=== PATIENT | male | born 1945 | race Caucasian/White ===

== ENCOUNTER → 2023-01-17 10:07 | Outpatient (BNVA) | payer MEDICARE, SELFPAY | PROVIDERS: Visit Provider Podiatrist Foot & Ankle Surgery | DX: I73.9 Peripheral vascular disease, unspecified (principal); B35.1 Tinea unguium | CPT/HCPCS: 11720; 99203 ==

== ENCOUNTER → 2023-04-04 09:14 | Outpatient (BNVA) | payer MEDICARE, SELFPAY | PROVIDERS: Visit Provider Podiatrist Foot & Ankle Surgery | DX: I73.9 Peripheral vascular disease, unspecified (principal); B35.1 Tinea unguium | CPT/HCPCS: 11721 ==

== ENCOUNTER 2025-04-03 12:50 | Inpatient (IN) | payer OTHER, MEDICARE, SELFPAY ==
[2025-04-03] VITALS (9 sets, daily range): BP systolic 109–123; BP diastolic 30–88; PULSE 93–111; RESP 14–28; TEMP 36.1–36.5; O2SAT 91–100; BMI 25.1
--- NOTE | 2025-04-03 13:00 | CT_ITS ---
WS: [id number] CT HEAD NONCONTRAST HISTORY: confusion TECHNIQUE: Contiguous axial imaging performed through the brain. Bone and soft tissue windows. Sagittal and coronal reformats reviewed. All CT scans at [facility] use at least one of these dose optimization techniques: automated exposure control; mA and/or kV adjustment per patient size (includes targeted exams where dose is matched to clinical indication); or iterative reconstruction. DLP: 2193.78 mGy.cm COMPARISON: None available. No acute intracranial hemorrhage, midline shift or mass effect. Mild cerebral and cerebellar atrophy and mild small vessel disease. Ventricles: Normal size with no hydrocephalus. No inferior displacement of the cerebellar tonsils. Paranasal sinuses: As visualized are clear. Mastoid air cells: Well pneumatized. Calvarium and scalp: Skull is intact with no soft tissue edema or swelling. CT/CT head wo con* [id number] IMPRESSION: 1. No acute intracranial hemorrhage or edema. 2. Mild cerebral atrophy and cerebellar atrophy and small vessel disease.
--- NOTE | 2025-04-03 13:00 | XR_ITS ---
WS: [id number] Exam: XR chest 1V portable [id number] Date/Time of Exam: 04/03/2025 1:02 PM Reason For Exam: confusion No previous exams. Lungs are fully expanded and clear. Cardiac enlargement. The mediastinum is normal in contour. Bony structures are intact. 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 XR/XR chest 1V portable [id number] IMPRESSION: 1. Mild cardiac enlargement. No acute process noted.
--- OUTSIDE RECORDS SUMMARY | 2025-04-03 13:04 | XMS_ITS | Clinical Summary ---
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 Active carvediloL (COREG) 12.5 mg tablet Take 12.5 mg by mouth 2 times daily. 12/02/2022 Active Farxiga 10 mg Tablet Take 10 mg by mouth daily. 12/06/2022 Active ergocalciferol (VITAMIN D2) 50,000 unit capsule TAKE 1 CAPSULE BY MOUTH 2 TIMES A WEEK 12/03/2022 Active lisinopriL (PRINIVIL) 20 mg tablet Take 20 mg by mouth daily. 12/02/2022 Active tamsulosin (FLOMAX) 0.4 mg capsule Take 0.4 mg by mouth daily. 12/06/2022 Active tadalafil (CIALIS) 10 mg tablet Take 10 mg by mouth. 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 Gender Identity Not on file Sexual Orientation Not on file Last Filed Vital Signs Vital Sign Reading Time Taken Comments Blood Pressure 138/66 12/29/2022 10:40 AM CDT Pulse - - Temperature - - Respiratory Rate - - Oxygen Saturation - - Inhaled Oxygen Concentration - - Weight 93 kg (205 lb) 12/29/2022 10:40 AM CDT Height 172.7 cm (5' 8 ) 12/29/2022 10:40 AM CDT Body Mass Index 31.17 12/29/2022 10:40 AM CDT Plan of Treatment Health Maintenance Due Date Last Done Comments PNEUMOCOCCAL VACCINE 50+ YEARS (1 of 1 - PCV) 03/17/19 97 ZOSTER VACCINE (1 of 2) 1997 DTAP/TDAP/TD VACCINES (1 - Tdap) 10/11/2007 10/10/19 08 RSV VACCINE (60+ or ) (1 - 1-dose 75+ series) 2022 INFLUENZA VACCINE (#1) [address] [place] [id number]
--- NOTE | 2025-04-03 13:09 | W.ED.GENADLT ---
HPI - General Adult General: Chief complaint: General Medical Stated complaint: confusion Time Seen by Provider: 04/03/25 12:52 Source: patient Mode of arrival: ambulatory Limitations: no limitations History of Present Illness: 80-year-old male is here from retirement they state that he does have a history of Amelia seems to be more altered at night than typical. Patient here is answering my questions appropriately he knows where he lives he knows the year and his name he has no complaints at this time. No recent illness Associated symptoms: Deny chest pain, dyspnea, headache(s), nausea, rash or vomiting Related Data Home Medications ?Medication ?Instructions ?Recorded ?Confirmed acetaminophen 325 mg tablet 650 mg PO Q6H PRN pain/temp 04/03/25 04/03/25 (Tylenol) aspirin 81 mg chewable tablet 81 mg PO QAM 04/03/25 04/03/25 bisacodyl 10 mg rectal suppository 10 mg DE DAILY PRN Constipation 04/03/25 04/03/25 (Dulcolax (bisacodyl)) bumetanide 1 mg tablet 1 mg PO DAILY 04/03/25 04/03/25 carvedilol 3.125 mg tablet 3.125 mg PO BID 04/03/25 04/03/25 cyclobenzaprine 5 mg tablet 5 mg PO TID PRN Spasms 04/03/25 04/03/25 melatonin 3 mg tablet 3 mg PO BEDTIME PRN Insomnia 04/03/25 04/03/25 polyethylene glycol 3350 17 17 g PO DAILY 04/03/25 04/03/25 gram/dose oral powder (Miralax) potassium chloride 20 mEq 20 meq PO DAILY 04/03/25 04/03/25 tablet,extended release(part/cryst) sennosides 8.6 mg tablet (senna) 17.2 mg PO BID 04/03/25 04/03/25 tamsulosin 0.4 mg capsule 0.4 mg PO DAILY 04/03/25 04/03/25 Allergies Allergy/AdvReac Type Severity Reaction Status Date / Time codeine Allergy rash Verified 04/04/23 09:24 Penicillins Allergy rash Verified 04/04/23 09:24 Review of Systems Const: Denies: fever(s), chills, body aches or change in appetite Eyes: Denies: blurry vision or eye discomfort ENMT: Denies: throat pain or dental pain Card: Denies: chest pain Resp: Denies: dyspnea GI: Denies: abdominal pain, nausea, vomiting or diarrhea : Denies: dysuria Musc: Denies: neck pain or back pain Skin/Breast: Denies: rash Neuro: Denies: headache(s) Physical Exam Const: COMMON NORMALS: no acute distress, patient oriented x3 and healthy appearing HENMT: COMMON NORMALS: normocephalic and atraumatic HEAD & SCALP: normocephalic and atraumatic Eye: COMMON NORMALS: conjunctivae normal CONJUNCTIVA: Yes conjunctivae normal Neck/C-Spine: COMMON NORMALS: full ROM and supple Chest: COMMONS NORMALS: normal inspection of the chest Resp: COMMON NORMALS: normal respiratory effort, No retractions, No use of accessory muscles and clear to auscultation bilaterally AUSCULTATION: clear to auscultation bilaterally Cardio: COMMON NORMALS: regular rate, regular rhythm and No murmurs present (Cardio) RATE: regular rate RHYTHM: regular rhythm GI: COMMON NORMALS: Normal to inspection, nondistended, normoactive bowel sounds present, Soft to palpation, non-tender and no masses PALPATION: Yes Soft to palpation Extremity: COMMON NORMALS: normal to inspection and full ROM Neuro: COMMON NORMALS: patient oriented x3, moves all extremities and no focal motor deficits MOTOR EXAM: 5/5 motor strength present throughout Psych: COMMON NORMALS: mental status grossly normal, Normal thought process present and cooperative THOUGHT PROCESS: Normal thought process present Skin: COMMON NORMALS: no rashes or lesions noted and no wounds GENERAL SKIN EXAM: no rashes or lesions noted Course Vital Signs: Vital signs: Vital Signs Temperature 97.0 F L 04/03/25 12:52 Pulse Rate 102 H 04/03/25 16:05 Respiratory Rate 28 H 04/03/25 16:05 Blood Pressure 122/79 04/03/25 16:05 Pulse Oximetry 91 04/03/25 16:05 Oxygen Delivery Me thod Room Air 04/03/25 16:05 MDM - General Adult Medical Decision Making Patient presents here with confusion he has been answering most my questions here appropriately he does have acute kidney injury elevated BUN likely from dehydration. Spoke to hospitalist will admit at this time. Medical Records I reviewed the patient's medical records. Lab Data I reviewed the patient's lab results. 04/03/25 14:04 04/03/25 14:04 Radiology Impressions Chest X-Ray 04/03/25 13:00 IMPRESSION: 1. Mild cardiac enlargement. No acute process noted. Head CT 04/03/25 13:00 IMPRESSION: 1. No acute intracranial hemorrhage or edema. 2. Mild cerebral atrophy and cerebellar atrophy and small vessel disease. Laboratory Results WBC 8.27 10^3/uL (3.29-11.43) 04/03/25 14:04 RBC 3.91 10^6/uL (3.85-5.65) 04/03/25 14:04 Hgb 12.10 g/dL (11.27-16.99) 04/03/25 14:04 Hct 37.5 % (37-53) 04/03/25 14:04 MCV 95.9 fl (82-101) 04/03/25 14:04 MCH 30.9 pg (27-33) 04/03/25 14:04 MCHC 32.3 g/dL (30-55) 04/03/25 14:04 RDW 12.9 % (12.1-15.1) 04/03/25 14:04 Plt Count 303 10^3/cmm (157-399) 04/03/25 14:04 MPV 10.4 fL (7.4-10.4) 04/03/25 14:04 Neut % (Auto) 75.2 % 04/03/25 14:04 Lymph % (Auto) 17.3 % 04/03/25 14:04 [place] % (Auto) 5.8 % 04/03/25 14:04 Eos % (Auto) 1.1 % 04/03/25 14:04 Baso % (Auto) 0.5 % 04/03/25 14:04 Neut # (Auto) 6.22 10^3/uL (1.8-7.7) 04/03/25 14:04 Lymph # (Auto) 1.4 10^3/uL (0.8-4.8) 04/03/25 14:04 [place] # (Auto) 0.5 10^3/uL (0.2-0.9) 04/03/25 14:04 Eos # (Auto) 0.1 10^3/uL (0.0-0.8) 04/03/25 14:04 Baso # (Auto) 0.0 10^3/uL (0.0-0.1) 04/03/25 14:04 Nucleated RBC % (auto) 0.2 % 04/03/25 14:04 Nucleated RBCs # 0.0 /100WBC 04/03/25 14:04 Specimen Type Arterial 04/03/25 15:58 Sample Site Brachial, left 04/03/25 15:58 ABG pH 7.46 (7.35-7.45) H 04/03/25 15:58 ABG pCO2 19.8 mmHg (35-45) L* 04/03/25 15:58 ABG pO2 103.0 mmHg (80.0-100.0) H 04/03/25 15:58 ABG PO2/FiO2 Ratio 490 04/03/25 15:58 ABG HCO3 14.0 mmol/L (22-26) L 04/03/25 15:58 ABG Base Excess -7.8 mmol/L (-2.0-2.0) L 04/03/25 15:58 Bi Test Pos 04/03/25 15:58 Hematocrit 36.2 % (42-52) L 04/03/25 15:58 O2 Delivery Device Room air 04/03/25 15:58 FiO2 21.0 % 04/03/25 15:58 Printer Repair Technician ID [place] 04/03/25 15:58 Sodium 140 mmol/L (136-145) 04/03/25 14:04 Potassium 5.5 mmol/L (3.5-5.1) H 04/03/25 14:04 Chloride 107 mmol/L (98-107) 04/03/25 14:04 Carbon Dioxide 14 mmol/L (22-29) L 04/03/25 14:04 Anion Gap 24.5 (5-19) H 04/03/25 14:04 BUN 89 mg/dL (8-23) H* 04/03/25 14:04 Creatinine 2.5 mg/dL (0.7-1.2) H 04/03/25 14:04 GFR Calculation Not Reportable 04/03/25 14:04 Glucose 136 mg/dL (65-115) H 04/03/25 14:04 POC Glucose 136 mg/dL (70-110) H 04/03/25 15:46 Calculated Osmolality 319 mOsm/kg (285-295) H 04/03/25 14:04 Lactic Acid 2.1 mmol/L (0.5-2.2) 04/03/25 14:04 Calcium 8.9 mg/dL (8.5-10.5) 04/03/25 14:04 Total Bilirubin 0.6 mg/dL (0.15-1.2) 04/03/25 14:04 AST 126 U/L (0-40) H 04/03/25 14:04 ALT 175 U/L (0-41) H 04/03/25 14:04 Alkaline Phosphatase 199 U/L (40-130) H 04/03/25 14:04 Troponin T Baseline 140 ng/L (0-15) H* 04/03/25 14:04 Total Protein 6.5 g/dL (6.6-8.7) L 04/03/25 14:04 Albumin 3.3 g/dL (3.5-5.2) L 04/03/25 14:04 Globulin 3.2 g/dL (1.3-4.6) 04/03/25 14:04 Procalcitonin 0.17 ng/mL (0-0.5) 04/03/25 14:04 Urine Color Yellow (Yellow) 04/03/25 13:30 Urine Appearance Clear (CLEAR) 04/03/25 13:30 Urine pH 5.0 (5-7) 04/03/25 13:30 Ur Specific [place] 1.018 (1.005-1.030) 04/03/25 13:30 Urine Protein 2+ (Negative) A 04/03/25 13:30 Urine Glucose (UA) Trace (Normal) H 04/03/25 13:30 Urine Ketones Negative (Negative) 04/03/25 13:30 Urine Blood Negative (Negative) 04/03/25 13:30 Urine Nitrate Negative (Negative) 04/03/25 13:30 Urine Bilirubin Negative (Negative) 04/03/25 13:30 Urine Urobilinogen 1.0 mg/dL (Negative) 04/03/25 13:30 Ur Leukocyte Esterase Negative (Negative) 04/03/25 13:30 Urine RBC 0-2 /hpf (0-2) 04/03/25 13:30 Urine WBC 0-5 /hpf (0-5) 04/03/25 13:30 Ur Squamous Epith Cells 0-5 /hpf (0-5) 04/03/25 13:30 Amorphous Sediment Not Reportable 04/03/25 13:30 Urine Bacteria None seen /hpf (NONE) 04/03/25 13:30 Hyaline Casts 10.73 /lpf 04/03/25 13:30 All radiology interpretation(s) finalized by discharge EKG Data EKG 1: I personally reviewed and interpreted this EKG as follows: EKG interpretation date: 04/03/25 EKG interpretation time: 13:58 Computer generated interpretation: Chest X-Ray 04/03/25 13:00 IMPRESSION: 1. Mild cardiac enlargement. No acute process noted. Head CT 04/03/25 13:00 IMPRESSION: 1. No acute intracranial hemorrhage or edema. 2. Mild cerebral atrophy and cerebellar atrophy and small vessel disease. 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
--- NOTE | 2025-04-03 13:58 | ECG_ITS ---
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 Measurements Intervals [place] Rate: 100 P: 0 [place]: 0 QRS: -76 QRSD: 134 T: 83 QT: 373 QTc: 483 Interpretive Statements ATRIAL FIBRILLATION WITH RAPID VENTRICULAR RESPONSE WITH ABERRANT CONDUCTION OR VENTRICULAR PREMATURE COMPLEXES LEFT AXIS DEVIATION [QRS AXIS < -30] INTRAVENTRICULAR CONDUCTION DELAY [130+ ms QRS DURATION] No previous ECG available for comparison Electronically Signed On 04-11-2025 09:27:58 CDT by Tigre Peña M.D. [id number]
[2025-04-03 13:59] LABS: Glucose Urine UA Trace (Normal); Nitrate Urine Negative (Negative); Specific Gravity, Urine 1.018 (1.005-1.030)
[2025-04-03 14:01] LABS: Add Urine Microscopic? YES
[2025-04-03 14:02] LABS: UA Slide Review UA Slide Review Perf
[2025-04-03 14:09] LABS: Hematocrit 37.5 % (37-53); Hemoglobin 12.10 g/dL (11.27-16.99); Mean Corpuscular HGB Conc 32.3 g/dL (30-55); Mean Corpuscular Hemoglobin 30.9 pg (27-33); Mean Corpuscular Volume 95.9 fl (82-101); Nucleated Red Blood Cells % 0.2 %; Platelet Count 303 10^3/cmm (157-399); Red Blood Count 3.91 10^6/uL (3.85-5.65); White Blood Count 8.27 10^3/uL (3.29-11.43)
[2025-04-03 14:34] LABS: Alanine Aminotransferase 175 U/L (0-41); Albumin Level 3.3 g/dL (3.5-5.2); Alkaline Phosphatase 199 U/L (40-130); Anion Gap 24.5 (5-19); Aspartate Amino Transferase 126 U/L (0-40); Calcium 8.9 mg/dL (8.5-10.5); Carbon Dioxide 14 mmol/L (22-29); Chloride 107 mmol/L (98-107); Creatinine Clr Calc Pharmacy 24.6976; Globulin 3.2 g/dL (1.3-4.6); Glucose 136 mg/dL (65-115); Osmolality Calculated 319 mOsm/kg (285-295); Potassium 5.5 mmol/L (3.5-5.1); Sodium 140 mmol/L (136-145); Total Protein 6.5 g/dL (6.6-8.7)
[2025-04-03 14:37] LABS: Blood Urea Nitrogen 89 mg/dL (8-23)
--- NOTE | 2025-04-03 15:24 | CTR_ITS ---
PROCEDURE INFORMATION: Exam: CT Chest Without Contrast; Diagnostic Exam date and time: 04/03/2025 4:24 PM Age: 80 years old Clinical indication: Abdominal pain; Generalized; On breathing; Additional info: Uremia, encephalopathy, TECHNIQUE: Imaging protocol: Diagnostic computed tomography of the chest without contrast. Radiation optimization: All CT scans at this facility use at least one of these dose optimization techniques: automated exposure control; mA and/or kV adjustment per patient size (includes targeted exams where dose is matched to clinical indication); or iterative reconstruction. COMPARISON: CR XR chest 1V portable [id number] 04/03/2025 1:01 PM RADIATION DOSE METRICS: Total DLP (mGy-cm): 754.08 FINDINGS: Lungs: Mild bilateral lower lobe atelectasis particularly along the pleural effusions. Mild interlobular septal thickening seen at the lung apices. Pleural spaces: Moderate bilateral pleural effusions layer posteriorly. Heart: Moderate cardiomegaly. Lymph nodes: Unremarkable. No enlarged lymph nodes. Vasculature: Main pulmonary artery is enlarged measuring 3.5 cm in caliber consistent with pulmonary hypertension. Bones/joints: Unremarkable. No acute fracture. Soft tissues: Unremarkable. PROCEDURE INFORMATION: Exam: CT Abdomen And Pelvis Without Contrast Exam date and time: 04/03/2025 4:24 PM Age: 80 years old Clinical indication: Abdominal pain; Generalized; On breathing; Additional info: Uremia, encephalopathy, TECHNIQUE: Imaging protocol: Computed tomography of the abdomen and pelvis without contrast. Radiation optimization: All CT scans at this facility use at least one of these dose optimization techniques: automated exposure control; mA and/or kV adjustment per patient size (includes targeted exams where dose is matched to clinical indication); or iterative reconstruction. COMPARISON: CR XR chest 1V portable [id number] 04/03/2025 1:01 PM RADIATION DOSE METRICS: Total DLP (mGy-cm): 754.08 FINDINGS: Liver: Normal. No mass. Gallbladder and biliary ducts: There is layering gallstones or gallbladder sludge. The gallbladder is not enlarged. Pancreas: Fat stranding is seen in the right upper quadrant adjacent to the main portal vein, gallbladder, and pancreatic head and also in the left mesentery. Spleen: Normal. No splenomegaly. Adrenal glands: Normal. No mass. Kidneys and ureters: Multiple cysts are seen in the right kidney, measuring up to 7.5 cm in greatest dimension. No hydronephrosis. What appear to be vascular calcifications are seen in the right renal sinus. Small left renal cyst. Stomach and bowel: Unremarkable. No obstruction. No mucosal thickening. Appendix: No evidence of appendicitis. Intraperitoneal space: Unremarkable. No free air. No significant fluid collection. Vasculature: See Pancreas finding. Lymph nodes: Unremarkable. No enlarged lymph nodes. Urinary bladder: Unremarkable as visualized. Reproductive: Unremarkable as visualized. Bones/joints: Unremarkable. No acute fracture. Soft tissues: Unremarkable. CT/[place] [id number] IMPRESSION: 1. Moderate layering pleural effusions bilaterally. Mild lower lobe atelectasis. 2. Moderate cardiomegaly with pulmonary hypertension. IMPRESSION: 1. Layering gallstones or gallbladder sludge. 2. Nonspecific fat stranding in the upper abdomen as described. Consider correlation with amylase and lipase given possibility of pancreatitis. 3. Multiple renal cysts particularly in the right kidney. COMMENTS: Consistent with the [employer]'s Incidental Findings Committee white paper (J Am Clarence Radiol 2018): Any incidental renal lesion less than 1 cm or classified as too small to characterize, or any incidental cystic renal lesion characterized as simple-appearing, is likely benign. No follow-up imaging is recommended for these lesions per consensus recommendations based on imaging criteria.
--- NOTE | 2025-04-03 15:47 | PM.HP ---
Providers/Chief Complaint Chief Complaint: confusion History of Present Illness Edward Ross is a 80 year old male with a past medical history peripheral arterial disease, bph who presents [facility] for altered mental status. Currently patient is alert to person, not to place, not to time he can answer basic yes or no questions, but is globally encephalopathic, knows his name, but does not know his birthdate, does not know where he is, I spoke to [facility] assisted and is he tells me that Edward is fairly cognitively intact, he is alert oriented x 3, he is very sharp and they tell me, he can carry conversations, he does have chronic back pain, he is a 1 person assist, he can feed himself, for the last 2 days, he has had increased episodes of confusion, especially during the night, he has had episodes of confusion, they were worried potentially could be PTSD, he has had no specific complaints except his chronic back pain for which she does not use any pain medications, no recent medication changes, no known falls, he has been eating appropriately, I was unable to get much history from Edward he denies any chest pain, no abdominal pain, no shortness of breath, GCS score is 10-12 Review of Systems General: Reports: ROS unobtainable due to mental status Const: Reports: chills; Denies: fever(s) Card: Denies: chest pain Medications/Allergies Home Medications ?Medication ?Instructions ?Recorded ?Confirmed ?Last Taken ?Type acetaminophen 325 mg tablet 650 mg PO Q6H PRN pain/temp 04/03/25 04/03/25 04/03/25 History (Tylenol) aspirin 81 mg chewable tablet 81 mg PO QAM 04/03/25 04/03/25 04/03/25 History bisacodyl 10 mg rectal suppository 10 mg RI DAILY PRN Constipation 04/03/25 04/03/25 Unknown History (Dulcolax (bisacodyl)) bumetanide 1 mg tablet 1 mg PO DAILY 04/03/25 04/03/25 04/03/25 History carvedilol 3.125 mg tablet 3.125 mg PO BID 04/03/25 04/03/25 04/03/25 History cyclobenzaprine 5 mg tablet 5 mg PO TID PRN Spasms 04/03/25 04/03/25 04/03/25 History melatonin 3 mg tablet 3 mg PO BEDTIME PRN Insomnia 04/03/25 04/03/25 04/02/25 History polyethylene glycol 3350 17 17 g PO DAILY 04/03/25 04/03/25 04/03/25 History gram/dose oral powder (Miralax) potassium chloride 20 mEq 20 meq PO DAILY 04/03/25 04/03/25 04/03/25 History tablet,extended release(part/cryst) sennosides 8.6 mg tablet (senna) 17.2 mg PO BID 04/03/25 04/03/25 04/03/25 History tamsulosin 0.4 mg capsule 0.4 mg PO DAILY 04/03/25 04/03/25 04/03/25 History Allergies Allergy/AdvReac Type Severity Reaction Status Date / Time codeine Allergy rash Verified 04/04/23 09:24 Penicillins Allergy rash Verified 04/04/23 09:24 Vitals/I&O/Wt Last Vital Signs Temp 97.0 F L 04/03/25 12:52 Pulse 108 H 04/03/25 14:25 Resp 20 H 04/03/25 14:25 BP 119/80 04/03/25 14:25 Pulse Ox 95 04/03/25 14:25 Weight last 48 hrs Weight 76.657 kg Physical Exam Const: COMMON NORMALS: no acute distress EXAM LIMITATIONS: altered mental status GENERAL APPEARANCE: ill appearing and frail appearing ORIENTATION/CONSCIOUSNESS: Yes awake, Yes oriented to person and Yes confused; not oriented to place and not oriented to time HENMT: COMMON NORMALS: normocephalic HEAD & SCALP: normocephalic Eye: COMMON NORMALS: Equal, round and reactive pupils present Neck/C-Spine: COMMON NORMALS: no JVD Resp: COMMON NORMALS: normal respiratory effort, No retractions, No use of accessory muscles and clear to auscultation bilaterally AUSCULTATION: clear to auscultation bilaterally Cardio: COMMON NORMALS: no JVD, regular rate, regular rhythm, S1 normal heart sound present and S2 normal heart sound present RATE: regular rate RHYTHM: regular rhythm HEART SOUNDS: S1 normal heart sound present and S2 normal heart sound present GI: COMMON NORMALS: Normal to inspection, nondistended, normoactive bowel sounds present, Soft to palpation and non-tender Extremity: COMMON NORMALS: no calf tenderness Neuro: OTHER: Moves bilateral upper and lower extremities, withdraws from pain, does not follow commands, diffusely encephalopathic GCS score 12 Data 04/03/25 14:04 04/03/25 14:04 A&P Assessment and plan (1) Acute encephalopathy: (2) Hyperkalemia: (3) Increased anion gap metabolic acidosis: (4) Transaminitis: (5) Uremia: (6) Acute kidney injury: Plan Acute encephalopathy -Etiology unclear - Component of uremia - Head CT no acute findings - No focal neurologic deficits, is globally encephalopathic - Ammonia levels - UA within normal limits - Chest x-ray no focal pneumonia, will order CT chest - Order inflammatory markers - Neurochecks - NIH stroke scale - Monitor mentation Increased anion gap metabolic acidosis - Check ketones - Check A1c - Lactic acid - Perhaps secondary to dehydration, acute kidney injury, IV fluids bicarb drip NSTEMI - Serial EKGs, serial troponins, telemetry monitoring - Heparin drip - Cardiac echo Acute kidney injury - Creatinine 2.5 - CT abdomen - Start bicarb drip - CPK Hyperkalemia - Calcium gluconate - Insulin, D10 - Repeat BMP this evening Uremia - Secondary to JOAO - Hemoglobin within normal limits - Monitor closely Transaminitis - Will order lipase, GGT, CT abdomen - Acute hep panel, HIV, ferritin Full code Lovenox for DVT prophylaxis PDMP PDMP Reviewed: Not Reviewed Attestations Medical Necessity Statement*: Patient requires hospitalization, inpatient, greater than 2 midnights for acute encephalopathy, increased anion gap and metabolic acidosis, JOAO, hyperkalemia, transaminitis, uremia, NSTEMI Diagnoses Acute encephalopathy G93.40 Hyperkalemia E87.5 Increased anion gap metabolic acidosis E87.29 Transaminitis R74.01 Uremia N19 Acute kidney injury N17.9
[2025-04-03] MEDS: calcium gluconate 0.1 gm/mL 10% SDV 10mL 1 GM IVP (15:58)
[2025-04-03 16:01] LABS: Lactic Sepsis W/Reflex 2.1 mmol/L (0.5-2.2)
--- NOTE | 2025-04-03 16:02 | ECG_ITS ---
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 Measurements Intervals [place] Rate: 99 P: 0 [place]: 0 QRS: 267 QRSD: 132 T: 93 QT: 396 QTc: 508 Interpretive Statements ATRIAL FIBRILLATION WITH ABERRANT CONDUCTION OR VENTRICULAR PREMATURE COMPLEXES RIGHT AXIS DEVIATION [QRS AXIS > 100] INTRAVENTRICULAR CONDUCTION DELAY [130+ ms QRS DURATION] Compared to ECG 04/03/2025 13:58:01 Right-axis deviation now present Left-axis deviation no longer present Electronically Signed On 04-11-2025 09:27:39 CDT by Tigre Peña M.D. [email or web address]
[2025-04-03 16:03] LABS: Troponin(5th) Baseline 140 ng/L (0-15)
[2025-04-03] MEDS: pantoprazole 40 mg SDV IVP (16:04)
--- NOTE | 2025-04-03 16:07 | USCV_ITS ---
Edward Ross Age: 80 Gender: M : 1945 Exam Date: 04/03/2025 18:49 Ordering Phys: Kenny Sin MD Technologist: Efraín Cerna [place] [facility] [place]: Altered mental status, nstemit, history PAD BP: 123 / 78 HR: 85 Rhythm: Atrial fibrillation Technical Quality: Adequate MEASUREMENTS (Male / Female) Normal Values 2D ECHO LV Diastolic Diameter PLAX 5.5 cm 4.2 - 5.9 / 3.9 - 5.3 cm IVS Diastolic Thickness 1.7 cm 0.6 - 1.0 / 0.6 - 0.9 cm IVS Systolic Thickness 1.8 cm LVPW Diastolic Thickness 1.2 cm 0.6 - 1.0 / 0.6 - 0.9 cm LVPW Systolic Thickness 1.5 cm LVOT Diameter 2.4 cm LV Ejection Fraction 2D Teich 10.8 % LV Ejection Fraction MOD 4C 28.0 % LV Ejection Fraction MOD 2C 25.1 % LV Ejection Fraction 2C AL 24.7 % LA Diameter 6.2 cm LA Sys Volume AL 132.3 cm cubed LA Sys Volume Index AL 68.6 cm cubed/m squared Aorta at Sinotubular Diameter 3.0 cm IVC Diameter 2.8 cm M-MODE LA Ao Ratio MM 2.2 AV Cusp Separation MM 2.3 cm DOPPLER AV Peak Velocity 64.0 cm/s LVOT Peak Velocity 31.0 cm/s AV Area Cont Eq vti 2.2 cm squared AV Area Cont Eq pk 2.2 cm squared MV Peak Velocity 108.0 cm/s MV Area PHT 2.6 cm squared Mitral E to A Ratio 0.0 TV Peak Velocity 267.0 cm/s TR Peak Velocity 312.0 cm/s TR Peak Gradient 38.9 mmHg TV Peak E Velocity 61.0 cm/s PV Peak Velocity 64.0 cm/s FINDINGS Left Ventricle Left ventricle is dilated. LV systolic function is severely reduced with EF of 20-25%. Severe global hypokinesis. Moderate left ventricular hypertrophy. Right Ventricle Moderate to severe hypokinesis Right Atrium Dilated Left Atrium Dilated Mitral Valve Structurally normal mitral valve. Mild mitral regurgitation Aortic Valve Aortic valve is thickened. Mild to moderate aortic regurgitation. No significant stenosis Tricuspid Valve Mild tricuspid regurgitation. RVSP is 35-40 mmHg. This is consistent with moderate pulmonary hypertension Pulmonic Valve Moderate pulmonic regurgitation. Pericardium Pleural effusion seen Aorta Normal in size IVC Appears to be dilated CONCLUSIONS Left ventricle is dilated. LV systolic function is severely reduced with EF of 20-25%. Moderate left ventricular hypertrophy. Biatrial enlargement. Mild mitral regurgitation. Mild to moderate aortic regurgitation Mild tricuspid regurgitation Moderate pulmonary hypertension Moderate pulmonic regurgitation Pleural effusion seen IVC is dilated No comparison studies are seen. Tigre Peña MD (Electronically Signed) Final Date: 04 April 2025 12:31 S
[2025-04-03 16:11] LABS: Procalcitonin 0.17 ng/mL (0-0.5)
[2025-04-03 16:11] LABS: ABG PCO2 19.8 mmHg (35-45); ABG PH Result 7.46 (7.35-7.45); Arterial Blood Gas Hematocrit 36.2 % (42-52); Blood Gas Allen Test Pos; Blood Gas Operator Identificat MONRO; Blood Gas Sample Site Brachial, left; Blood Gas Sample Type Arterial; HCO3 ABG 14.0 mmol/L (22-26); PO2 ABG 103.0 mmHg (80.0-100.0); PO2 FiO2 Ratio Arterial Blood 490
[2025-04-03 16:24] LABS: Lipase 27 U/L (13-60)
[2025-04-03 16:34] LABS: Ketone (Acetest) Serum Negative (Negative)
[2025-04-03 16:36] LABS: Troponin 5 2HR Delta -12.6 ABS# (0-10)
[2025-04-03 16:37] LABS: Troponin 5 2HR 127.4 ng/L (0-15)
[2025-04-03] MEDS: insulin regular-human 100 units/1 mL 10 UNIT IVP (16:38)
[2025-04-03 16:45] LABS: NT Pro B Type Natriuretic Pept > 70000 pg/mL (0-450)
[2025-04-03 16:45] LABS: Ammonia 46 umol/L (16-60)
[2025-04-03 16:56] LABS: Thyroid Stimulating Hormone 1.38 uIU/mL (0.27-4.20)
[2025-04-03 17:09] LABS: Estmated Average Glucose 134; Hemoglobin A1C 6.3 % (4.0-6.0)
[2025-04-03 17:17] LABS: Reflex Lactate Order REFLEX LACTIC ORDERD
--- NOTE | 2025-04-03 17:20 | ECG_ITS ---
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 Measurements Intervals [place] Rate: 100 P: 0 NC: 0 QRS: -76 QRSD: 130 T: 111 QT: 374 QTc: 483 Interpretive Statements ATRIAL FIBRILLATION WITH RAPID VENTRICULAR RESPONSE WITH ABERRANT CONDUCTION OR VENTRICULAR PREMATURE COMPLEXES LEFT AXIS DEVIATION [QRS AXIS < -30] MODERATE INTRAVENTRICULAR CONDUCTION DELAY [110+ ms QRS DURATION] MINIMAL ST DEPRESSION [0.025+ mV ST DEPRESSION] ABNORMAL QRS-T ANGLE [QRS-T AXIS DIFFERENCE > 60] Compared to ECG 04/03/2025 16:02:20 Left-axis deviation now present ST (T wave) deviation now present Right-axis deviation no longer present Electronically Signed On 04-11-2025 09:44:55 CDT by Tigre Peña M.D. [email or web address] [id number]
[2025-04-03] MEDS: heparin drip 25,000 UNIT/500 ML PREMIX 32.2 UNIT IV (17:37)
[2025-04-03] MEDS: heparin 5,000 unit/mL INJ 1 mL IVP (17:37)
[2025-04-03 17:50] LABS: Lactic Acid level (Lactate) 2.5 mmol/L (0.5-2.2)
[2025-04-03 20:30] LABS: Troponin 5 6HR Delta -11.9 ng/L (0-12)
[2025-04-03 20:32] LABS: Troponin 5 6HR 128.1 ng/L (0-15)
--- NOTE | 2025-04-03 21:31 | ECG_ITS ---
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 Measurements Intervals [place] Rate: 102 P: 0 DC: 0 QRS: 265 QRSD: 130 T: 91 QT: 396 QTc: 518 Interpretive Statements ATRIAL FIBRILLATION WITH RAPID VENTRICULAR RESPONSE RIGHT AXIS DEVIATION [QRS AXIS > 100] MODERATE INTRAVENTRICULAR CONDUCTION DELAY [110+ ms QRS DURATION] Compared to ECG 04/03/2025 17:32:02 Right-axis deviation now present Ventricular premature complex(es) no longer present Aberrant conduction of supraventricular beat(s) no longer present Left-axis deviation no longer present ST (T wave) deviation no longer present Electronically Signed On 04-11-2025 09:44:49 CDT by Tigre Peña M.D. [id number] [id number]
[2025-04-03 22:09] LABS: Anion Gap 22.8 (5-19); Calcium 8.6 mg/dL (8.5-10.5); Carbon Dioxide 15 mmol/L (22-29); Chloride 106 mmol/L (98-107); Creatinine Clr Calc Pharmacy 24.6976; Glucose 90 mg/dL (65-115); Osmolality Calculated 313 mOsm/kg (285-295); Potassium 4.8 mmol/L (3.5-5.1); Sodium 139 mmol/L (136-145)
[2025-04-03 22:11] LABS: Blood Urea Nitrogen 85 mg/dL (8-23)
[2025-04-04] VITALS (47 sets, daily range): BP systolic 84–138; BP diastolic 66–83; PULSE 67–127; RESP 3–41; TEMP 36.3–36.5; O2SAT 88–100
[2025-04-04 00:01] LABS: Partial Thromboplastin Time 125.9 SECONDS (23.9-36.7)
--- NOTE | 2025-04-04 00:07 | PC.NURSE ---
Notified Dr. Tapia that patient has been having hallucinations and that mentation has been waxing and weaning. Received orders to start zyprexa 2.5 mg PO at bedtime.
[2025-04-04] MEDS: pantoprazole 40 mg SDV IVP ×2 (05:22→16:57)
[2025-04-04 06:46] LABS: Hematocrit 35.8 % (37-53); Hemoglobin 11.40 g/dL (11.27-16.99); Mean Corpuscular HGB Conc 31.8 g/dL (30-55); Mean Corpuscular Hemoglobin 30.9 pg (27-33); Mean Corpuscular Volume 97.0 fl (82-101); Nucleated Red Blood Cells % 0.3 %; Platelet Count 274 10^3/cmm (157-399); Red Blood Count 3.69 10^6/uL (3.85-5.65); White Blood Count 5.81 10^3/uL (3.29-11.43)
[2025-04-04 07:04] LABS: Alanine Aminotransferase 166 U/L (0-41); Albumin Level 2.8 g/dL (3.5-5.2); Alkaline Phosphatase 201 U/L (40-130); Anion Gap 23.4 (5-19); Aspartate Amino Transferase 84 U/L (0-40); Calcium 8.4 mg/dL (8.5-10.5); Carbon Dioxide 14 mmol/L (22-29); Chloride 105 mmol/L (98-107); Creatinine Clr Calc Pharmacy 27.4299; Globulin 2.9 g/dL (1.3-4.6); Glucose 81 mg/dL (65-115); Magnesium 1.9 mg/dL (1.7-2.3); Osmolality Calculated 309 mOsm/kg (285-295); Potassium 4.4 mmol/L (3.5-5.1); Sodium 138 mmol/L (136-145); Total Protein 5.7 g/dL (6.6-8.7)
[2025-04-04 07:38] LABS: Blood Urea Nitrogen 81 mg/dL (8-23); Partial Thromboplastin Time > 250.0 SECONDS (23.9-36.7)
[2025-04-04] MEDS: cefTRIAXone 1,000 mg SDV 1000 MG IVP (08:33)
[2025-04-04] MEDS: AZITHROMYCIN ADD-Vantage 500 MG in 0.9% NaCl ADD-Vantage 250 ML 250 MG IV (08:34)
[2025-04-04 09:44] LABS: ABG PH Result 7.44 (7.35-7.45); Alveolar-Arterial Oxygen Gradi 6.3 mmHg (5-10); Arterial Blood Gas Hematocrit 37.9 % (42-52); Blood Gas Allen Test Pos; Blood Gas LPM 2.0 %; Blood Gas Operator Identificat GD; Blood Gas Sample Site Radial, right; Blood Gas Sample Type Arterial; Carboxyhemoglobin 1.7 %THgb (0.4-20.1); Glucose Level-ABG 161.0 mg/dL (70-115); HCO3 ABG 11.7 mmol/L (22-26); Ionized Calcium Level - ABG 1.1 mmol/L (1.1-1.4); Methemoglobin 1.5 % (0.4-1.5); Oxygen Saturation ABG 99.0; PO2 ABG 127.0 mmHg (80.0-100.0); PO2 FiO2 Ratio Arterial Blood 453; Potassium Level - ABG 5.0 mmol/L (3.5-5.0); Sodium Level - ABG 135.0 mmol/L (131-143)
[2025-04-04] MEDS: FUROsemide 10 mg/mL SDV 4mL 40 MG IVP (09:49)
--- NOTE | 2025-04-04 10:01 | US_ITS ---
WS: [id number] RENAL ULTRASOUND HISTORY: jackie COMPARISON: CT 04/03/2025 TECHNIQUE: 2-D and color Doppler imaging of the kidney submitted. Right kidney: 10.3 cm x 4.9 cm x 4.9 cm. Cortex: 1.1 cm Normal sized kidneys with numerous cysts. Largest cyst from the lower pole measures 6.3 x 5.4 x 7.0 cm. No obstruction. Mild cortical thinning and increased echogenicity. Left kidney: 9.0 cm x 5.2 cm x 4.9 cm. Cortex: 1.0 cm Low normal size kidney. Mild diffuse cortical thinning. No obstruction. Aorta: Not visualized. Urinary Bladder: Sullivan catheter present. US/US renal BI* [id number] IMPRESSION: 1. No renal obstruction. 2. Numerous RIGHT renal cysts. The largest measures 6.3 x 5.4 x 7.0 cm. 3. Mild bilateral diffuse cortical thinning. 4. Mild chronic medical renal disease.
--- NOTE | 2025-04-04 10:19 | XR_ITS ---
WS: [id number] Exam: XR chest 1V portable [id number] Date/Time of Exam: 04/04/2025 11:05 AM Reason For Exam: Post PICC insertion Comparison 04/03/2025. A right-sided PICC line has been placed and ends in the lower one third of the SVC in good position. The lungs are fully expanded and clear. Cardiac enlargement unchanged. No pleural effusions. Unremarkable bony structures. XR/XR chest 1V portable [id number] IMPRESSION: 1. Right-sided PICC line ending in the lower one third of the SVC. 2. Cardiac enlargement unchanged.
[2025-04-04 10:25] LABS: ABG PCO2 17.1 mmHg (35-45)
--- NOTE | 2025-04-04 10:31 | PM.CONSULT ---
Providers/Reason For Consult Consulting Physician/Specialty*: minerva fontenot md/ telenephrology Reason for Consult*: JOAO Requesting Physician: Kenny Sin MD Attending Physician: Kenny Sin MD History of Present Illness History of Present Illness Edward Ross is a 80 year old male admitted yesterday with altered mental status. The patient was also found to have acute kidney injury. The patient was given fluids. This morning the patient developed hypoxemia requires BiPAP and renal was called to see the patient. The patient was started on ceftriaxone and azithromycin. Per chart the [facility] is a [facility] has peripheral arterial disease and BPH. The patient also has known foot issues for which she saw a dip unit operator 3 years ago. Review of Systems Narrative: Unable to ascertain due to poor mental status. Medications/Allergies Home Medications ?Medication ?Instructions ?Recorded ?Confirmed ?Last Taken ?Type acetaminophen 325 mg tablet 650 mg PO Q6H PRN pain/temp 04/03/25 04/03/25 04/03/25 History (Tylenol) aspirin 81 mg chewable tablet 81 mg PO QAM 04/03/25 04/03/25 04/03/25 History bisacodyl 10 mg rectal suppository 10 mg RI DAILY PRN Constipation 04/03/25 04/03/25 Unknown History (Dulcolax (bisacodyl)) bumetanide 1 mg tablet 1 mg PO DAILY 04/03/25 04/03/25 04/03/25 History carvedilol 3.125 mg tablet 3.125 mg PO BID 04/03/25 04/03/25 04/03/25 History cyclobenzaprine 5 mg tablet 5 mg PO TID PRN Spasms 04/03/25 04/03/25 04/03/25 History melatonin 3 mg tablet 3 mg PO BEDTIME PRN Insomnia 04/03/25 04/03/25 04/02/25 History polyethylene glycol 3350 17 17 g PO DAILY 04/03/25 04/03/25 04/03/25 History gram/dose oral powder (Miralax) potassium chloride 20 mEq 20 meq PO DAILY 04/03/25 04/03/25 04/03/25 History tablet,extended release(part/cryst) sennosides 8.6 mg tablet (senna) 17.2 mg PO BID 04/03/25 04/03/25 04/03/25 History tamsulosin 0.4 mg capsule 0.4 mg PO DAILY 04/03/25 04/03/25 04/03/25 History Allergies Allergy/AdvReac Type Severity Reaction Status Date / Time codeine Allergy rash Verified 04/04/23 09:24 Penicillins Allergy rash Verified 04/04/23 09:24 Current Medications Generic Name Dose Route Start Last Admin Trade Name Frelolis PRN Reason Stop Dose Admin Acetaminophen 650 mg 04/03/25 15:35 04/04/25 08:33 Acetaminophen 325 Mg Tablet PO 650 mg Q6H PRN Administration Mild/Mod Pain Or Temp >/= 101 Aspirin 81 mg 04/03/25 16:10 04/04/25 08:33 Aspirin 81 Mg Ec Tablet PO 81 mg DAILY GISELA Administration Ceftriaxone Sodium 1,000 mg 04/04/25 08:15 04/04/25 08:33 Ceftriaxone 1,000 Mg Sdv IVP 1,000 mg Q24H GISELA Administration Protocol Heparin Sodium/Sodium Chloride 25,000 unit in 500 mls @ 0 mls/hr 04/03/25 16:15 04/04/25 00:27 Heparin Drip IV 10.44 unit/kg/hr CONT GISELA 16 mls/hr Protocol Titration Per Protocol Amiodarone HCl/Dextrose 360 mg in 200 mls @ 0 mls/hr 04/04/25 08:10 04/04/25 09:50 Nexterone IV 1 mg/min .Q0M GISELA 33.33 mls/hr Protocol Administration Per Protocol Azithromycin 500 mg/ Sodium 250 mls @ 250 mls/hr 04/04/25 08:15 04/04/25 08:34 Chloride IV 250 mls/hr Q24H GISELA Administration Protocol Olanzapine 2.5 mg 04/04/25 00:31 04/04/25 01:34 Olanzapine 5 Mg Tablet PO 2.5 mg BEDTIME GISELA Administration Pantoprazole Sodium 40 mg 04/03/25 15:45 04/04/25 05:22 Pantoprazole 40 Mg Sdv IVP 40 mg Q12H GISELA Administration Vitals/I&O/Wt Last Vital Signs Temp 97.7 F 04/04/25 02:28 Pulse 115 H 04/04/25 09:41 Resp 18 04/04/25 06:00 BP 138/80 04/04/25 06:00 Pulse Ox 99 04/04/25 09:41 O2 Del Method Room Air 04/04/25 05:27 FiO2 30 04/04/25 09:41 04/03/25 04/04/25 04/04/25 22:59 06:59 14:59 Intake Total 250 / 250 2270.033 / 2520.033 Output Total 100 / 100 150 / 250 Balance 150 / 150 2120.033 / 2270.033 Weight last 48 hrs Weight 77.111 kg Weight 76.657 kg Physical Exam Narrative: The patient is lying in bed on BiPAP. The patient is in atrial fibrillation with heart rate well-controlled. Blood pressure is on the low side. HEENT normocephalic atraumatic. Neck is supple Lungs have dull bases and crackles. Heart irregular with systolic murmur positive S1-S2 Abdomen is soft positive bowel sounds. Extremities have 1+ edema. Neuro minimally responsive Data 04/04/25 06:36 04/04/25 06:36 Micro: Microbiology 04/03/25 15:55 Blood Culture - Preliminary Blood SPECIMEN COLLECTED 04/03/25 15:50 Blood Culture - Preliminary Blood SPECIMEN COLLECTED A&P Assessment and plan (1) Acute kidney injury: 80-year-old gentleman that [facility] has [facility] of peripheral arterial disease, BPH, A-fib. And fci the patient is on Coreg Bumex and potassium. I wonder if the patient has heart failure. The patient was admitted just with altered mental status and acute kidney injury. The patient CT scan on April 03, 2025 that revealed moderate bilateral pleural effusions layering posteriorly moderate cardiomegaly. And his kidneys showed multiple cysts in the right kidney measuring up to 7.5 cm in greatest dimension, per reading no hydronephrosis vascular calcifications. Patient renal ultrasound just done awaiting results. 1. Acute kidney injury please get old labs to know if this is acute or chronic. Urinalysis reviewed patient has a specific gravity of 1018 with 2+ protein trace glucose 0-2 RBCs negative blood. Will check a urine albumin creatinine ratio and a urine protein creatinine ratio. Salicylates and complement levels are pending. Place Sullivan. Monitor urine output. As patient is short of breath 1 can give furosemide however would ensure that there is no tamponade on echo. I did not see significant pericardial effusion on CT scan. Will may consider tapping pleural effusions. Evaluate for sepsis. 2. Acid-base abnormality: The patient is alkalemia. His pH yesterday was 7.46 this morning 7.44 patient has a significant respiratory alkalosis with a PCO2 down to 17. The patient also has a metabolic acidosis as his bicarbonate is 14, and he has an anion gap of 19. Will 1 cc an increased anion gap metabolic acidosis with a respiratory alkalosis and acute kidney injury and concern for salicylate toxicity. I will send a salicylate level. Salicylate toxicity can present with tinnitus vertigo nausea vomiting tachypnea respiratory alkalosis metabolic acidosis fevers diaphoresis confusion can be seen in noncardiogenic pulm edema with cerebral edema increasing. CT scan did not reveal cerebral edema that I can tell. However I think it would be prudent to check a level. 3. Increased ALT and alk phos. Can check an alcohol level. Can also check ethylene glycol level. proBNP greater than 70,000 agree with stopping fluids giving diuretics and consider thoracentesis. Normal TSH The patient was seen and examined using audiovisual equipment with the aid of a nurse. The patient is minimally responsive and is not able to give consent at this time. Plan Evaluation of acute kidney injury. Diurese patient evaluation for sepsis. Evaluate altered mental status PDMP PDMP Reviewed: Not Reviewed Consult Attestations Medical Necessity Statement: JOAO altered mental status severe respiratory distress Time Spent in Patient Care: Greater than 35 minutes (>than 50% of time spent in counselling and/or direct pt care on unit). Coding Level of Care Code Acute Code for [facility] Fwd Diagnoses Acute kidney injury N17.9
[2025-04-04 11:01] LABS: Uric Acid 11.0 mg/dL (3.4-7.0)
[2025-04-04 11:03] LABS: Salicylate < 0.3 mg/dL (3-10)
--- NOTE | 2025-04-04 11:08 | P.CONIM_ITS ---
<Statement entered by Tigre Peña M.D - 04/08/25 14:25> Patient was evaluated and cared for in conjunction with an advanced practice practitioner.? I personally examined the patient and reviewed the chart and all pertinent data including imaging, telemetry, and laboratory results.? I discussed the patient in detail with the advanced practice practitioner.? Please see? their note for complete H&P, testing results and agreed upon plan of care for the patient. Patient says now feeling better. GENERAL: Patient is alert HEART: Regular S1 and S2 LUNGS: Diminished air entry bilaterally CENTRAL NERVOUS SYSTEM: Grossly nonfocal EXTREMITIES: Lower extremities without edema bilaterally. Providers/Reason For Consult 2 Consulting Physician/Specialty*: Dr. Peña Reason for Consult*: CHF, NSTEMI Requesting Physician: Dr. Sin Attending Physician: Kenny Sin MD History of Present Illness History of Present Illness Edward Ross is a 80 year old male with pmh of pad, hypertension, diabetes, presented to [facility] from long term due to altered mental status and JOAO. He developed respiratory distress and was placed in the ICU on bipap. He is resting comfortably at this time. He is a poor historian. He gets confused at times. He denies any chest pain, and at this time reports improvements of his shortness of breath since being placed on bipap. Chest abdomen and pelvis CT was done that showed moderate pleural effusions bilaterally with moderate cardiomegaly with pulmonary hypertension. Probnp was greater than 70,000, troponins were elevated at 140-127.4-128.1. Patient denies any chest pain. EKG showed afib RVR. Patient was placed on amio drip. Rates are now controlled in the 80s. Currently he is on a heparin drip. He has recieved 40 of lasix IV along with 5 mg of metolazone once. Creatinine currently 2.3. Review of Systems 2 Narrative: Denies chest pain Reports shortness of breath on exertion relieved with rest Denies nausea or vomiting Denies pain No acute complaints at this time Medications/Allergies Home Medications ?Medication ?Instructions ?Recorded ?Confirmed ?Last Taken ?Type acetaminophen 325 mg tablet 650 mg PO Q6H PRN pain/tem p 04/03/25 04/03/25 04/03/25 History (Tylenol) aspirin 81 mg chewable tablet 81 mg PO QAM 04/03/2504/03/25 History bisacodyl 10 mg rectal suppository 10 mg OH DAILY PRN Constipation 04/03/25 04/03/25 Unknown History (Dulcolax (bisacodyl)) bumetanide 1 mg tablet 1 mg PO DAILY 04/03/2504/0304/03/25 History carvedilol 3.125 mg tablet 3.125 mg PO BID 04/03/2504/03/25 History cyclobenzaprine 5 mg tablet 5 mg PO TID PRN Spasms 04/03/25 04/03/25 History melatonin 3 mg tablet 3 mg PO BEDTIME PRN Insomnia 04/03/25 04/03/25 04/02/25 History polyethylene glycol 3350 17 17 g PO DAILY 04/03/2504/03/25 History gram/dose oral powder (Miralax) potassium chloride 20 mEq 20 meq PO DAILY 04/03/2504/03/25 History tablet,extended release(part/cryst) sennosides 8.6 mg tablet (senna) 17.2 mg PO BID 04/03/25 04/03/25 History tamsulosin 0.4 mg capsule 0.4 mg PO DAILY 04/03/2504/03/25 History Allergies Allergy/AdvReac Type Severity Reaction Status Date / Time codeine Allergy rash Verified 04/04/23 09:24 Penicillins Allergy rash Verified 04/04/23 09:24 Current Medications Generic Name Dose Route Start Last Admin Trade Name Smithq PRN Reason Stop Dose Admin Acetaminophen 650 mg 04/03/25 15:35 04/04/25 08:33 Acetaminophen 325 Mg Tablet PO 650 mg Q6H PRN Administration Mild/Mod Pain Or Temp >/= 101 Aspirin 81 mg 04/03/25 16:10 04/04/25 08:33 Aspirin 81 Mg Ec Tablet PO 81 mg DAILY GISELA Administration Ceftriaxone Sodium 1,000 mg 04/04/25 08:15 04/04/25 08:33 Ceftriaxone 1,000 Mg Sdv IVP 1,000 mg Q24H GISELA Administration Protocol Heparin Sodium/Sodium Chloride 25,000 unit in 500 mls @ 0 mls/hr 04/03/25 16:15 04/04/25 00:27 Heparin Drip IV 10.44 unit/kg/hr CONT GISELA 16 mls/hr Protocol Titration Per Protocol Amiodarone HCl/Dextrose 360 mg in 200 mls @ 0 mls/hr 04/04/25 08:10 04/04/25 09:50 Nexterone IV 1 mg/min .Q0M GISELA 33.33 mls/hr Protocol Administration Per Protocol Azithromycin 500 mg/ Sodium 250 mls @ 250 mls/hr 04/04/25 08:15 04/04/25 10:39 Chloride IV Infused Q24H GISELA Infusion Protocol Olanzapine 2.5 mg 04/04/25 00:31 04/04/25 01:34 Olanzapine 5 Mg Tablet PO 2.5 mg BEDTIME GISELA Administration Pantoprazole Sodium 40 mg 04/03/25 15:45 04/04/25 05:22 Pantoprazole 40 Mg Sdv IVP 40 mg Q12H GISELA Administration Vitals/I&O/Wt Last Vital Signs Temp 97.7 F 04/04/25 02:28 Pulse 82 04/04/25 10:33 Resp 18 04/04/25 06:00 BP 138/80 04/04/25 06:00 Pulse Ox 100 04/04/25 10:33 O2 Del Method Room Air 04/04/25 05:27 FiO2 28 04/04/25 10:33 04/03/25 04/04/25 04/04/25 22:59 06:59 14:59 Intake Total 250 / 250 2270.033 / 2520.033 1300 / 1300 Output Total 100 / 100 150 / 250 Balance 150 / 150 2120.033 / 2270.033 1300 / 1300 Weight last 48 hrs Weight 170 lb Weight 169 lb Physical Exam 2 Narrative: General: currently resting on bipap HENMT: normoceophalic Muskuloskeletal: Full ROM Respiratory: Normal respiratory effort, clear to auscultation bilaterally throughout all lung [place], no use of accessory muscles Cardio: No JVD, irregularly irregular rate and rhythm, S1 S2 normal, no murmurs, peripheral pulses 2+ radial palpated on the left GI: Normal to inspection, nondistended Extremities: Full ROM, normal, normal capillary refill, no cyanosis or edema Neuro: Alert to person and situation Psych: Affect normal Skin: No rashes or lesions noted, no wounds Data 04/04/25 06:36 04/04/25 06:36 Micro: Microbiology 04/03/25 15:55 Blood Culture - Preliminary Blood SPECIMEN COLLECTED 04/03/25 15:50 Blood Culture - Preliminary Blood SPECIMEN COLLECTED A&P Assessment and plan (1) Acute kidney injury: (2) NSTEMI (non-ST elevated myocardial infarction): (3) Acute encephalopathy: (4) Atrial fibrillation: (5) Heart failure: Plan At this time, patient has elevated troponin levels possibly due to demand ischemia from metabolic issues as well as afib but underlying coronary artery disease is on the differential as well. At this time he denies any chest pain. Agree with heparin drip. Agree with amio drip for rate control in afib. Continue heparin drip as well. Elevated probnp. Patient has had echo but has not been read yet. Further recommendations after that. Agree with diuresis and monitoring I&O as well as renal function carefully. Nephrology is on board as well. Thank you, Dr. Sin, for allowing us to care for this very pleasant 80 year old gentleman. PDMP PDMP Reviewed: Not Reviewed Consult Attestations 2 Medical Necessity Statement: Deferred to primary Coding Level of Care Code Acute Code for [facility] Diagnoses Acute kidney injury N17.9 NSTEMI (non-ST elevated myocardial infarction) I21.4 Acute encephalopathy G93.40 Atrial fibrillation, unspecified type I48.91 Atrial fibrillation type: unspecified Other heart failure I50.89 Heart failure type: other
[2025-04-04] MEDS: FUROsemide 10 mg/mL SDV 10mL 80 MG IVP (11:40)
--- NOTE | 2025-04-04 11:44 | PICC.NOTE ---
Triple lumen PICC placed to right basilic vein. Referred to vascular access nurse for PICC placement due to need for vasopressors. Pt lethargic at this time. Unable to reach family by phone. Urgent consent given per Dr. Sin. Right arm assessed with right basilic vein measuring 3.8 mm, straight, and apparent best choice for placement. Using sterile technique and MST, right basilic vein accessed x 1 stick. Mid-arm circumference measured 10 cm from right AC 29 cm. Trimmed cath 45 cm with 0 cm external length noted. CXR shows tip in distal third of SVC, in good position for use per radiologist. Line secured with stat-lock. Insertion site covered with Biopatch and TSM. Report given to bedside nurse, VALENTÍN, RN. Following procedure, pt more awake and alert. This nurse able to discuss risks and benefits of PICC with pt verbalizing understanding.
[2025-04-04 11:49] LABS: Ammonia 36 umol/L (16-60); Lactate (Lactic Acid level) 1.7 mmol/L (0.5-2.2)
[2025-04-04 12:23] LABS: Hepatitis B Surface Antigen Non-Reactive (Nonreactive)
[2025-04-04 12:55] LABS: Partial Thromboplastin Time 33.0 SECONDS (23.9-36.7)
[2025-04-04 13:46] LABS: Glucose Urine UA Negative (Normal); Nitrate Urine Negative (Negative); Specific Gravity, Urine 1.012 (1.005-1.030)
[2025-04-04 13:53] LABS: PCP Screen Urine Negative (Negative)
[2025-04-04 14:01] LABS: Potassium, Radom Urine 47 mmol/L; Urine Random Chloride 73 mmol/L; Urine Random Sodium 61 mmol/L
[2025-04-04 14:02] LABS: Creatinine Urine, Random 46 mg/dL (39-259); Microalbum Creatinine Ratio Ur 370 mg/dL (0-20)
[2025-04-04 14:14] LABS: UA Slide Review UA Slide Review Perf
[2025-04-04 16:09] LABS: ABG PCO2 28.3 mmHg (35-45); ABG PH Result 7.37 (7.35-7.45); Alveolar-Arterial Oxygen Gradi 9.6 mmHg (5-10); Arterial Blood Gas Hematocrit 38.4 % (42-52); Blood Gas Allen Test Pos; Blood Gas Operator Identificat GD; Blood Gas Sample Site Radial, left; Blood Gas Sample Type Arterial; Carboxyhemoglobin 1.0 %THgb (0.4-20.1); Glucose Level-ABG 127.0 mg/dL (70-115); HCO3 ABG 16.5 mmol/L (22-26); Ionized Calcium Level - ABG 1.2 mmol/L (1.1-1.4); Methemoglobin 0.8 % (0.4-1.5); Oxygen Saturation ABG 97.2; PO2 ABG 88.9 mmHg (80.0-100.0); PO2 FiO2 Ratio Arterial Blood 317; Potassium Level - ABG 4.5 mmol/L (3.5-5.0); Sodium Level - ABG 139.0 mmol/L (131-143)
--- NOTE | 2025-04-04 16:49 | PM.PN ---
Subjective Subjective: Patient was seen this morning, currently on room air, complaining of severe shortness of breath, nasal flaring, intercostal retractions, suprasternal retractions, tachypnea, tachycardia - Patient appears to be moderate respiratory failure, likely acute flash pulm edema, appears fluid overloaded, crackles in all lung [place], 1+ pitting edema, CT of the chest showing bilateral pleural effusions - Patient placed on 2 L initially, orders placed to place patient on BiPAP - Discussed with patient his respiratory failure, plans to move to ICU for acute hypoxic respiratory failure secondary to flash pulmonary edema, systolic CHF, he denies any chest pain - Patient was then emergently placed on BiPAP, seen by me he is resting more comfortably on BiPAP given 40 mg IV push Lasix -Given patient's bilateral pleural effusions, bilateral bases cannot be seen, concerns for possible pneumonia, started on Rocephin, Zithromycin -Concern for acute flash pulmonary edema, with concerns for cardiogenic shock plan to move to ICU urgently -As risk concern for cardiogenic shock, need for possibly pressors, orders placed for urgent PICC line placement, given the emergency of the situation -Patient's telemetry monitoring shows A-fib with RVR heart rates as high as the 120s, likely associate with respiratory failure placed on amiodarone drip -moved to ICU - Patient was seen in the ICU currently on BiPAP, resting more comfortably, he has received Lasix therapy, urine output has been lackluster, - Nephrology consulted due to patient's respiratory alkalosis with metabolic acidosis, JOAO, etiology could be acute flash pulm edema, cardiogenic shock, cardiorenal syndrome, discussed possible need for dialysis based on clinical progress - Patient was reexamined, urine output remains lackluster he is also received 80 mg IV Lasix with metolazone - Continues to have evidence of fluid overload, acute hypoxic respiratory failure, acute flash pulm edema placed on Lasix drip at 10 units an hour - Cardiology consulted, EF 20% - Patient reexamined, currently he is on 2 L, taken off BiPAP temporarily, has nasal flaring, suprasternal intercostal retractions, tachypnea, tachycardia, is short of breath with a few words, does desat into the low 90s - Patient tells me that he is originally from [facility] - He is moved to [facility] for the last 5 years - He has not seen a primary care or assistant to the ceo in this area for the last 5 years - He used to see a assistant to the ceo in [facility], he was told he had heart failure but he is not exactly sure how severe his heart failure was, he denies any artificial valves, denies any history of cardiac stenting - He does tell me for the last few days he has been short of breath at the assisted, short of breath with exertion - He also tells me he has a history of CKD and he used to see a scrap baler at [place], Dr. Machado he was told that there was a possibility of dialysis but it never came to fruition - He denies a history of strokes, no history of diabetes - He is not sure if he has a history of atrial fibrillation or not - Discussed that as he is still in mild to moderate respiratory distress, discussed with him to put him back on BiPAP to help with his CHF, I have increased his Lasix drip to 20 units an hour, monitor BMP every 4 hours - Discussed possibility of thoracentesis tomorrow based on clinical progress - Discussed with him his EF down to 20%, he is shocked by the number, but he is not exactly sure how his heart failure was when he was back in [place], - Discussed placing him back on BiPAP in bed, he is in agreement - We discussed his overall goals of care, - He wants to be a full code, agreeable to elective intubation if required - He is agreeable to dialysis if required Vitals/I&O/Wt Last Vital Signs Temp 97.3 F L 04/04/25 12:30 Pulse 84 04/04/25 15:33 Resp 21 H 04/04/25 14:00 BP 106/74 04/04/25 14:00 Pulse Ox 93 04/04/25 15:33 O2 Del Method Room Air 04/04/25 05:27 FiO2 28 04/04/25 15:33 04/04/25 04/04/25 04/04/25 06:59 14:59 22:59 Intake Total 2270.033 / 2520.033 1400 / 1400 200 / 1600 Output Total 150 / 250 150 / 150 Balance 2120.033 / 2270.033 1250 / 1250 200 / 1450 Weight last 48 hrs Weight 77.111 kg Weight 76.657 kg Physical Exam Const: GENERAL APPEARANCE: frail appearing ORIENTATION/CONSCIOUSNESS: Yes awake, Yes oriented to person, Yes oriented to place and Yes oriented to time Eye: COMMON NORMALS: Equal, round and reactive pupils present and EOMs intact bilaterally PUPIL: Yes Equal, round and reactive pupils present Lymph: LYMPHATIC: no lymphadenopathy noted Resp: OTHER: Tachypnea, tachycardia nasal flaring, intercostal retractions, suprasternal retractions, diffuse wheezing and crackles in all lung [place] Cardio: COMMON NORMALS: S1 normal heart sound present and S2 normal heart sound present RATE: tachycardic RHYTHM: abnormal rhythm irregularly irregular HEART SOUNDS: S1 normal heart sound present and S2 normal heart sound present GI: COMMON NORMALS: Normal to inspection, nondistended, normoactive bowel sounds present and non-tender Back/Pelvis: OTHER: 1+ edema Neuro: SENSORIUM/ORIENTATION: Yes oriented to person, Yes oriented to place and Yes oriented to time Data 04/04/25 06:36 04/04/25 06:36 Micro: Microbiology 04/03/25 15:55 Blood Culture - Preliminary Blood NEGATIVE TO DATE 04/03/25 15:50 Blood Culture - Preliminary Blood NEGATIVE TO DATE A&P Assessment and plan (1) Acute kidney injury: (2) NSTEMI (non-ST elevated myocardial infarction): (3) Acute encephalopathy: (4) Atrial fibrillation: (5) Heart failure: (6) Pulmonary edema: (7) Acute hypoxic respiratory failure: (8) Metabolic acidosis with respiratory alkalosis: (9) Cardiogenic shock: (10) Sepsis: (11) Pneumonia: (12) Shock: (13) Cardiorenal disease: (14) Systolic CHF: (15) Acute respiratory distress: (16) Bilateral pleural effusion: Plan Acute hypoxic respiratory failure - With acute respiratory distress - Systolic CHF exacerbation -Bilateral pleural effusions - Acute flash pulmonary edema - With concerns for possible pneumonia -Atrial fibrillation with rapid ventricular response Plan - Monitor in ICU closely - BiPAP as needed during the day, scheduled during the night - Low threshold for intubation - Monitor respiratory status closely - DuoNeb - Budesonide - Blood cultures - Sputum cultures - Continue Lasix drip at 20 units/hr - Monitor BMP every 4 hours -Maintain potassium greater than 4 -Potassium 20 meq p.o. every 8 hours -IV doses based on clinical progress - Monitor creatinine - Monitor urine output - Rocephin - Azithromycin Bilateral pleural effusions ct chest CT/[place] [id number] IMPRESSION: 1. Moderate layering pleural effusions bilaterally. Mild lower lobe atelectasis. 2. Moderate cardiomegaly with pulmonary hypertension. - Will consider thoracentesis based on clinical progress Systolic CHF exacerbation -Used to follow with a assistant to the ceo in [facility] CONCLUSIONS Left ventricle is dilated. LV systolic function is severely reduced with EF of 20-25%. Moderate left ventricular hypertrophy. Biatrial enlargement. Mild mitral regurgitation. Mild to moderate aortic regurgitation Mild tricuspid regurgitation Moderate pulmonary hypertension Moderate pulmonic regurgitation Pleural effusion seen IVC is dilated No comparison studies are seen. Concern for possible pneumonia, CT chest showing mild lower lobe atelectasis - IV antibiotics as above Acute kidney injury on CKD - Baseline kidney function unknown - Used to follow-up with a scrap baler in [facility], had reported CKD, with discussions of dialysis at some point - Possibly component of cardiorenal syndrome - Monitor BMP every 4 hours - Monitor creatinine, monitor electrolytes - Patient is agreeable to dialysis if required NSTEMI - No chest pain complaints - Does have shortness of breath -EF 20 to 25% Plan - Telemetry monitoring - EKGs, serial troponins, telemetry monitoring - Aspirin, statin - Heparin drip - Cardiology consulted A-fib with RVR - Amiodarone drip Transaminitis, monitor Respiratory alkalosis with increased anion gap metabolic acidosis - Could be from cardiogenic shock, cardiorenal syndrome, JOAO, respiratory failure - Will monitor Acute encephalopathy -Etiology unclear, sresolved - Component of uremia - Head CT no acute findings - No focal neurologic deficits, is globally encephalopathic - Ammonia levels WNL - UA within normal limits - CT chest possible pneumonia: Antibiotics - Order inflammatory markers - Neurochecks - NIH stroke scale - Monitor mentation Increased anion gap metabolic acidosis - Check ketones within normal limits - Check A1c 6.2 - Lactic acid within normal limits Hyperkalemia, resolved - Calcium gluconate - Insulin, D10 - Repeat BMP this evening Uremia - Secondary to JOAO - Hemoglobin within normal limits - Monitor closely Full code Heparin drip for DVT prophylaxis PDMP PDMP Reviewed: Not Reviewed Attestations Medical Necessity Statement*: Patient requires hospitalization, inpatient, greater than 2 midnights for acute hypoxic respiratory failure, acute respiratory distress, acute flash pulmonary edema, acute systolic CHF, NSTEMI, acute kidney injury, acute encephalopathy, increased anion gap metabolic acidosis with respiratory alkalosis, systolic CHF, pulm edema, bilateral pleural effusions Coding Level of Care Code Critical Care >/= 30 minutes Critical care time (in minutes): 60 The high probability of a clinically significant, sudden or life threatening deterioration, as referenced in this documentation, required my full and direct attention, intervention and personal management. The critical care time shown is in addition to time spent performing any reported separately billable procedures and includes the following: [x] Data and vital sign review and interpretation [x] Patient assessment, examination and intervention [x] Medication orders and management [x] Patient/Family updates as able [x] Care Coordination and Documentation. Diagnoses Acute kidney injury N17.9 NSTEMI (non-ST elevated myocardial infarction) I21.4 Acute encephalopathy G93.40 Atrial fibrillation, unspecified type I48.91 Atrial fibrillation type: unspecified Other heart failure I50.89 Heart failure type: other Pulmonary edema J81.1 Acute hypoxic respiratory failure J96.01 Metabolic acidosis with respiratory alkalosis E87.20; E87.3 Cardiogenic shock R57.0 Sepsis A41.9 Pneumonia J18.9 Shock R57.9 Cardiorenal disease I13.10 Systolic CHF I50.20 Acute respiratory distress R06.03 Bilateral pleural effusion J90 Sepsis Event Note Evaluation Current stage of sepsis: sepsis Reason for ruling out sepsis: Possibly sepsis but could be CHF Possible source: pulmonary Focused Exam Vital Signs Temp Pulse Resp BP Pulse Ox O2 Del Method FiO2 04/04/25 15:33 84 93 28 04/04/25 15:10 82 04/04/25 14:00 85 21 H 106/74 04/04/25 13:00 85 21 H 106/74 04/04/25 12:30 97.3 F L 78 29 H 110/68 89 L 04/04/25 12:00 85 21 H 106/74 04/04/25 12:00 86 31 H 127/83 96 04/04/25 11:40 91 97 28 04/04/25 11:30 81 26 H 116/68 97 04/04/25 11:00 78 16 97/78 100 04/04/25 10:33 82 100 28 04/04/25 10:30 100/73 94 04/04/25 10:00 98 30 H 84/66 100 04/04/25 10:00 81 26 H 116/68 04/04/25 09:41 115 H 99 30 04/04/25 09:30 127 H 41 H 109/80 99 04/04/25 09:00 112 H 27 H 109/80 99 04/04/25 08:30 118 H 20 H 109/80 99 04/04/25 08:00 108 H 24 H 109/80 98 04/04/25 08:00 81 26 H 116/68 04/04/25 07:30 96 18 109/80 98 04/04/25 07:00 91 18 138/80 99 04/04/25 06:30 89 21 H 138/80 98 04/04/25 06:00 86 10 L 138/80 97 04/04/25 06:00 105 H 18 138/80 04/04/25 05:30 115 H 21 H 138/80 98 04/04/25 05:27 105 H 18 138/80 98 Room Air Respiratory exam: Present accessory muscle use and respiratory distress Cardiovascular exam: Present tachycardia and irregularly irregular Peripheral pulse strength: 2+ Slightly Diminished Peripheral pulse location: Radial Skin exam: normal turgor Date exam was performed: 04/04/25 Time exam was performed: 17:13 Problem List (1) Acute kidney injury: Status: Acute (2) NSTEMI (non-ST elevated myocardial infarction): Status: Acute (3) Acute encephalopathy: Status: Acute (4) Atrial fibrillation: Status: Acute (5) Heart failure: Status: Acute (6) Pulmonary edema: Status: Acute (7) Acute hypoxic respiratory failure: Status: Acute (8) Metabolic acidosis with respiratory alkalosis: Status: Acute (9) Cardiogenic shock: Status: Acute (10) Sepsis: Status: Acute (11) Pneumonia: Status: Acute (12) Shock: Status: Acute (13) Cardiorenal disease: Status: Acute (14) Systolic CHF: Status: Acute (15) Acute respiratory distress: Status: Acute (16) Bilateral pleural effusion: Status: Acute
[2025-04-04 16:52] LABS: Respiratory Syncytial Virus Ce NEGATIVE (Negative); SARS-CoV-2 PCR NEGATIVE (Negative)
[2025-04-04] MEDS: morphine 4 mg/mL SDV 1 mL 1 MG IVP ×2 (17:55→22:16)
[2025-04-04] MEDS: heparin drip 25,000 UNIT/500 ML PREMIX 16 UNIT IV (17:55)
[2025-04-04 18:07] LABS: Calcium 8.5 mg/dL (8.5-10.5); Carbon Dioxide 12 mmol/L (22-29); Chloride 104 mmol/L (98-107); Creatinine Clr Calc Pharmacy 27.4299; Glucose 124 mg/dL (65-115); Osmolality Calculated 309 mOsm/kg (285-295); Sodium 135 mmol/L (136-145)
[2025-04-04 18:12] LABS: Anion Gap 23.9 (5-19); Potassium 4.9 mmol/L (3.5-5.1)
[2025-04-04 18:13] LABS: Blood Urea Nitrogen 90 mg/dL (8-23)
[2025-04-04] MEDS: FUROsemide 200 MG in sodium chloride 0.9% (100 ml) 80 ML 10 MG IV (19:36)
[2025-04-04 19:50] LABS: Calcium 8.3 mg/dL (8.5-10.5); Carbon Dioxide 10 mmol/L (22-29); Chloride 104 mmol/L (98-107); Creatinine Clr Calc Pharmacy 27.4299; Glucose 116 mg/dL (65-115); Osmolality Calculated 308 mOsm/kg (285-295); Sodium 135 mmol/L (136-145)
[2025-04-04 19:57] LABS: Anion Gap 25.9 (5-19); Potassium 4.9 mmol/L (3.5-5.1)
[2025-04-04 19:59] LABS: Blood Urea Nitrogen 89 mg/dL (8-23)
[2025-04-04 20:38] LABS: Partial Thromboplastin Time 40.6 SECONDS (23.9-36.7)
[2025-04-04] MEDS: heparin 5,000 unit/mL INJ 1 mL IVP (21:05)
[2025-04-05] VITALS (85 sets, daily range): BP systolic 89–143; BP diastolic 60–105; PULSE 58–120; RESP 0–35; TEMP 35.8–36.5; O2SAT 90–100
[2025-04-05 01:21] LABS: Anion Gap 20.9 (5-19); Calcium 8.8 mg/dL (8.5-10.5); Carbon Dioxide 18 mmol/L (22-29); Chloride 105 mmol/L (98-107); Creatinine Clr Calc Pharmacy 23.3662; Glucose 120 mg/dL (65-115); Osmolality Calculated 316 mOsm/kg (285-295); Potassium 4.9 mmol/L (3.5-5.1); Sodium 139 mmol/L (136-145)
[2025-04-05 01:26] LABS: Blood Urea Nitrogen 87 mg/dL (8-23)
[2025-04-05 03:56] LABS: Hematocrit 36.8 % (37-53); Hemoglobin 12.00 g/dL (11.27-16.99); Mean Corpuscular HGB Conc 32.6 g/dL (30-55); Mean Corpuscular Hemoglobin 31.5 pg (27-33); Mean Corpuscular Volume 96.6 fl (82-101); Nucleated Red Blood Cells % 0.4 %; Platelet Count 296 10^3/cmm (157-399); Red Blood Count 3.81 10^6/uL (3.85-5.65); White Blood Count 7.87 10^3/uL (3.29-11.43)
[2025-04-05 04:12] LABS: Partial Thromboplastin Time 97.6 SECONDS (23.9-36.7)
[2025-04-05] MEDS: FUROsemide 200 MG in sodium chloride 0.9% (100 ml) 80 ML 10 MG IV (04:17)
[2025-04-05] MEDS: pantoprazole 40 mg SDV IVP ×2 (04:19→15:45)
[2025-04-05 04:26] LABS: Procalcitonin 0.17 ng/mL (0-0.5)
[2025-04-05 05:17] LABS: Ammonia 48 umol/L (16-60)
[2025-04-05 05:28] LABS: Alanine Aminotransferase 345 U/L (0-41); Albumin Level 2.8 g/dL (3.5-5.2); Alkaline Phosphatase 242 U/L (40-130); Calcium 8.6 mg/dL (8.5-10.5); Carbon Dioxide 17 mmol/L (22-29); Chloride 105 mmol/L (98-107); Creatinine Clr Calc Pharmacy 24.2649; Ferritin 296 ng/mL (30-400); Globulin 3.0 g/dL (1.3-4.6); Glucose 113 mg/dL (65-115); Iron 35 ug/dL (59-158); Magnesium 2.0 mg/dL (1.7-2.3); Osmolality Calculated 317 mOsm/kg (285-295); Sodium 139 mmol/L (136-145); Total Protein 5.8 g/dL (6.6-8.7)
[2025-04-05 05:29] LABS: Anion Gap 22.3 (5-19); Potassium 5.3 mmol/L (3.5-5.1)
[2025-04-05 05:30] LABS: Aspartate Amino Transferase 263 U/L (0-40); Total Iron Binding Capacity 237 mcg/dl; Unsaturated Iron Binding 202 ug/dL (112-347)
[2025-04-05 05:31] LABS: Blood Urea Nitrogen 92 mg/dL (8-23)
[2025-04-05 06:34] LABS: PROTEIN, TOTAL 5.2 g/dL (6.1-8.1)
--- NOTE | 2025-04-05 07:00 | XRR_ITS ---
PROCEDURE INFORMATION: Exam: XR Chest Exam date and time: 04/05/2025 5:18 AM Age: 80 years old Clinical indication: Shortness of breath; Additional info: SOB TECHNIQUE: Imaging protocol: Radiologic exam of the chest. Views: 1 view. COMPARISON: CR XR chest 1V portable [id number] 04/04/2025 10:57 AM FINDINGS: Tubes, catheters and devices: Right PICC line terminates in SVC. Lungs: Bibasilar pulmonary infiltrates. Pleural spaces: Unremarkable. No pleural effusion. No pneumothorax. Heart/Mediastinum: See Vasculature finding. Vasculature: Borderline cardiomegaly and uncoiling the thoracic aorta accentuated by the AP positioning. Bones/joints: Unremarkable. XR/XR chest 1V portable [id number] IMPRESSION: No significant change.
--- NOTE | 2025-04-05 07:05 | P.PN_ITS ---
Subjective 2 Subjective: The patient seen and examined. The patient is awake alert he tells me that he has known heart failure and kidney disease. He gets chronic shortness of breath dyspnea exertion has leg edema. Medications: Reviewed: Yes Medication Review Details: Current Medications Acetaminophen (Acetaminophen 325 Mg Tablet) 650 mg PO Q6H PRN PRN Reason: Mild/Mod Pain Or Temp >/= 101 Last Admin: 04/04/25 16:57 Dose: 650 mg Albuterol/Ipratropium (Ipratropium-Albuterol 3 Ml Neb) 3 ml INHALATION Q4H PRN PRN Reason: SHORTNESS OF BREATH Aspirin (Aspirin 81 Mg Ec Tablet) 81 mg PO DAILY GISELA Last Admin: 04/04/25 08:33 Dose: 81 mg Ceftriaxone Sodium (Ceftriaxone 1,000 Mg Sdv) 1,000 mg IVP Q24H GISELA; Protocol Last Admin: 04/04/25 08:33 Dose: 1,000 mg Heparin Sodium (Porcine) (Heparin 5,000 Unit/Ml Inj 1 Ml) 0 unit IVP PRN PRN; Protocol PRN Reason: Heparin Weight Based Protocol -Subsequent Bolus Last Admin: 04/04/25 21:05 Dose: 3,000 unit Heparin Sodium/Sodium Chloride (Heparin Drip) 25,000 unit in 500 mls @ 0 mls/hr IV CONT GISELA; Protocol Last Titration: 04/05/25 04:29 Dose: 9.13 unit/kg/hr, 14 mls/hr Amiodarone HCl/Dextrose (Nexterone) 360 mg in 200 mls @ 0 mls/hr IV .Q0M GISELA; Protocol Last Admin: 04/05/25 04:35 Dose: 0.5 mg/min, 16.67 mls/hr Azithromycin 500 mg/ Sodium (Chloride) 250 mls @ 250 mls/hr IV Q24H GISELA; Protocol Last Infusion: 04/04/25 10:39 Dose: Infused Norepinephrine Bitartrate (Levophed) 4 mg in 250 mls @ 0 mls/hr IV .Q0M GISELA; Protocol Furosemide 200 mg/ Sodium (Chloride) 100 mls @ 5 mls/hr IV .Q20H GISELA Last Infusion: 04/05/25 07:05 Dose: 10 mg/hr, 5 mls/hr Morphine Sulfate (Morphine 4 Mg/Ml Sdv 1 Ml) 1 mg IVP Q4H PRN PRN Reason: SEVERE PAIN Last Admin: 04/04/25 22:16 Dose: 1 mg Naloxone HCl (Naloxone 0.4 Mg/Ml Sdv) 0.1 mg IVP Q2M PRN PRN Reason: OPIATERV Olanzapine (Olanzapine 5 Mg Tablet) 2.5 mg PO BEDTIME [facility] Last Admin: 04/04/25 21:05 Dose: 2.5 mg Ondansetron HCl (Ondansetron 2 Mg/Ml Sdv 2 Ml) 4 mg IVP Q8H PRN PRN Reason: vomiting, or N/V if npo Pantoprazole Sodium (Pantoprazole 40 Mg Sdv) 40 mg IVP Q12H [facility] Last Admin: 04/05/25 04:19 Dose: 40 mg Potassium Chloride (Potassium Chloride Er 20 Meq Tablet) 20 meq PO Q8H GISELA Last Admin: 04/05/25 01:16 Dose: 20 meq Vitals/I&O/Wt Last Vital Signs Temp 97.3 F L 04/05/25 05:00 Pulse 83 04/05/25 05:00 Resp 23 H 04/05/25 05:00 BP 117/67 04/05/25 05:00 Pulse Ox 90 04/05/25 05:00 O2 Del Method Nasal Cannula 04/05/25 05:00 O2 Flow Rate 2 04/05/25 05:00 FiO2 28 04/04/25 21:18 04/04/25 04/05/25 04/05/25 22:59 06:59 14:59 Intake Total 680.134 / 2080.134 440.6 / 2520.734 Output Total 600 / 750 1125 / 1875 Balance 80.134 / 1330.134 -684.4 / 645.734 Weight last 48 hrs Weight 78.154 kg Weight 77.111 kg Weight 76.657 kg Physical Exam 2 Narrative: The patient is lying in bed, comfortable using nasal cannula oxygen. Vital signs noted. The patient is in atrial fibrillation with heart rate well- controlled. Blood pressure is on the low side. HEENT normocephalic atraumatic. Neck is supple Lungs have dull bases and crackles. Heart irregular with systolic murmur positive S1-S2 Abdomen is soft positive bowel sounds. Extremities have 1+ edema. Neuro the patient is awake and alert oriented x 2+ moves extremities. Urinary Catheter Management: Sullivan: Cath Placed During This Visit: no Reason for Continuing Indwelling Catheter: Accurate Measurement of Urinary Output in Critically Ill Patients Data 04/05/25 03:06 04/05/25 04:27 Micro: Microbiology 04/03/25 15:55 Blood Culture - Preliminary Blood NEGATIVE TO DATE 04/03/25 15:50 Blood Culture - Preliminary Blood NEGATIVE TO DATE A&P Assessment and plan (1) Acute kidney injury: 80-year-old gentleman that per chart from her snf has history of peripheral arterial disease, BPH, A-fib. And snf the patient is on Coreg Bumex and potassium. I wonder if the patient has heart failure. The patient was admitted just with altered mental status and acute kidney injury. The patient CT scan on April 03, 2025 that revealed moderate bilateral pleural effusions layering posteriorly moderate cardiomegaly. And his kidneys showed multiple cysts in the right kidney measuring up to 7.5 cm in greatest dimension, per reading no hydronephrosis vascular calcifications. Patient renal ultrasound just done awaiting results. 1. Acute kidney injury please get old labs. The patient states that he has chronic kidney disease. Renal ultrasound shows right kidney 10.3 cm with numerous cysts. The largest cyst is 6.3 x 5.4 x 7 cm with mild cortical thinning and increased echogenicity. Left kidney 9 cm is mild diffuse cortical thinning no obstruction. Renal ultrasound is consistent with CKD. Urinalysis reviewed Urinalysis 1+ protein, urine protein creatinine ratio of 2 8/46. Urine microalbumin creatinine ratio 370. UPEP is pending The patient responded to furosemide 20. Will decrease to 10. Patient's potassium is 5.3 with slight hemolysis. Will monitor Normal complements. I am concerned for cardiorenal syndrome. Continue diuresis and monitor. 2. Acid-base abnormality: Latest ABG from yesterday had a pH of 7.37 with a PCO2 of 28 the patient has a metabolic acidosis with an anion gap of 17. Likely from renal failure. I am awaiting salicylate level. 3. Echocardiogram reveals severely reduced EF of 20 to 25% with global hypokinesis moderate LV hypertrophy. 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 Patient has elevated RVSP of 35-40. Patient has moderate pulmonary hypertension. Patient has moderate pulmonic regurgitation. Increased ALT and alk phos. the patient denies alcohol use. proBNP greater than 70,000 agree with stopping fluids giving diuretics and consider thoracentesis. Normal TSH Pneumonia treated with antibiotics. The patient was seen and examined using audiovisual equipment with the aid of a nurse. The patient consented to telehealth. Plan Evaluation of acute kidney injury. Diurese patient . Evaluate altered mental status PDMP PDMP Reviewed: Not Reviewed Attestations 2 Medical Necessity Statement*: Acute kidney injury on chronic kidney disease heart failure reduced EF and diastolic dysfunction. Shortness of breath, pneumonia Time Spent in Patient Care: Greater than 35 minutes (>than 50% of time spent in counselling and/or direct pt care on unit) . Coding Level of Care Code Acute Code for [facility] Fwd Diagnoses Acute kidney injury N17.9
[2025-04-05 07:09] LABS: Anti-Double Strand DNA AB <1 IU/mL
--- NOTE | 2025-04-05 07:44 | US_ITS ---
WS: [id number] INDICATION: Pleural effusion TECHNIQUE: Ultrasound chest FINDINGS: Ultrasound chest. Only very small pleural effusions visualized. Insufficient fluid for safe thoracentesis. US/US chest [id number] IMPRESSION: See above
--- NOTE | 2025-04-05 07:50 | PC.NURSE ---
BUN Patient's BUN critical at 92. Dr. Tapia notified; urine output, lasix drip, ordering provider and BUN/Driving [employer] In[employer] trends discussed. Order received to discuss results with child and family services specialist. Nephrology service contacted with no success; message left with service. Dr. Cornejo contacted unit at around 0715 and same details discussed. Order received to decrease lasix drip to 10 mg/hr.
[2025-04-05] MEDS: AZITHROMYCIN ADD-Vantage 500 MG in 0.9% NaCl ADD-Vantage 250 ML 250 MG IV (09:16)
[2025-04-05] MEDS: cefTRIAXone 1,000 mg SDV 1000 MG IVP (09:17)
--- NOTE | 2025-04-05 10:01 | PC.SOCIAL ---
IMM Updated Provided pt a copy. Initialed, dated, & timed a copy & placed in chart.
[2025-04-05 10:03] LABS: Calcium 8.7 mg/dL (8.5-10.5)
--- NOTE | 2025-04-05 10:15 | PC.NURSE ---
Pt calling out 'help me'. Upon entering room pt states he cannot breath. O2 sats 100% on 2lpm/NC. Resp. rate elevated at 39. BP WNL. Lungs clear with bases diminished. Encouraged pt to use pursed lip breathing ( breath in through your nose and blow out of your mouth) He stated he was and told this nurse to be quiet. Requested the HOB to be lowered, this nurse stated that would not help his breathing, repeated use purse lip breathing. Notified Dr Sin of pt's tachypnea and anxiety level, VS and lung sounds. Noew order for Xanax given and entered by physician
--- NOTE | 2025-04-05 10:27 | P.PN_ITS ---
<Statement entered by Tigre Peña M.D - 04/15/25 09:50> Patient was cared for in conjunction with an advanced practice practitioner.? I reviewed the chart and all pertinent data including imaging, telemetry, and laboratory results.? I discussed the patient in detail with the advanced practice practitioner.? Please see?their note for progress note, testing results and agreed upon plan of care for the patient. Subjective 2 Subjective: Patient is doing ok today. Denies chest pain or shortness of breath. Currently on O2 2L nasal cannula with O2 sat of 100%. No acute distress. Appears well compensated. Creatinine 2.6, which is close to baseline. EF is 20-25% seen on echo. BP stable. HR is controlled. Currently on lasix drip and amiodarone drip. Vitals/I&O/Wt Last Vital Signs Temp 97.3 F L 04/05/25 05:00 Pulse 81 04/05/25 08:53 Resp 17 04/05/25 08:53 BP 118/89 04/05/25 07:00 Pulse Ox 100 04/05/25 08:53 O2 Del Method Nasal Cannula 04/05/25 08:53 O2 Flow Rate 2 04/05/25 08:53 FiO2 28 04/04/25 21:18 04/04/25 04/05/25 04/05/25 22:59 06:59 14:59 Intake Total 680.134 / 2080.134 440.6 / 2520.734 498 / 498 Output Total 600 / 750 1125 / 1875 255 / 255 Balance 80.134 / 1330.134 -684.4 / 645.734 243 / 243 Weight last 48 hrs Weight 172 lb 4.8 oz Weight 170 lb Weight 169 lb Physical Exam 2 Narrative: General: currently resting on bipap HENMT: normoceophalic Muskuloskeletal: Full ROM Respiratory: Normal respiratory effort, clear to auscultation bilaterally throughout all lung [place], no use of accessory muscles Cardio: No JVD, irregularly irregular rate and rhythm, S1 S2 normal, no murmurs, peripheral pulses 2+ radial palpated on the left GI: Normal to inspection, nondistended Extremities: Full ROM, normal, normal capillary refill, no cyanosis or edema Neuro: Alert to person and situation Psych: Affect normal Skin: No rashes or lesions noted, no wounds Urinary Catheter Management: Sullivan: Cath Placed During This Visit: no Reason for Continuing Indwelling Catheter: Accurate Measurement of Urinary Output in Critically Ill Patients Data 04/05/25 03:06 04/05/25 04:27 Micro: Microbiology 04/03/25 15:55 Blood Culture - Preliminary Blood NEGATIVE TO DATE 04/03/25 15:50 Blood Culture - Preliminary Blood NEGATIVE TO DATE A&P Assessment and plan (1) Acute kidney injury: (2) NSTEMI (non-ST elevated myocardial infarction): (3) Acute encephalopathy: (4) Atrial fibrillation: (5) Heart failure: Plan Echo showed EF low at 20-25%. Currently [place] [id number] over 24 hours. Has been on amio drip for 24 hours. Rates are well controlled. Will transition to oral amio 200 BID and closely watch lfts. Continue heparin drip x48 hours. Once patient is euvolemic, will recommend proceeding with angiogram and possible PCI. PDMP PDMP Reviewed: Not Reviewed Attestations 2 Medical Necessity Statement*: Deferred to primary. Coding Level of Care Code Acute Code for [facility] Diagnoses Acute kidney injury N17.9 NSTEMI (non-ST elevated myocardial infarction) I21.4 Acute encephalopathy G93.40 Atrial fibrillation, unspecified type I48.91 Atrial fibrillation type: unspecified Other heart failure I50.89 Heart failure type: other
[2025-04-05] MEDS: etomidate 20 ML 10 MG (10:45)
[2025-04-05] MEDS: succinylcholine 20 mg/mL SDV 10mL 200 MG (10:45)
--- NOTE | 2025-04-05 10:50 | PC.NURSE ---
Addendum entered by Nora Berger RN 04/05/25 20:21: Lasix and Amiodarone gtts stopped. Levophed and Dobutamine gtts started. Heparin paused during code. Fentanyl and Versed gtts started for sedation. Original Note: CDE BLUE: Pt went unresponsive and PEA noted. ACLS protocol started. Pt intubated. ROSC achieved after 7 min. See Cardiopulmonary arrest flow sheet. ( 2 EPI and 2 Bicarb admin during code)
[2025-04-05 10:57] LABS: ABG PCO2 32.5 mmHg (35-45); ABG PH Result 7.26 (7.35-7.45); Arterial Blood Gas Hematocrit 38.2 % (42-52); Blood Gas Allen Test Pos; Blood Gas LPM 15.0 %; Blood Gas Operator Identificat WALCI; Blood Gas Sample Site Radial, left; Blood Gas Sample Type Arterial; Carboxyhemoglobin 0.8 %THgb (0.4-20.1); Glucose Level-ABG 227.0 mg/dL (70-115); HCO3 ABG 14.4 mmol/L (22-26); Ionized Calcium Level - ABG 1.4 mmol/L (1.1-1.4); Methemoglobin 0.9 % (0.4-1.5); Oxygen Saturation ABG 98.3; PO2 ABG 124.0 mmHg (80.0-100.0); Potassium Level - ABG 5.2 mmol/L (3.5-5.0); Sodium Level - ABG 143.0 mmol/L (131-143)
--- NOTE | 2025-04-05 10:59 | XR_ITS ---
WS: [id number] Exam: XR chest 1V portable [id number] Date/Time of Exam: 04/05/2025 11:00 AM Reason For Exam: ET tube placement Comparison 04/05/2025. At 5:20 a.m. ET tube is in place in satisfactory position ending about 6 cm above the jefferson. Right-sided PICC line ends in the lower one third of the SVC. There is new relatively extensive RIGHT perihilar infiltrate. LEFT lung remains clear. Heart size is stable. An enteric tube extends below the diaphragm but the tip is not visible. No pneumothorax. Bony structures are intact. IMPRESSION1. ET tube and right-sided PICC line both in satisfactory position. An enteric tube extends below the diaphragm but the tip is not visible. 2. New relatively extensive RIGHT perihilar infiltrate since the last exam at 5:20 a.m. on the same day.
--- NOTE | 2025-04-05 11:00 | W.ED.GENADLT ---
HPI - General Adult General: Chief complaint: General Medical Stated complaint: confusion Time Seen by Provider: 04/03/25 12:52 Source: patient Mode of arrival: ambulatory Limitations: no limitations History of Present Illness: I was called to code. Patient required intubation. Dr. Sin ran the code. Related Data Home Medications ?Medication ?Instructions ?Recorded ?Confirmed acetaminophen 325 mg tablet 650 mg PO Q6H PRN pain/temp 04/03/25 04/03/25 (Tylenol) aspirin 81 mg chewable tablet 81 mg PO QAM 04/03/25 04/03/25 bisacodyl 10 mg rectal suppository 10 mg NJ DAILY PRN Constipation 04/03/25 04/03/25 (Dulcolax (bisacodyl)) bumetanide 1 mg tablet 1 mg PO DAILY 04/03/25 04/03/25 carvedilol 3.125 mg tablet 3.125 mg PO BID 04/03/25 04/03/25 cyclobenzaprine 5 mg tablet 5 mg PO TID PRN Spasms 04/03/25 04/03/25 melatonin 3 mg tablet 3 mg PO BEDTIME PRN Insomnia 04/03/25 04/03/25 polyethylene glycol 3350 17 17 g PO DAILY 04/03/25 04/03/25 gram/dose oral powder (Miralax) potassium chloride 20 mEq 20 meq PO DAILY 04/03/25 04/03/25 tablet,extended release(part/cryst) sennosides 8.6 mg tablet (senna) 17.2 mg PO BID 04/03/25 04/03/25 tamsulosin 0.4 mg capsule 0.4 mg PO DAILY 04/03/25 04/03/25 Allergies Allergy/AdvReac Type Severity Reaction Status Date / Time codeine Allergy rash Verified 04/04/23 09:24 Penicillins Allergy rash Verified 04/04/23 09:24 Review of Systems General: Reports: ROS unobtainable due to medical condition [facility] ED PFSH: Medical History (Updated 04/04/25 @ 17:04 by Kenny Sin MD) History of chronic kidney disease Physical Exam Narrative: EXAM NARRATIVE: General: ill appearing, Skin: pale Head: Normocephalic, atraumatic. Neck: trachea midline. Eye: pupils fixed and dilated Ears, nose, mouth and throat: Copious secretions Cardiovascular: No palpable pulse. Respiratory: Occasional agonal breaths Gastrointestinal: Non distended Musculoskeletal: no deformity. Neurological: non responsive. Psychiatric: unable to evaluate. Course Vital Signs: Vital signs: Vital Signs Temperature 97.3 F L 04/05/25 05:00 Pulse Rate 81 04/05/25 08:53 Respiratory Rate 17 04/05/25 08:53 Blood Pressure 118/89 04/05/25 07:00 Pulse Oximetry 100 04/05/25 08:53 Oxygen Delivery Me thod Nasal Cannula 04/05/25 08:53 Oxygen Flow Rate 2 04/05/25 08:53 Fraction of Inspir ed Oxygen 28 04/04/25 21:18 MDM - General Adult Medical Decision Making Endotracheal intubation Time: 10:45 AM Confirmed: Patient, procedure, and site correct. Consent: , Emergent. Indication: Respiratory failure. Procedural sedation: Succinylcholine and etomidate . Monitoring: Cardiac, blood pressure, continuous pulse oximetry. Preparation: Pre oxygenated, Inline stabilization of cervical spine maintained, Ensured proper cuff inflation. Technique: Oral intubation: A 8 ET tube was inserted, glydescope, visualized cords and ett passing through cords. At 23 cm at the teeth. Confirmation of tube placement: Bilateral chest rise, Positive color change indicated on end title CO2. Post procedure exam: Equal breath sounds. Complications: None. Performed by: Self. Total time: 10 minutes. Lab Data 04/05/25 03:06 04/05/25 04:[address] 04/03/25 13:00 IMPRESSION: 1. No acute intracranial hemorrhage or edema. 2. Mild cerebral atrophy and cerebellar atrophy and small vessel disease. Chest/Abdomen/Pelvis CT 04/03/25 15:24 IMPRESSION: 1. Moderate layering pleural effusions bilaterally. Mild lower lobe atelectasis. 2. Moderate cardiomegaly with pulmonary hypertension. IMPRESSION: 1. Layering gallstones or gallbladder sludge. 2. Nonspecific fat stranding in the upper abdomen as described. Consider correlation with amylase and lipase given possibility of pancreatitis. 3. Multiple renal cysts particularly in the right kidney. COMMENTS: Consistent with the [employer] [employer]'s Incidental Findings Committee white paper (J Am Clarence Radiol 2018): Any incidental renal lesion less than 1 cm or classified as too small to characterize, or any incidental cystic renal lesion characterized as simple-appearing, is likely benign. No follow-up imaging is recommended for these lesions per consensus recommendations based on imaging criteria. Renal Ultrasound 04/04/25 10:01 IMPRESSION: 1. No renal obstruction. 2. Numerous RIGHT renal cysts. The largest measures 6.3 x 5.4 x 7.0 cm. 3. Mild bilateral diffuse cortical thinning. 4. Mild chronic medical renal disease. Chest X-Ray 04/05/25 07:00 IMPRESSION: No significant change. Chest Ultrasound 04/05/25 07:44 IMPRESSION: See above Laboratory Results WBC 8.27 10^3/uL (3.29-11.43) 04/03/25 14:04 RBC 3.91 10^6/uL (3.85-5.65) 04/03/25 14:04 Hgb 12.10 g/dL (11.27-16.99) 04/03/25 14:04 Hct 37.5 % (37-53) 04/03/25 14:04 MCV 95.9 fl (82-101) 04/03/25 14:04 MCH 30.9 pg (27-33) 04/03/25 14:04 MCHC 32.3 g/dL (30-55) 04/03/25 14:04 RDW 12.9 % (12.1-15.1) 04/03/25 14:04 Plt Count 303 10^3/cmm (157-399) 04/03/25 14:04 MPV 10.4 fL (7.4-10.4) 04/03/25 14:04 Neut % (Auto) 75.2 % 04/03/25 14:04 Lymph % (Auto) 17.3 % 04/03/25 14:04 [place] % (Auto) 5.8 % 04/03/25 14:04 Eos % (Auto) 1.1 % 04/03/25 14:04 Baso % (Auto) 0.5 % 04/03/25 14:04 Neut # (Auto) 6.22 10^3/uL (1.8-7.7) 04/03/25 14:04 Lymph # (Auto) 1.4 10^3/uL (0.8-4.8) 04/03/25 14:04 [place] # (Auto) 0.5 10^3/uL (0.2-0.9) 04/03/25 14:04 Eos # (Auto) 0.1 10^3/uL (0.0-0.8) 04/03/25 14:04 Baso # (Auto) 0.0 10^3/uL (0.0-0.1) 04/03/25 14:04 Nucleated RBC % (auto) 0.2 % 04/03/25 14:04 Nucleated RBCs # 0.0 /100WBC 04/03/25 14:04 Specimen Type Arterial 04/03/25 15:58 Sample Site Brachial, left 04/03/25 15:58 ABG pH 7.46 (7.35-7.45) H 04/03/25 15:58 ABG pCO2 19.8 mmHg (35-45) L* 04/03/25 15:58 ABG pO2 103.0 mmHg (80.0-100.0) H 04/03/25 15:58 ABG PO2/FiO2 Ratio 490 04/03/25 15:58 ABG HCO3 14.0 mmol/L (22-26) L 04/03/25 15:58 ABG Base Excess -7.8 mmol/L (-2.0-2.0) L 04/03/25 15:58 Bi Test Pos 04/03/25 15:58 Hematocrit 36.2 % (42-52) L 04/03/25 15:58 O2 Delivery Device Room air 04/03/25 15:58 FiO2 21.0 % 04/03/25 15:58 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 [place] 04/03/25 15:58 Sodium 140 mmol/L (136-145) 04/03/25 14:04 Potassium 5.5 mmol/L (3.5-5.1) H 04/03/25 14:04 Chloride 107 mmol/L (98-107) 04/03/25 14:04 Carbon Dioxide 14 mmol/L (22-29) L 04/03/25 14:04 Anion Gap 24.5 (5-19) H 04/03/25 14:04 BUN 89 mg/dL (8-23) H* 04/03/25 14:04 Creatinine 2.5 mg/dL (0.7-1.2) H 04/03/25 14:04 GFR Calculation Not Reportable 04/03/25 14:04 Glucose 136 mg/dL (65-115) H 04/03/25 14:04 POC Glucose 204 mg/dL (70-110) H 04/03/25 16:33 Estimat Average Glucose 134 04/03/25 14:04 Hemoglobin A1c 6.3 % (4.0-6.0) H 04/03/25 14:04 Calculated Osmolality 319 mOsm/kg (285-295) H 04/03/25 14:04 Lactic Acid 2.1 mmol/L (0.5-2.2) 04/03/25 14:04 Calcium 8.9 mg/dL (8.5-10.5) 04/03/25 14:04 Total Bilirubin 0.6 mg/dL (0.15-1.2) 04/03/25 14:04 GGT 96 U/L (8-61) H 04/03/25 14:04 AST 126 U/L (0-40) H 04/03/25 14:04 ALT 175 U/L (0-41) H 04/03/25 14:04 Alkaline Phosphatase 199 U/L (40-130) H 04/03/25 14:04 Ammonia 46 umol/L (16-60) 04/03/25 15:55 Creatine Kinase 44 U/L (39-308) 04/03/25 15:50 Troponin T Baseline 140 ng/L (0-15) H* 04/03/25 14:04 Troponin T 120 Minute 127.4 ng/L (0-15) H 04/03/25 15:50 Delta Troponin T -12.6 ABS# (0-10) L 04/03/25 15:50 C-Reactive Protein 23.8 mg/L (0.0-4.9) H 04/03/25 14:04 NT-Pro-B Natriuret Pep > 22141 pg/mL (0-450) H 04/03/25 14:04 Total Protein 6.5 g/dL (6.6-8.7) L 04/03/25 14:04 Albumin 3.3 g/dL (3.5-5.2) L 04/03/25 14:04 Globulin 3.2 g/dL (1.3-4.6) 04/03/25 14:04 Lipase 27 U/L (13-60) 04/03/25 14:04 Procalcitonin 0.17 ng/mL (0-0.5) 04/03/25 14:04 TSH 1.38 uIU/mL (0.27-4.20) 04/03/25 15:50 Urine Color Yellow (Yellow) 04/03/25 13:30 Urine Appearance Clear (CLEAR) 04/03/25 13:30 Urine pH 5.0 (5-7) 04/03/25 13:30 Ur Specific [place] 1.018 (1.005-1.030) 04/03/25 13:30 Urine Protein 2+ (Negative) A 04/03/25 13:30 Urine Glucose (UA) Trace (Normal) H 04/03/25 13:30 Urine Ketones Negative (Negative) 04/03/25 13:30 Urine Blood Negative (Negative) 04/03/25 13:30 Urine Nitrate Negative (Negative) 04/03/25 13:30 Urine Bilirubin Negative (Negative) 04/03/25 13:30 Urine Urobilinogen 1.0 mg/dL (Negative) 04/03/25 13:30 Ur Leukocyte Esterase Negative (Negative) 04/03/25 13:30 Urine RBC 0-2 /hpf (0-2) 04/03/25 13:30 Urine WBC 0-5 /hpf (0-5) 04/03/25 13:30 Ur Squamous Epith Cells 0-5 /hpf (0-5) 04/03/25 13:30 Amorphous Sediment Not Reportable 04/03/25 13:30 Urine Bacteria None seen /hpf (NONE) 04/03/25 13:30 Hyaline Casts 10.73 /lpf 04/03/25 13:30 Serum Ketones Negative (Negative) 04/03/25 15:50 No radiology studies performed this visit Discharge Plan Discharge Patient Disposition: Admitted As Inpatient Admit Provider: Kenny Sin Clinical Impression: Acute kidney injury, Altered mental status Condition: Stable 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
--- NOTE | 2025-04-05 11:03 | USCV_ITS ---
Edward Ross Age: 80 Gender: M : 1945 Exam Date: 04/05/2025 11:39 Ordering Phys: Zena Henry NP Technologist: [place] [facility] [place] BP: 104 / 80 HR: Rhythm: Sinus Technical Quality: Adequate MEASUREMENTS (Male / Female) Normal Values 2D ECHO LV Diastolic Diameter PLAX 4.6 cm 4.2 - 5.9 / 3.9 - 5.3 cm IVS Diastolic Thickness 1.8 cm 0.6 - 1.0 / 0.6 - 0.9 cm IVS Systolic Thickness 2.1 cm LVPW Diastolic Thickness 1.6 cm 0.6 - 1.0 / 0.6 - 0.9 cm LVPW Systolic Thickness 1.8 cm LVOT Diameter 2.4 cm LV Ejection Fraction 2D Teich 7.5 % LV Ejection Fraction MOD 4C 16.2 % LV Ejection Fraction MOD 2C 17.7 % LV Ejection Fraction 2C AL 17.2 % LA Diameter 4.7 cm M-MODE LA Ao Ratio MM 1.4 AV Cusp Separation MM 2.3 cm FINDINGS Left Ventricle Right Ventricle Right Atrium Left Atrium Mitral Valve Aortic Valve Tricuspid Valve Pulmonic Valve Pericardium Aorta IVC CONCLUSIONS LV systolic function is severely reduced with EF of 10 to 15%. Severe global hypokinesis. Pleural effusion seen Tigre Peña MD (Electronically Signed) Final Date: 05 April 2025 16:13 S
[2025-04-05] MEDS: DOBUTamine drip 500 MG/250 ML PREMIX (11:05)
[2025-04-05 11:11] LABS: Anion Gap 26.4 (5-19); Calcium 8.8 mg/dL (8.5-10.5); Carbon Dioxide 14 mmol/L (22-29); Chloride 103 mmol/L (98-107); Creatinine Clr Calc Pharmacy 23.4993; Glucose 141 mg/dL (65-115); Osmolality Calculated 315 mOsm/kg (285-295); Potassium 5.4 mmol/L (3.5-5.1); Sodium 138 mmol/L (136-145)
[2025-04-05] MEDS: fentaNYL 1,000 MCG/100 ML BAG 2.5 MCG IV (11:11)
[2025-04-05] MEDS: midazolam hcl 100 MG/100 ML BAG IV (11:11)
[2025-04-05] MEDS: dexmedeTOMIDine 0.9 % NaCL 400 MCG/100 ML PREMIX IV (11:12)
--- NOTE | 2025-04-05 11:13 | ECG_ITS ---
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 Measurements Intervals [place] Rate: 96 P: 0 OR: 0 QRS: 265 QRSD: 150 T: 89 QT: 415 QTc: 527 Interpretive Statements ATRIAL FIBRILLATION WITH ABERRANT CONDUCTION OR VENTRICULAR PREMATURE COMPLEXES RIGHT AXIS DEVIATION [QRS AXIS > 100] INTRAVENTRICULAR CONDUCTION DELAY [130+ ms QRS DURATION] Compared to ECG 04/03/2025 21:31:15 Ventricular premature complex(es) now present Aberrant conduction of supraventricular beat(s) now present Electronically Signed On 04-11-2025 09:22:41 CDT by iTgre Peña M.D. [email or web address]
[2025-04-05 11:19] LABS: KAPPA LIGHT CHAIN, FREE, SERUM 57.0 mg/L (3.3-19.4); KAPPA/LAMBDA LIGHT CHAINS FREE 1.24 (0.26-1.65); LAMBDA LIGHT CHAIN, FREE, SERU 45.8 mg/L (5.7-26.3)
[2025-04-05 11:20] LABS: Blood Urea Nitrogen 86 mg/dL (8-23)
[2025-04-05 11:22] LABS: Hematocrit 38.0 % (37-53); Hemoglobin 11.70 g/dL (11.27-16.99); Mean Corpuscular HGB Conc 30.8 g/dL (30-55); Mean Corpuscular Hemoglobin 31.0 pg (27-33); Mean Corpuscular Volume 100.5 fl (82-101); Nucleated Red Blood Cells % 0.6 %; Platelet Count 273 10^3/cmm (157-399); Red Blood Count 3.78 10^6/uL (3.85-5.65); White Blood Count 10.63 10^3/uL (3.29-11.43)
--- NOTE | 2025-04-05 11:27 | USCV_ITS ---
Edward Ross Age: 80 Gender: M : 1945 Exam Date: 04/05/2025 16:11 Ordering Phys: Kenny Sin MD Technologist: Exam Location: [facility] [place] Indication: ? pe PROCEDURES: The venous duplex Doppler examination of both lower extremities was performed in the standard fashion. The following venous structures were evaluated: common femoral vein, profunda vein, proximal portion of the greater saphenous vein, superficial femoral vein, and the popliteal vein. In addition, the posterior tibial and peroneal trunk were evaluated. FINDINGS: Normal 2-D Doppler and augmentation and compressibility throughout the lower extremity venous structures. Additional imaging through the proximal calf veins also reveals no thrombus. Limited evaluation of the greater saphenous vein is patent with no thrombus. CONCLUSIONS No evidence of right lower extremity DVT. No evidence of left lower extremity DVT. Dav Salazar MD (Electronically Signed) Final Date: 08 April 2025 10:16 S
--- NOTE | 2025-04-05 11:29 | ANES.PROC ---
Anesthesia Procedures Procedure/Date: 04/05/25 Arterial Line: Time Out Performed: Yes Consent: requested by attending/covering physician Size (Gauge): 20 Technique Used: guide wire technique Post-Procedure: dry sterile dressing placed Patient Tolerated Procedure: no complications Complications: none Site: left and radial
--- NOTE | 2025-04-05 11:30 | PC.NURSE ---
Verbal orders to continue Lasix gtt at previous rate of 10mg/hr received and started.
[2025-04-05] MEDS: norepinephrine 4 MG/250 ML BAG 75 MG IV ×3 (11:31→17:02)
[2025-04-05 11:33] LABS: Partial Thromboplastin Time 49.2 SECONDS (23.9-36.7)
[2025-04-05 11:43] LABS: Alanine Aminotransferase 343 U/L (0-41); Albumin Level 2.6 g/dL (3.5-5.2); Alkaline Phosphatase 217 U/L (40-130); Aspartate Amino Transferase 240 U/L (0-40); Calcium 9.9 mg/dL (8.5-10.5); Carbon Dioxide 12 mmol/L (22-29); Chloride 103 mmol/L (98-107); Creatinine Clr Calc Pharmacy 22.6600; Globulin 2.3 g/dL (1.3-4.6); Glucose 209 mg/dL (65-115); Osmolality Calculated 324 mOsm/kg (285-295); Sodium 141 mmol/L (136-145); Total Protein 4.9 g/dL (6.6-8.7)
[2025-04-05 11:46] LABS: NT Pro B Type Natriuretic Pept 57831 pg/mL (0-450)
[2025-04-05 11:50] LABS: Anion Gap 31.4 (5-19); Potassium 5.4 mmol/L (3.5-5.1)
[2025-04-05 11:51] LABS: ABG PCO2 30.6 mmHg (35-45); ABG PH Result 7.19 (7.35-7.45); Alveolar-Arterial Oxygen Gradi 64.6 mmHg (5-10); Arterial Blood Gas Hematocrit 35.6 % (42-52); Blood Gas Operator Identificat GD; Blood Gas Sample Site Not specified; Blood Gas Sample Type Arterial; Blood Gas Tidal Volume 0.45; Carboxyhemoglobin 0.7 %THgb (0.4-20.1); Glucose Level-ABG 170.0 mg/dL (70-115); HCO3 ABG 11.8 mmol/L (22-26); Ionized Calcium Level - ABG 1.2 mmol/L (1.1-1.4); Methemoglobin 1.0 % (0.4-1.5); Oxygen Saturation ABG 99.1; PEEP 8.0 cmH20; PO2 ABG 173.0 mmHg (80.0-100.0); PO2 FiO2 Ratio Arterial Blood 173; Potassium Level - ABG 4.7 mmol/L (3.5-5.0); Sodium Level - ABG 141.0 mmol/L (131-143)
[2025-04-05 11:52] LABS: Lactic Sepsis W/Reflex 10.1 mmol/L (0.5-2.2)
[2025-04-05 11:53] LABS: Blood Urea Nitrogen 85 mg/dL (8-23); Troponin(5th) Baseline 143 ng/L (0-15)
--- NOTE | 2025-04-05 11:55 | PC.NURSE ---
Clarifiied AMiodrone PO meidcation order. Per Dr Sin hold.
[2025-04-05] MEDS: heparin 5,000 unit/mL INJ 1 mL IVP (12:03)
--- NOTE | 2025-04-05 12:15 | PC.NURSE ---
Verbal order received from Dr Sin to start decreasing the Dobutamine to 2.5 and restart Amiodarone gtt at 0.5 mg/min. To start titrating Levophed down after Dobutamine off.
[2025-04-05 13:04] LABS: Reflex Lactate Order REFLEX LACTIC ORDERD
--- NOTE | 2025-04-05 13:13 | ECG_ITS ---
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 Measurements Intervals [place] Rate: 88 P: 0 DE: 0 QRS: -89 QRSD: 148 T: 80 QT: 421 QTc: 512 Interpretive Statements ATRIAL FIBRILLATION INTRAVENTRICULAR CONDUCTION DELAY [130+ ms QRS DURATION] POSSIBLE ANTERIOR MYOCARDIAL INFARCTION , OF INDETERMINATE AGE [30 ms Q WAVE IN V3/V4, OR R < 0.2 mV IN V4] INFERIOR MYOCARDIAL INFARCTION , PROBABLY OLD [40+ ms Q WAVE AND/OR ST/T ABNORMALITY IN II/aVF] Compared to ECG 04/05/2025 10:50:41 Myocardial infarct finding now present Ventricular premature complex(es) no longer present Aberrant conduction of supraventricular beat(s) no longer present Right-axis deviation no longer present Electronically Signed On 04-11-2025 09:40:53 CDT by Tigre Peña M.D. [email or web address]
[2025-04-05 13:47] LABS: Troponin 5 2HR 133.0 ng/L (0-15); Troponin 5 2HR Delta -10.0 ABS# (0-10)
[2025-04-05 14:10] LABS: ABG PCO2 31.6 mmHg (35-45); ABG PH Result 7.29 (7.35-7.45); Alveolar-Arterial Oxygen Gradi 32.8 mmHg (5-10); Arterial Blood Gas Hematocrit 38.0 % (42-52); Blood Gas Operator Identificat GD; Blood Gas Sample Site Not specified; Blood Gas Sample Type Arterial; Blood Gas Tidal Volume 0.45; Carboxyhemoglobin 0.7 %THgb (0.4-20.1); Glucose Level-ABG 153.0 mg/dL (70-115); HCO3 ABG 15.3 mmol/L (22-26); Ionized Calcium Level - ABG 1.2 mmol/L (1.1-1.4); Methemoglobin 0.3 % (0.4-1.5); Oxygen Saturation ABG 98.8; PEEP 8.0 cmH20; PO2 ABG 133.0 mmHg (80.0-100.0); PO2 FiO2 Ratio Arterial Blood 221; Potassium Level - ABG 4.5 mmol/L (3.5-5.0); Sodium Level - ABG 142.0 mmol/L (131-143)
--- NOTE | 2025-04-05 14:15 | PC.NURSE ---
ABGs with Lactic reported to Dr Mata. NO changes in gtts. We will wait until pt more stable to consider dialysis.
[2025-04-05 14:58] LABS: Lactic Acid level (Lactate) 3.2 mmol/L (0.5-2.2)
--- NOTE | 2025-04-05 15:46 | PC.NURSE ---
Verbal orde recieved from Dr Peña to stop the Dobutamine. Dobutamine stopped.
--- NOTE | 2025-04-05 15:59 | P.PN_ITS ---
Subjective 2 Subjective: - Patient was seen this morning - This morning he was alert oriented x 3 , following all commands - He was laying back in bed, currently o n 2 L, he reports shortness of breath about sitting up, but he felt better compared to yesterday normotensive, atrial fibrillation on amiodarone drip did not require pressors during the night - He was on Lasix drip at 20 to an hour decreased to 10 units an hour, potassium 5.4, urine output 1979 - I had a detailed discussion with Sincere vela about his goals of care - Edward tells me that he has been hospi talized for heart failure in the past but he is not sure what his heart failure numbers was - Discussed with him that his EF is down to 20 to 25%, he denies any chest pain denies any cardiovascular interventions, he does not remember ever having a coronary angiogram - We in addition discussed his creatinin e up to 2.6, with CKD, he does tell me that there has been discussions about dialysis but they have never come to fruition and he is never needed them but his urine output has been decreasing recently - Discussed his flash pulm edema, he is fluid overload, Lasix drip - Discussed with him his atrial fibrilla tion on amiodarone drip denies a history of atrial fibrillation - He is on a heparin drip for his NSTEMI , his elevated troponins were discussed, - Discussed with Edward his overall goal s of care with his EF down to 20 to 25% concern would be for ischemic cardiomyopathy however given his elevated creatinine, currently the plan is to optimize his respiratory status, monitor his kidney function and possibly plan on coronary angiography in the near future based on his clinical progress - I had a detailed discussion with him a bout the risk and benefits of coronary angiography, given his underlying CKD the high risk of dialysis, he voiced understanding, all questions answered, he is agreed to proceed if required but is worried about ending up on dialysis - I had a real and detailed discussion lilian Leon about his CKD and now his JOAO, I do not know his baseline level of kidney function and waiting on the records from [facility], however there is a high likelihood he will require dialysis, discussed dialysis in detail with Edward, he is agreeable to proceed if required - Discussed morbidity mortality with his underlying cardiac condition, his fluid overload, remains a full code, agreeable to dialysis, he does tell me that if the likelihood of meaningful recovery is unlikely he does not want to have aggressive interventions to be continued or to be kept on life support indefinitely - He is waiting for his son to come, dis cussed that I have tried to reach out to his son a couple of times, but he has not picked up the phone as of yet, he tells me that his son is coming from [facility] - At about 10:39 AM patient reported to the nursing staff that he was short of breath, suddenly became unresponsive - Nursing staff could not get a pulse, R ashu was not breathing, [facility] was called - I immediately arrived on [facility] at about 10:40 AM - CPR had been initiated, first rhythm c heck PEA - Second rhythm check showed V-fib for w frandy he received defibrillation, CPR was resumed, rhythms showed PEA, at fourth pulse check he had a pulse, initially showed junctional rhythm then A-fib, heart rates in the 90s - After about 7 minutes of CPR, 3 doses of epinephrine, 1 dose of bicarb, received 1 dose of calcium chloride due to concerns for hyperkalemia, although potassium was 5.4 - ER provider intubated Edward, using et omidate/succinylcholine - After 7 minutes of CPR, successful ROS C, he was placed on 100% FiO2, - Sedated with fentanyl, Versed, Precede x - EKG did not show any acute ST-T wave c hanges -Etiology highly suspicious for acute fl grisel pulmonary edema -Likelihood of PE is very unlikely as murphy perla was on anticoagulant therapy since his hospital admission -Troponin series ordered, EKG series ord ered -Chest x-ray did showed new right lower lobe infiltrate possible right lower lobe pneumonia has been on antibiotics since yesterday, possible aspiration event? Nonetheless continue IV antibiotics - Spoke to cardiology, about cardiac arr est episode, no current interventions at this time, recommended continued medical management, discussed intra-aortic balloon pump or LVAD, discussed V-fib event, discussed cardiac catheterization, recommended continued medical management, further diuresis, medical stabilization, as patient's condition is unstable and critical - Recommended continue medical managemen t, further diuresis, medical stabilization - He was placed on Levophed titrated up to 20, dopamine at 5, bolus normal saline - Blood pressures initially soft, improv ed to 140s over 100s, rhythm remains atrial fibrillation, 100% ventilator, chest x-ray confirms position of endotracheal tube for about 5 cm above jefferson, - Discussed case with nephrology, ashley sed possibility of dialysis catheter placement and dialysis recommended continue medical management, continue IV diuresis monitor urine output - Repeat ABGs obtained, pH improving to 7.29, PCO2 31.6, PO2 133, - Lactic acid initially 10.1, now down t o 3.2, continue Rocephin, Zithromycin - Has evidence of transaminitis, shock l iver continue to monitor - Base troponin 143, 120-minute 133 caden ins on heparin drip - Given V-fib arrest concerns, atrial fi brillation continue amiodarone drip - Continue Lasix drip monitor urine outp ut, monitor creatinine - Repeat cardiac echocardiogram ordered - I was able to speak to patient's son a t bedside - Discussed Petros critical status, pro gnosis guarded with his cardiac arrest episode, with systolic CHF concerns for ischemic cardiomyopathy, underlying acute renal failure, discussed his shock, now with multiorgan failure, acute respiratory failure, discussed morbidity and mortality of his current condition, - Currently he is intubated, sedated, he is down to 60% FiO2 so showed some progress, continues to be on Lasix drip, urine output is slightly improving with Lasix, is on amiodarone drip, he is sedated with fentanyl, Versed, the dobutamine has been weaned down to 2.5 plan to wean off completely and potentially wean down Levophed - Discussed with son my discussions with Edward, discussed overall goals of care, consultations with cardiology, consultations with nephrology - Patient's son tells me that Edward has a history of CHF, CKD there has been discussions about dialysis he is not exactly sure how severe his heart failure has been, but he was recently hospitalized at [facility] for his heart failure, he was also hospitalized at [facility] in [facility], his physicians are primarily at [facility] -Reexamined in the afternoon he is down to 40% FiO2, off dobutamine, urine output 500 cc, Levophed at 20 MAP is greater than 65 plans on weaning down Levophed, spoke to nephrology no plans on dialysis for now will continue Lasix drip, spoke to cardiology, plan on continue medical management further stabilization, according to nursing staff he was able to shake his head, he was moving his right arm, pupils are both equal round reactive to light, he does withdraw from pain, has a cough and gag reflex, Vitals/I&O/Wt Last Vital Signs Temp 97.3 F L 04/05/25 05:00 Pulse 81 04/05/25 08:53 Resp 15 04/05/25 15:12 BP 118/89 04/05/25 07:00 Pulse Ox 96 04/05/25 15:12 O2 Del Method Nasal Cannula 04/05/25 08:53 O2 Flow Rate 2 04/05/25 08:53 FiO2 40 04/05/25 15:12 04/05/25 04/05/25 04/05/25 06:59 14:59 22:59 Intake Total 440.6 / 2520.734 1130.851 / 1130.851 Output Total 1125 / 1875 255 / 255 Balance -684.4 / 645.734 875.851 / 875.851 Weight last 48 hrs Weight 78.154 kg Weight 77.111 kg Physical Exam 2 Narrative: Intubated, sedated, mechanical ventilation, endotracheal tube in place, right PICC line in place, arterial line in place, orogastric tube in place, Eye: OTHER: Pupils are equal round reactive to light Neck/C-Spine: COMMON NORMALS: no lymphadenopathy OTHER: Does have bilateral JVD Resp: EFFORT & INSPECTION: Yes symmetric chest movement and Yes tachypneic OTHER: Diffuse crackles in all lung [place], Cardio: COMMON NORMALS: S1 normal heart sound present and S2 normal heart sound present RATE: tachycardic RHYTHM: abnormal rhythm irregularly irregular HEART SOUNDS: S1 normal heart sound present and S2 normal heart sound present GI: COMMON NORMALS: Normal to inspection, nondistended, normoactive bowel sounds present and non-tender OTHER: Anasarca Extremity: NARRATIVE EXTREMITY EXAM: 1+ edema Urinary Catheter Management: Sullivan: Cath Placed During This Visit: no Reason for Continuing Indwelling Catheter: Accurate Measurement of Urinary Output in Critically Ill Patients Data 04/05/25 11:08 04/05/25 11:08 Micro: Microbiology 04/03/25 15:55 Blood Culture - Preliminary Blood NEGATIVE TO DATE 04/03/25 15:50 Blood Culture - Preliminary Blood NEGATIVE TO DATE A&P Assessment and plan (1) Acute kidney injury: (2) NSTEMI (non-ST elevated myocardial infarction): (3) Acute encephalopathy: (4) Atrial fibrillation: (5) Heart failure: (6) Pulmonary edema: (7) Acute hypoxic respiratory failure: (8) Metabolic acidosis with respiratory alkalosis: (9) Cardiogenic shock: (10) Sepsis: (11) Pneumonia: (12) Shock: (13) Cardiorenal disease: (14) Systolic CHF: (15) Acute respiratory distress: (16) Bilateral pleural effusion: (17) Cardiac arrest: (18) Cardiac arrest with successful resuscitation: (19) Successful cardiopulmonary resuscitation: Plan Cardiac arrest - Concern for V-fib arrest - Acute flash pulmonary edema - Successful ROSC - Had 4 A of epi, 1 amp of bicarb, 1 amp of calcium chloride - CPR time roughly 7 minutes - Initial EKG shows atrial fibrillation, no acute ST-T wave changes - Pupils equal round reactive to light, does have a cough reflex, does have a gag reflex, according to nursing staff he did move his right arm, move head from [id number] -Baseline troponin 143, 120-minute 133 -BNP over 57,000 -Potassium 5.4, did give 1 dose of calcium chloride -Etomidate and succinylcholine for intubation used by ER provider, monitor potassium closely - Plan -Cardiology on consult -Currently intubated -Sedated with fentanyl, Versed, Precedex -Minimize FiO2, minimize tidal volume -Arterial line in place -PICC line in place -Currently on Levophed, maintain MAP greater than 65, wean Levophed as tolerated -Dobutamine has been weaned off -Neurochecks, monitor mentation closely -Will consider CT imaging of the head based on clinical progress -Daily spontaneous breathing trials -Will start to wean sedation once more stable, do neurologic testing - Repeat echo CONCLUSIONS LV systolic function is severely reduced with EF of 10 to 15%. Severe global hypokinesis. Pleural effusion seen - Continue aspirin, statin - Continue heparin drip - Plans on possible coronary angiography based on clinical progress - Will consider LVAD based on clinical progress - Currently on Lasix drip, monitor output, monitor creatinine monitor potassium - Will consider dialysis based on clinical progress -Venous ultrasound negative for DVT - Protonix for GI prophylaxis - Heparin drip for DVT prophylaxis Acute hypoxic respiratory failure - With acute respiratory distress - Systolic CHF exacerbation -Bilateral pleural effusions - Acute flash pulmonary edema - With concerns for possible pneumonia -Atrial fibrillation with rapid ventricular response Plan - Monitor in ICU closely - Currently intubated, sedated - Monitor respiratory status closely - DuoNeb - Budesonide - Blood cultures - Sputum cultures - Continue Lasix drip at 10 units/hr - Monitor BMP every 4 hours -Maintain potassium greater than 4 -IV doses based on clinical progress - Monitor creatinine - Monitor urine output - Rocephin - Azithromycin Shock - Multifactorial cardiogenic shock - Component of sepsis with right lower lobe infiltrate pneumonia - Currently on Levophed - Maintain MAP greater than 65 - Monitor output, monitor creatinine Bilateral pleural effusions ct chest CT/[place] [id number] IMPRESSION: 1. Moderate layering pleural effusions bilaterally. Mild lower lobe atelectasis. 2. Moderate cardiomegaly with pulmonary hypertension. - Ultrasound thoracentesis, only very small bilateral pleural effusion, insufficient for safe thoracentesis Systolic CHF exacerbation -Used to follow with a harnessmaker in [facility], has had hospitalizations in [facility] in [place] for CHF back in August CONCLUSIONS Left ventricle is dilated. LV systolic function is severely reduced with EF of 20-25%. Moderate left ventricular hypertrophy. Biatrial enlargement. Mild mitral regurgitation. Mild to moderate aortic regurgitation Mild tricuspid regurgitation Moderate pulmonary hypertension Moderate pulmonic regurgitation Pleural effusion seen IVC is dilated No comparison studies are seen. Cardiac echo CONCLUSIONS LV systolic function is severely reduced with EF of 10 to 15%. Severe global hypokinesis. Pleural effusion seen Concern for possible pneumonia, CT chest showing mild lower lobe atelectasis - IV antibiotics as above Acute kidney injury on CKD - Baseline kidney function unknown - Used to follow-up with a prevention specialist in [facility], had reported CKD, with discussions of dialysis at some point - Possibly component of cardiorenal syndrome - Monitor BMP every 4 hours - Monitor creatinine, monitor electrolytes - Patient is agreeable to dialysis if required NSTEMI - No chest pain complaints - Does have shortness of breath -EF 10 to 15% Plan - Telemetry monitoring - EKGs, serial troponins, telemetry monitoring - Aspirin, statin - Heparin drip - Cardiology consulted A-fib with RVR - Amiodarone drip Transaminitis, shock liver, monitor Respiratory alkalosis with increased anion gap metabolic acidosis - Could be from cardiogenic shock, cardiorenal syndrome, JOAO, respiratory failure, cardiac arrest - Will monitor Acute encephalopathy -Etiology unclear, resolved - Component of uremia - Head CT no acute findings - No focal neurologic deficits, is globally encephalopathic - Ammonia levels WNL - UA within normal limits - CT chest possible pneumonia: Antibiotics - Order inflammatory markers - Neurochecks - NIH stroke scale - Monitor mentation Increased anion gap metabolic acidosis - Check ketones within normal limits - Check A1c 6.2 - Lactic acid within normal limits Hyperkalemia, resolved - Calcium gluconate - Insulin, D10 - Repeat BMP this evening Uremia - Secondary to JOAO - Hemoglobin within normal limits - Monitor closely Full code Heparin drip for DVT prophylaxis Lovenox for DVT prophylaxis PDMP PDMP Reviewed: Not Reviewed Attestations 2 Medical Necessity Statement*: Patient requires hospitalization for cardiac arrest, acute hypoxic respiratory failure, cardiogenic shock, NSTEMI, ischemic cardiomyopathy, systolic CHF, acute kidney injury, shock liver, atrial fibrillation V-fib arrest, CPR performed, with successful ROSC Procedures Arterial Line Size (Gauge): 20 Coding Level of Care Code Critical Care >/= 30 minutes Critical care time (in minutes): 90 The high probability of a clinically significant, sudden or life threatening deterioration, as referenced in this documentation, required my full and direct attention, intervention and personal management. The critical care time shown is in addition to time spent performing any reported separately billable procedures and includes the following: [x] Data and vital sign review and interpretation [x ] Patient assessment, examination and intervention [x] Medication orders and management [x] Patient/Family updates as able [x] Care Coordination and Documentation. Diagnoses Acute kidney injury N17.9 NSTEMI (non-ST elevated myocardial infarction) I21.4 Acute encephalopathy G93.40 Atrial fibrillation, unspecified type I48.91 Atrial fibrillation type: unspecified Other heart failure I50.89 Heart failure type: other Pulmonary edema J81.1 Acute hypoxic respiratory failure J96.01 Metabolic acidosis with respiratory alkalosis E87.20; E87.3 Cardiogenic shock R57.0 Sepsis A41.9 Pneumonia J18.9 Shock R57.9 Cardiorenal disease I13.10 Systolic CHF I50.20 Acute respiratory distress R06.03 Bilateral pleural effusion J90 Cardiac arrest I46.9 Cardiac arrest with successful resuscitation I46.9 Successful cardiopulmonary resuscitation Z92.89 Sepsis Event Note Evaluation Current stage of sepsis: sepsis Reason for ruling out sepsis: Likely cardiogenic shock, with a component of sepsis Possible source: pulmonary Focused Exam Vital Signs Temp Pulse Resp BP Pulse Ox O2 Del Method O2 Flow Rate 04/05/25 15:12 15 96 04/05/25 11:14 24 H 96 04/05/25 08:53 81 17 100 Nasal Cannula 2 04/05/25 07:00 84 22 H 118/89 04/05/25 06:30 73 25 H 121/90 98 Nasal Cannula 2 04/05/25 06:00 63 04/05/25 06:00 71 7 L 126/84 100 04/05/25 05:30 80 11 L 113/73 99 04/05/25 05:00 97.3 F L 83 23 H 117/67 90 Nasal Cannula 2 04/05/25 04:30 84 9 L 105/63 98 Nasal Cannula 2 FiO2 04/05/25 15:12 40 04/05/25 11:14 100 04/05/25 08:53 04/05/25 07:00 04/05/25 06:30 04/05/25 06:00 04/05/25 06:00 04/05/25 05:30 04/05/25 05:00 04/05/25 04:30 Respiratory exam: Present wheezes Capillary refill: > 3 Seconds Peripheral pulse strength: 2+ Slightly Diminished Peripheral pulse location: Radial Skin exam: normal turgor Date exam was performed: 04/05/25 Time exam was performed: 16:29 Problem List (1) Acute kidney injury: Status: Acute (2) NSTEMI (non-ST elevated myocardial infarction): Status: Acute (3) Acute encephalopathy: Status: Acute (4) Atrial fibrillation: Status: Acute (5) Heart failure: Status: Acute (6) Pulmonary edema: Status: Acute (7) Acute hypoxic respiratory failure: Status: Acute (8) Metabolic acidosis with respiratory alkalosis: Status: Acute (9) Cardiogenic shock: Status: Acute (10) Sepsis: Status: Acute (11) Pneumonia: Status: Acute (12) Shock: Status: Acute (13) Cardiorenal disease: Status: Acute (14) Systolic CHF: Status: Acute (15) Acute respiratory distress: Status: Acute (16) Bilateral pleural effusion: Status: Acute (17) Cardiac arrest: Status: Acute (18) Cardiac arrest with successful resuscitation: Status: Acute (19) Successful cardiopulmonary resuscitation: Status: Acute
[2025-04-05 16:38] LABS: Calcium 8.2 mg/dL (8.5-10.5); Carbon Dioxide 17 mmol/L (22-29); Chloride 105 mmol/L (98-107); Creatinine Clr Calc Pharmacy 24.4031; Glucose 184 mg/dL (65-115); Osmolality Calculated 320 mOsm/kg (285-295); Sodium 140 mmol/L (136-145)
[2025-04-05 16:41] LABS: Anion Gap 22.7 (5-19); Potassium 4.7 mmol/L (3.5-5.1)
[2025-04-05 16:42] LABS: Blood Urea Nitrogen 82 mg/dL (8-23)
--- NOTE | 2025-04-05 17:36 | ECG_ITS ---
[facility] Test Date: 2025-04-05 Pat Name: Edward Ross Department: Room: ICU03 Gender: Male Larr[place]: : 1945 Requested By: Kenny Sin Order Number: [id number] Mae MD: Tigre Peña M.D. Measurements Intervals Stryker Rate: 99 P: 0 TN: 0 QRS: -74 QRSD: 147 T: 87 QT: 410 QTc: 527 Interpretive Statements ATRIAL FIBRILLATION WITH ABERRANT CONDUCTION OR VENTRICULAR PREMATURE COMPLEXES INTRAVENTRICULAR CONDUCTION DELAY [130+ ms QRS DURATION] INFERIOR MYOCARDIAL INFARCTION , OF INDETERMINATE AGE [40+ ms Q WAVE AND/OR ST/T ABNORMALITY IN II/aVF] Compared to ECG 04/05/2025 14:17:02 Ventricular premature complex(es) now present Aberrant conduction of supraventricular beat(s) now present Myocardial infarct finding still present Electronically Signed On 04-11-2025 09:39:56 CDT by Tigre Peña M.D. [email or web address]
[2025-04-05 17:58] LABS: ALPHA 1 GLOBULIN 0.4 g/dL (0.2-0.3); ALPHA 2 GLOBULIN 0.6 g/dL (0.5-0.9); BETA 1 GLOBULIN 0.3 g/dL (0.4-0.6); BETA 2 GLOBULIN 0.3 g/dL (0.2-0.5)
[2025-04-05 18:06] LABS: Partial Thromboplastin Time 61.4 SECONDS (23.9-36.7)
[2025-04-05] MEDS: heparin drip 25,000 UNIT/500 ML PREMIX 16 UNIT IV (18:38)
[2025-04-05 19:12] LABS: Troponin 5 6HR 171.1 ng/L (0-15); Troponin 5 6HR Delta 28.1 ng/L (0-12)
[2025-04-05] MEDS: norepinephrine 4 MG/250 ML BAG 67.5 MG IV ×2 (20:19→23:31)
[2025-04-05] MEDS: FUROsemide 200 MG in sodium chloride 0.9% (100 ml) 80 ML IV (20:41)
[2025-04-05 22:10] LABS: Amphetamines Level NEGATIVE ng/mL (<500)
[2025-04-05 22:12] LABS: Calcium 8.8 mg/dL (8.5-10.5); Carbon Dioxide 18 mmol/L (22-29); Chloride 104 mmol/L (98-107); Creatinine Clr Calc Pharmacy 21.8786; Glucose 135 mg/dL (65-115); Osmolality Calculated 318 mOsm/kg (285-295); Sodium 140 mmol/L (136-145)
[2025-04-05 22:28] LABS: Anion Gap 23.3 (5-19); Potassium 5.3 mmol/L (3.5-5.1)
[2025-04-05 22:30] LABS: Blood Urea Nitrogen 86 mg/dL (8-23)
[2025-04-05 23:58] LABS: Partial Thromboplastin Time 58.5 SECONDS (23.9-36.7)
[2025-04-06] VITALS (77 sets, daily range): BP systolic 85–131; BP diastolic 50–88; PULSE 66–108; RESP 14; TEMP 36.3–36.6; O2SAT 95–100
[2025-04-06] MEDS: fentaNYL 1,000 MCG/100 ML BAG 15 MCG IV (00:41)
[2025-04-06 01:00] LABS: Calcium 8.2 mg/dL (8.5-10.5); Carbon Dioxide 20 mmol/L (22-29); Chloride 105 mmol/L (98-107); Creatinine Clr Calc Pharmacy 24.4031; Glucose 174 mg/dL (65-115); Osmolality Calculated 321 mOsm/kg (285-295); Sodium 141 mmol/L (136-145)
[2025-04-06 01:42] LABS: Anion Gap 21.3 (5-19); Blood Urea Nitrogen 83 mg/dL (8-23); Potassium 5.3 mmol/L (3.5-5.1)
[2025-04-06] MEDS: pantoprazole 40 mg SDV IVP ×2 (03:13→15:06)
[2025-04-06] MEDS: norepinephrine 4 MG/250 ML BAG 52.5 MG IV (03:17)
[2025-04-06 03:20] LABS: ABG PCO2 32.4 mmHg (35-45); ABG PH Result 7.37 (7.35-7.45); Arterial Blood Gas Hematocrit 36.8 % (42-52); Blood Gas Operator Identificat SAM; Blood Gas Sample Site Radial, left; Blood Gas Sample Type Arterial; Blood Gas Tidal Volume 0.45; HCO3 ABG 18.5 mmol/L (22-26); PEEP 8.0 cmH20; PO2 ABG 119.0 mmHg (80.0-100.0); PO2 FiO2 Ratio Arterial Blood 297
[2025-04-06 04:18] LABS: Hematocrit 33.7 % (37-53); Hemoglobin 10.80 g/dL (11.27-16.99); Mean Corpuscular HGB Conc 32.0 g/dL (30-55); Mean Corpuscular Hemoglobin 31.6 pg (27-33); Mean Corpuscular Volume 98.5 fl (82-101); Nucleated Red Blood Cells % 0.9 %; Platelet Count 266 10^3/cmm (157-399); Red Blood Count 3.42 10^6/uL (3.85-5.65); White Blood Count 9.25 10^3/uL (3.29-11.43)
[2025-04-06 04:33] LABS: INR 1.38 (0.8-1.2); Prothrombin Time 17.90 SECONDS (12.1-14.9)
[2025-04-06 04:43] LABS: Lactate (Lactic Acid level) 1.5 mmol/L (0.5-2.2)
[2025-04-06 04:53] LABS: Procalcitonin 0.47 ng/mL (0-0.5)
[2025-04-06 05:06] LABS: Alanine Aminotransferase 503 U/L (0-41); Albumin Level 2.4 g/dL (3.5-5.2); Alkaline Phosphatase 187 U/L (40-130); Aspartate Amino Transferase 303 U/L (0-40); Blood Urea Nitrogen 79 mg/dL (8-23); Calcium 7.8 mg/dL (8.5-10.5); Carbon Dioxide 17 mmol/L (22-29); Chloride 105 mmol/L (98-107); Creatinine Clr Calc Pharmacy 24.4031; Globulin 2.7 g/dL (1.3-4.6); Glucose 158 mg/dL (65-115); Magnesium 1.7 mg/dL (1.7-2.3); Osmolality Calculated 317 mOsm/kg (285-295); Sodium 140 mmol/L (136-145); Total Protein 5.1 g/dL (6.6-8.7)
[2025-04-06 05:07] LABS: Anion Gap 22.3 (5-19); Potassium 4.3 mmol/L (3.5-5.1)
[2025-04-06 05:15] LABS: NT Pro B Type Natriuretic Pept 43231 pg/mL (0-450)
[2025-04-06 06:38] LABS: Partial Thromboplastin Time 61.2 SECONDS (23.9-36.7)
[2025-04-06] MEDS: fentaNYL 1,000 MCG/100 ML BAG 12.5 MCG IV ×3 (06:52→22:50)
--- NOTE | 2025-04-06 07:00 | XRR_ITS ---
PROCEDURE INFORMATION: Exam: XR Chest Exam date and time: 04/06/2025 9:31 AM Age: 80 years old Clinical indication: Shortness of breath; SOB; Vent maintenance TECHNIQUE: Imaging protocol: Radiologic exam of the chest. Views: 1 view. COMPARISON: CR XR chest 1V portable [id number] 04/05/2025 11:30 AM FINDINGS: Tubes, catheters and devices: There is an ETT a proximally 2.2 cm above the jefferson. There is an NG tube in the stomach. There is a right upper extremity PICC line with its tip projecting in the region of the superior vena cava. Lungs: There are bibasilar and right perihilar infiltrates. Left basilar infiltrates are not significantly changed. Right lung infiltrates appear more consolidated. Pleural spaces: There is a small right pleural effusion. Heart/Mediastinum: There is stable moderate cardiomegaly Bones/joints: There are degenerative changes in the shoulders and in the spine Other findings: There are external artifacts present. XR/XR chest 1V portable [id number] IMPRESSION: 1. Lines and tubes as described 2. Bilateral lung infiltrates. Interval worsening in the right lung infiltrates 3. Small right pleural effusion 4. Stable cardiomegaly
--- NOTE | 2025-04-06 08:24 | PM.PN ---
Subjective Subjective: Overnight events noted. The patient is currently intubated he is off of dobutamine he is on Levophed amiodarone Versed and fentanyl. He is more awake. He remains in critical condition and not able to give a review of systems Medications: Reviewed: Yes Medication Review Details: Current Medications Acetaminophen (Acetaminophen 325 Mg Tablet) 650 mg PO Q6H PRN PRN Reason: Mild/Mod Pain Or Temp >/= 101 Last Admin: 04/04/25 16:57 Dose: 650 mg Albuterol/Ipratropium (Ipratropium-Albuterol 3 Ml Neb) 3 ml INHALATION Q4H PRN PRN Reason: SHORTNESS OF BREATH Alprazolam (Alprazolam 0.5 Mg Tablet) 0.25 mg PO TID PRN PRN Reason: ANXIETY Last Admin: 04/05/25 10:13 Dose: 0.25 mg Aspirin (Aspirin 81 Mg Ec Tablet) 81 mg PO DAILY GISELA Last Admin: 04/05/25 09:15 Dose: 81 mg Ceftriaxone Sodium (Ceftriaxone 1,000 Mg Sdv) 1,000 mg IVP Q24H GISELA; Protocol Last Admin: 04/05/25 09:17 Dose: 1,000 mg Heparin Sodium (Porcine) (Heparin 5,000 Unit/Ml Inj 1 Ml) 0 unit IVP PRN PRN; Protocol PRN Reason: Heparin Weight Based Protocol -Subsequent Bolus Last Admin: 04/05/25 12:03 Dose: 1,500 unit Heparin Sodium/Sodium Chloride (Heparin Drip) 25,000 unit in 500 mls @ 0 mls/hr IV CONT GISELA; Protocol Last Admin: 04/05/25 18:38 Dose: 10.44 unit/kg/hr, 16 mls/hr Azithromycin 500 mg/ Sodium (Chloride) 250 mls @ 250 mls/hr IV Q24H GISELA; Protocol Last Infusion: 04/05/25 10:20 Dose: Infused Norepinephrine Bitartrate (Levophed) 4 mg in 250 mls @ 0 mls/hr IV .Q0M GISELA; Protocol Last Titration: 04/06/25 06:14 Dose: 10 mcg/min, 37.5 mls/hr Furosemide 200 mg/ Sodium (Chloride) 100 mls @ 5 mls/hr IV .Q20H GISELA Last Admin: 04/05/25 20:41 Dose: 10 mg/hr, 5 mls/hr Fentanyl (Sublimaze) 1,000 mcg in 100 mls @ 0 mls/hr IV .Q0M GISELA; Protocol Last Admin: 04/06/25 06:52 Dose: 125 mcg/hr, 12.5 mls/hr Midazolam HCl (Versed) 100 mg in 100 mls @ 0 mls/hr IV .Q0M GISELA; Protocol Last Titration: 04/06/25 06:22 Dose: 1.5 mg/hr, 1.5 mls/hr Dexmedetomidine/Sodium Chloride (Precedex) 400 mcg in 100 mls @ 0 mls/hr IV .Q0M GISELA; Protocol Last Titration: 04/05/25 12:04 Dose: Infused Amiodarone HCl/Dextrose (Nexterone) 360 mg in 200 mls @ 0 mls/hr IV .Q0M GISELA; Protocol Last Admin: 04/06/25 03:13 Dose: 0.5 mg/min, 16.67 mls/hr Morphine Sulfate (Morphine 4 Mg/Ml Sdv 1 Ml) 1 mg IVP Q4H PRN PRN Reason: SEVERE PAIN Last Admin: 04/04/25 22:16 Dose: 1 mg Naloxone HCl (Naloxone 0.4 Mg/Ml Sdv) 0.1 mg IVP Q2M PRN PRN Reason: OPIATERV Olanzapine (Olanzapine 5 Mg Tablet) 2.5 mg PO BEDTIME [facility] Last Admin: 04/05/25 20:19 Dose: 2.5 mg Ondansetron HCl (Ondansetron 2 Mg/Ml Sdv 2 Ml) 4 mg IVP Q8H PRN PRN Reason: vomiting, or N/V if npo Pantoprazole Sodium (Pantoprazole 40 Mg Sdv) 40 mg IVP Q12H GISELA Last Admin: 04/06/25 03:13 Dose: 40 mg Vitals/I&O/Wt Last Vital Signs Temp 97.6 F 04/06/25 04:00 Pulse 71 04/06/25 06:00 Resp 14 04/06/25 07:50 BP 128/79 04/06/25 06:00 Pulse Ox 97 04/06/25 07:50 O2 Del Method Mechanical Ventilation 04/05/25 19:15 O2 Flow Rate 2 04/05/25 10:15 FiO2 40 04/06/25 07:50 04/05/25 04/06/25 04/06/25 22:59 06:59 14:59 Intake Total 1052.123 / 2189.766 940.547 / 3130.313 70 / 70 Output Total 260 / 535 2050 / 2585 Balance 792.123 / 1654.766 -1109.453 / 545.313 60 / 60 Weight last 48 hrs Weight 80.649 kg Weight 78.154 kg Physical Exam Narrative: Intubated on Levophed and amiodarone Versed and fentanyl. Vent settings CMV FiO2 40% tidal volume 450 respiratory rate of 14 with a PEEP of 8. Vital signs noted. The patient is in atrial fibrillation with occasional abnormalities on telemetry HEENT normocephalic atraumatic. Neck is supple Lungs have dull bases and crackles., Right sided dull area Heart irregular with systolic murmur positive S1-S2 Abdomen is soft positive bowel sounds. Extremities have 1+ edema, he has cold feet very poor distal pulses. Neuro the patient is sedated but responsive and moving Urinary Catheter Management: Sullivan: Cath Placed During This Visit: no Reason for Continuing Indwelling Catheter: Accurate Measurement of Urinary Output in Critically Ill Patients Data 04/06/25 04:00 04/06/25 04:00 Micro: Microbiology 04/05/25 11:09 Gram Stain - Final Sputum - Endotracheal Tube Aspirate A&P Assessment and plan (1) Acute kidney injury: 80-year-old gentleman that per chart from her [place] [facility] has history of peripheral arterial disease, BPH, A-fib. And [place] [facility] the patient is on Coreg Bumex and potassium. I wonder if the patient has heart failure. The patient was admitted just with altered mental status and acute kidney injury. The patient CT scan on April 03, 2025 that revealed moderate bilateral pleural effusions layering posteriorly moderate cardiomegaly. And his kidneys showed multiple cysts in the right kidney measuring up to 7.5 cm in greatest dimension, per reading no hydronephrosis vascular calcifications. Patient renal ultrasound just done awaiting results. 1. Acute kidney injury please get old labs. The patient states that he has chronic kidney disease. Renal ultrasound shows right kidney 10.3 cm with numerous cysts. The largest cyst is 6.3 x 5.4 x 7 cm with mild cortical thinning and increased echogenicity. Left kidney 9 cm is mild diffuse cortical thinning no obstruction. Renal ultrasound is consistent with CKD. The patient has a negative VEGA negative [id number] DNA normal complements C3 97 C4 13, normal kappa lambda ratio 1.24. Patient's hepatitis serologies hep B surface antigens negative antibodies positive hep B core antibodies negative hep C antibodies negative -I am concerned for cardiorenal syndrome. The patient had a cardiac arrest yesterday after which she became acidotic which is now improving. 2. Acid-base abnormality: Latest ABG from this morning reveals a pH of 7.37 this is up from 716 yesterday His pCO2 is 32 his bicarbonate is up to 18. No emergent need for dialysis. I have not yet seen his salicylate level. His lactic acidosis has improved from 11-1.5 3. Echocardiogram reveals severely reduced EF of 20 to 25% with global hypokinesis moderate LV hypertrophy. 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 -Repeat echocardiogram on April 06 after cardiac arrest showed LV systolic function severely reduced to 10 to 15% severe global hypokinesis and a pleural effusion. 4. Cold legs with poor pulses likely due to low cardiac output and question of peripheral vascular disease 5. Pneumonia treated with antibiotics. Question if patient aspirated Medications reviewed patient is currently on antibiotics with azithromycin and ceftriaxone. Is also on furosemide Cardiology to evaluate his heart Consideration of LVAD or cardiac catheterization as per cardiology. No emergent need for dialysis at this time however if cardiology needs dialysis to allow any procedure the patient would be able to proceed with renal replacement therapy The patient was seen and examined using audiovisual equipment with the aid of a nurse. The patient consented to telehealth. Plan See above PDMP PDMP Reviewed: Not Reviewed Attestations Medical Necessity Statement*: Patient is critically ill heart failure reduced EF vent dependent respiratory failure and renal insufficiency Time Spent in Patient Care: 16 - 35 minutes (>than 50% of time spent in counselling and/or direct pt care on unit). Procedures Arterial Line Size (Gauge): 20 Coding Level of Care Code Acute Code for Chg Fwd Diagnoses Acute kidney injury N17.9
[2025-04-06] MEDS: norepinephrine 4 MG/250 ML BAG 30 MG IV (09:38)
[2025-04-06] MEDS: AZITHROMYCIN ADD-Vantage 500 MG in 0.9% NaCl ADD-Vantage 250 ML 250 MG IV (09:39)
[2025-04-06] MEDS: cefTRIAXone 1,000 mg SDV 1000 MG IVP (09:39)
--- NOTE | 2025-04-06 10:23 | P.PN_ITS ---
Subjective 2 Subjective: Patient is currently intubated and sedated. Has started putting out more urine. Vitals/I&O/Wt Last Vital Signs Temp 97.6 F 04/06/25 04:00 Pulse 71 04/06/25 06:00 Resp 14 04/06/25 08:55 BP 128/79 04/06/25 06:00 Pulse Ox 98 04/06/25 08:55 O2 Del Method Mechanical Ventilation 04/05/25 19:15 O2 Flow Rate 2 04/05/25 10:15 FiO2 35 04/06/25 08:55 04/05/25 04/06/25 04/06/25 22:59 06:59 14:59 Intake Total 1052.123 / 2189.766 940.547 / 3130.313 180.875 / 180.875 Output Total 260 / 535 2050 / 2585 10 / 10 Balance 792.123 / 1654.766 -1109.453 / 545.313 170.875 / 170.875 Weight last 48 hrs Weight 177 lb 12.8 oz Weight 172 lb 4.8 oz Physical Exam 2 Narrative: GENERAL: Patient is intubated and sedated NECK: No jugular vein distension. [] HEENT: No cyanosis. No icterus. No pallor. [] HEART: Regular S1 and S2. LUNGS: Diminished air entry CENTRAL NERVOUS SYSTEM: Grossly nonfocal. [] EXTREMITIES: Lower extremities with 1+ edema bilaterally. Urinary Catheter Management: Sullivan: Cath Placed During This Visit: no Reason for Continuing Indwelling Catheter: Accurate Measurement of Urinary Output in Critically Ill Patients Data 04/07/25 04:50 04/07/25 09:31 Micro: Microbiology 04/05/25 11:09 Gram Stain - Final Sputum - Endotracheal Tube Aspirate A&P Assessment and plan (1) Acute kidney injury: (2) NSTEMI (non-ST elevated myocardial infarction): (3) Acute encephalopathy: (4) Atrial fibrillation: (5) Heart failure: Plan Patient is intubated and sedated. At this time continue diuresis. Once patient is more euvolemic, we can plan on coronary angiogram with possible PCI. His creatinine is likely chronically elevated. Thank you for involving us with care of this patient. Will continue to follow. Please call with questions PDMP PDMP Reviewed: Not Reviewed Attestations 2 Medical Necessity Statement*: Care expected to cross 2 midnights. Procedures Arterial Line Size (Gauge): 20 Coding Level of Care Code Acute Code for Chg Fwd Diagnoses Acute kidney injury N17.9 NSTEMI (non-ST elevated myocardial infarction) I21.4 Acute encephalopathy G93.40 Atrial fibrillation, unspecified type I48.91 Atrial fibrillation type: unspecified Other heart failure I50.89 Heart failure type: other
[2025-04-06 12:36] LABS: Partial Thromboplastin Time 64.2 SECONDS (23.9-36.7)
[2025-04-06 14:36] LABS: Anion Gap 22.5 (5-19); Blood Urea Nitrogen 78 mg/dL (8-23); Calcium 7.4 mg/dL (8.5-10.5); Carbon Dioxide 19 mmol/L (22-29); Chloride 104 mmol/L (98-107); Creatinine Clr Calc Pharmacy 25.7230; Glucose 188 mg/dL (65-115); Osmolality Calculated 322 mOsm/kg (285-295); Potassium 3.5 mmol/L (3.5-5.1); Sodium 142 mmol/L (136-145)
--- NOTE | 2025-04-06 15:36 | P.PN_ITS ---
Subjective 2 Subjective: - Patient was seen this morning - No family members at bedside - Afebrile overnight - Levophed has been weaned down, off utamine - Amio drip at 0.5 - Lasix drip at 10 units an hour - He is on Versed and fentanyl for sedat ion - Urine output is about 3 L - Afebrile, normotensive - Is on 40% FiO2 Vitals/I&O/Wt Last Vital Signs Temp 97.3 F L 04/06/25 07:30 Pulse 66 04/06/25 12:30 Resp 14 04/06/25 13:20 BP 114/66 04/06/25 12:30 Pulse Ox 98 04/06/25 13:20 O2 Del Method Mechanical Ventilation 04/06/25 12:30 O2 Flow Rate 2 04/05/25 10:15 FiO2 35 04/06/25 13:20 04/06/25 04/06/25 04/06/25 06:59 14:59 22:59 Intake Total 940.547 / 3130.313 765.475 / 765.475 450 / 1215.475 Output Total 2050 / 2585 2282 / 2282 Balance -1109.453 / 545.313 -1516.525 / -1516.525 450 / -1066.525 Weight last 48 hrs Weight 80.649 kg Weight 78.154 kg Physical Exam 2 Const: COMMON NORMALS: no acute distress Eye: OTHER: Minimally reactive to light Intubated, sedated Resp: COMMON NORMALS: normal respiratory effort, No retractions and No use of accessory muscles AUSCULTATION: crackles and wheezes OTHER: In all lung [place] Cardio: COMMON NORMALS: regular rate, S1 normal heart sound present and S2 normal heart sound present RATE: regular rate RHYTHM: abnormal rhythm irregularly irregular HEART SOUNDS: S1 normal heart sound present and S2 normal heart sound present GI: COMMON NORMALS: Normal to inspection, nondistended, normoactive bowel sounds present and non-tender Extremity: COMMON NORMALS: no pedal edema Psych: COMMON NORMALS: mental status grossly normal Skin: COMMON NORMALS: turgor normal GENERAL SKIN EXAM: turgor normal Urinary Catheter Management: Sullivan: Cath Placed During This Visit: no Reason for Continuing Indwelling Catheter: Accurate Measurement of Urinary Output in Critically Ill Patients Quick SOFA Score: Respiratory Rate: 14 Blood Pressure: 114/66 [place] Coma Scale: 8 qSOFA Score: 1 If qSOFA score 2 or greater, continue: PaO2/FiO2 Ratio (mmHg): 297 Blood Pressure Mean: 82 Bilirubin (mg/dl): 0.4 Platelets (x10?/ml): 266 C reatinine (mg/dl): 2.5 SOFA Score: 7 Evaluation: Current stage of sepsis: sepsis Sepsis stage criteria used: [facility] Sep-1 and Sepsis-3 Crystalloid fluids: no fluids ordered Blood cultures ordered: Yes Possible source: pulmonary Focused Exam: Vital signs: Temp Pulse Resp BP Pulse Ox O2 Del Method FiO2 04/06/25 13:20 14 98 35 04/06/25 12:30 66 14 114/66 98 Mechanical Ventila tion 30 04/06/25 12:00 71 14 104/66 98 Mechanical Ventila tion 30 04/06/25 12:00 14 04/06/25 11:30 82 14 95/65 98 Mechanical Ventila tion 30 04/06/25 11:11 14 97 35 04/06/25 11:00 75 14 85/61 98 Mechanical Ventila tion 04/06/25 10:30 76 14 101/62 97 Mechanical Ventila tion 30 04/06/25 10:00 78 112/66 97 Mechanical Ventila tion 30 04/06/25 10:00 30 04/06/25 10:00 14 04/06/25 09:30 67 14 110/63 98 Mechanical Ventila tion 30 04/06/25 09:00 76 14 117/70 98 Mechanical Ventila tion 30 04/06/25 08:55 14 98 35 04/06/25 08:30 83 14 114/75 98 Mechanical Ventila tion 40 04/06/25 08:00 92 14 128/65 98 Mechanical Ventila tion 40 04/06/25 08:00 40 04/06/25 08:00 14 04/06/25 07:50 14 97 40 04/06/25 07:30 97.3 F L 66 14 107/73 98 Mechanical Ventila tion 40 04/06/25 07:00 82 14 110/73 98 Mechanical Ventila tion 40 04/06/25 06:15 14 98 40 04/06/25 06:00 71 04/06/25 06:00 92 128/79 98 04/06/25 05:45 88 109/73 98 04/06/25 05:30 82 110/74 98 04/06/25 05:15 87 112/71 98 04/06/25 05:00 93 105/68 98 04/06/25 04:45 83 118/70 98 04/06/25 04:30 97 116/75 98 04/06/25 04:15 86 104/76 98 04/06/25 04:00 97.6 F 104 H 111/73 98 04/06/25 03:45 97 117/70 98 Respiratory exam: crackles present and positive wheezes Cardiovascular exam: regular rate, S1 normal heart sound, S2 normal heart sound and abnormal rhythm Capillary refill: > 3 Seconds Peripheral pulse strength: 2+ Slightly Diminished Peripheral pulse location: Radial and Pedal Skin exam: turgor normal Date exam was performed: 04/06/25 Time exam was performed: 1 5:41 2 Sepsis Screen No Definite Risk 04/03/25, 18:40 Respiratory Rate, (12 - 18) 14 breaths/min Today, 13:20 Blood Pressure 114/66 mmHg Today, 12:30 [place] Coma Scale Score 8 Today, 12:00 Quick SOFA Score 0 04/03/25, 18:40 SOFA Score: 2 ABG PO2/FiO2 Ratio 297 Today, 03:09 [place] Coma Scale Score 8 Today, 12:00 Blood Pressure Mean 82 mmHg Today, 12:30 Total Bilirubin, (0.15-1.2) 0.4 mg/dL Today, 04:00 Platelet Count, (157-399) 266 10^3/cmm Today, 04:00 Creatinine, (0.7-1.2) 2.5 mg/dL H Today, 13:52 Data 04/06/25 04:00 04/06/25 13:52 Micro: Microbiology 04/05/25 11:09 Gram Stain - Final Sputum - Endotracheal Tube Aspirate Sputum Culture - Preliminary A&P Assessment and plan (1) Acute kidney injury: (2) NSTEMI (non-ST elevated myocardial infarction): (3) Acute encephalopathy: (4) Atrial fibrillation: (5) Heart failure: (6) Pulmonary edema: (7) Acute hypoxic respiratory failure: (8) Metabolic acidosis with respiratory alkalosis: (9) Cardiogenic shock: (10) Sepsis: (11) Pneumonia: (12) Shock: (13) Cardiorenal disease: (14) Systolic CHF: (15) Acute respiratory distress: (16) Bilateral pleural effusion: (17) Cardiac arrest: (18) Cardiac arrest with successful resuscitation: (19) Successful cardiopulmonary resuscitation: Plan Cardiac arrest - Concern for V-fib arrest - Acute flash pulmonary edema - Successful ROSC - Had 4 A of epi, 1 amp of bicarb, 1 amp of calcium chloride - CPR time roughly 7 minutes - Initial EKG shows atrial fibrillation, no acute ST-T wave changes - Pupils equal round reactive to light, does have a cough reflex, does have a gag reflex, according to nursing staff he did move his right arm, move head from [id number] -Baseline troponin 143, 120-minute 133 -BNP over 57,000 -Potassium 5.4, did give 1 dose of calcium chloride -Etomidate and succinylcholine for intubation used by ER provider, monitor potassium closely - Plan -Cardiology on consult -Currently intubated -Sedated with fentanyl, Versed, Precedex -Minimize FiO2, minimize tidal volume -Arterial line in place -PICC line in place -Currently on Levophed, maintain MAP greater than 65, wean Levophed as tolerated -Dobutamine has been weaned off -Neurochecks, monitor mentation closely -Will consider CT imaging of the head based on clinical progress -Daily spontaneous breathing trials -Will start to wean sedation once more stable, do neurologic testing once stable - Repeat echo CONCLUSIONS LV systolic function is severely reduced with EF of 10 to 15%. Severe global hypokinesis. Pleural effusion seen - Continue aspirin, statin - Continue heparin drip - Plans on possible coronary angiography based on clinical progress - Will consider LVAD based on clinical progress - Currently on Lasix drip, monitor output, monitor creatinine monitor potassium - Will consider dialysis based on clinical progress -Venous ultrasound negative for DVT - Protonix for GI prophylaxis - Heparin drip for DVT prophylaxis Acute hypoxic respiratory failure - With acute respiratory distress - Systolic CHF exacerbation -Bilateral pleural effusions - Acute flash pulmonary edema - With concerns for possible pneumonia -Atrial fibrillation with rapid ventricular response -Down to 40% FiO2 -Urine output 4 L Plan - Monitor in ICU closely - Currently intubated, sedated - Monitor respiratory status closely - DuoNeb - Budesonide - Blood cultures - Sputum cultures - Continue Lasix drip at 10 units/hr - Monitor BMP every 4 hours -Maintain potassium greater than 4 -IV doses based on clinical progress - Monitor creatinine - Monitor urine output - Rocephin - Azithromycin Shock, resolving - Multifactorial cardiogenic shock - Component of sepsis with right lower lobe infiltrate pneumonia - Currently on Levophed - Maintain MAP greater than 65 - Monitor output, monitor creatinine Bilateral pleural effusions ct chest CT/[place] [id number] IMPRESSION: 1. Moderate layering pleural effusions bilaterally. Mild lower lobe atelectasis. 2. Moderate cardiomegaly with pulmonary hypertension. - Ultrasound thoracentesis, only very small bilateral pleural effusion, insufficient for safe thoracentesis Systolic CHF exacerbation -Used to follow with a stablehand in [facility], has had hospitalizations in [facility] in [place] for CHF back in August CONCLUSIONS Left ventricle is dilated. LV systolic function is severely reduced with EF of 20-25%. Moderate left ventricular hypertrophy. Biatrial enlargement. Mild mitral regurgitation. Mild to moderate aortic regurgitation Mild tricuspid regurgitation Moderate pulmonary hypertension Moderate pulmonic regurgitation Pleural effusion seen IVC is dilated No comparison studies are seen. Cardiac echo CONCLUSIONS LV systolic function is severely reduced with EF of 10 to 15%. Severe global hypokinesis. 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 in [facility], had reported CKD, with discussions of dialysis at some point - Possibly component of cardiorenal syndrome -Urine output over 4 L on Lasix drip - Monitor BMP every 4 hours - Monitor creatinine, monitor electrolytes - Patient is agreeable to dialysis if required NSTEMI - No chest pain complaints - Does have shortness of breath -EF 10 to 15% Plan - Telemetry monitoring - EKGs, serial troponins, telemetry monitoring - Aspirin, statin - Heparin drip - Cardiology consulted A-fib with RVR - Amiodarone drip Transaminitis, shock liver, monitor Respiratory alkalosis with increased anion gap metabolic acidosis - Could be from cardiogenic shock, cardiorenal syndrome, JOAO, respiratory failure, cardiac arrest - Will monitor Acute encephalopathy -Etiology unclear, resolved - Component of uremia - Head CT no acute findings - No focal neurologic deficits, is globally encephalopathic - Ammonia levels WNL - UA within normal limits - CT chest possible pneumonia: Antibiotics - Order inflammatory markers - Neurochecks - NIH stroke scale - Monitor mentation Increased anion gap metabolic acidosis - Check ketones within normal limits - Check A1c 6.2 - Lactic acid within normal limits Hyperkalemia, resolved - Calcium gluconate - Insulin, D10 - Repeat BMP this evening Uremia - Secondary to JOAO - Hemoglobin within normal limits - Monitor closely Full code Heparin drip for DVT prophylaxis Lovenox for DVT prophylaxis Plan for today, continue IV diuresis, wean Levophed, continue amiodarone drip, plan of weaning sedation early in the morning, neurologic testing, monitor urine output monitor creatinine monitor BMP will await cardiology recommendations, nephrology definite recommendations continue antibiotics PDMP PDMP Reviewed: Not Reviewed Attestations 2 Medical Necessity Statement*: Patient requires hospitalization for cardiogenic shock, cardiac arrest, respiratory failure, pneumonia, fluid overload, acute kidney injury Procedures Arterial Line Size (Gauge): 20 Coding Level of Care Code Critical Care >/= 30 minutes Critical care time (in minutes): 45 The high probability of a clinically significant, sudden or life threatening deterioration, as referenced in this documentation, required my full and direct attention, intervention and personal management. The critical care time shown is in addition to time spent performing any reported separately billable procedures and includes the following: [x] Data and vital sign review and interpretation [x ] Patient assessment, examination and intervention [x] Medication orders and management [x] Patient/Family updates as able [x] Care Coordination and Documentation. Diagnoses Acute kidney injury N17.9 NSTEMI (non-ST elevated myocardial infarction) I21.4 Acute encephalopathy G93.40 Atrial fibrillation, unspecified type I48.91 Atrial fibrillation type: unspecified Other heart failure I50.89 Heart failure type: other Pulmonary edema J81.1 Acute hypoxic respiratory failure J96.01 Metabolic acidosis with respiratory alkalosis E87.20; E87.3 Cardiogenic shock R57.0 Sepsis A41.9 Pneumonia J18.9 Shock R57.9 Cardiorenal disease I13.10 Systolic CHF I50.20 Acute respiratory distress R06.03 Bilateral pleural effusion J90 Cardiac arrest I46.9 Cardiac arrest with successful resuscitation I46.9 Successful cardiopulmonary resuscitation Z92.89
[2025-04-06] MEDS: FUROsemide 200 MG in sodium chloride 0.9% (100 ml) 80 ML IV (18:12)
[2025-04-06 18:18] LABS: Partial Thromboplastin Time 61.8 SECONDS (23.9-36.7)
[2025-04-06 18:21] LABS: Anion Gap 22.5 (5-19); Calcium 8.0 mg/dL (8.5-10.5); Carbon Dioxide 20 mmol/L (22-29); Chloride 102 mmol/L (98-107); Creatinine Clr Calc Pharmacy 25.7230; Glucose 150 mg/dL (65-115); Osmolality Calculated 321 mOsm/kg (285-295); Potassium 3.5 mmol/L (3.5-5.1); Sodium 141 mmol/L (136-145)
[2025-04-06 18:24] LABS: Blood Urea Nitrogen 85 mg/dL (8-23)
--- NOTE | 2025-04-06 19:15 | PC.NURSE ---
Shift summary: Pt remains intubated and sedated. No changes in Lasix , Amio, Fentanyl gtts. Versed gtt increased due to pt agitation. Levophed gtt decreased from 10 to 6mcg/min. Heparin gtt, had no changes per protocol , it remains in therapeutic range. FIO2 at 35%. PEEP decreased. Lungs remains clear with diminished bases. His feet were very cool to touch this am have warmed. He has diuresed well today, his urine output was 3525. NO BM noted. Art line remains patent with good wave form.
[2025-04-06 19:20] LABS: Ethylene Glycol Urine <10.0 mcg/mL (<10.0)
[2025-04-06] MEDS: norepinephrine 4 MG/250 ML BAG 22.5 MG IV (19:23)
[2025-04-06 21:44] LABS: Calcium 8.7 mg/dL (8.5-10.5); Carbon Dioxide 22 mmol/L (22-29); Chloride 103 mmol/L (98-107); Creatinine Clr Calc Pharmacy 22.9669; Glucose 95 mg/dL (65-115); Osmolality Calculated 321 mOsm/kg (285-295); Sodium 143 mmol/L (136-145)
[2025-04-06 21:46] LABS: Anion Gap 21.8 (5-19); Potassium 3.8 mmol/L (3.5-5.1)
[2025-04-06 21:47] LABS: Blood Urea Nitrogen 84 mg/dL (8-23)
[2025-04-07] VITALS (81 sets, daily range): BP systolic 73–130; BP diastolic 45–82; PULSE 63–105; RESP 14–19; TEMP 36.5–37.2; O2SAT 86–98
[2025-04-07] MEDS: chlorhexidine gluconate 4% Btl 118 mL 1 APPLIC TOPICAL (01:06)
[2025-04-07] MEDS: midazolam hcl 100 MG/100 ML BAG IV (01:06)
--- NOTE | 2025-04-07 01:36 | PC.NURSE ---
Blood Sugar Dr. Tapia notified of patient's decreasing blood sugar, currently 88. NPO status, levophed dose, and intake/output discussed. Order received to start jevity tube feed at 10 ml/hr.
[2025-04-07 02:27] LABS: Calcium 8.8 mg/dL (8.5-10.5); Carbon Dioxide 23 mmol/L (22-29); Chloride 103 mmol/L (98-107); Creatinine Clr Calc Pharmacy 23.8176; Glucose 91 mg/dL (65-115); Osmolality Calculated 322 mOsm/kg (285-295); Sodium 144 mmol/L (136-145)
[2025-04-07 02:29] LABS: Anion Gap 21.7 (5-19); Potassium 3.7 mmol/L (3.5-5.1)
[2025-04-07 02:31] LABS: Blood Urea Nitrogen 82 mg/dL (8-23)
[2025-04-07] MEDS: pantoprazole 40 mg SDV IVP ×2 (02:51→17:30)
[2025-04-07] MEDS: heparin drip 25,000 UNIT/500 ML PREMIX 16 UNIT IV (03:58)
[2025-04-07 04:55] LABS: ABG PCO2 32.4 mmHg (35-45); ABG PH Result 7.47 (7.35-7.45); Arterial Blood Gas Hematocrit 37.0 % (42-52); Blood Gas Allen Test Pos; Blood Gas Operator Identificat SAM; Blood Gas Sample Site Brachial, left; Blood Gas Sample Type Arterial; Blood Gas Tidal Volume 0.45; HCO3 ABG 23.7 mmol/L (22-26); PEEP 5.0 cmH20; PO2 ABG 96.7 mmHg (80.0-100.0); PO2 FiO2 Ratio Arterial Blood 276
[2025-04-07] MEDS: norepinephrine 4 MG/250 ML BAG 30 MG IV ×2 (05:14→13:58)
[2025-04-07 05:34] LABS: Hematocrit 36.4 % (37-53); Hemoglobin 11.70 g/dL (11.27-16.99); Mean Corpuscular HGB Conc 32.1 g/dL (30-55); Mean Corpuscular Hemoglobin 30.9 pg (27-33); Mean Corpuscular Volume 96.0 fl (82-101); Nucleated Red Blood Cells % 0 %; Platelet Count 258 10^3/cmm (157-399); Red Blood Count 3.79 10^6/uL (3.85-5.65); White Blood Count 9.72 10^3/uL (3.29-11.43)
[2025-04-07 05:43] LABS: INR 1.20 (0.8-1.2); Prothrombin Time 16.00 SECONDS (12.1-14.9)
[2025-04-07 05:44] LABS: Partial Thromboplastin Time 43.3 SECONDS (23.9-36.7)
[2025-04-07 05:54] LABS: Lactate (Lactic Acid level) 1.3 mmol/L (0.5-2.2)
[2025-04-07] MEDS: heparin 5,000 unit/mL INJ 1 mL IVP ×2 (05:55→20:23)
[2025-04-07 05:57] LABS: Alanine Aminotransferase 383 U/L (0-41); Albumin Level 2.6 g/dL (3.5-5.2); Alkaline Phosphatase 180 U/L (40-130); Blood Urea Nitrogen 75 mg/dL (8-23); Calcium 8.7 mg/dL (8.5-10.5); Carbon Dioxide 23 mmol/L (22-29); Chloride 101 mmol/L (98-107); Creatinine Clr Calc Pharmacy 24.7336; Globulin 3.1 g/dL (1.3-4.6); Glucose 89 mg/dL (65-115); Magnesium 1.7 mg/dL (1.7-2.3); Osmolality Calculated 318 mOsm/kg (285-295); Sodium 143 mmol/L (136-145); Total Protein 5.7 g/dL (6.6-8.7)
[2025-04-07 05:58] LABS: Anion Gap 22.5 (5-19); Aspartate Amino Transferase 106 U/L (0-40); Potassium 3.5 mmol/L (3.5-5.1); Procalcitonin 0.52 ng/mL (0-0.5)
[2025-04-07 06:19] LABS: NT Pro B Type Natriuretic Pept 39152 pg/mL (0-450)
[2025-04-07] MEDS: AZITHROMYCIN ADD-Vantage 500 MG in 0.9% NaCl ADD-Vantage 250 ML 250 MG IV (08:03)
[2025-04-07] MEDS: cefTRIAXone 1,000 mg SDV 1000 MG IVP (08:04)
--- NOTE | 2025-04-07 08:06 | XRR_ITS ---
PROCEDURE INFORMATION: Exam: XR Chest Exam date and time: 04/07/2025 8:39 AM Age: 80 years old Clinical indication: Shortness of breath; On vent; Additional info: SOB TECHNIQUE: Imaging protocol: Radiologic exam of the chest. Views: 1 view. COMPARISON: CR (CHEST, ) 04/06/2025 9:31 AM FINDINGS: Tubes, catheters and devices: The endotracheal tube, right upper extremity PICC and nasogastric tube are stable. Lungs: Significant improvement in the right mid lung infiltrates when compared to the prior study. There are mild residual bibasilar infiltrates. Pleural spaces: Suspected [id number] bilateral pleural effusions. Heart/Mediastinum: Stable cardiomegaly. Bones/joints: Unremarkable. XR/XR chest 1V portable [id number] IMPRESSION: 1. Significant improvement in the right lung infiltrates compared to the prior exam. There are mild residual bibasilar infiltrates. 2. Stable cardiomegaly and suspected enlargement of the bilateral pleural effusions which are now [id number] in size.
--- NOTE | 2025-04-07 09:38 | P.PN_ITS ---
Subjective 2 Subjective: The patient remains intubated. Pressor requirements are down Lasix requirement has been decreased. The patient was diagnosed with a pneumonia. Patient is not following commands but he is moving or responding to pain. Medications: Reviewed: Yes Medication Review Details: Current Medications Acetaminophen (Acetaminophen 325 Mg Tablet) 650 mg PO Q6H PRN PRN Reason: Mild/Mod Pain Or Temp >/= 101 Last Admin: 04/04/25 16:57 Dose: 650 mg Albuterol/Ipratropium (Ipratropium-Albuterol 3 Ml Neb) 3 ml INHALATION Q4H PRN PRN Reason: SHORTNESS OF BREATH Alprazolam (Alprazolam 0.5 Mg Tablet) 0.25 mg PO TID PRN PRN Reason: ANXIETY Last Admin: 04/05/25 10:13 Dose: 0.25 mg Aspirin (Aspirin 81 Mg Ec Tablet) 81 mg PO DAILY GISELA Last Admin: 04/07/25 08:04 Dose: 81 mg Ceftriaxone Sodium (Ceftriaxone 1,000 Mg Sdv) 1,000 mg IVP Q24H GISELA; Protocol Last Admin: 04/07/25 08:04 Dose: 1,000 mg Chlorhexidine Gluconate (Chlorhexidine Gluconate 4% Btl 118 Ml) 1 applic TOPICAL Q24H GISELA Last Admin: 04/07/25 01:06 Dose: 1 applic Heparin Sodium (Porcine) (Heparin 5,000 Unit/Ml Inj 1 Ml) 0 unit IVP PRN PRN; Protocol PRN Reason: Heparin Weight Based Protocol -Subsequent Bolus Last Admin: 04/07/25 05:55 Dose: 3,000 unit Heparin Sodium/Sodium Chloride (Heparin Drip) 25,000 unit in 500 mls @ 0 mls/hr IV CONT GISELA; Protocol Last Titration: 04/07/25 05:55 Dose: 12.39 unit/kg/hr, 19 mls/hr Azithromycin 500 mg/ Sodium (Chloride) 250 mls @ 250 mls/hr IV Q24H GISELA; Protocol Last Admin: 04/07/25 08:03 Dose: 250 mls/hr Norepinephrine Bitartrate (Levophed) 4 mg in 250 mls @ 0 mls/hr IV .Q0M GISELA; Protocol Last Admin: 04/07/25 05:14 Dose: 8 mcg/min, 30 mls/hr Furosemide 200 mg/ Sodium (Chloride) 100 mls @ 5 mls/hr IV .Q20H GISELA Last Infusion: 04/07/25 09:12 Dose: 5 mg/hr, 2.5 mls/hr Fentanyl (Sublimaze) 1,000 mcg in 100 mls @ 0 mls/hr IV .Q0M GISELA; Protocol Last Titration: 04/07/25 04:40 Dose: 0 mcg/hr, 0 mls/hr Midazolam HCl (Versed) 100 mg in 100 mls @ 0 mls/hr IV .Q0M GISELA; Protocol Last Titration: 04/07/25 04:40 Dose: 0 mg/hr, 0 mls/hr Dexmedetomidine/Sodium Chloride (Precedex) 400 mcg in 100 mls @ 0 mls/hr IV .Q0M GISELA; Protocol Last Titration: 04/05/25 12:04 Dose: Infused Amiodarone HCl/Dextrose (Nexterone) 360 mg in 200 mls @ 0 mls/hr IV .Q0M GISELA; Protocol Last Admin: 04/07/25 05:15 Dose: 0.5 mg/min, 16.67 mls/hr Morphine Sulfate (Morphine 4 Mg/Ml Sdv 1 Ml) 1 mg IVP Q4H PRN PRN Reason: SEVERE PAIN Last Admin: 04/04/25 22:16 Dose: 1 mg Naloxone HCl (Naloxone 0.4 Mg/Ml Sdv) 0.1 mg IVP Q2M PRN PRN Reason: OPIATERV Olanzapine (Olanzapine 5 Mg Tablet) 2.5 mg PO BEDTIME GISELA Last Admin: 04/06/25 20:59 Dose: 2.5 mg Ondansetron HCl (Ondansetron 2 Mg/Ml Sdv 2 Ml) 4 mg IVP Q8H PRN PRN Reason: vomiting, or N/V if npo Pantoprazole Sodium (Pantoprazole 40 Mg Sdv) 40 mg IVP Q12H [facility] Last Admin: 04/07/25 02:51 Dose: 40 mg Vitals/I&O/Wt Last Vital Signs Temp 98.7 F 04/07/25 07:30 Pulse 97 04/07/25 09:00 Resp 14 04/07/25 09:22 BP 113/70 04/07/25 09:00 Pulse Ox 96 04/07/25 09:22 O2 Del Method Mechanical Ventilation 04/07/25 09:00 O2 Flow Rate 2 04/05/25 10:15 FiO2 35 04/07/25 09:22 04/06/25 04/07/25 04/07/25 22:59 06:59 14:59 Intake Total 871.458 / 1640.158 814.600 / 2454.758 242 / 242 Output Total 2156 / 4438 2800 / 7238 1000 / 1000 Balance -1284.542 / -2797.842 -1985.400 / -4783.242 -758 / -758 Weight last 48 hrs Weight 71.532 kg Weight 80.649 kg Physical Exam 2 Narrative: Intubated on Levophed Versed and fentanyl. Vent Vital signs noted. The patient is in atrial fibrillation with occasional abnormalities on telemetry HEENT normocephalic atraumatic. Neck is supple Lungs have dull bases and crackles., Right sided dull area Heart irregular with systolic murmur positive S1-S2 Abdomen is soft positive bowel sounds. Extremities have 1+ edema, legs are warmer than yesterday Neuro the patient is sedated but responsive and moving Urinary Catheter Management: Sullivan: Cath Placed During This Visit: no Reason for Continuing Indwelling Catheter: Accurate Measurement of Urinary Output in Critically Ill Patients Data 04/07/25 04:50 04/07/25 04:50 Micro: Microbiology 04/05/25 11:09 Gram Stain - Final Sputum - Endotracheal Tube Aspirate Sputum Culture - Preliminary A&P Assessment and plan (1) Acute kidney injury: 80-year-old gentleman that per chart from her skilled nursing has history of peripheral arterial disease, BPH, A-fib. And skilled nursing the patient is on Coreg Bumex and potassium. I wonder if the patient has heart failure. The patient was admitted just with altered mental status and acute kidney injury. The patient CT scan on April 03, 2025 that revealed moderate bilateral pleural effusions layering posteriorly moderate cardiomegaly. And his kidneys showed multiple cysts in the right kidney measuring up to 7.5 cm in greatest dimension, per reading no hydronephrosis vascular calcifications. 1. Acute kidney injury please get old labs. The patient states that he has chronic kidney disease. Renal ultrasound shows right kidney 10.3 cm with numerous cysts. The largest cyst is 6.3 x 5.4 x 7 cm with mild cortical thinning and increased echogenicity. Left kidney 9 cm is mild diffuse cortical thinning no obstruction. Renal ultrasound is consistent with CKD. The patient has a negative VEGA negative [id number] DNA normal complements C3 97 C4 13, normal kappa lambda ratio 1.24. Patient's hepatitis serologies hep B surface antigens negative antibodies positive hep B core antibodies negative hep C antibodies negative -I am concerned for cardiorenal syndrome. The patient had a cardiac arrest 0n 04/05/25 after which he became acidotic which is now improving. - cr appears to be stablizing. he is polyuric. will dec lasix dose 2. Acid-base abnormality: Latest ABG from this morning reveals a pH of 7.47 - resp alkalosis, met alklaosis from diuretics and metabolic acidosis from Jackie - salicylate level undetectable His lactic acidosis has improved from 11-1.3 3. Echocardiogram reveals severely reduced EF of 20 to 25% with global hypokinesis moderate LV hypertrophy. 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 -Repeat echocardiogram on April 06 after cardiac arrest showed LV systolic function severely reduced to 10 to 15% severe global hypokinesis and a pleural effusion. -recommend cardiology ntervention or evaluaution 4. Pneumonia treated with antibiotics. Question if patient aspirated Medications reviewed patient is currently on antibiotics with azithromycin and ceftriaxone. Is also on furosemide No emergent need for dialysis at this time The patient was seen and examined using audiovisual equipment with the aid of a nurse. Plan See above PDMP PDMP Reviewed: Not Reviewed Attestations 2 Medical Necessity Statement*: jackie, HFrEF, Time Spent in Patient Care: 16 - 35 minutes (>than 50% of time sp ent in counselling and/or direct pt care on unit) . Procedures Arterial Line Size (Gauge): 20 Coding Level of Care Code Acute Code for Chg Fwd Diagnoses Acute kidney injury N17.9
[2025-04-07 10:06] LABS: Anion Gap 19.9 (5-19); Blood Urea Nitrogen 73 mg/dL (8-23); Calcium 7.4 mg/dL (8.5-10.5); Carbon Dioxide 23 mmol/L (22-29); Chloride 102 mmol/L (98-107); Creatinine Clr Calc Pharmacy 26.5944; Glucose 211 mg/dL (65-115); Osmolality Calculated 322 mOsm/kg (285-295); Sodium 142 mmol/L (136-145)
--- NOTE | 2025-04-07 10:30 | P.PN_ITS ---
Subjective 2 Subjective: Urine output is better. Still intubated. Vitals/I&O/Wt Last Vital Signs Temp 98.7 F 04/07/25 07:30 Pulse 97 04/07/25 09:00 Resp 14 04/07/25 09:22 BP 113/70 04/07/25 09:00 Pulse Ox 96 04/07/25 09:22 O2 Del Method Mechanical Ventilation 04/07/25 09:00 O2 Flow Rate 2 04/05/25 10:15 FiO2 35 04/07/25 09:22 04/06/25 04/07/25 04/07/25 22:59 06:59 14:59 Intake Total 871.458 / 1640.158 814.600 / 2454.758 242 / 242 Output Total 2156 / 5438 2800 / 8238 1000 / 1000 Balance -1284.542 / -3797.842 -1985.400 / -5783.242 -758 / -758 Weight last 48 hrs Weight 157 lb 11.2 oz Weight 177 lb 12.8 oz Physical Exam 2 Narrative: GENERAL: Patient is intubated NECK: No jugular vein distension. [] HEENT: No cyanosis. No icterus. No pallor. [] HEART: Regular S1 and S2. LUNGS: Diminished air entry CENTRAL NERVOUS SYSTEM: Grossly nonfocal. [] EXTREMITIES: Lower extremities with 1+ edema bilaterally. Urinary Catheter Management: Sullivan: Cath Placed During This Visit: no Reason for Continuing Indwelling Catheter: Accurate Measurement of Urinary Output in Critically Ill Patients Data 04/08/25 02:21 04/08/25 02:21 Micro: Microbiology 04/05/25 11:09 Gram Stain - Final Sputum - Endotracheal Tube Aspirate Sputum Culture - Preliminary A&P Assessment and plan (1) Acute kidney injury: (2) NSTEMI (non-ST elevated myocardial infarction): (3) Acute encephalopathy: (4) Atrial fibrillation: (5) Heart failure: Plan Continue diuresis. Plan for coronary angiogram once more euvolemic. Likely in 1 to 2 days. Had a discussion with patient's family and they wanted to proceed. They understand risk of permanent dialysis. Patient will be reassessed tomorrow and then will make decision about the timing of angiogram ideally before extubation Continue aspirin and heparin. Continue amiodarone Thank you for involving us with care of this patient. Will continue to follow. Please call with questions PDMP PDMP Reviewed: Not Reviewed Attestations 2 Medical Necessity Statement*: Care expected to cross 2 midnights. Procedures Arterial Line Size (Gauge): 20 Coding Level of Care Code Acute Code for Chg Fwd Diagnoses Acute kidney injury N17.9 NSTEMI (non-ST elevated myocardial infarction) I21.4 Acute encephalopathy G93.40 Atrial fibrillation, unspecified type I48.91 Atrial fibrillation type: unspecified Other heart failure I50.89 Heart failure type: other
[2025-04-07 10:44] LABS: Potassium 2.9 mmol/L (3.5-5.1)
[2025-04-07] MEDS: lidocaine 1% 5 ML in potassium chloride premix 100 ML 26.25 ML IV (11:31)
[2025-04-07 13:00] LABS: Anion Gap 21.0 (5-19); Blood Urea Nitrogen 75 mg/dL (8-23); Calcium 7.6 mg/dL (8.5-10.5); Carbon Dioxide 21 mmol/L (22-29); Chloride 101 mmol/L (98-107); Creatinine Clr Calc Pharmacy 27.8032; Glucose 218 mg/dL (65-115); Osmolality Calculated 319 mOsm/kg (285-295); Potassium 3.0 mmol/L (3.5-5.1); Sodium 140 mmol/L (136-145)
[2025-04-07 13:05] LABS: Partial Thromboplastin Time 96.3 SECONDS (23.9-36.7)
--- NOTE | 2025-04-07 13:49 | PM.PN ---
Subjective Subjective: Patient was seen this morning, afebrile overnight, on 8 of Levophed 35% FiO2 urine output robust overnight 7 L, in the last 24 hours, afebrile, no family members at bedside - He is off sedation this morning - He responds to his name, he does not open his eyes but pupils are equal round reactive to light, moves bilateral upper and lower extremities, easily becomes agitated, he is able to turn his head, - With loss from pain, localizes pain, has a cough reflex as a gag reflex Vitals/I&O/Wt Last Vital Signs Temp 98.7 F 04/07/25 07:30 Pulse 97 04/07/25 09:00 Resp 19 H 04/07/25 11:20 BP 113/70 04/07/25 09:00 Pulse Ox 92 04/07/25 11:20 O2 Del Method Mechanical Ventilation 04/07/25 09:00 O2 Flow Rate 2 04/05/25 10:15 FiO2 35 04/07/25 11:20 04/06/25 04/07/25 04/07/25 22:59 06:59 14:59 Intake Total 871.458 / 1640.158 814.600 / 2454.758 292 / 292 Output Total 2156 / 5438 2800 / 8238 1016 / 1016 Balance -1284.542 / -3797.842 -1985.400 / -5783.242 -724 / -724 Weight last 48 hrs Weight 71.532 kg Weight 80.649 kg Physical Exam Const: COMMON NORMALS: no acute distress Neck/C-Spine: COMMON NORMALS: no JVD Resp: COMMON NORMALS: normal respiratory effort, No retractions and No use of accessory muscles AUSCULTATION: crackles and wheezes Cardio: COMMON NORMALS: no JVD, regular rate, regular rhythm, S1 normal heart sound present and S2 normal heart sound present RATE: regular rate RHYTHM: regular rhythm HEART SOUNDS: S1 normal heart sound present and S2 normal heart sound present GI: COMMON NORMALS: Normal to inspection, nondistended, normoactive bowel sounds present and non-tender Extremity: COMMON NORMALS: no pedal edema Urinary Catheter Management: Sullivan: Cath Placed During This Visit: no Reason for Continuing Indwelling Catheter: Accurate Measurement of Urinary Output in Critically Ill Patients Data 04/07/25 04:50 04/07/25 12:35 Micro: Microbiology 04/05/25 11:09 Gram Stain - Final Sputum - Endotracheal Tube Aspirate Sputum Culture - Final A&P Assessment and plan (1) Acute kidney injury: (2) NSTEMI (non-ST elevated myocardial infarction): (3) Acute encephalopathy: (4) Atrial fibrillation: (5) Heart failure: (6) Pulmonary edema: (7) Acute hypoxic respiratory failure: (8) Metabolic acidosis with respiratory alkalosis: (9) Cardiogenic shock: (10) Sepsis: (11) Pneumonia: (12) Shock: (13) Cardiorenal disease: (14) Systolic CHF: (15) Acute respiratory distress: (16) Bilateral pleural effusion: (17) Cardiac arrest: (18) Cardiac arrest with successful resuscitation: (19) Successful cardiopulmonary resuscitation: Plan Acute encephalopathy - Likely multifactorial -Likely component of cardiac arrest -Pneumonia -Hypoxia -polypharmacy - Neurochecks, - Monitor mentation closely Cardiac arrest - Concern for V-fib arrest - Acute flash pulmonary edema - Successful ROSC - Had 4 A of epi, 1 amp of bicarb, 1 amp of calcium chloride - CPR time roughly 7 minutes - Initial EKG shows atrial fibrillation, no acute ST-T wave changes - Pupils equal round reactive to light, does have a cough reflex, does have a gag reflex, according to nursing staff he did move his right arm, move head from [id number] -Baseline troponin 143, 120-minute 133 -BNP over 57,000 -Potassium 5.4, did give 1 dose of calcium chloride -Etomidate and succinylcholine for intubation used by ER provider, monitor potassium closely - Plan -Cardiology on consult -Currently intubated -Sedated with fentanyl, Versed, Precedex -Minimize FiO2, minimize tidal volume -Arterial line in place -PICC line in place -Currently on Levophed, maintain MAP greater than 65, wean Levophed as tolerated -Dobutamine has been weaned off -Neurochecks, monitor mentation closely -Will consider CT imaging of the head based on clinical progress -Daily spontaneous breathing trials -Will start to wean sedation once more stable, do neurologic testing once stable - Repeat echo CONCLUSIONS LV systolic function is severely reduced with EF of 10 to 15%. Severe global hypokinesis. Pleural effusion seen - Continue aspirin, statin - Continue heparin drip - Plans on possible coronary angiography based on clinical progress - Will consider LVAD based on clinical progress - Currently on Lasix drip, monitor output, monitor creatinine monitor potassium - Will consider dialysis based on clinical progress -Venous ultrasound negative for DVT - Protonix for GI prophylaxis - Heparin drip for DVT prophylaxis Acute hypoxic respiratory failure - With acute respiratory distress - Systolic CHF exacerbation -Bilateral pleural effusions - Acute flash pulmonary edema - With concerns for possible pneumonia -Atrial fibrillation with rapid ventricular response -Down to 40% FiO2 -Urine output 4 L Plan - Monitor in ICU closely - Currently intubated, sedated - Monitor respiratory status closely - DuoNeb - Budesonide - Blood cultures - Sputum cultures - Continue Lasix drip at 10 units/hr - Monitor BMP every 4 hours -Maintain potassium greater than 4 -IV doses based on clinical progress - Monitor creatinine - Monitor urine output - Rocephin - Azithromycin Shock, resolving - Multifactorial cardiogenic shock - Component of sepsis with right lower lobe infiltrate pneumonia - Currently on Levophed - Maintain MAP greater than 65 - Monitor output, monitor creatinine Bilateral pleural effusions ct chest CT/[place] [id number] IMPRESSION: 1. Moderate layering pleural effusions bilaterally. Mild lower lobe atelectasis. 2. Moderate cardiomegaly with pulmonary hypertension. - Ultrasound thoracentesis, only very small bilateral pleural effusion, insufficient for safe thoracentesis Systolic CHF exacerbation -Used to follow with a signal tower operator in [facility], has had hospitalizations in [facility] for CHF back in August CONCLUSIONS Left ventricle is dilated. LV systolic function is severely reduced with EF of 20-25%. Moderate left ventricular hypertrophy. Biatrial enlargement. Mild mitral regurgitation. Mild to moderate aortic regurgitation Mild tricuspid regurgitation Moderate pulmonary hypertension Moderate pulmonic regurgitation Pleural effusion seen IVC is dilated No comparison studies are seen. Cardiac echo CONCLUSIONS LV systolic function is severely reduced with EF of 10 to 15%. Severe global hypokinesis. 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 a industrial designer in [facility], had reported CKD, with discussions of dialysis at some point - Possibly component of cardiorenal syndrome -Urine output over 4 L on Lasix drip - Monitor BMP every 4 hours - Monitor creatinine, monitor electrolytes - Patient is agreeable to dialysis if required NSTEMI - No chest pain complaints - Does have shortness of breath -EF 10 to 15% Plan - Telemetry monitoring - EKGs, serial troponins, telemetry monitoring - Aspirin, statin - Heparin drip - Cardiology consulted A-fib with RVR - Amiodarone drip Transaminitis, shock liver, monitor Respiratory alkalosis with increased anion gap metabolic acidosis - Could be from cardiogenic shock, cardiorenal syndrome, JOAO, respiratory failure, cardiac arrest - Will monitor Acute encephalopathy -Etiology unclear, resolved - Component of uremia - Head CT no acute findings - No focal neurologic deficits, is globally encephalopathic - Ammonia levels WNL - UA within normal limits - CT chest possible pneumonia: Antibiotics - Order inflammatory markers - Neurochecks - NIH stroke scale - Monitor mentation Increased anion gap metabolic acidosis - Check ketones within normal limits - Check A1c 6.2 - Lactic acid within normal limits Hyperkalemia, resolved - Calcium gluconate - Insulin, D10 - Repeat BMP this evening Uremia - Secondary to JOAO - Hemoglobin within normal limits - Monitor closely Full code Heparin drip for DVT prophylaxis Lovenox for DVT prophylaxis Plan for today,Patient was seen this morning, plan is speak to patient's son, spoke to cardiology, planning coronary angiography tomorrow, continue amiodarone drip, continue to wean off Levophed continue Lasix drip now down to 5 mg/h monitor creatinine, replace potassium, continue sedation vacation, neurochecks monitor mentation, monitor urine output, continue IV antibiotics PDMP PDMP Reviewed: Not Reviewed Attestations Medical Necessity Statement*: Patient requires hospitalization for acute hypoxic respiratory failure, acute encephalopathy, cardiac arrest, NSTEMI, systolic CHF, JOAO, respiratory alkalosis metabolic acidosis, ischemic cardiomyopathy, right sided pneumonia, aspiration pneumonia Procedures Arterial Line Size (Gauge): 20 Coding Level of Care Code Critical Care >/= 30 minutes Critical care time (in minutes): 45 The high probability of a clinically significant, sudden or life threatening deterioration, as referenced in this documentation, required my full and direct attention, intervention and personal management. The critical care time shown is in addition to time spent performing any reported separately billable procedures and includes the following: [x] Data and vital sign review and interpretation [x] Patient assessment, examination and intervention [x] Medication orders and management [x] Patient/Family updates as able [x] Care Coordination and Documentation. Diagnoses Acute kidney injury N17.9 NSTEMI (non-ST elevated myocardial infarction) I21.4 Acute encephalopathy G93.40 Atrial fibrillation, unspecified type I48.91 Atrial fibrillation type: unspecified Other heart failure I50.89 Heart failure type: other Pulmonary edema J81.1 Acute hypoxic respiratory failure J96.01 Metabolic acidosis with respiratory alkalosis E87.20; E87.3 Cardiogenic shock R57.0 Sepsis A41.9 Pneumonia J18.9 Shock R57.9 Cardiorenal disease I13.10 Systolic CHF I50.20 Acute respiratory distress R06.03 Bilateral pleural effusion J90 Cardiac arrest I46.9 Cardiac arrest with successful resuscitation I46.9 Successful cardiopulmonary resuscitation Z92.89
[2025-04-07] MEDS: FUROsemide 200 MG in sodium chloride 0.9% (100 ml) 80 ML IV (17:31)
--- NOTE | 2025-04-07 19:00 | PC.NURSE ---
Addendum entered by Leah Tellez RN 04/07/25 19:51: versed waste of 97 ml wasted with CORINNE Melendez Original Note: Versed gtt wasted with Baylee Tellez RN, 97 ml.
--- NOTE | 2025-04-07 19:14 | PC.NURSE ---
Shift summary: Pt remains intubated. Sedation turned off on steward/stewardess night. Pt has nodded head yes, once and gripped with his left hand on command. He has attempted to open his eyes, barely cracked them open to look at his son this afternoon. Amio, heparin and Levophed still infusing. ONly able to decrease LEvophed by 1 mcg/min this shift. Lasix gtt stopped around 1829, per an order from Dr Sin. Lung sounds remain clear. PICC dressing, statlock, Bio path and caps changed. Some tubing changed. Pt has had 3000 ml of urine output.
[2025-04-07] MEDS: dexmedeTOMIDine 0.9 % NaCL 400 MCG/100 ML PREMIX IV (19:19)
[2025-04-07 19:32] LABS: Partial Thromboplastin Time 43.9 SECONDS (23.9-36.7)
[2025-04-07 19:36] LABS: Alanine Aminotransferase 286 U/L (0-41); Albumin Level 2.7 g/dL (3.5-5.2); Alkaline Phosphatase 161 U/L (40-130); Aspartate Amino Transferase 65 U/L (0-40); Blood Urea Nitrogen 80 mg/dL (8-23); Calcium 8.8 mg/dL (8.5-10.5); Carbon Dioxide 25 mmol/L (22-29); Chloride 102 mmol/L (98-107); Creatinine Clr Calc Pharmacy 26.5944; Globulin 3.1 g/dL (1.3-4.6); Glucose 93 mg/dL (65-115); Osmolality Calculated 320 mOsm/kg (285-295); Sodium 143 mmol/L (136-145); Total Protein 5.8 g/dL (6.6-8.7)
[2025-04-07 19:41] LABS: Anion Gap 19.7 (5-19); Potassium 3.7 mmol/L (3.5-5.1)
[2025-04-07] MEDS: norepinephrine 4 MG/250 ML BAG 15 MG IV (23:30)
[2025-04-08] VITALS (106 sets, daily range): BP systolic 89–132; BP diastolic 14–72; PULSE 56–76; RESP 13–14; TEMP 36.6–37.3; O2SAT 80–100
[2025-04-08] MEDS: chlorhexidine gluconate 4% Btl 118 mL 1 APPLIC TOPICAL ×2 (00:23→23:30)
[2025-04-08 02:28] LABS: Hematocrit 36.0 % (37-53); Hemoglobin 11.60 g/dL (11.27-16.99); Mean Corpuscular HGB Conc 32.2 g/dL (30-55); Mean Corpuscular Hemoglobin 30.9 pg (27-33); Mean Corpuscular Volume 96.0 fl (82-101); Nucleated Red Blood Cells % 0 %; Platelet Count 239 10^3/cmm (157-399); Red Blood Count 3.75 10^6/uL (3.85-5.65); White Blood Count 7.25 10^3/uL (3.29-11.43)
[2025-04-08 02:47] LABS: INR 1.17 (0.8-1.2); Partial Thromboplastin Time 67.1 SECONDS (23.9-36.7); Prothrombin Time 15.70 SECONDS (12.1-14.9)
[2025-04-08 02:48] LABS: Lactate (Lactic Acid level) 1.4 mmol/L (0.5-2.2)
[2025-04-08 02:58] LABS: Alanine Aminotransferase 252 U/L (0-41); Albumin Level 2.5 g/dL (3.5-5.2); Alkaline Phosphatase 154 U/L (40-130); Blood Urea Nitrogen 77 mg/dL (8-23); Calcium 8.7 mg/dL (8.5-10.5); Carbon Dioxide 25 mmol/L (22-29); Chloride 102 mmol/L (98-107); Creatinine Clr Calc Pharmacy 24.4669; Globulin 3.3 g/dL (1.3-4.6); Glucose 95 mg/dL (65-115); Magnesium 1.5 mg/dL (1.7-2.3); Osmolality Calculated 321 mOsm/kg (285-295); Sodium 144 mmol/L (136-145); Total Protein 5.8 g/dL (6.6-8.7)
[2025-04-08 02:59] LABS: Anion Gap 20.5 (5-19); Aspartate Amino Transferase 57 U/L (0-40); Potassium 3.5 mmol/L (3.5-5.1)
[2025-04-08 03:20] LABS: NT Pro B Type Natriuretic Pept 39371 pg/mL (0-450)
[2025-04-08 04:01] LABS: ABG PCO2 34.1 mmHg (35-45); ABG PH Result 7.51 (7.35-7.45); Arterial Blood Gas Hematocrit 37.6 % (42-52); Blood Gas Allen Test Pos; Blood Gas Operator Identificat SAM; Blood Gas Sample Site Radial, left; Blood Gas Sample Type Arterial; Blood Gas Tidal Volume 0.45; HCO3 ABG 27.3 mmol/L (22-26); PEEP 5.0 cmH20; PO2 ABG 80.3 mmHg (80.0-100.0); PO2 FiO2 Ratio Arterial Blood 133
[2025-04-08] MEDS: pantoprazole 40 mg SDV IVP ×2 (04:33→15:42)
[2025-04-08] MEDS: fentaNYL 1,000 MCG/100 ML BAG 5 MCG IV (04:36)
--- NOTE | 2025-04-08 08:03 | XRR_ITS ---
PROCEDURE INFORMATION: Exam: XR Chest Exam date and time: 04/08/2025 8:20 AM Age: 80 years old Clinical indication: Shortness of breath; Additional info: SOB TECHNIQUE: Imaging protocol: Radiologic exam of the chest. Views: 1 view. COMPARISON: CR (CHEST, ) 04/07/2025 8:39 AM FINDINGS: Tubes, catheters and devices: Endotracheal tube projects over the trachea with tip projecting perhaps 1.7 cm or less above jefferson. NG tube remains present similar to prior study. Right-sided PICC line remains present with tip projecting over region of superior vena cava. Lungs: Persistent opacity mid, lower right lung, right hemithorax appearing similar to 04/07/2025, decreased compared to 04/06/2025. Persistent opacity mid and lower left hemithorax appearing increased. Pleural spaces: Pfpwj-be-qijwqvgl left pleural effusion, increased. Small right pleural effusion appearing about the same to slightly decreased. No large or obvious pneumothorax seen. Heart/Mediastinum: Heart size difficult to evaluate due to opacification obscuring heart margin. Vasculature: Atherosclerotic disease. Diaphragm: Left hemidiaphragm obscured, indistinct. Bones/joints: Degenerative changes spine. XR/XR chest 1V portable [id number] IMPRESSION: 1. Endotracheal tube projects over the trachea with tip projecting perhaps 1.7 cm or less above jefferson, appears slightly more advanced than on 04/07/2025. Consider retraction/repositioning. 2. Increasing opacity left hemithorax, left lung with findings suggesting increasing left pleural effusion, atelectasis and/or infiltrate left lung. Left hemidiaphragm is obscured, indistinct. 3. Persistent opacity mid, lower right lung/right hemithorax.
[2025-04-08] MEDS: AZITHROMYCIN ADD-Vantage 500 MG in 0.9% NaCl ADD-Vantage 250 ML 250 MG IV (08:09)
[2025-04-08] MEDS: cefTRIAXone 1,000 mg SDV 1000 MG IVP (08:10)
--- NOTE | 2025-04-08 08:37 | P.PN_ITS ---
<Statement entered by Tigre Peña M.D - 04/21/25 12:49> Patient was cared for in conjunction with an advanced practice practitioner.? I reviewed the chart and all pertinent data including imaging, telemetry, and laboratory results.? I discussed the patient in detail with the advanced practice practitioner.? Please see their note for complete progress note, testing results and agreed upon plan of care for the patient. Subjective 2 Subjective: He remains intubated and sedated. On Levophed infusion and amiodarone infusion. In atrial fibrillation, controlled ventricular rate. Urine output 2600 mL for the last 24 hours. Vitals/I&O/Wt Last Vital Signs Temp 98 F 04/08/25 04:30 Pulse 66 04/08/25 06:00 Resp 14 04/08/25 08:09 BP 113/55 04/08/25 06:00 Pulse Ox 98 04/08/25 08:09 O2 Del Method Mechanical Ventilation 04/08/25 04:30 O2 Flow Rate 2 04/05/25 10:15 FiO2 60 04/08/25 08:09 04/07/25 04/08/25 04/08/25 22:59 06:59 14:59 Intake Total 736.512 / 2169.739 489.227 / 2169.739 Output Total 2460 / 4826 1350 / 4826 Balance -1723.488 / -2656.261 -860.773 / -2656.261 Weight last 48 hrs Weight 151 lb 14.4 oz Weight 157 lb 11.2 oz Physical Exam 2 Const: COMMON NORMALS: negative for patient oriented x3 (sedated) Chest: COMMONS NORMALS: normal inspection of the chest Resp: COMMON NORMALS: clear to auscultation bilaterally EFFORT & INSPECTION: Yes other (Intubated) AUSCULTATION: clear to auscultation bilaterally Cardio: COMMON NORMALS: regular rate, S1 normal heart sound present and S2 normal heart sound present; negative for regular rhythm RATE: regular rate RHYTHM: abnormal rhythm HEART SOUNDS: S1 normal heart sound present and S2 normal heart sound present Extremity: GENERAL: No edema Neuro: COMMON NORMALS: negative for patient oriented x3 (sedated) Urinary Catheter Management: Sullivan: Cath Placed During This Visit: no Reason for Continuing Indwelling Catheter: Accurate Measurement of Urinary Output in Critically Ill Patients Data 04/08/25 02:21 04/08/25 02:21 Micro: Microbiology 04/05/25 11:09 Gram Stain - Final Sputum - Endotracheal Tube Aspirate Sputum Culture - Final A&P Assessment and plan (1) Cardiorenal disease: (2) Systolic CHF: (3) Cardiogenic shock: (4) Atrial fibrillation: (5) NSTEMI (non-ST elevated myocardial infarction): Plan Plan is still for coronary angiogram when patient is stable. Due to increased oxygen requirements, will postpone for now. PDMP PDMP Reviewed: Not Reviewed Attestations 2 Medical Necessity Statement*: Care expected to cross 2 midnights Procedures Arterial Line Size (Gauge): 20 Coding Level of Care Code Acute Code for g Fwd Diagnoses Cardiorenal disease I13.10 Systolic CHF I50.20 Cardiogenic shock R57.0 Atrial fibrillation, unspecified type I48.91 Atrial fibrillation type: unspecified NSTEMI (non-ST elevated myocardial infarction) I21.4
[2025-04-08] MEDS: heparin drip 25,000 UNIT/500 ML PREMIX 17 UNIT IV (09:27)
[2025-04-08 09:28] LABS: Partial Thromboplastin Time 49.1 SECONDS (23.9-36.7)
[2025-04-08] MEDS: heparin 5,000 unit/mL INJ 1 mL IVP (09:34)
--- NOTE | 2025-04-08 09:44 | P.PN_ITS ---
Subjective 2 Subjective: The patient is less responsive than yesterday. The patient remains intubated. Patient remains on Levophed and amiodarone. Also getting antibiotics fentanyl and Precedex. The patient remains in A-fib. Medications: Reviewed: Yes Medication Review Details: Current Medications Acetaminophen (Acetaminophen 325 Mg Tablet) 650 mg PO Q6H PRN PRN Reason: Mild/Mod Pain Or Temp >/= 101 Last Admin: 04/04/25 16:57 Dose: 650 mg Albuterol/Ipratropium (Ipratropium-Albuterol 3 Ml Neb) 3 ml INHALATION Q4H PRN PRN Reason: SHORTNESS OF BREATH Alprazolam (Alprazolam 0.5 Mg Tablet) 0.25 mg PO TID PRN PRN Reason: ANXIETY Last Admin: 04/05/25 10:13 Dose: 0.25 mg Aspirin (Aspirin 81 Mg Ec Tablet) 81 mg PO DAILY GISELA Last Admin: 04/08/25 08:13 Dose: 81 mg Ceftriaxone Sodium (Ceftriaxone 1,000 Mg Sdv) 1,000 mg IVP Q24H GISELA; Protocol Last Admin: 04/08/25 08:10 Dose: 1,000 mg Chlorhexidine Gluconate (Chlorhexidine Gluconate 4% Btl 118 Ml) 1 applic TOPICAL Q24H GISELA Last Admin: 04/08/25 00:23 Dose: 1 applic Heparin Sodium (Porcine) (Heparin 5,000 Unit/Ml Inj 1 Ml) 0 unit IVP PRN PRN; Protocol PRN Reason: Heparin Weight Based Protocol -Subsequent Bolus Last Admin: 04/08/25 09:34 Dose: 1,500 unit Heparin Sodium/Sodium Chloride (Heparin Drip) 25,000 unit in 500 mls @ 0 mls/hr IV CONT GISELA; Protocol Last Titration: 04/08/25 09:35 Dose: 12.39 unit/kg/hr, 19 mls/hr Azithromycin 500 mg/ Sodium (Chloride) 250 mls @ 250 mls/hr IV Q24H GISELA; Protocol Last Admin: 04/08/25 08:09 Dose: 250 mls/hr Norepinephrine Bitartrate (Levophed) 4 mg in 250 mls @ 0 mls/hr IV .Q0M GISELA; Protocol Last Titration: 04/08/25 06:55 Dose: 2 mcg/min, 7.5 mls/hr Furosemide 200 mg/ Sodium (Chloride) 100 mls @ 2.5 mls/hr IV .Q24H GISELA On Hold: 04/07/25 18:45 Last Infusion: 04/07/25 18:45 Dose: 0 mg/hr, 0 mls/hr Fentanyl (Sublimaze) 1,000 mcg in 100 mls @ 0 mls/hr IV .Q0M GISELA; Protocol Last Admin: 04/08/25 04:36 Dose: 50 mcg/hr, 5 mls/hr Midazolam HCl (Versed) 100 mg in 100 mls @ 0 mls/hr IV .Q0M GISELA; Protocol Last Titration: 04/07/25 19:05 Dose: Infused Dexmedetomidine/Sodium Chloride (Precedex) 400 mcg in 100 mls @ 0 mls/hr IV .Q0M GISELA; Protocol Last Titration: 04/08/25 05:26 Dose: 0.1 mcg/kg/hr, 1.95 mls/hr Amiodarone HCl/Dextrose (Nexterone) 360 mg in 200 mls @ 0 mls/hr IV .Q0M GISELA; Protocol Last Admin: 04/08/25 05:56 Dose: 0.5 mg/min, 16.67 mls/hr Morphine Sulfate (Morphine 4 Mg/Ml Sdv 1 Ml) 1 mg IVP Q4H PRN PRN Reason: SEVERE PAIN Last Admin: 04/04/25 22:16 Dose: 1 mg Naloxone HCl (Naloxone 0.4 Mg/Ml Sdv) 0.1 mg IVP Q2M PRN PRN Reason: OPIATERV Olanzapine (Olanzapine 5 Mg Tablet) 2.5 mg PO BEDTIME GISELA Last Admin: 04/07/25 20:04 Dose: 2.5 mg Ondansetron HCl (Ondansetron 2 Mg/Ml Sdv 2 Ml) 4 mg IVP Q8H PRN PRN Reason: vomiting, or N/V if npo Pantoprazole Sodium (Pantoprazole 40 Mg Sdv) 40 mg IVP Q12H GISELA Last Admin: 04/08/25 04:33 Dose: 40 mg Vitals/I&O/Wt Last Vital Signs Temp 98.4 F 04/08/25 08:00 Pulse 66 04/08/25 08:30 Resp 14 04/08/25 08:30 BP 116/66 04/08/25 08:30 Pulse Ox 98 04/08/25 08:30 O2 Del Method Mechanical Ventilation 04/08/25 08:00 O2 Flow Rate 2 04/05/25 10:15 FiO2 60 04/08/25 08:09 04/07/25 04/08/25 04/08/25 22:59 06:59 14:59 Intake Total 736.512 / 1680.512 489.227 / 2169.739 173.900 / 173.900 Output Total 2460 / 3476 1350 / 4826 Balance -1723.488 / -1795.488 -860.773 / -2656.261 173.900 / 173.900 Weight last 48 hrs Weight 68.901 kg Weight 71.532 kg Physical Exam 2 Narrative: Intubated on Levophed, amiodarone Versed and fentanyl. Vent Vital signs noted. The patient is in atrial fibrillation with controlled rate HEENT normocephalic atraumatic. Neck is supple Lungs have dull bases and crackles., Right sided dull area Heart irregular with systolic murmur positive S1-S2 Abdomen is soft positive bowel sounds. Extremities have 1+ edema, legs are warm Neuro the patient is sedated , less responsive then yesterday Urinary Catheter Management: Sullivan: Cath Placed During This Visit: no Reason for Continuing Indwelling Catheter: Accurate Measurement of Urinary Output in Critically Ill Patients Data 04/08/25 02:21 04/08/25 02:21 Micro: Microbiology 04/05/25 11:09 Gram Stain - Final Sputum - Endotracheal Tube Aspirate Sputum Culture - Final A&P Assessment and plan (1) Acute kidney injury: 80-year-old gentleman that per chart from her shelter has history of peripheral arterial disease, BPH, A-fib. And shelter the patient is on Coreg Bumex and potassium. I wonder if the patient has heart failure. The patient was admitted just with altered mental status and acute kidney injury. The patient CT scan on April 03, 2025 that revealed moderate bilateral pleural effusions layering posteriorly moderate cardiomegaly. And his kidneys showed multiple cysts in the right kidney measuring up to 7.5 cm in greatest dimension, per reading no hydronephrosis vascular calcifications. 1. Acute kidney injury please get old labs. The patient states that he has chronic kidney disease. Renal ultrasound shows right kidney 10.3 cm with numerous cysts. The largest cyst is 6.3 x 5.4 x 7 cm with mild cortical thinning and increased echogenicity. Left kidney 9 cm is mild diffuse cortical thinning no obstruction. Renal ultrasound is consistent with CKD. The patient has a negative VEGA negative [id number] DNA normal complements C3 97 C4 13, normal kappa lambda ratio 1.24. Patient's hepatitis serologies hep B surface antigens negative antibodies positive hep B core antibodies negative hep C antibodies negative -I am concerned for cardiorenal syndrome. The patient had a cardiac arrest 0n 04/05/25 after which he became acidotic which is now improving. - cr appears to be stablizing. he is polyuric. can decrease lasix dose if okay w/ cardiology 2. Acid-base abnormality: Latest ABG from this morning reveals a pH of 7.51 - resp alkalosis, met alklaosis from diuretics and metabolic acidosis from Joao - salicylate level undetectable His lactic acidosis has improved from 11-1.3 3. Echocardiogram reveals severely reduced EF of 20 to 25% with global hypokinesis moderate LV hypertrophy. 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 -Repeat echocardiogram on April 06 after cardiac arrest showed LV systolic function severely reduced to 10 to 15% severe global hypokinesis and a pleural effusion. -per cardiology 4. Pneumonia treated with antibiotics. Question if patient aspirated 5. replete k and magnesium 6. inc LFTs per medicine No emergent need for dialysis at this time The patient was seen and examined using audiovisual equipment with the aid of a nurse. Plan See above PDMP PDMP Reviewed: Not Reviewed Attestations 2 Medical Necessity Statement*: VDRF, JOAO, severely reduced EF Time Spent in Patient Care: 16 - 35 minutes (>than 50% of time sp ent in counselling and/or direct pt care on unit) . Procedures Arterial Line Size (Gauge): 20 Coding Level of Care Code Acute Code for Chg Fwd Diagnoses Acute kidney injury N17.9
[2025-04-08] MEDS: FUROsemide 10 mg/mL SDV 4mL 40 MG IVP ×2 (10:18→13:29)
--- NOTE | 2025-04-08 12:41 | XRR_ITS ---
PROCEDURE INFORMATION: Exam: XR Chest Exam date and time: 04/08/2025 12:48 PM Age: 80 years old Clinical indication: Device placement; Ett placement (vent status); Additional info: Repositioned oett TECHNIQUE: Imaging protocol: Radiologic exam of the chest. Views: 1 view. COMPARISON: CR XR chest 1V portable [id number] 04/08/2025 8:20 AM FINDINGS: Tubes, catheters and devices: Endotracheal tube terminates 4 cm above the jefferson. Right PICC line terminates in the SVC. Gastric tube terminates in the stomach. Lungs: See Pleural spaces finding. Pleural spaces: Moderate left pleural effusion with bilateral pulmonary infiltrates left greater than right. The appearance is unchanged. Heart/Mediastinum: Unremarkable. No cardiomegaly. Bones/joints: Unremarkable. XR/XR chest 1V portable [id number] IMPRESSION: Intubation.
[2025-04-08] MEDS: midazolam hcl 100 MG/100 ML BAG IV (12:57)
[2025-04-08] MEDS: acetylcysteine 200 mg/mL MDV 10 mL 100 MG INHALATION ×3 (13:10→19:36)
[2025-04-08] MEDS: sodium chloride 3.5% neb 4 mL Neb INHALATION ×2 (13:10→19:37)
--- NOTE | 2025-04-08 13:10 | US_ITS ---
WS: [id number] INDICATION: Pleural effusion TECHNIQUE: Ultrasound chest FINDINGS: Ultrasound LEFT chest from a lateral approach. Patient is intubated. Only small LEFT pleural effusion. Insufficient fluid for thoracentesis US/US chest [id number] IMPRESSION: See above
[2025-04-08] MEDS: lidocaine 1% 5 ML in potassium chloride premix 100 ML 25 ML IV (13:24)
[2025-04-08] MEDS: FUROsemide 200 MG in sodium chloride 0.9% (100 ml) 80 ML IV (13:28)
[2025-04-08 13:29] LABS: Vit D 1,25 (Oh)2, Total 13 pg/mL (18-72); Vit D2 1,25 (Oh)2 <8 pg/mL; Vit D3 1,25 (Oh)2 13 pg/mL
--- NOTE | 2025-04-08 13:36 | CTR_ITS ---
PROCEDURE INFORMATION: Exam: CT Chest Without Contrast; Diagnostic Exam date and time: 04/08/2025 4:04 PM Age: 80 years old Clinical indication: Shortness of breath; Additional info: SOB TECHNIQUE: Imaging protocol: Diagnostic computed tomography of the chest without contrast. Radiation optimization: All CT scans at this facility use at least one of these dose optimization techniques: automated exposure control; mA and/or kV adjustment per patient size (includes targeted exams where dose is matched to clinical indication); or iterative reconstruction. COMPARISON: [place] [id number] 04/03/2025 4:24 PM RADIATION DOSE METRICS: Total DLP (mGy-cm): 415.53 FINDINGS: Lungs: Progressive and now extensive atelectasis throughout the left lung, very little aerated lung remains. Moderate left pleural effusion slightly larger than before. Atelectatic changes at the right lung base. Pleural spaces: Small right pleural effusion. Heart: Unremarkable. No cardiomegaly. No pericardial effusion. Lymph nodes: Unremarkable. No enlarged lymph nodes. Vasculature: Unremarkable. No aortic aneurysm. Gallbladder and biliary ducts: Cholelithiasis. Kidneys: Numerous renal cysts. Bones/joints: Unremarkable. No acute fracture. Soft tissues: Unremarkable. CT/CT chest wo con [id number] IMPRESSION: Progressive and now extensive left-sided atelectasis. Slightly increasing left pleural effusion. COMMENTS: Consistent with the [employer]'s Incidental Findings Committee white paper (J Am Clarence Radiol 2018): Any incidental renal lesion less than 1 cm or classified as too small to characterize, or any incidental cystic renal lesion characterized as simple-appearing, is likely benign. No follow-up imaging is recommended for these lesions per consensus recommendations based on imaging criteria.
[2025-04-08] MEDS: magnesium sulfate premix 1 GM/100 ML PIGGYBACK IV (13:57)
[2025-04-08] MEDS: propofol 1,000 MG/100 ML INJ 2.07 MG IV (14:49)
--- NOTE | 2025-04-08 14:49 | PC.NURSE ---
wasted 96.633 mL of versed drip, witnessed per CORINNE Rodriguez.
--- NOTE | 2025-04-08 14:51 | PC.NURSE ---
O2 sats decreased into 80's, suctioned and increased O2 to 100% per vent for suction. Only slight improvement of oxygen saturation noted. Notified RT, OETT repositioned as chest x-ray indicated. O2 saturations improved to 95-97%. Approx 30minutes later O2 saturations decreased into the 80s again, attempted suction and hyperoxygenation. No improvement noted. Dr. Sin notified. CPT and breathing treatments given per RT, Dr. Sin remained at bedside. Manually Bagged patient with 100% O2 x [address] Sin order. O2 saturations increased to 99%. Placed back on vent with FI02 % and peep increased to 40mg lasix given IVP as ordered and lasix drip restarted at 10mg/hr and then increased to 20mg/h as ordered. Fentanyl increased and propofol restarted for patient sedation and comfort.
[2025-04-08 16:30] LABS: Glomerular Bsmt Membrane IGG <1.0 AI
[2025-04-08 16:40] LABS: ANCA Screen NEGATIVE (NEGATIVE)
--- NOTE | 2025-04-08 17:16 | P.PN_ITS ---
Subjective 2 Subjective: - Events overnight noted, patient was tu rned up to 100% FiO2, now down to 60% - Currently examined on 60% FiO2, tidal volume 450, PEEP of 5, afebrile overnight, on 2 Levophed, on fentanyl, Versed, heparin drip, amiodarone drip -Patient's chest x-ray shows increasing left-sided opacity over hemithorax, concerning for infiltrate versus pleural effusion versus pulm edema - Lasix drip on hold on plans of cardiac catheterization, 40 mg IV push Lasix ordered - Patient was reexamined at about 11 or so O2 sats are in the mid 80s, normotensive, on 2 Levophed, - PA over FiO2 ratio 133, pH 7.51, PCO2 34.1, bicarb 27.3, PO2 80.3 on 60% - Endo trach suctioning, no significant output - Order placed for chest vest therapy, M ucomyst, hypertonic saline for concern for possible mucous plugging - Reexamined after chest vest therapy co ntinues to have O2 sats in the mid 80s, he is on 60% FiO2 - Order placed to increase PEEP to 10 - After 10 to 15 minutes, O2 sats remain ed in the mid 80s, normotensive, normal sinus rhythm on the monitor, MAP is 65 - Order placed for another 40 mg IV push Lasix, metolazone start Lasix drip at 20 units thereafter - Patient was taken off the ventilator, was bagged for about 10 minutes to help with alveolar recruitment - Placed back on the ventilator, increas ed FiO2 100%, PEEP of 10, 450 tidal volume, O2 sats remained in the high 90s - She CT chest ordered - chest x-ray ordered continues to have left-sided opacities over left hemithorax, concerning for acute flash pulm edema, possible mucous plugging versus pneumonia - Placed on vancomycin, stop Rocephin az ithromycin added meropenem -Ultrasound thoracentesis ordered, no si gnificant fluid to tap on the left - Weaned off of Versed, placed on propof ol for sedation continue fentanyl continue Precedex - Reexamine, has good urine output has h ad about a 500 mL urine output, O2 sats 99% on 100% FiO2, tidal line 450, EPAP 10 - CT chest reviewed has progressive left -sided atelectasis, will continue chest vest, hypertonic saline, - Has received 40 mill colons of potassi um IV, and 40 p.o., recheck BMP mag/Phos at 6 PM Vitals/I&O/Wt Last Vital Signs Temp 97.8 F 04/08/25 16:00 Pulse 58 L 04/08/25 16:21 Resp 14 04/08/25 16:21 BP 116/65 04/08/25 16:15 Pulse Ox 96 04/08/25 16:21 O2 Del Method Mechanical Ventilation 04/08/25 16:21 O2 Flow Rate 2 04/05/25 10:15 FiO2 60 04/08/25 16:21 04/08/25 04/08/25 04/08/25 06:59 14:59 22:59 Intake Total 489.227 / 2169.739 754.567 / 754.567 93.881 / 848.448 Output Total 1350 / 4826 1200 / 1200 500 / 1700 Balance -860.773 / -2656.261 -445.433 / -445.433 -406.119 / -851.552 Weight last 48 hrs Weight 68.901 kg Weight 71.532 kg Physical Exam 2 Const: COMMON NORMALS: no acute distress and patient oriented x3 Resp: COMMON NORMALS: normal respiratory effort, No retractions, No use of accessory muscles and clear to auscultation bilaterally AUSCULTATION: clear to auscultation bilaterally Cardio: COMMON NORMALS: regular rate, regular rhythm, S1 normal heart sound present and S2 normal heart sound present RATE: regular rate RHYTHM: r egular rhythm HEART SOUNDS: S1 normal heart sound present and S2 normal heart sound present GI: COMMON NORMALS: Normal to inspection, nondistended, normoactive bowel sounds present and non-tender Extremity: COMMON NORMALS: no pedal edema Neuro: COMMON NORMALS: patient oriented x3 Psych: COMMON NORMALS: mental status grossly normal Urinary Catheter Management: Sullivan: Cath Placed During This Visit: no Reason for Continuing Indwelling Catheter: Accurate Measurement of Urinary Output in Critically Ill Patients Data 04/08/25 02:21 04/08/25 02:21 Micro: Microbiology 04/03/25 15:55 Blood Culture - Final Blood NO GROWTH AFTER 5 DAYS 04/03/25 15:50 Blood Culture - Final Blood NO GROWTH AFTER 5 DAYS 04/05/25 11:09 Gram Stain - Final Sputum - Endotracheal Tube Aspirate Sputum Culture - Final A&P Assessment and plan (1) Acute kidney injury: (2) NSTEMI (non-ST elevated myocardial infarction): (3) Acute encephalopathy: (4) Atrial fibrillation: (5) Heart failure: (6) Pulmonary edema: (7) Acute hypoxic respiratory failure: (8) Metabolic acidosis with respiratory alkalosis: (9) Cardiogenic shock: (10) Sepsis: (11) Pneumonia: (12) Shock: (13) Cardiorenal disease: (14) Systolic CHF: (15) Acute respiratory distress: (16) Bilateral pleural effusion: (17) Cardiac arrest: (18) Cardiac arrest with successful resuscitation: (19) Successful cardiopulmonary resuscitation: Plan Acute encephalopathy - Likely multifactorial -Likely component of cardiac arrest -Pneumonia -Hypoxia -polypharmacy - Neurochecks, - Monitor mentation closely Cardiac arrest - Concern for V-fib arrest - Acute flash pulmonary edema - Successful ROSC - Had 4 A of epi, 1 amp of bicarb, 1 amp of calcium chloride - CPR time roughly 7 minutes - Initial EKG shows atrial fibrillation, no acute ST-T wave changes - Pupils equal round reactive to light, does have a cough reflex, does have a gag reflex, according to nursing staff he did move his right arm, move head from [id number] -Baseline troponin 143, 120-minute 133 -BNP over 57,000 -Potassium 5.4, did give 1 dose of calcium chloride -Etomidate and succinylcholine for intubation used by ER provider, monitor potassium closely - Plan -Cardiology on consult -Currently intubated -Sedated with fentanyl, Precedex, propofol -Minimize FiO2, minimize tidal volume -Arterial line in place -PICC line in place -Currently on Levophed, maintain MAP greater than 65, wean Levophed as tolerated -Dobutamine has been weaned off -Neurochecks, monitor mentation closely -Will consider CT imaging of the head based on clinical progress -Daily spontaneous breathing trials - Continue sedation vacation - Repeat echo CONCLUSIONS LV systolic function is severely reduced with EF of 10 to 15%. Severe global hypokinesis. Pleural effusion seen - Continue aspirin, statin - Continue heparin drip - Plans on possible coronary angiography based on clinical progress - Will consider LVAD based on clinical progress - Currently on Lasix drip, monitor output, monitor creatinine monitor potassium - Will consider dialysis based on clinical progress -Venous ultrasound negative for DVT - Protonix for GI prophylaxis - Heparin drip for DVT prophylaxis Acute hypoxic respiratory failure - With acute respiratory distress - Systolic CHF exacerbation -Bilateral pleural effusions - Acute flash pulmonary edema - With concerns for possible pneumonia -Atrial fibrillation with rapid ventricular response -Down to 40% FiO2 -Urine output 4 L -Now with concerns for progressive and extensive left-sided atelectasis -Concern for mucous plugging, atelectasis, CT/CT chest wo con [id number] IMPRESSION: Progressive and now extensive left-sided atelectasis. Slightly increasing left pleural effusion. Plan - Monitor in ICU closely - Currently intubated, sedated - Monitor respiratory status closely -Fentanyl for sedation -Precedex for sedation -Propofol for sedation - DuoNeb - Budesonide - Blood cultures - Sputum cultures - Continue Lasix drip at 20 units/hr - Monitor BMP every 4 hours -Maintain potassium greater than 4, replace potassium -IV doses based on clinical progress - Monitor creatinine - Monitor urine output - Vancomycin - Meropenem - Chest vest, hypertonic saline, Mucomyst Shock, resolving - Multifactorial cardiogenic shock - Component of sepsis with right lower lobe infiltrate pneumonia - Currently on Levophed - Maintain MAP greater than 65 - Monitor output, monitor creatinine Bilateral pleural effusions ct chest CT/[place] [id number] IMPRESSION: 1. Moderate layering pleural effusions bilaterally. Mild lower lobe atelectasis. 2. Moderate cardiomegaly with pulmonary hypertension. - Ultrasound thoracentesis, only very small bilateral pleural effusion, insufficient for safe thoracentesis Systolic CHF exacerbation -Used to follow with a histopathology technician in [facility], has had hospitalizations in [facility] for CHF back in August CONCLUSIONS Left ventricle is dilated. LV systolic function is severely reduced with EF of 20-25%. Moderate left ventricular hypertrophy. Biatrial enlargement. Mild mitral regurgitation. Mild to moderate aortic regurgitation Mild tricuspid regurgitation Moderate pulmonary hypertension Moderate pulmonic regurgitation Pleural effusion seen IVC is dilated No comparison studies are seen. Cardiac echo CONCLUSIONS LV systolic function is severely reduced with EF of 10 to 15%. Severe global hypokinesis. 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 a vertical borer in [facility], had reported CKD, with discussions of dialysis at some point - Possibly component of cardiorenal syndrome -Urine output over 4 L on Lasix drip - Monitor BMP every 4 hours - Monitor creatinine, monitor electrolytes - Patient is agreeable to dialysis if required NSTEMI - No chest pain complaints - Does have shortness of breath -EF 10 to 15% Plan - Telemetry monitoring - EKGs, serial troponins, telemetry monitoring - Aspirin, statin - Heparin drip, transition to Lovenox to prevent fluid overload - Cardiology consulted A-fib with RVR - Amiodarone drip transition to p.o. amiodarone to prevent fluid overload Transaminitis, shock liver, monitor Respiratory alkalosis with increased anion gap metabolic acidosis - Could be from cardiogenic shock, cardiorenal syndrome, JOAO, respiratory failure, cardiac arrest - Will monitor Acute encephalopathy -Etiology unclear, resolved - Component of uremia - Head CT no acute findings - No focal neurologic deficits, is globally encephalopathic - Ammonia levels WNL - UA within normal limits - CT chest possible pneumonia: Antibiotics - Order inflammatory markers - Neurochecks - NIH stroke scale - Monitor mentation Increased anion gap metabolic acidosis - Check ketones within normal limits - Check A1c 6.2 - Lactic acid within normal limits Hyperkalemia, resolved - Calcium gluconate - Insulin, D10 - Repeat BMP this evening Uremia - Secondary to JOAO - Hemoglobin within normal limits - Monitor closely Full code Heparin drip for DVT prophylaxis Lovenox for DVT prophylaxis Plan for today, as above PDMP PDMP Reviewed: Not Reviewed Attestations 2 Medical Necessity Statement*: Patient requires hospitalization for acute hypoxic respiratory failure, fluid overload, mucous plugging left lung atelectasis, atrial fibrillation, JOAO, NSTEMI, CHF Procedures Arterial Line Size (Gauge): 20 Coding Level of Care Code Critical Care >/= 30 minutes Critical care time (in minutes): 45 The high probability of a clinically significant, sudden or life threatening deterioration, as referenced in this documentation, required my full and direct attention, intervention and personal management. The critical care time shown is in addition to time spent performing any reported separately billable procedures and includes the following: [x] Data and vital sign review and interpretation [x ] Patient assessment, examination and intervention [x] Medication orders and management [x] Patient/Family updates as able [x] Care Coordination and Documentation. Diagnoses Acute kidney injury N17.9 NSTEMI (non-ST elevated myocardial infarction) I21.4 Acute encephalopathy G93.40 Atrial fibrillation, unspecified type I48.91 Atrial fibrillation type: unspecified Other heart failure I50.89 Heart failure type: other Pulmonary edema J81.1 Acute hypoxic respiratory failure J96.01 Metabolic acidosis with respiratory alkalosis E87.20; E87.3 Cardiogenic shock R57.0 Sepsis A41.9 Pneumonia J18.9 Shock R57.9 Cardiorenal disease I13.10 Systolic CHF I50.20 Acute respiratory distress R06.03 Bilateral pleural effusion J90 Cardiac arrest I46.9 Cardiac arrest with successful resuscitation I46.9 Successful cardiopulmonary resuscitation Z92.89
--- NOTE | 2025-04-08 18:00 | XRR_ITS ---
PROCEDURE INFORMATION: Exam: XR Chest Exam date and time: 04/08/2025 5:53 PM Age: 80 years old Clinical indication: Other: F/u cxr; Additional info: Left pleural effusion TECHNIQUE: Imaging protocol: Radiologic exam of the chest. Views: 1 view. COMPARISON: CT chest wo kristina [id number] 04/08/2025 4:04 PM FINDINGS: Tubes, catheters and devices: Endotracheal tube terminates 4.0 cm above the jefferson. Right PICC line terminates in the SVC. Gastric tube projects over the stomach. Lungs: Bilateral pulmonary infiltrates, left greater than right. Aeration of left lung appears improved. Pleural spaces: Moderate left pleural effusion, appears mildly more pronounced in comparison to prior chest radiograph. Heart/Mediastinum: Unremarkable. No cardiomegaly. Bones/joints: Unremarkable. XR/XR chest 1V portable [id number] IMPRESSION: 1. Persistent moderate left pleural effusion, in comparison to prior chest radiograph appears slightly more pronounced. 2. Persistent bilateral pulmonary infiltrates with interval improvement in aeration of the left lung.
[2025-04-08] MEDS: fentaNYL 1,000 MCG/100 ML BAG 10 MCG IV (18:17)
[2025-04-08 18:46] LABS: Anion Gap 22.9 (5-19); Blood Urea Nitrogen 77 mg/dL (8-23); Calcium 8.6 mg/dL (8.5-10.5); Carbon Dioxide 24 mmol/L (22-29); Chloride 103 mmol/L (98-107); Creatinine Clr Calc Pharmacy 28.6957; Glucose 115 mg/dL (65-115); Magnesium 1.8 mg/dL (1.7-2.3); Osmolality Calculated 326 mOsm/kg (285-295); Potassium 3.9 mmol/L (3.5-5.1); Sodium 146 mmol/L (136-145)
[2025-04-08] MEDS: potassium chloride premix 100 ML 25 MEQ IV (19:20)
--- NOTE | 2025-04-08 20:50 | PHA.VACGOAL ---
Vancomycin Goal - Goal Vancomycin Goal:: 15-20 mg/L Vancomycin Indication:: Pneumonia - Therapy Current therapy:: Meropenem Day of therpy:: Day [1]of [] . Actual body weight (kg): 68.901 kg - Data Labs: WBC 7.25 10^3/uL (3.29-11.43) 04/08/25 02:21 RBC 3.75 10^6/uL (3.85-5.65) L 04/08/25 02:21 Hgb 11.60 g/dL (11.27-16.99) 04/08/25 02:21 Hct 36.0 % (37-53) L 04/08/25 02:21 MCV 96.0 fl (82-101) 04/08/25 02:21 MCH 30.9 pg (27-33) 04/08/25 02:21 MCHC 32.2 g/dL (30-55) 04/08/25 02:21 RDW 14.5 % (12.1-15.1) 04/08/25 02:21 Sodium 146 mmol/L (136-145) H 04/08/25 18:12 Potassium 3.9 mmol/L (3.5-5.1) 04/08/25 18:12 Chloride 103 mmol/L (98-107) 04/08/25 18:12 Carbon Dioxide 24 mmol/L (22-29) 04/08/25 18:12 Anion Gap 22.9 (5-19) H 04/08/25 18:12 BUN 77 mg/dL (8-23) H 04/08/25 18:12 Creatinine 2.1 mg/dL (0.7-1.2) H 04/08/25 18:12 GFR Calculation Not Reportable 04/08/25 18:12 Treatment plan:: new consult Regimen:: New start vancomcyin for pneumonia. No prior vancomycin history found. Load dose of 1500 mg ordered. Patient started on pulse dosing post load dose due to CrCl <30 mL/min.
--- NOTE | 2025-04-08 21:14 | XRR_ITS ---
PROCEDURE INFORMATION: Exam: XR Abdomen Exam date and time: 04/08/2025 9:15 PM Age: 80 years old Clinical indication: Device placement; Gi device; Other: Og tube; Additional info: Og tube placement verification TECHNIQUE: Imaging protocol: Radiologic exam of the abdomen. Views: Frontal supine view of the abdomen. 1 View. COMPARISON: US renal BI* [id number] 04/04/2025 10:18 AM FINDINGS: Gastrointestinal tract: Interval placement of enteric tube which projects over expected location of the stomach. Bones/joints: Unremarkable. XR/XR KUB portable [id number] IMPRESSION: Enteric tube projects over expected location of the stomach.
[2025-04-08 23:14] LABS: Blood Urea Nitrogen 72 mg/dL (8-23); Calcium 9.0 mg/dL (8.5-10.5); Carbon Dioxide 26 mmol/L (22-29); Chloride 100 mmol/L (98-107); Creatinine Clr Calc Pharmacy 26.2004; Glucose 133 mg/dL (65-115); Osmolality Calculated 319 mOsm/kg (285-295); Sodium 143 mmol/L (136-145)
[2025-04-08 23:22] LABS: Anion Gap 21.2 (5-19); Potassium 4.2 mmol/L (3.5-5.1)
[2025-04-08] MEDS: norepinephrine 4 MG/250 ML BAG 11.25 MG IV (23:24)
[2025-04-08] MEDS: FUROsemide 200 MG in sodium chloride 0.9% (100 ml) 80 ML 10 MG IV (23:25)
[2025-04-09] VITALS (106 sets, daily range): BP systolic 79–119; BP diastolic 51–72; PULSE 53–92; RESP 14–15; TEMP 36.4–36.6; O2SAT 93–100
[2025-04-09] MEDS: acetylcysteine 200 mg/mL MDV 10 mL 100 MG INHALATION ×4 (00:20→11:14)
[2025-04-09] MEDS: propofol 1,000 MG/100 ML INJ 4.13 MG IV ×2 (01:23→14:26)
[2025-04-09 03:38] LABS: ABG PCO2 36.0 mmHg (35-45); ABG PH Result 7.51 (7.35-7.45); Arterial Blood Gas Hematocrit 37.3 % (42-52); Blood Gas Operator Identificat JDB; Blood Gas Sample Site Not specified; Blood Gas Sample Type Arterial; Blood Gas Tidal Volume 0.45; HCO3 ABG 28.7 mmol/L (22-26); PEEP 10.0 cmH20; PO2 ABG 144.0 mmHg (80.0-100.0); PO2 FiO2 Ratio Arterial Blood 240
[2025-04-09] MEDS: fentaNYL 1,000 MCG/100 ML BAG 10 MCG IV ×3 (03:50→22:59)
[2025-04-09] MEDS: pantoprazole 40 mg SDV IVP ×2 (03:50→17:36)
[2025-04-09 04:25] LABS: Hematocrit 35.8 % (37-53); Hemoglobin 11.30 g/dL (11.27-16.99); Mean Corpuscular HGB Conc 31.6 g/dL (30-55); Mean Corpuscular Hemoglobin 30.4 pg (27-33); Mean Corpuscular Volume 96.2 fl (82-101); Nucleated Red Blood Cells % 0 %; Platelet Count 232 10^3/cmm (157-399); Red Blood Count 3.72 10^6/uL (3.85-5.65); White Blood Count 6.92 10^3/uL (3.29-11.43)
[2025-04-09 04:49] LABS: NT Pro B Type Natriuretic Pept 32032 pg/mL (0-450); Procalcitonin 0.39 ng/mL (0-0.5)
[2025-04-09 05:00] LABS: Alanine Aminotransferase 179 U/L (0-41); Albumin Level 2.5 g/dL (3.5-5.2); Alkaline Phosphatase 135 U/L (40-130); Anion Gap 23.2 (5-19); Aspartate Amino Transferase 37 U/L (0-40); Blood Urea Nitrogen 69 mg/dL (8-23); Calcium 9.0 mg/dL (8.5-10.5); Carbon Dioxide 25 mmol/L (22-29); Chloride 100 mmol/L (98-107); Creatinine Clr Calc Pharmacy 27.3913; Globulin 3.2 g/dL (1.3-4.6); Glucose 130 mg/dL (65-115); Magnesium 1.7 mg/dL (1.7-2.3); Osmolality Calculated 320 mOsm/kg (285-295); Potassium 4.2 mmol/L (3.5-5.1); Sodium 144 mmol/L (136-145); Total Protein 5.7 g/dL (6.6-8.7)
--- NOTE | 2025-04-09 07:00 | PC.NURSE ---
Late entry for Saturday April 05, 2025. Pt's wallet. It was in his bed when the Code started, it was put in his closet, with his glasses and watch. When Son Misael arrived, he was informed that these items where placed in pt's closet.
--- NOTE | 2025-04-09 07:00 | PC.NURSE ---
Belongings: This nurse checked pt's closet this am. Wallet not present. Pt's clothing, ballcap, watch and glasses still present.
--- NOTE | 2025-04-09 07:00 | XR_ITS ---
WS: [id number] XR chest 1V portable [id number] REASON FOR EXAM: sob FINDINGS: Endotracheal tube and right arm PICC line remain in proper position. The nasogastric tube is beyond the gastroesophageal junction. Left pleural effusion and left lower lobe atelectasis improved compared to the examination of 04/08/2025. Right hemithorax unchanged. No new findings. XR/XR chest 1V portable [id number] IMPRESSION: Abnormal chest with improvement in the left hemithorax as above.
--- NOTE | 2025-04-09 07:44 | P.PN_ITS ---
Subjective 2 Subjective: Overnight events noted. Patient V. tach. Patient to be put back on high dose furosemide. The patient FiO2 requirements went up yesterday is now back down to 40%. Patient is unable to give a history. He is sedated and intubated Medications: Reviewed: Yes Medication Review Details: Current Medications Acetaminophen (Acetaminophen 325 Mg Tablet) 650 mg PO Q6H PRN PRN Reason: Mild/Mod Pain Or Temp >/= 101 Last Admin: 04/04/25 16:57 Dose: 650 mg Acetylcysteine (Acetylcysteine 200 Mg/Ml Mdv 10 Ml) 100 mg INHALATION Q4H.RESPIRATORY GISELA Last Admin: 04/09/25 03:46 Dose: 100 mg Albuterol/Ipratropium (Ipratropium-Albuterol 3 Ml Neb) 3 ml INHALATION Q4H PRN PRN Reason: SHORTNESS OF BREATH Last Admin: 04/08/25 13:12 Dose: 3 ml Albuterol/Ipratropium (Ipratropium-Albuterol 3 Ml Neb) 3 ml INHALATION Q4H.RESPIRATORY GISELA Last Admin: 04/09/25 03:21 Dose: 3 ml Alprazolam (Alprazolam 0.5 Mg Tablet) 0.25 mg PO TID PRN PRN Reason: ANXIETY Last Admin: 04/05/25 10:13 Dose: 0.25 mg Aspirin (Aspirin 81 Mg Ec Tablet) 81 mg PO DAILY GISELA Last Admin: 04/08/25 08:13 Dose: 81 mg Chlorhexidine Gluconate (Chlorhexidine Gluconate 4% Btl 118 Ml) 1 applic TOPICAL Q24H GISELA Last Admin: 04/08/25 23:30 Dose: 1 applic Enoxaparin Sodium (Enoxaparin 80 Mg/0.8 Ml Syringe) 70 mg SUBCUT Q24H GISELA Last Admin: 04/08/25 17:49 Dose: 70 mg Norepinephrine Bitartrate (Levophed) 4 mg in 250 mls @ 0 mls/hr IV .Q0M GISELA; Protocol Last Admin: 04/08/25 23:24 Dose: 3 mcg/min, 11.25 mls/hr Fentanyl (Sublimaze) 1,000 mcg in 100 mls @ 0 mls/hr IV .Q0M GISELA; Protocol Last Admin: 04/09/25 03:50 Dose: 100 mcg/hr, 10 mls/hr Dexmedetomidine/Sodium Chloride (Precedex) 400 mcg in 100 mls @ 0 mls/hr IV .Q0M GISELA; Protocol Last Titration: 04/08/25 12:58 Dose: 0 mcg/kg/hr, 0 mls/hr Furosemide 200 mg/ Sodium (Chloride) 100 mls @ 10 mls/hr IV .Q10H GISELA Last Admin: 04/08/25 23:25 Dose: 20 mg/hr, 10 mls/hr Propofol (Diprivan) 1,000 mg in 100 mls @ 0 mls/hr IV .Q0M GISELA; Protocol Last Admin: 04/09/25 01:23 Dose: 10 mcg/kg/min, 4.13 mls/hr Amiodarone HCl/Dextrose (Nexterone) 360 mg in 200 mls @ 33.333 mls/hr IV .Q6H GISELA Last Admin: 04/09/25 06:51 Dose: 1 mg/min, 33.33 mls/hr Meropenem (Meropenem 500 Mg Sdv) 500 mg IVP Q12H GISELA; Protocol Last Admin: 04/08/25 23:24 Dose: 500 mg Morphine Sulfate (Morphine 4 Mg/Ml Sdv 1 Ml) 1 mg IVP Q4H PRN PRN Reason: SEVERE PAIN Last Admin: 04/04/25 22:16 Dose: 1 mg Naloxone HCl (Naloxone 0.4 Mg/Ml Sdv) 0.1 mg IVP Q2M PRN PRN Reason: OPIATERV Olanzapine (Olanzapine 5 Mg Tablet) 2.5 mg PO BEDTIME GISELA Last Admin: 04/08/25 20:49 Dose: 2.5 mg Ondansetron HCl (Ondansetron 2 Mg/Ml Sdv 2 Ml) 4 mg IVP Q8H PRN PRN Reason: vomiting, or N/V if npo Pantoprazole Sodium (Pantoprazole 40 Mg Sdv) 40 mg IVP Q12H GISELA Last Admin: 04/09/25 03:50 Dose: 40 mg Sodium Chloride (Sodium Chloride 3.5% Neb 4 Ml Neb) 4 ml INHALATION BID.RESPIRATORY GISELA Last Admin: 04/08/25 19:37 Dose: 4 ml Vancomycin HCl (Vancomycin 1,000 Mg Sdv (Pharmacy Mix)) 0 mg XX PRN PRN PRN Reason: Pharmacy to Dose Vitals/I&O/Wt Last Vital Signs Temp 97.8 F 04/09/25 04:00 Pulse 65 04/09/25 06:30 Resp 14 04/09/25 03:22 BP 106/62 04/09/25 06:30 Pulse Ox 98 04/09/25 06:30 O2 Del Method Mechanical Ventilation 04/09/25 03:22 O2 Flow Rate 2 04/05/25 10:15 FiO2 40 04/09/25 03:45 04/08/25 04/09/25 04/09/25 22:59 06:59 14:59 Intake Total 636.526 / 1492.427 636.481 / 2128.908 Output Total 1550 / 2750 1200 / 3950 Balance -913.474 / -1257.573 -563.519 / -1821.092 Weight last 48 hrs Weight 72.575 kg Weight 68.901 kg Physical Exam 2 Narrative: Intubated on Levophed, amiodarone Vent fio2=40% Vital signs noted. The patient is in atrial fibrillation with controlled rate HEENT normocephalic atraumatic. Neck is supple Lungs have dull bases and crackles. Heart irregular with systolic murmur positive S1-S2 Abdomen is soft positive bowel sounds. Extremities have 1+ edema, legs and arms are cold per RN Neuro the patient is sedated Urinary Catheter Management: Sullivan: Cath Placed During This Visit: no Reason for Continuing Indwelling Catheter: Accurate Measurement of Urinary Output in Critically Ill Patients Data 04/09/25 03:39 04/09/25 03:39 Micro: Microbiology 04/03/25 15:55 Blood Culture - Final Blood NO GROWTH AFTER 5 DAYS 04/03/25 15:50 Blood Culture - Final Blood NO GROWTH AFTER 5 DAYS A&P Assessment and plan (1) Acute kidney injury: 80-year-old gentleman that per chart from her senior care has history of peripheral arterial disease, BPH, A-fib. And senior care the patient is on Coreg Bumex and potassium. I wonder if the patient has heart failure. The patient was admitted just with altered mental status and acute kidney injury. The patient CT scan on April 03, 2025 that revealed moderate bilateral pleural effusions layering posteriorly moderate cardiomegaly. And his kidneys showed multiple cysts in the right kidney measuring up to 7.5 cm in greatest dimension, per reading no hydronephrosis vascular calcifications. 1. Acute kidney injury please get old labs. The patient states that he has chronic kidney disease. Renal ultrasound shows right kidney 10.3 cm with numerous cysts. The largest cyst is 6.3 x 5.4 x 7 cm with mild cortical thinning and increased echogenicity. Left kidney 9 cm is mild diffuse cortical thinning no obstruction. Renal ultrasound is consistent with CKD. The patient has a negative VEGA negative knue-pimsug-bdrcffji DNA normal complements C3 97 C4 13, normal kappa lambda ratio 1.24. Patient's hepatitis serologies hep B surface antigens negative antibodies positive hep B core antibodies negative hep C antibodies negative -I am concerned for cardiorenal syndrome. The patient had a cardiac arrest 0n 04/05/25 after which he became acidotic which is now improving. - cr appears to be stablizing. he is polyuric. can decrease lasix dose if okay w/ cardiology 2. Acid-base abnormality: Latest ABG from this morning reveals a pH of 7.51 - resp alkalosis, met alklaosis from diuretics and metabolic acidosis from Joao - salicylate level undetectable His lactic acidosis has improved from 11-1.3 3. Echocardiogram reveals severely reduced EF of 20 to 25% with global hypokinesis moderate LV hypertrophy. 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 -Repeat echocardiogram on April 06 after cardiac arrest showed LV systolic function severely reduced to 10 to 15% severe global hypokinesis and a pleural effusion. -per cardiology 4. Pneumonia treated with antibiotics. Question if patient aspirated 5. replete k and magnesium as needed 6. inc LFTs per medicine No emergent need for dialysis at this time The patient was seen and examined using audiovisual equipment with the aid of a nurse. Plan See above PDMP PDMP Reviewed: Not Reviewed Attestations 2 Medical Necessity Statement*: JOAO, AMI, HFrEF, VDRF Time Spent in Patient Care: 16 - 35 minutes (>than 50% of time sp ent in counselling and/or direct pt care on unit) . Procedures Arterial Line Size (Gauge): 20 Coding Level of Care Code Acute Code for Chg Fwd Diagnoses Acute kidney injury N17.9
[2025-04-09] MEDS: sodium chloride 3.5% neb 4 mL Neb INHALATION (07:48)
--- NOTE | 2025-04-09 08:22 | XACV_ITS ---
Exam Room: 2 Ht: 175 cm Wt: 73 kg BSA: 1.88 m2 Gender: Male : 1945 Any Known Allergies: Penicillins Exam Priority: Routine Procedure(s): Procedure Description: Diagnostic procedure Procedure Description: Left Heart Catheterization Procedure Description: Coronary Angiography ISABELJorge Weiss; Diagnostic Cath Status: Urgent Diagnostic Findings * INDICATION: NSTEMI/ LV dysfunction. * No significant disease noted in the Left Main, Left Anterior Descending, Right, or Circumflex coronary arteries. * Coronary angiography shows right dominance. Conclusions 1. No significant disease noted in the Left Main, Left Anterior Descending, Right, or Circumflex coronary arteries. 2. Non-ischemic cardiomyopathy. Recommendations * Guideline directed heart failure therapy. Interventional RX Recommendation: medical therapy and/or counseling Diagnostic RX Recommendation: medical therapy and/or counseling Pressures Phase:Rest AO : 109 / 62 ( 74 ) @ 1:31:00 PM 111 / 60 ( 77 ) @ 1:31:00 PM LV : 106 / 0 / 18 @ 1:31:00 PM 99 / 0 / 20 @ 1:31:00 PM Valves Phase:DefaultPhase AV : 0.0 @ 12:53:02 PM AV Mean Gradient: 0.0 @ 12:53:02 PM Clinical Evaluation EBL: 5mL-10mL Procedural Details Pre-Procedure Time Out. Identified patient by full name and date of as verbalized by the patient/guarantor. Does the consent match the physician's order: Yes. Accurate & Complete Informed Consent: Yes. Inpatient/Outpatient History & Physical on Chart: Yes. If H&P is completed, is and addenduem needed: No. Visualize and Verify Site with Patient/Guarantor: N/A. Relevant Radiology Images available: Yes. Pre-op teaching completed and patient verbalized understanding. The risks, benefits, and alternatives of sedation and/or procedure were discussed by physician. The patient agrees to continue. Procedure started. [facility] Clinical Fraility Score: 6: Moderately Frail. Manager Furniture Indications: ACS > 24 hours/NSTEMI/LV dysfunction. Chest Pain Symptom Assessment: Typical Angina Symptoms. Cardiovascular Instability: No. Correct patient, site and procedure confirmed by cath team. Current diagnosis: NSTEMI. Patient arrived to laborer bituminous paving on a ventilator and will be managed by respiratiory. #8 ETT secured at 26 at the lip. Patient sedated on ventilator with propolol and fentanyl drips to be managed by dwight Harmonhousekeeping cleaner. IV Site on Arrival: 18 gauge in the right wrist. Triple Lumen PICC in the right bicep on arrival to the laborer bituminous paving. Pre Procedural Pulses: bilateral dorsalis pedis was Doppled. Pre Procedural Pulses: bilateral posterior tibial was Doppled. bilateral groins was prepped with chloroprep then draped in the usual sterile fashion. Physician notified. Baseline sample Acquired. HR: 37 BPM. Patient's family unavailable.The patient's son Misael can be reached at [phone]. Equipment: 6F - Femoral. Cardiac Cath Pack. ACIST Manifold Kit Model BT 2000. Heparinized Saline (2 units/mL), 1000 mL bag. Kit, Micropuncture x 2. 6fr femoral sheath x 2. Physician arrived. Drips on arrival to the laborer bituminous paving: 40mEq Potasium rider at 25ml/hr, Lasix at 20mg/hr, Fentnayl 100mcg/hr, Profolol 20mcg/kg/min, Levophed 3mcg/min, Amiodarone 1mg/min. Physician scrubbed in. Immediate Pre-Procedure Time Out. Correct Patient: Yes; Correct Procedure: Yes; Correct Site: Yes; Correct Patient Position: Yes; Correct Supplies: Yes; Dried Flammable Prep: Yes; Blood Products Available: N/A;. Lidocaine 1% infiltrated to the right groin. Arterial access obtained with micropuncture set using ultrasound guidance. Unable to thread wire. Needle and wire out. Dr. Peña holding manual pressure. Venous access obtained with a micropuncture set. Lidocaine 1% infiltrated to the left groin. Arterial access obtained with micropuncture set using ultrasound guidance. [place] MON catheter inserted on the right. 0.025 swan wire in through the swan. [place] out. [place] MON catheter inserted over the 0.025 swan wire. [place] out. A 5 nigerian JL4 catheter in over the standard J wire on the left. Catheter removed over the exchange J wire. A 6 nigerian JL4.5 catheter in over the exchange J wire. Multiple views taken of left coronary artery. Catheter removed over the exchange J wire. A 5 nigerian JR4 catheter in over the exchange J wire. EDP Sample taken: LV 106/-1,18; HR: 54 BPM; SpO2: 96%. Pullback taken: LV 99/-1,20; AO 109/62(74); Mean: 0mmHg, Peak to Peak: 0mmHg, SEP: 4sec/min; HR: 47 BPM; SpO2: 97%. Cineography of the RCA performed. Catheter removed over the exchange J wire. A Left femoral angiogram was performed to determine safe placement of closure device. A Angio-Seal VIP ([place]) was successful obtaining hemostatsis at the Left Femoral artery insertion site. Lot # [id number] Exp. . A Manual Compression was successful obtaining hemostatsis at the Right Femoral vein insertion site. Post Procedure: Pulses reassessed and unchanged. Angioseal placed without complications. No signs or symptoms of hematoma noted. Sterile dressing applied per usual sterile fashion. No VTE prophylaxis required. Medication's Wasted: Lidocaine 1% = 10 mL. Medication's Wasted: Heparin = 1000 units. Medication's Wasted: Other = NS 100 mL. 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 Complications: none. Estimated blood loss: 5mL-10mL. Responsiveness - Normal response to verbal stimuli; alert and oriented, PERRLA. Airway - Unaffected, no intervention required; spontaneous ventilation. Circulation: W/N/L, pulses unchanged. Nausea/Vomiting: No. Procedure completed. Patient transferred by bed to ICU. Vital chart was stopped. Access Site Site: Right Femoral vein Sheath Size: 6 Fr Hemostasis Method: Manual Compression Hemostasis Success: Successful Site: Left Femoral artery Sheath Size: 5 Fr Hemostasis Method: Angio-Seal VIP ([place]) Hemostasis Success: Successful I, the attending physician, have reviewed and verified all procedure medications. Yes, all medications given per verbal order History/Risk Factors Hypertension: Yes Dyslipidemia: No Peripheral Arterial Disease (PAD): No Myocardial Infarction (MS): No Obesity: No Renal Disease: No Tobacco Use: Former Prior Interventions PCI: No CABG: No Valve Surgery: No Report Signatures Finalized by Tigre Peña MD on 04/21/2025 04:21 PM
[2025-04-09] MEDS: FUROsemide 200 MG in sodium chloride 0.9% (100 ml) 80 ML 10 MG IV (09:30)
--- NOTE | 2025-04-09 09:38 | P.PN_ITS ---
<Statement entered by Tigre Peña M.D - 04/21/25 13:08> Patient was cared for in conjunction with an advanced practice practitioner.? I reviewed the chart and all pertinent data including imaging, telemetry, and laboratory results.? I discussed the patient in detail with the advanced practice practitioner.? Please see their note for complete progress note, testing results and agreed upon plan of care for the patient. Subjective 2 Subjective: He had a high oxygen requirement yesterday and overnight, FiO2 on the ventilator increased to 100% temporarily. He was restarted on Lasix infusion for infiltrate vs pleural effusion vs pulmonary edema. Plan is for right and left heart cath today, as he was able to reduce FiO2 back down to 40%. Vitals/I&O/Wt Last Vital Signs Temp 97.8 F 04/09/25 07:45 Pulse 65 04/09/25 09:15 Resp 14 04/09/25 09:15 BP 105/62 04/09/25 09:15 Pulse Ox 98 04/09/25 09:15 O2 Del Method Mechanical Ventilation 04/09/25 09:15 O2 Flow Rate 2 04/05/25 10:15 FiO2 40 04/09/25 09:15 04/08/25 04/09/25 04/09/25 22:59 06:59 14:59 Intake Total 636.526 / 2128.908 636.481 / 2128.908 Output Total 1550 / 3950 1200 / 3950 Balance -913.474 / -1821.092 -563.519 / -1821.092 Weight last 48 hrs Weight 160 lb Weight 151 lb 14.4 oz Physical Exam 2 Const: COMMON NORMALS: negative for patient oriented x3 (sedated and on ventilator) Chest: COMMONS NORMALS: normal inspection of the chest Resp: COMMON NORMALS: clear to auscultation bilaterally EFFORT & INSPECTION: Yes other (intubated and sedated) AUSCULTATION: clear to auscultation bilaterally Cardio: COMMON NORMALS: regular rate, regular rhythm (irregularly irregular rhythm), S1 normal heart sound present, S2 normal heart sound present, No murmurs present (Cardio) and No rub (Cardio) RATE: regular rate RHYTHM: r egular rhythm (irregularly irregular rhythm) HEART SOUNDS: S1 normal heart sound present and S2 normal heart sound present Extremity: GENERAL: No edema Neuro: COMMON NORMALS: negative for patient oriented x3 (sedated and on ventilator) Urinary Catheter Management: Sullivan: Cath Placed During This Visit: no Reason for Continuing Indwelling Catheter: Accurate Measurement of Urinary Output in Critically Ill Patients Data 04/09/25 03:39 04/09/25 03:39 Micro: Microbiology 04/03/25 15:55 Blood Culture - Final Blood NO GROWTH AFTER 5 DAYS 04/03/25 15:50 Blood Culture - Final Blood NO GROWTH AFTER 5 DAYS A&P Assessment and plan (1) Atrial fibrillation: (2) Cardiorenal disease: (3) Systolic CHF: (4) Cardiac arrest: (5) NSTEMI (non-ST elevated myocardial infarction): Plan Plan for left and right heart cath around 11AM this morning, consent obtained by phone with the patient's son. Further plan will be devised based on results of testing. Continue IV amiodarone, in atrial fibrillation with good ventricular rate control. Rate was increased to 1mg due to episodes of VT. Good urine output with IV Lasix infusion. Continue aspirin. PDMP PDMP Reviewed: Not Reviewed Attestations 2 Medical Necessity Statement*: systolic chf, ischemic evaluation Procedures Arterial Line Size (Gauge): 20 Coding Level of Care Code Acute Code for [facility] Diagnoses Atrial fibrillation, unspecified type I48.91 Atrial fibrillation type: unspecified Cardiorenal disease I13.10 Systolic CHF I50.20 Cardiac arrest I46.9 NSTEMI (non-ST elevated myocardial infarction) I21.4
[2025-04-09] MEDS: lidocaine 1% 5 ML in potassium chloride premix 100 ML 26.25 ML IV (11:05)
--- NOTE | 2025-04-09 11:49 | P.HPUD_ITS ---
Surgery/Procedure H&P Update DATE OF PROCEDURE: April 09, 2025 DATE H&P PERFORMED: 04/04/25 H&P UPDATE INFORMATION: I have reviewed H&P completed within last 30 days, I have examined patient prior to procedure and Changes to prior documentation as noted here CHANGES TO PREVIOUS DOCUMENTATION: Patient is now intubated and sedated. PREOP DIAGNOSIS: NSTEMI/ LV dysfunction PRIMARY INDICATION FOR PROCEDURE: NSTEMI/ LV dysfunction PLANNED PROCEDURE: Right heart cath/left heart cath with possible percutaneous coronary i ntervention. PATIENT REASSESSED PRIOR TO SEDATION, WITH NO CHANGE NOTED: Yes OTHER PERTINENT EXAM FINDINGS: Intubated and sedated. Diminished air entry bilaterally AIRWAY EVAL/ANESTHESIA PLAN: Risks, benefits & alternatives of sedation and/or procedure discussed and Patient agrees to continue as planned ADDITIONAL INFORMATION: Patient is intubated and sedated
--- NOTE | 2025-04-09 12:39 | PM.PROC ---
Procedure Note: Date of procedure: 04/09/25 Pre-procedure diagnosis: LV dysfunction/ NSTEMI Post-procedure diagnosis: other (Non-obstructive coronary artery disease/ Non-ischemic cardiomyopathy) Procedure: Patent coronary arteries. Mildly elevated LVEDP Performing Provider: Tigre Peña Estimated blood loss (mL): 5 Complications: None Condition: critical Disposition: ICU Coding Level of Care Code Acute Code for [facility]
[2025-04-09] MEDS: FUROsemide 10 mg/mL SDV 10mL 60 MG IVP (17:36)
[2025-04-09] MEDS: vancomycin 500 MG in sodium chloride 0.9% (plus) 100 ML 200 MG IV (17:53)
--- NOTE | 2025-04-09 18:48 | PM.PN ---
Subjective Subjective: Patient was Wilbert this morning, on 3 of Levophed, O2 sats on the high 90s, on 40% FiO2, afebrile overnight, normotensive, has good urine output, chest x-ray reviewed this morning, consolidation left lung has improved, plan on cardiac catheterization today, remains on Lasix drip, remains intubated, sedated on mechanical ventilation Vitals/I&O/Wt Last Vital Signs Temp 97.8 F 04/09/25 07:45 Pulse 92 04/09/25 16:15 Resp 14 04/09/25 17:20 BP 111/56 04/09/25 16:15 Pulse Ox 96 04/09/25 17:20 O2 Del Method Mechanical Ventilation 04/09/25 16:15 O2 Flow Rate 2 04/05/25 10:15 FiO2 30 04/09/25 17:20 04/09/25 04/09/25 04/09/25 06:59 14:59 22:59 Intake Total 636.481 / 2128.908 732.522 / 732.522 357.762 / 1090.284 Output Total 1200 / 3950 Balance -563.519 / -1821.092 732.522 / 732.522 357.762 / 1090.284 Weight last 48 hrs Weight 72.575 kg Weight 68.901 kg Physical Exam Const: COMMON NORMALS: no acute distress ORIENTATION/CONSCIOUSNESS: Yes awake and Yes oriented to person; not oriented to place and not oriented to time Resp: COMMON NORMALS: normal respiratory effort, No retractions, No use of accessory muscles and clear to auscultation bilaterally AUSCULTATION: clear to auscultation bilaterally Cardio: COMMON NORMALS: regular rate, regular rhythm, S1 normal heart sound present and S2 normal heart sound present RATE: regular rate RHYTHM: regular rhythm HEART SOUNDS: S1 normal heart sound present and S2 normal heart sound present GI: COMMON NORMALS: Normal to inspection, nondistended, normoactive bowel sounds present and non-tender Extremity: COMMON NORMALS: no pedal edema Neuro: SENSORIUM/ORIENTATION: Yes oriented to person, No oriented to place and No oriented to time Psych: COMMON NORMALS: mental status grossly normal Urinary Catheter Management: Sullivan: Cath Placed During This Visit: no Reason for Continuing Indwelling Catheter: Accurate Measurement of Urinary Output in Critically Ill Patients Data 04/09/25 03:39 04/09/25 03:39 Micro: Microbiology 04/03/25 15:55 Blood Culture - Final Blood NO GROWTH AFTER 5 DAYS 04/03/25 15:50 Blood Culture - Final Blood NO GROWTH AFTER 5 DAYS A&P Assessment and plan (1) Acute kidney injury: (2) NSTEMI (non-ST elevated myocardial infarction): (3) Acute encephalopathy: (4) Atrial fibrillation: (5) Heart failure: (6) Pulmonary edema: (7) Acute hypoxic respiratory failure: (8) Metabolic acidosis with respiratory alkalosis: (9) Cardiogenic shock: (10) Sepsis: (11) Pneumonia: (12) Shock: (13) Cardiorenal disease: (14) Systolic CHF: (15) Acute respiratory distress: (16) Bilateral pleural effusion: (17) Cardiac arrest: (18) Cardiac arrest with successful resuscitation: (19) Successful cardiopulmonary resuscitation: Plan Acute encephalopathy - Likely multifactorial -Likely component of cardiac arrest -Pneumonia -Hypoxia -polypharmacy - Neurochecks, - Monitor mentation closely Cardiac arrest - Concern for V-fib arrest - Acute flash pulmonary edema - Successful ROSC - Had 4 A of epi, 1 amp of bicarb, 1 amp of calcium chloride - CPR time roughly 7 minutes - Initial EKG shows atrial fibrillation, no acute ST-T wave changes - Pupils equal round reactive to light, does have a cough reflex, does have a gag reflex, according to nursing staff he did move his right arm, move head from [id number] -Baseline troponin 143, 120-minute 133 -BNP over 57,000 -Potassium 5.4, did give 1 dose of calcium chloride -Etomidate and succinylcholine for intubation used by ER provider, monitor potassium closely - Plan -Cardiology on consult -Currently intubated -Sedated with fentanyl, Precedex, propofol -Minimize FiO2, minimize tidal volume -Arterial line in place -PICC line in place -Currently on Levophed, maintain MAP greater than 65, wean Levophed as tolerated -Dobutamine has been weaned off -Neurochecks, monitor mentation closely -Will consider CT imaging of the head based on clinical progress -Daily spontaneous breathing trials - Continue sedation vacation - Repeat echo CONCLUSIONS LV systolic function is severely reduced with EF of 10 to 15%. Severe global hypokinesis. Pleural effusion seen - Continue aspirin, statin - Continue heparin ip - Plans on possible coronary angiography based on clinical progress - Will consider LVAD based on clinical progress - Currently on Lasix drip, monitor output, monitor creatinine monitor potassium - Will consider dialysis based on clinical progress -Venous ultrasound negative for DVT - Protonix for GI prophylaxis - Heparin drip for DVT prophylaxis Acute hypoxic respiratory failure - With acute respiratory distress - Systolic CHF exacerbation -Bilateral pleural effusions - Acute flash pulmonary edema - With concerns for possible pneumonia -Atrial fibrillation with rapid ventricular response -Down to 40% FiO2 -Urine output 4 L -Now with concerns for progressive and extensive left-sided atelectasis -Concern for mucous plugging, atelectasis, CT/CT chest wo con [id number] IMPRESSION: Progressive and now extensive left-sided atelectasis. Slightly increasing left pleural effusion. - Chest x-ray this morning shows left pleural effusion, left lower lobe atelectasis improved compared to prior examination Plan - Monitor in ICU closely - Currently intubated, sedated - Monitor respiratory status closely -Fentanyl for sedation -Precedex for sedation -Propofol for sedation - DuoNeb - Budesonide - Blood cultures - Sputum cultures - Continue Lasix drip at 20 units/hr, de-escalate to Lasix 60 twice daily - Monitor BMP every 4 hours -Maintain potassium greater than 4, replace potassium -IV doses based on clinical progress - Monitor creatinine - Monitor urine output - Vancomycin - Meropenem - Chest vest, hypertonic saline, Mucomyst Shock, resolving - Multifactorial cardiogenic shock - Component of sepsis with right lower lobe infiltrate pneumonia - Currently on Levophed - Maintain MAP greater than 65 - Monitor output, monitor creatinine Bilateral pleural effusions ct chest CT/[place] [id number] IMPRESSION: 1. Moderate layering pleural effusions bilaterally. Mild lower lobe atelectasis. 2. Moderate cardiomegaly with pulmonary hypertension. - Ultrasound thoracentesis, only very small bilateral pleural effusion, insufficient for safe thoracentesis Systolic CHF exacerbation -Used to follow with a knitting tester in [facility], has had hospitalizations in [facility] for CHF back in August CONCLUSIONS Left ventricle is dilated. LV systolic function is severely reduced with EF of 20-25%. Moderate left ventricular hypertrophy. Biatrial enlargement. Mild mitral regurgitation. Mild to moderate aortic regurgitation Mild tricuspid regurgitation Moderate pulmonary hypertension Moderate pulmonic regurgitation Pleural effusion seen IVC is dilated No comparison studies are seen. Cardiac echo CONCLUSIONS LV systolic function is severely reduced with EF of 10 to 15%. Severe global hypokinesis. 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 a water resource consultant in [facility], had reported CKD, with discussions of dialysis at some point - Possibly component of cardiorenal syndrome -Urine output over 4 L on Lasix drip - Monitor BMP every 4 hours - Monitor creatinine, monitor electrolytes - Patient is agreeable to dialysis if required NSTEMI - No chest pain complaints - Does have shortness of breath -EF 10 to 15% Plan - Telemetry monitoring - EKGs, serial troponins, telemetry monitoring - Aspirin, statin - Heparin drip, transition to Lovenox to prevent fluid overload - Cardiology consulted A-fib with RVR - Amiodarone drip transition to p.o. amiodarone to prevent fluid overload Transaminitis, shock liver, monitor Respiratory alkalosis with increased anion gap metabolic acidosis - Could be from cardiogenic shock, cardiorenal syndrome, JOAO, respiratory failure, cardiac arrest - Will monitor Acute encephalopathy -Etiology unclear, resolved - Component of uremia - Head CT no acute findings - No focal neurologic deficits, is globally encephalopathic - Ammonia levels WNL - UA within normal limits - CT chest possible pneumonia: Antibiotics - Order inflammatory markers - Neurochecks - NIH stroke scale - Monitor mentation Increased anion gap metabolic acidosis - Check ketones within normal limits - Check A1c 6.2 - Lactic acid within normal limits Hyperkalemia, resolved - Calcium gluconate - Insulin, D10 - Repeat BMP this evening Uremia - Secondary to JOAO - Hemoglobin within normal limits - Monitor closely Full code Heparin drip for DVT prophylaxis Lovenox for DVT prophylaxis Plan for today, coronary angiography, continue sedation, continue IV diuresis, IV antibiotics, chest vest, PDMP PDMP Reviewed: Not Reviewed Attestations Medical Necessity Statement*: Patient requires hospitalization for acute hypoxic hypercarbic respiratory failure, NSTEMI, pneumonia Procedures Arterial Line Size (Gauge): 20 Diagnoses Acute kidney injury N17.9 NSTEMI (non-ST elevated myocardial infarction) I21.4 Acute encephalopathy G93.40 Atrial fibrillation, unspecified type I48.91 Atrial fibrillation type: unspecified Other heart failure I50.89 Heart failure type: other Pulmonary edema J81.1 Acute hypoxic respiratory failure J96.01 Metabolic acidosis with respiratory alkalosis E87.20; E87.3 Cardiogenic shock R57.0 Sepsis A41.9 Pneumonia J18.9 Shock R57.9 Cardiorenal disease I13.10 Systolic CHF I50.20 Acute respiratory distress R06.03 Bilateral pleural effusion J90 Cardiac arrest I46.9 Cardiac arrest with successful resuscitation I46.9 Successful cardiopulmonary resuscitation Z92.89
--- NOTE | 2025-04-09 19:10 | PC.NURSE ---
Shift summary: Pt remains sedated and intubated. FIO2 at 30%. 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 Per report due to his anatomy unable to complete right and left shows clean arteries. BIlat cath sifes soft with no hematomas or bruising noted. Lasix gtt stopped this am, switched to Lasix IVP BID. AMio gtt discontinued, 400mg BID started. Fentanyl remains at 100mcg/hr and Propofol at 20 mcg/kg/hr. Attempted to decrease Levophed gtt, pt unable to tolerate at this time. Urine out put of 1250ml this shift.
--- NOTE | 2025-04-09 21:11 | PC.NURSE ---
Hold Dr Blake gave order to hold patient's PO zyprexa due to patient being mechanicallt ventilated.
[2025-04-09] MEDS: norepinephrine 4 MG/250 ML BAG 11.25 MG IV (21:33)
[2025-04-09 22:09] LABS: Blood Urea Nitrogen 73 mg/dL (8-23); Calcium 9.1 mg/dL (8.5-10.5); Carbon Dioxide 28 mmol/L (22-29); Chloride 99 mmol/L (98-107); Creatinine Clr Calc Pharmacy 26.7506; Glucose 112 mg/dL (65-115); Osmolality Calculated 320 mOsm/kg (285-295); Sodium 144 mmol/L (136-145)
[2025-04-09 22:17] LABS: Anion Gap 21.7 (5-19); Potassium 4.7 mmol/L (3.5-5.1)
[2025-04-10] VITALS (79 sets, daily range): BP systolic 83–126; BP diastolic 47–88; PULSE 76–121; RESP 7–33; TEMP 36.6–37.1; O2SAT 90–99
[2025-04-10] MEDS: propofol 1,000 MG/100 ML INJ 4.13 MG IV (00:21)
[2025-04-10 03:45] LABS: Hematocrit 36.9 % (37-53); Hemoglobin 11.50 g/dL (11.27-16.99); Mean Corpuscular HGB Conc 31.2 g/dL (30-55); Mean Corpuscular Hemoglobin 30.9 pg (27-33); Mean Corpuscular Volume 99.2 fl (82-101); Nucleated Red Blood Cells % 0 %; Platelet Count 227 10^3/cmm (157-399); Red Blood Count 3.72 10^6/uL (3.85-5.65); White Blood Count 6.04 10^3/uL (3.29-11.43)
[2025-04-10 04:20] LABS: ABG PCO2 36.1 mmHg (35-45); ABG PH Result 7.51 (7.35-7.45); Arterial Blood Gas Hematocrit 34.0 % (42-52); Blood Gas Operator Identificat JDB; Blood Gas Sample Type Arterial; Blood Gas Tidal Volume 0.45; HCO3 ABG 28.7 mmol/L (22-26); PEEP 10.0 cmH20; PO2 ABG 87.7 mmHg (80.0-100.0); PO2 FiO2 Ratio Arterial Blood 292
[2025-04-10] MEDS: pantoprazole 40 mg SDV IVP ×2 (04:22→15:59)
[2025-04-10 04:37] LABS: Alanine Aminotransferase 149 U/L (0-41); Albumin Level 2.7 g/dL (3.5-5.2); Alkaline Phosphatase 133 U/L (40-130); Anion Gap 23.0 (5-19); Blood Urea Nitrogen 75 mg/dL (8-23); Calcium 8.8 mg/dL (8.5-10.5); Carbon Dioxide 27 mmol/L (22-29); Chloride 98 mmol/L (98-107); Creatinine Clr Calc Pharmacy 26.7506; Globulin 2.8 g/dL (1.3-4.6); Glucose 104 mg/dL (65-115); Magnesium 1.7 mg/dL (1.7-2.3); NT Pro B Type Natriuretic Pept 21505 pg/mL (0-450); Osmolality Calculated 317 mOsm/kg (285-295); Potassium 6.0 mmol/L (3.5-5.1); Procalcitonin 0.39 ng/mL (0-0.5); Sodium 142 mmol/L (136-145); Total Protein 5.5 g/dL (6.6-8.7)
[2025-04-10 04:38] LABS: Aspartate Amino Transferase 41 U/L (0-40)
[2025-04-10] MEDS: chlorhexidine gluconate 4% Btl 118 mL 1 APPLIC TOPICAL (05:08)
[2025-04-10] MEDS: FUROsemide 10 mg/mL SDV 10mL 60 MG IVP ×2 (05:15→18:39)
--- NOTE | 2025-04-10 07:00 | XRR_ITS ---
PROCEDURE INFORMATION: Exam: XR Chest Exam date and time: 04/10/2025 6:18 AM Age: 80 years old Clinical indication: Shortness of breath; Additional info: SOB TECHNIQUE: Imaging protocol: Radiologic exam of the chest. Views: 1 view. COMPARISON: CR XR chest 1V portable [id number] 04/09/2025 6:50 AM FINDINGS: Tubes, catheters and devices: Endotracheal and esophagogastric tubes and central line remain in expected position. Lungs: Decreased bibasilar infiltrate/atelectasis. Pleural spaces: Unremarkable. No pleural effusion. No pneumothorax. Heart/Mediastinum: Mild cardiomegaly. Bones/joints: Unremarkable. XR/XR chest 1V portable [id number] IMPRESSION: 1. Mild cardiomegaly. 2. Decreased bibasilar infiltrate/atelectasis.
[2025-04-10 07:32] LABS: Blood Gas Sample Site ART. LINE
--- NOTE | 2025-04-10 07:51 | P.PN_ITS ---
Subjective 2 Subjective: The patient was seen and examined he is awake on the vent. Levophed down to 1. Vent settings FiO2 down to 30%. He moves follow some simple commands. Medications: Reviewed: Yes Medication Review Details: Current Medications Acetaminophen (Acetaminophen 325 Mg Tablet) 650 mg PO Q6H PRN PRN Reason: Mild/Mod Pain Or Temp >/= 101 Last Admin: 04/04/25 16:57 Dose: 650 mg Albuterol/Ipratropium (Ipratropium-Albuterol 3 Ml Neb) 3 ml INHALATION Q4H PRN PRN Reason: SHORTNESS OF BREATH Last Admin: 04/08/25 13:12 Dose: 3 ml Albuterol/Ipratropium (Ipratropium-Albuterol 3 Ml Neb) 3 ml INHALATION Q4H.RESPIRATORY GISELA Last Admin: 04/10/25 07:47 Dose: 3 ml Alprazolam (Alprazolam 0.5 Mg Tablet) 0.25 mg PO TID PRN PRN Reason: ANXIETY Last Admin: 04/05/25 10:13 Dose: 0.25 mg Amiodarone HCl (Amiodarone 200 Mg Tablet) 400 mg PO BID GISELA Last Admin: 04/09/25 17:36 Dose: 400 mg Aspirin (Aspirin 81 Mg Ec Tablet) 81 mg PO DAILY GISELA Last Admin: 04/09/25 08:22 Dose: 81 mg Chlorhexidine Gluconate (Chlorhexidine Gluconate 4% Btl 118 Ml) 1 applic TOPICAL Q24H GISELA Last Admin: 04/10/25 05:08 Dose: 1 applic Enoxaparin Sodium (Enoxaparin 80 Mg/0.8 Ml Syringe) 70 mg SUBCUT Q24H GISELA Last Admin: 04/09/25 17:36 Dose: 70 mg Furosemide (Furosemide 10 Mg/Ml Sdv 10ml) 60 mg IVP Q12H GISELA Last Admin: 04/10/25 05:15 Dose: 60 mg Norepinephrine Bitartrate (Levophed) 4 mg in 250 mls @ 0 mls/hr IV .Q0M GISELA; Protocol Last Titration: 04/10/25 05:51 Dose: 1 mcg/min, 3.75 mls/hr Fentanyl (Sublimaze) 1,000 mcg in 100 mls @ 0 mls/hr IV .Q0M GISELA; Protocol Last Titration: 04/10/25 05:51 Dose: 75 mcg/hr, 7.5 mls/hr Dexmedetomidine/Sodium Chloride (Precedex) 400 mcg in 100 mls @ 0 mls/hr IV .Q0M GISELA; Protocol Last Titration: 04/08/25 12:58 Dose: 0 mcg/kg/hr, 0 mls/hr Propofol (Diprivan) 1,000 mg in 100 mls @ 0 mls/hr IV .Q0M GISELA; Protocol Last Titration: 04/10/25 06:19 Dose: 15 mcg/kg/min, 6.2 mls/hr Sodium Chloride (Sodium Chloride 0.9%) 1,000 mls @ 0 mls/hr IV .Q0M GISELA Meropenem (Meropenem 500 Mg Sdv) 500 mg IVP Q12H GISELA; Protocol Last Admin: 04/10/25 00:25 Dose: 500 mg Morphine Sulfate (Morphine 4 Mg/Ml Sdv 1 Ml) 1 mg IVP Q4H PRN PRN Reason: SEVERE PAIN Last Admin: 04/04/25 22:16 Dose: 1 mg Naloxone HCl (Naloxone 0.4 Mg/Ml Sdv) 0.1 mg IVP Q2M PRN PRN Reason: OPIATERV Olanzapine (Olanzapine 5 Mg Tablet) 2.5 mg PO BEDTIME [facility] Last Admin: 04/09/25 21:11 Dose: Not Given Ondansetron HCl (Ondansetron 2 Mg/Ml Sdv 2 Ml) 4 mg IVP Q8H PRN PRN Reason: vomiting, or N/V if npo Pantoprazole Sodium (Pantoprazole 40 Mg Sdv) 40 mg IVP Q12H GISELA Last Admin: 04/10/25 04:22 Dose: 40 mg Vancomycin HCl (Vancomycin 1,000 Mg Sdv (Pharmacy Mix)) 0 mg XX PRN PRN PRN Reason: Pharmacy to Dose Vitals/I&O/Wt Last Vital Signs Temp 97.8 F 04/10/25 05:15 Pulse 82 04/10/25 07:48 Resp 14 04/10/25 07:48 BP 83/66 04/10/25 06:00 Pulse Ox 95 04/10/25 07:48 O2 Del Method Mechanical Ventilation 04/10/25 07:48 O2 Flow Rate 2 04/05/25 10:15 FiO2 30 04/10/25 07:48 04/09/25 04/10/25 04/10/25 22:59 06:59 14:59 Intake Total 642.575 / 1375.097 234.805 / 1609.902 Output Total 1260 / 1260 1300 / 2560 Balance -617.425 / 115.097 -1065.195 / -950.098 Weight last 48 hrs Weight 72.802 kg Weight 72.575 kg Physical Exam 2 Narrative: Intubated on Levophed, Vent fio2=40% Vital signs noted. The patient is in atrial fibrillation with controlled rate HEENT normocephalic atraumatic. Neck is supple Lungs have dec crackles and improved air movement b/l. Heart irregular with systolic murmur positive S1-S2 Abdomen is soft positive bowel sounds. Extremities have 1+ edema, legs and arms are cold per RN Neuro the patient is moving, responsive Urinary Catheter Management: Sullivan: Cath Placed During This Visit: no Reason for Continuing Indwelling Catheter: Accurate Measurement of Urinary Output in Critically Ill Patients Data 04/10/25 03:20 04/10/25 03:20 A&P Assessment and plan (1) Acute kidney injury: 80-year-old gentleman that per chart from her longterm has history of peripheral arterial disease, BPH, A-fib. And longterm the patient is on Coreg Bumex and potassium. I wonder if the patient has heart failure. The patient was admitted just with altered mental status and acute kidney injury. The patient CT scan on April 03, 2025 that revealed moderate bilateral pleural effusions layering posteriorly moderate cardiomegaly. And his kidneys showed multiple cysts in the right kidney measuring up to 7.5 cm in greatest dimension, per reading no hydronephrosis vascular calcifications. 1. Acute kidney injury on ckd. Renal ultrasound shows right kidney 10.3 cm with numerous cysts. The largest cyst is 6.3 x 5.4 x 7 cm with mild cortical thinning and increased echogenicity. Left kidney 9 cm is mild diffuse cortical thinning no obstruction. Renal ultrasound is consistent with CKD. The patient has a negative VEGA negative [id number] DNA normal complements C3 97 C4 13, normal kappa lambda ratio 1.24. Patient's hepatitis serologies hep B surface antigens negative antibodies positive hep B core antibodies negative hep C antibodies negative -I am concerned for cardiorenal syndrome. The patient had a cardiac arrest 0n 04/05/25 after which he became acidotic which is now improving. - cr appears to be stablizing. he is urinating well w/ lasix 2. monitor renal fxn s/p cardiac cath yesterday 3. hyperkalemia- repeat and may need kayexalate. he got potassium repletion yesterday 4. acidosis-improved 5. Echocardiogram reveals severely reduced EF of 20 to 25% with global hypokinesis moderate LV hypertrophy. 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 -Repeat echocardiogram on April 06 after cardiac arrest showed LV systolic function severely reduced to 10 to 15% severe global hypokinesis and a pleural effusion. -normal cardiac cath per cardiology 6. Pneumonia treated with antibiotics. Question if patient aspirated 7. inc lft's as per medicine No emergent need for dialysis at this time The patient was seen and examined using audiovisual equipment with the aid of a nurse. Plan See above PDMP PDMP Reviewed: Not Reviewed Attestations 2 Medical Necessity Statement*: ckd, chf, hyperkalemia, VDRF Time Spent in Patient Care: Greater than 35 minutes (>than 50% of time spent in counselling and/or direct pt care on unit) . Procedures Arterial Line Size (Gauge): 20 Coding Level of Care Code Acute Code for [facility] Fwd Diagnoses Acute kidney injury N17.9
[2025-04-10 08:44] LABS: Anion Gap 21.2 (5-19); Blood Urea Nitrogen 78 mg/dL (8-23); Calcium 8.9 mg/dL (8.5-10.5); Carbon Dioxide 28 mmol/L (22-29); Chloride 100 mmol/L (98-107); Creatinine Clr Calc Pharmacy 25.6686; Glucose 93 mg/dL (65-115); Osmolality Calculated 323 mOsm/kg (285-295); Potassium 4.2 mmol/L (3.5-5.1); Sodium 145 mmol/L (136-145)
--- NOTE | 2025-04-10 13:15 | P.PN_ITS ---
Subjective 2 Subjective: - Overnight events - Remains on 35% FiO2 - Afebrile - Urine output over 2 L - Off pressors - Is weaning off fentanyl, propofol - Patient moves bilateral upper and lowe r extremities, moves his head from [id number], pupils are equal round reactive to light, has a cough reflex, has a gag reflex, withdraws from pain, localizes pain however he does not open his eyes to commands, does not follow commands - continue spontaneous breathing trial, - Will monitor mentation, Vitals/I&O/Wt Last Vital Signs Temp 97.8 F 04/10/25 05:15 Pulse 115 H 04/10/25 11:11 Resp 12 04/10/25 12:58 BP 126/61 04/10/25 10:00 Pulse Ox 95 04/10/25 12:58 O2 Del Method Mechanical Ventilation 04/10/25 11:11 O2 Flow Rate 2 04/05/25 10:15 FiO2 30 04/10/25 12:58 04/09/25 04/10/25 04/10/25 22:59 06:59 14:59 Intake Total 642.575 / 1375.097 234.805 / 1609.902 111.886 / 111.886 Output Total 1260 / 1260 1300 / 2560 Balance -617.425 / 115.097 -1065.195 / -950.098 111.886 / 111.886 Weight last 48 hrs Weight 72.802 kg Weight 72.575 kg Physical Exam 2 Const: COMMON NORMALS: no acute distress NUTRITIONAL APPEARANCE: cachectic HENMT: COMMON NORMALS: normocephalic HEAD & SCALP: normocephalic Eye: COMMON NORMALS: Equal, round and reactive pupils present PUPIL: Yes Equal, round and reactive pupils present Resp: COMMON NORMALS: normal respiratory effort, No retractions, No use of accessory muscles and clear to auscultation bilaterally AUSCULTATION: clear to auscultation bilaterally Cardio: COMMON NORMALS: regular rate, regular rhythm, S1 normal heart sound present and S2 normal heart sound present RATE: regular rate RHYTHM: r egular rhythm HEART SOUNDS: S1 normal heart sound present and S2 normal heart sound present GI: COMMON NORMALS: Normal to inspection, nondistended, normoactive bowel sounds present, Soft to palpation, non-tender, No hepatosplenomegaly present, no masses and no bruits PALPATION: Yes Soft to palpation and Yes No hepatosplenomegaly present Extremity: COMMON NORMALS: no pedal edema Psych: COMMON NORMALS: mental status grossly normal Urinary Catheter Management: Sullivan: Cath Placed During This Visit: no Reason for Continuing Indwelling Catheter: Accurate Measurement of Urinary Output in Critically Ill Patients Data 04/10/25 03:20 04/10/25 08:10 A&P Assessment and plan (1) Acute kidney injury: (2) NSTEMI (non-ST elevated myocardial infarction): (3) Acute encephalopathy: (4) Atrial fibrillation: (5) Heart failure: (6) Pulmonary edema: (7) Acute hypoxic respiratory failure: (8) Metabolic acidosis with respiratory alkalosis: (9) Cardiogenic shock: (10) Sepsis: (11) Pneumonia: (12) Shock: (13) Cardiorenal disease: (14) Systolic CHF: (15) Acute respiratory distress: (16) Bilateral pleural effusion: (17) Cardiac arrest: (18) Cardiac arrest with successful resuscitation: (19) Successful cardiopulmonary resuscitation: Plan Acute encephalopathy - Likely multifactorial -Likely component of cardiac arrest -Pneumonia -Hypoxia -polypharmacy - Neurochecks, - Monitor mentation closely - CT head today Cardiac arrest - Concern for V-fib arrest - Acute flash pulmonary edema - Successful ROSC - Had 4 A of epi, 1 amp of bicarb, 1 amp of calcium chloride - CPR time roughly 7 minutes - Initial EKG shows atrial fibrillation, no acute ST-T wave changes - Pupils equal round reactive to light, does have a cough reflex, does have a gag reflex, according to nursing staff he did move his right arm, move head from [id number] -Baseline troponin 143, 120-minute 133 -BNP over 57,000 -Potassium 5.4, did give 1 dose of calcium chloride -Etomidate and succinylcholine for intubation used by ER provider, monitor potassium closely -Status post coronary angiogram, no obstructive CAD - Plan -Cardiology on consult -Currently intubated -Sedated with fentanyl, Precedex, propofol -Minimize FiO2, minimize tidal volume -Arterial line in place -PICC line in place -Currently off Levophed, maintain MAP greater than 65, wean Levophed as tolerated -Dobutamine has been weaned off -Neurochecks, monitor mentation closely -Daily spontaneous breathing trials - Continue sedation vacation - Repeat echo CONCLUSIONS LV systolic function is severely reduced with EF of 10 to 15%. Severe global hypokinesis. Pleural effusion seen - Continue aspirin, statin - Continue heparin drip - Plans on possible coronary angiography based on clinical progress - Will consider LVAD based on clinical progress - Lasix 60 IV twice daily - Will consider dialysis based on clinical progress -Venous ultrasound negative for DVT - Protonix for GI prophylaxis - Heparin drip for DVT prophylaxis Acute hypoxic respiratory failure - With acute respiratory distress - Systolic CHF exacerbation -Bilateral pleural effusions - Acute flash pulmonary edema - With concerns for possible pneumonia -Atrial fibrillation with rapid ventricular response -Down to 40% FiO2 -Urine output 4 L -Now with concerns for progressive and extensive left-sided atelectasis -Concern for mucous plugging, atelectasis, resolving CT/CT chest wo con [id number] IMPRESSION: Progressive and now extensive left-sided atelectasis. Slightly increasing left pleural effusion. - Chest x-ray this morning shows left pleural effusion, left lower lobe atelectasis improved compared to prior examination Plan - Monitor in ICU closely - Currently intubated, sedated - Monitor respiratory status closely -Fentanyl for sedation -Precedex for sedation -Propofol for sedation -Spontaneous breathing trial today, wean off sedation - DuoNeb - Budesonide - Blood cultures - Sputum cultures - Continue Lasix drip at 20 units/hr, de-escalate to Lasix 60 twice daily - Monitor BMP every -Maintain potassium greater than 4, replace potassium -IV doses based on clinical progress - Monitor creatinine - Monitor urine output - Vancomycin - Meropenem - Chest vest, hypertonic saline, Mucomyst Shock, resolving - Multifactorial cardiogenic shock - Component of sepsis with right lower lobe infiltrate pneumonia - Currently on Levophed - Maintain MAP greater than 65 - Monitor output, monitor creatinine Bilateral pleural effusions ct chest CT/[place] [id number] IMPRESSION: 1. Moderate layering pleural effusions bilaterally. Mild lower lobe atelectasis. 2. Moderate cardiomegaly with pulmonary hypertension. - Ultrasound thoracentesis, only very small bilateral pleural effusion, insufficient for safe thoracentesis Systolic CHF exacerbation -Used to follow with a glass tinter in [facility], has had hospitalizations in [facility] for CHF back in August CONCLUSIONS Left ventricle is dilated. LV systolic function is severely reduced with EF of 20-25%. Moderate left ventricular hypertrophy. Biatrial enlargement. Mild mitral regurgitation. Mild to moderate aortic regurgitation Mild tricuspid regurgitation Moderate pulmonary hypertension Moderate pulmonic regurgitation Pleural effusion seen IVC is dilated No comparison studies are seen. Cardiac echo CONCLUSIONS LV systolic function is severely reduced with EF of 10 to 15%. Severe global hypokinesis. Pleural effusion seen - Coronary angiogram, no obstructive CAD and Concern for possible aspiration pneumonia, CT chest showing mild lower lobe atelectasis -Chest x-ray showing right-sided infiltrates - IV antibiotics as above Acute kidney injury on CKD, creatinine 22 - Baseline kidney function unknown - Used to follow-up with a public affairs officer in [facility], had reported CKD, with discussions of dialysis at some point - Possibly component of cardiorenal syndrome -Urine output over 4 L on Lasix drip - Monitor BMP every 4 hours - Monitor creatinine, monitor electrolytes - Patient is agreeable to dialysis if required NSTEMI - No chest pain complaints - Does have shortness of breath -EF 10 to 15% Plan - Telemetry monitoring - EKGs, serial troponins, telemetry monitoring - Aspirin, statin - Heparin drip, transition to Lovenox to prevent fluid overload - Cardiology consulted, no obstructive CAD seen on cardiac angiogram A-fib with RVR - Amiodarone drip transition to p.o. amiodarone to prevent fluid overload - On therapeutic Lovenox Transaminitis, shock liver, monitor Respiratory alkalosis with increased anion gap metabolic acidosis - Could be from cardiogenic shock, cardiorenal syndrome, JOAO, respiratory failure, cardiac arrest - Will monitor Acute encephalopathy -Etiology unclear, resolved - Component of uremia - Head CT no acute findings - No focal neurologic deficits, is globally encephalopathic - Ammonia levels WNL - UA within normal limits - CT chest possible pneumonia: Antibiotics - Order inflammatory markers - Neurochecks - NIH stroke scale - Monitor mentation Increased anion gap metabolic acidosis - Check ketones within normal limits - Check A1c 6.2 - Lactic acid within normal limits Hyperkalemia, resolved - Calcium gluconate - Insulin, D10 - Repeat BMP this evening Uremia - Secondary to JOAO - Hemoglobin within normal limits - Monitor closely Full code Heparin drip for DVT prophylaxis Lovenox for DVT prophylaxis Plan for today, spontaneous breathing trial, monitor urine output, monitor creatinine, wean sedation, CT head PDMP PDMP Reviewed: Not Reviewed Attestations 2 Medical Necessity Statement*: Patient requires hospitalization for acute encephalopathy, respiratory failure, intubated, mechanical ventilation, spontaneous breathing trial, systolic CHF, EF, CKD, aspiration pneumonia Procedures Arterial Line Size (Gauge): 20 Coding Level of Care Code Critical Care >/= 30 minutes Critical care time (in minutes): 40 The high probability of a clinically significant, sudden or life threatening deterioration, as referenced in this documentation, required my full and direct attention, intervention and personal management. The critical care time shown is in addition to time spent performing any reported separately billable procedures and includes the following: [x] Data and vital sign review and interpretation [x ] Patient assessment, examination and intervention [x] Medication orders and management [x] Patient/Family updates as able [x] Care Coordination and Documentation. Diagnoses Acute kidney injury N17.9 NSTEMI (non-ST elevated myocardial infarction) I21.4 Acute encephalopathy G93.40 Atrial fibrillation, unspecified type I48.91 Atrial fibrillation type: unspecified Other heart failure I50.89 Heart failure type: other Pulmonary edema J81.1 Acute hypoxic respiratory failure J96.01 Metabolic acidosis with respiratory alkalosis E87.20; E87.3 Cardiogenic shock R57.0 Sepsis A41.9 Pneumonia J18.9 Shock R57.9 Cardiorenal disease I13.10 Systolic CHF I50.20 Acute respiratory distress R06.03 Bilateral pleural effusion J90 Cardiac arrest I46.9 Cardiac arrest with successful resuscitation I46.9 Successful cardiopulmonary resuscitation Z92.89
--- NOTE | 2025-04-10 14:01 | PC.NUTR ---
If enteral nutrition medically appropriate, recommend Jevity 1.5, beginning @ 10mls/hr, increasing 15mls/hr Q4-8H as tolerated until goal rate of 40mls/hr is reached w/FWF of 120mls Q4H or per MD discretion.
--- NOTE | 2025-04-10 14:15 | CT_ITS ---
WS: [id number] CT HEAD TECHNIQUE: Noncontrast CT of the head obtained from the skullbase to the vertex. CLINICAL INFORMATION: ams, cardiac arrest COMPARISON: 04/03/2025 DLP: 2065.[address] scans at [facility] use at least one of these dose optimization techniques: automated exposure control; mA and/or kV adjustment per patient size (includes targeted exams where dose is matched to clinical indication); or iterative reconstruction. FINDINGS: Some images degraded by beam hardening artifact and motion artifact. Small focus of increased attenuation at the LEFT frontoparietal junction involving the cortex may represent beam hardening artifact but a tiny amount of hemorrhage not entirely excluded. Recommend interval follow-up to assess change or stability. Otherwise no evidence of acute hemorrhage. Moderate small vessel changes. Moderate parenchymal volume loss. Vascular calcification. Chronic lacunar infarct LEFT thalamus. No extra-axial fluid collections. No other acute findings. CT/CT head wo con* [id number] IMPRESSION: Some images are graded by beam hardening and motion artifact. 1. 3 to 4 mm focus of punctate increased attenuation LEFT posterior frontal co rtex may represent beam hardening artifact versus less likely tiny punctate foc us of hemorrhage. Recommend 6 to 12-hour interval follow-up CT to assess change . 2. Moderate small vessel changes with moderate parenchymal volume loss. 3. No other acute findings. Message LEFT for Kenny Sin MD at 04/10/2025 3:52 PM with the [facility] or.
--- NOTE | 2025-04-10 14:47 | PC.SOCIAL ---
IMM Updated Pt is intubated & expected to d/c within the next 24-48hrs. A copy left at bedside. Initialed, dated, & timed copy in chart.
--- NOTE | 2025-04-10 15:42 | P.PN_ITS ---
<Statement entered by Tigre Peña M.D - 04/21/25 13:30> Patient was cared for in conjunction with an advanced practice practitioner.? I reviewed the chart and all pertinent data including imaging, telemetry, and laboratory results.? I discussed the patient in detail with the advanced practice practitioner.? Please see their note for complete progress note, testing results and agreed upon plan of care for the patient. Subjective 2 Subjective: Patient still intubated. He has been off of sedation. He responds by nodding his head yes or no but we have been unable to extubate as patient is not breathing properly on his own. Head CT is being done today. Chest x-ray today showed mild cardiomegaly with decreased infiltrates. He is currently getting diuresed with 60 mg of Lasix IV every 12. Vital signs are stable and he is now off of pressors. Vitals/I&O/Wt Last Vital Signs Temp 98.7 F 04/10/25 12:30 Pulse 100 04/10/25 15:09 Resp 12 04/10/25 15:25 BP 116/60 04/10/25 14:00 Pulse Ox 92 04/10/25 15:25 O2 Del Method Mechanical Ventilation 04/10/25 15:05 O2 Flow Rate 2 04/05/25 10:15 FiO2 30 04/10/25 15:25 04/10/25 04/10/25 04/10/25 06:59 14:59 22:59 Intake Total 234.805 / 1609.902 161.886 / 161.886 Output Total 1300 / 2560 Balance -1065.195 / -950.098 161.886 / 161.886 Weight last 48 hrs Weight 160 lb 8 oz Weight 160 lb Physical Exam 2 Narrative: General: currently intubated HENMT: normoceophalic Respiratory: Normal respiratory effort, clear to auscultation bilaterally throughout all lung [place], no use of accessory muscles Cardio: No JVD, irregularly irregular rate and rhythm, S1 S2 normal, no murmurs, peripheral pulses 2+ radial palpated bilaterally GI: Normal to inspection, nondistended Extremities: Full ROM, normal, normal capillary refill, no cyanosis or edema bilateral lower extremities Neuro: Alert to person and situation Skin: bilateral upper hands dorsal aspect with edema present Urinary Catheter Management: Sullivan: Cath Placed During This Visit: no Reason for Continuing Indwelling Catheter: Accurate Measurement of Urinary Output in Critically Ill Patients Data 04/10/25 03:20 04/10/25 08:10 A&P Assessment and plan (1) Atrial fibrillation: (2) Cardiorenal disease: (3) Systolic CHF: (4) Cardiac arrest: (5) NSTEMI (non-ST elevated myocardial infarction): Plan 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 Recommend continue current diuresis. Continue amiodarone 400 BID. Continue to wean off of ventilator. PDMP PDMP Reviewed: Not Reviewed Attestations 2 Medical Necessity Statement*: Deferred to primary. Procedures Arterial Line Size (Gauge): 20 Coding Level of Care Code Acute Code for g Fwd Diagnoses Atrial fibrillation, unspecified type I48.91 Atrial fibrillation type: unspecified Cardiorenal disease I13.10 Acute on chronic systolic congestive heart failure I50.23 Heart failure chronicity: acute on chronic Cardiac arrest I46.9 NSTEMI (non-ST elevated myocardial infarction) I21.4
--- NOTE | 2025-04-10 19:19 | PC.NURSE ---
Shift summary: Pt remains intubated. He is now following commands and nodding head yes/no, his oil gauger are equal and he is wiggling his feet. Sedate ( fentanyl and propofol stopped around 0830. HIs FIO2 is at 30%, vent settings trialled on MMV briefly and CPAP briefly this afternoon, Apnea noted. So he is back on CMV. CT of his head done this afternoon, repeat CT ordered again for tonight. Pt has consistently nodded his head no to pain. AFib with occasional PVCs continue on the monitor.
--- NOTE | 2025-04-10 21:20 | PC.NURSE ---
Royce Branyprexa held previous night. Dr. Blake contacted for verification of order. Order received to hold zyprexa.
[2025-04-10] MEDS: morphine 4 mg/mL SDV 1 mL 1 MG IVP (22:20)
--- NOTE | 2025-04-10 23:00 | CTR_ITS ---
PROCEDURE INFORMATION: Exam: CT Head Without Contrast Exam date and time: 04/10/2025 10:35 PM Age: 80 years old Clinical indication: Altered mental status/memory loss; Additional info: AMS, left posteriorfrontal punctuate focus artifact vs bleed, please do this scan at 10-11pm TECHNIQUE: Imaging protocol: Computed tomography of the head without contrast. Radiation optimization: All CT scans at this facility use at least one of these dose optimization techniques: automated exposure control; mA and/or kV adjustment per patient size (includes targeted exams where dose is matched to clinical indication); or iterative reconstruction. COMPARISON: CT head wo con* [id number] 04/10/2025 2:50 PM RADIATION DOSE METRICS: Total DLP (mGy-cm): 1246.7 FINDINGS: Brain: Stable tiny focus of hyperattenuation along the cortex of the left frontoparietal junction. A few scattered tiny parenchymal calcifications are seen in the parietal and occipital lobes on the left. No definite acute or enlarging hemorrhage. Old left thalamic lacunar infarct. Periventricular and subcortical white matter hypodensities likely represent chronic small vessel ischemic changes. Moderate generalized cortical volume loss. Cerebral ventricles: No ventriculomegaly. Paranasal sinuses: Visualized sinuses are unremarkable. No fluid levels. Mastoid air cells: Visualized mastoid air cells are well aerated. Bones: Unremarkable. No acute fracture. Soft tissues: Unremarkable. CT/CT head wo con* [id number] IMPRESSION: 1. Unchanged tiny hyperattenuating focus along the left frontoparietal junction cortex. No definite acute hemorrhage appreciated. 2. Remainder stable.
[2025-04-11] VITALS (57 sets, daily range): BP systolic 83–144; BP diastolic 50–94; PULSE 72–123; RESP 9–22; TEMP 36.1–36.6; O2SAT 94–99
[2025-04-11 03:30] LABS: ABG PCO2 38.8 mmHg (35-45); ABG PH Result 7.50 (7.35-7.45); Arterial Blood Gas Hematocrit 37.4 % (42-52); Blood Gas Allen Test Pos; Blood Gas Operator Identificat BD; Blood Gas Sample Site ALINE; Blood Gas Sample Type Arterial; Blood Gas Tidal Volume 0.45; HCO3 ABG 29.8 mmol/L (22-26); PEEP 5.0 cmH20; PO2 ABG 80.9 mmHg (80.0-100.0); PO2 FiO2 Ratio Arterial Blood 202
[2025-04-11 03:48] LABS: Hematocrit 37.1 % (37-53); Hemoglobin 11.60 g/dL (11.27-16.99); Mean Corpuscular HGB Conc 31.3 g/dL (30-55); Mean Corpuscular Hemoglobin 30.9 pg (27-33); Mean Corpuscular Volume 98.9 fl (82-101); Nucleated Red Blood Cells % 0 %; Platelet Count 186 10^3/cmm (157-399); Red Blood Count 3.75 10^6/uL (3.85-5.65); White Blood Count 5.38 10^3/uL (3.29-11.43)
[2025-04-11 04:32] LABS: Procalcitonin 0.31 ng/mL (0-0.5)
[2025-04-11 04:35] LABS: Alanine Aminotransferase 107 U/L (0-41); Albumin Level 2.6 g/dL (3.5-5.2); Alkaline Phosphatase 123 U/L (40-130); Anion Gap 23.9 (5-19); Aspartate Amino Transferase 40 U/L (0-40); Blood Urea Nitrogen 74 mg/dL (8-23); Calcium 8.9 mg/dL (8.5-10.5); Carbon Dioxide 28 mmol/L (22-29); Chloride 100 mmol/L (98-107); Creatinine Clr Calc Pharmacy 25.6686; Globulin 3.6 g/dL (1.3-4.6); Glucose 85 mg/dL (65-115); Magnesium 1.8 mg/dL (1.7-2.3); Osmolality Calculated 327 mOsm/kg (285-295); Potassium 3.9 mmol/L (3.5-5.1); Sodium 148 mmol/L (136-145); Total Protein 6.2 g/dL (6.6-8.7)
[2025-04-11] MEDS: pantoprazole 40 mg SDV IVP ×2 (04:42→17:23)
[2025-04-11 04:52] LABS: NT Pro B Type Natriuretic Pept 34468 pg/mL (0-450)
[2025-04-11] MEDS: FUROsemide 10 mg/mL SDV 10mL 60 MG IVP (05:16)
[2025-04-11] MEDS: chlorhexidine gluconate 4% Btl 118 mL 1 APPLIC TOPICAL (05:41)
--- NOTE | 2025-04-11 07:00 | XRR_ITS ---
PROCEDURE INFORMATION: Exam: XR Chest Exam date and time: 04/11/2025 6:46 AM Age: 80 years old Clinical indication: Shortness of breath; Additional info: SOB TECHNIQUE: Imaging protocol: Radiologic exam of the chest. Views: 1 view. COMPARISON: CR XR chest 1V portable [id number] 04/10/2025 6:18 AM FINDINGS: Tubes, catheters and devices: Right sided PICC line tip in superior vena cava. ETT 2.4 cm above the jefferson. NG tube in the stomach. Lungs: Pulmonary vessels are within normal limits. No significant change of retrocardiac density. Right lung is clear. Pleural spaces: No pneumothorax. Heart/Mediastinum: Cardiomegaly is seen. Bones/joints: Right shoulder degenerative changes XR/XR chest 1V portable [id number] IMPRESSION: No significant change.
--- NOTE | 2025-04-11 07:13 | P.PN_ITS ---
Subjective 2 Subjective: minimally responsive. failed extubation yesterday- he went apneic. s/p head CT x 2 Medications: Reviewed: Yes Medication Review Details: Current Medications Acetaminophen (Acetaminophen 325 Mg Tablet) 650 mg PO Q6H PRN PRN Reason: Mild/Mod Pain Or Temp >/= 101 Last Admin: 04/04/25 16:57 Dose: 650 mg Albuterol/Ipratropium (Ipratropium-Albuterol 3 Ml Neb) 3 ml INHALATION Q4H PRN PRN Reason: SHORTNESS OF BREATH Last Admin: 04/08/25 13:12 Dose: 3 ml Albuterol/Ipratropium (Ipratropium-Albuterol 3 Ml Neb) 3 ml INHALATION Q4H.RESPIRATORY GISELA Last Admin: 04/11/25 03:01 Dose: 3 ml Alprazolam (Alprazolam 0.5 Mg Tablet) 0.25 mg PO TID PRN PRN Reason: ANXIETY Last Admin: 04/05/25 10:13 Dose: 0.25 mg Amiodarone HCl (Amiodarone 200 Mg Tablet) 400 mg PO BID GISELA Last Admin: 04/10/25 18:39 Dose: 400 mg Aspirin (Aspirin 81 Mg Ec Tablet) 81 mg PO DAILY GISELA Last Admin: 04/10/25 08:51 Dose: 81 mg Chlorhexidine Gluconate (Chlorhexidine Gluconate 4% Btl 118 Ml) 1 applic TOPICAL Q24H GISELA Last Admin: 04/11/25 05:41 Dose: 1 applic Norepinephrine Bitartrate (Levophed) 4 mg in 250 mls @ 0 mls/hr IV .Q0M GISELA; Protocol Last Titration: 04/10/25 07:35 Dose: 0 mcg/min, 0 mls/hr Fentanyl (Sublimaze) 1,000 mcg in 100 mls @ 0 mls/hr IV .Q0M GISELA; Protocol Last Titration: 04/10/25 10:02 Dose: Infused Dexmedetomidine/Sodium Chloride (Precedex) 400 mcg in 100 mls @ 0 mls/hr IV .Q0M GISELA; Protocol Last Titration: 04/08/25 12:58 Dose: 0 mcg/kg/hr, 0 mls/hr Propofol (Diprivan) 1,000 mg in 100 mls @ 0 mls/hr IV .Q0M GISELA; Protocol Last Titration: 04/10/25 08:35 Dose: 0 mcg/kg/min, 0 mls/hr Sodium Chloride (Sodium Chloride 0.9%) 1,000 mls @ 0 mls/hr IV .Q0M GISELA Dextrose (D5w) 1,000 mls @ 75 mls/hr IV .[id number] GISELA Meropenem (Meropenem 500 Mg Sdv) 500 mg IVP Q12H GISELA; Protocol Last Admin: 04/11/25 00:38 Dose: 500 mg Morphine Sulfate (Morphine 4 Mg/Ml Sdv 1 Ml) 1 mg IVP Q4H PRN PRN Reason: SEVERE PAIN Last Admin: 04/10/25 22:20 Dose: 1 mg Naloxone HCl (Naloxone 0.4 Mg/Ml Sdv) 0.1 mg IVP Q2M PRN PRN Reason: OPIATERV Olanzapine (Olanzapine 5 Mg Tablet) 2.5 mg PO BEDTIME GISELA On Hold: 04/10/25 21:21 Last Admin: 04/10/25 21:20 Dose: Not Given Ondansetron HCl (Ondansetron 2 Mg/Ml Sdv 2 Ml) 4 mg IVP Q8H PRN PRN Reason: vomiting, or N/V if npo Pantoprazole Sodium (Pantoprazole 40 Mg Sdv) 40 mg IVP Q12H GISELA Last Admin: 04/11/25 04:42 Dose: 40 mg Vancomycin HCl (Vancomycin 1,000 Mg Sdv (Pharmacy Mix)) 0 mg XX PRN PRN PRN Reason: Pharmacy to Dose Vitals/I&O/Wt Last Vital Signs Temp 97.9 F 04/11/25 05:00 Pulse 106 H 04/11/25 07:00 Resp 13 04/11/25 05:00 BP 112/71 04/11/25 07:00 Pulse Ox 99 04/11/25 07:00 O2 Del Method Mechanical Ventilation 04/11/25 05:00 O2 Flow Rate 2 04/05/25 10:15 FiO2 40 04/11/25 05:00 04/10/25 04/11/25 04/11/25 22:59 06:59 14:59 Output Total 200 / 710 1350 / 2060 Balance -200 / -458.114 -1350 / -1808.114 Weight last 48 hrs Weight 66.996 kg Weight 72.802 kg Physical Exam 2 Narrative: Intubated, Vent fio2=40% Vital signs noted. The patient is in atrial fibrillation with controlled rate HEENT normocephalic atraumatic. Neck is supple Lungs have dec crackles b/l Heart irregular with systolic murmur positive S1-S2 Abdomen is soft positive bowel sounds. Extremities have 1+ edema, legs and arms are cold per RN Neuro the patient responds to painful stimuli The patient was seen and examined using audiovisual equipment with the aid of a nurse. Urinary Catheter Management: Sullivan: Cath Placed During This Visit: no Reason for Continuing Indwelling Catheter: Accurate Measurement of Urinary Output in Critically Ill Patients Data 04/11/25 03:20 04/11/25 03:20 A&P Assessment and plan (1) Acute kidney injury: 80-year-old gentleman that per chart from her longterm has history of peripheral arterial disease, BPH, A-fib. And longterm the patient is on Coreg Bumex and potassium. I wonder if the patient has heart failure. The patient was admitted just with altered mental status and acute kidney injury. The patient CT scan on April 03, 2025 that revealed moderate bilateral pleural effusions layering posteriorly moderate cardiomegaly. And his kidneys showed multiple cysts in the right kidney measuring up to 7.5 cm in greatest dimension, per reading no hydronephrosis vascular calcifications. 1. Acute kidney injury on ckd. Renal ultrasound shows right kidney 10.3 cm with numerous cysts. The largest cyst is 6.3 x 5.4 x 7 cm with mild cortical thinning and increased echogenicity. Left kidney 9 cm is mild diffuse cortical thinning no obstruction. Renal ultrasound is consistent with CKD. The patient has a negative VEGA negative [id number] DNA normal complements C3 97 C4 13, normal kappa lambda ratio 1.24. Patient's hepatitis serologies hep B surface antigens negative antibodies positive hep B core antibodies negative hep C antibodies negative -I am concerned for cardiorenal syndrome. The patient had a cardiac arrest 0n 04/05/25 after which he became acidotic which is now improving. - cr appears to be stablizing. Will monitor off of diuretics. 2. Hypernatremia stop diuretics and get D5W 3. monitor renal fxn s/p cardiac cath yesterday 4. acidosis-improved 5. Echocardiogram reveals severely reduced EF of 20 to 25% with global hypokinesis moderate LV hypertrophy. 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 -Repeat echocardiogram on April 06 after cardiac arrest showed LV systolic function severely reduced to 10 to 15% severe global hypokinesis and a pleural effusion. -normal cardiac cath per cardiology 6. Vent dependent respiratory failure as per medicine and pulmonary. Consider trach Normal head CT noted. 7. inc lft's as per medicine. is improving No emergent need for dialysis at this time The patient was seen and examined using audiovisual equipment with the aid of a nurse. Would have medicine discussed with family how aggressive they want to be if patient cannot be extubated. Plan See above PDMP PDMP Reviewed: Not Reviewed Attestations 2 Medical Necessity Statement*: Hypernatremia, acute on chronic renal failure, vent dependent respiratory failure, decreased neurological status. Time Spent in Patient Care: 16 - 35 minutes (>than 50% of time sp ent in counselling and/or direct pt care on unit) . Procedures Arterial Line Size (Gauge): 20 Coding Level of Care Code Acute Code for [facility] Fwd Diagnoses Acute kidney injury N17.9
[2025-04-11] MEDS: vancomycin 500 MG in sodium chloride 0.9% (plus) 100 ML 200 MG IV (08:37)
--- NOTE | 2025-04-11 10:17 | P.PN_ITS ---
<Statement entered by Tigre Peña M.D - 04/21/25 13:31> Patient was cared for in conjunction with an advanced practice practitioner.? I reviewed the chart and all pertinent data including imaging, telemetry, and laboratory results.? I discussed the patient in detail with the advanced practice practitioner.? Please see their note for complete progress note, testing results and agreed upon plan of care for the patient. Subjective 2 Subjective: Noted frequent PVCs and 3-4 beat runs of VT this morning during exam. Magnesium level 1.8 on morning labs, will provide 2 g magnesium supplementation. Plan for the day is to attempt extubation. Blood pressure soft. Fluid balance -9500 cumulative, -1800 for last 24 hours. Vitals/I&O/Wt Last Vital Signs Temp 97.9 F 04/11/25 05:00 Pulse 97 04/11/25 10:00 Resp 9 L 04/11/25 08:59 BP 116/82 04/11/25 10:00 Pulse Ox 98 04/11/25 08:59 O2 Del Method Mechanical Ventilation 04/11/25 07:58 O2 Flow Rate 2 04/05/25 10:15 FiO2 30 04/11/25 08:59 04/10/25 04/11/25 04/11/25 22:59 06:59 14:59 Intake Total 150 / 150 Output Total 200 / 2060 1350 / 2060 Balance -200 / -1808.114 -1350 / -1808.114 150 / 150 Weight last 48 hrs Weight 147 lb 11.2 oz Weight 160 lb 8 oz Physical Exam 2 Const: COMMON NORMALS: no acute distress GENERAL APPEARANCE: comfortable ORIENTATION/CONSCIOUSNESS: Yes awake Chest: COMMONS NORMALS: normal inspection of the chest and normal palpation of entire chest wall CHEST: Yes Symmetrical chest wall rise Resp: COMMON NORMALS: normal respiratory effort, No retractions, No use of accessory muscles and clear to auscultation bilaterally EFFORT & INSPECTION: Yes symmetric chest movement AUSCULTATION: clear to auscultation bilaterally Cardio: COMMON NORMALS: regular rate, S1 normal heart sound present, S2 normal heart sound present, No gallops present (Cardio), No clicks present (Cardio), No murmurs present (Cardio) and No rub (Cardio) RATE: regular rate RHYTHM: a bnormal rhythm with ectopic beats HEART SOUNDS: S1 normal heart sound present and S2 normal heart sound present PERIPHERAL PULSES: radial pulses present Extremity: COMMON NORMALS: no pedal edema Neuro: COMMON NORMALS: moves all extremities Urinary Catheter Management: Sullivan: Cath Placed During This Visit: no Reason for Continuing Indwelling Catheter: Accurate Measurement of Urinary Output in Critically Ill Patients Data 04/11/25 03:20 04/11/25 03:20 A&P Assessment and plan (1) Cardiorenal disease: (2) Systolic CHF: (3) Cardiac arrest: (4) Atrial fibrillation: (5) NSTEMI (non-ST elevated myocardial infarction): (6) History of chronic kidney disease: Plan He is having more ventricular ectopy this morning, continue amiodarone 400 mg twice daily, adding magnesium to keep mag above 2.0. Plan to recheck tomorrow with morning labs. Potassium 3.9. Unable to add beta-john due to soft blood pressures. PDMP PDMP Reviewed: Not Reviewed Attestations 2 Medical Necessity Statement*: Intubated, systolic heart failure Procedures Arterial Line Size (Gauge): 20 Coding Level of Care Code Acute Code for [facility] Diagnoses Cardiorenal disease I13.10 Acute on chronic systolic congestive heart failure I50.23 Heart failure chronicity: acute on chronic Cardiac arrest I46.9 Atrial fibrillation, unspecified type I48.91 Atrial fibrillation type: unspecified NSTEMI (non-ST elevated myocardial infarction) I21.4 History of chronic kidney disease Z87.448
--- NOTE | 2025-04-11 12:00 | CT_ITS ---
WS: [id number] CT HEAD TECHNIQUE: Noncontrast CT of the head obtained from the skullbase to the vertex. CLINICAL INFORMATION: leftfrontal lobe COMPARISON: 04/10/2025 studies DLP: 1144.[address] scans at [facility] use at least one of these dose optimization techniques: automated exposure control; mA and/or kV adjustment per patient size (includes targeted exams where dose is matched to clinical indication); or iterative reconstruction. FINDINGS: Tiny focus of increased attenuation LEFT frontoparietal junction no longer visualized on this study. This is likely due to resolved tiny amount of hemorrhage or resolved artifact. Regardless, no new suspicious abnormalities or residual abnormalities today. Incidental punctate calcifications in the post erior LEFT parietal lobe are unchanged. No other significant changes. CT/CT head wo con* [id number] IMPRESSION: 1. Previously described focus of increased attenuation in the LEFT frontal par ietal junction has entirely resolved since yesterday. 2. No new suspicious abnormalities. 3. No other significant changes
[2025-04-11] MEDS: water for injection-sterile 20 ML 1000 ML (12:15)
[2025-04-11] MEDS: FUROsemide 10 mg/mL SDV 4mL 40 MG IVP (12:23)
--- NOTE | 2025-04-11 13:32 | PM.PN ---
Subjective Subjective: - Patient was examined multiple times throughout the morning - He is alert to person, he can follow commands - Pupils equal round reactive to light - Has a cough reflex, has a gag reflex, localizes pain - He is able to not eat yes and no, able to move bilateral upper and lower extremities - He is also able to write on a piece of paper, try to communicate remains afebrile - He remains afebrile - He has a 35% FiO2 - Normotensive off pressors - Normal sinus rhythm - He is able to cough around ET tube - He does frequently drouse - He was monitored - Patient is pulling good tidal volumes, was placed on pressure support - Patient tripping apnea alarm - Requiring placement back up to CMV - During apnea spell he is able to breathe for me, is able to initiate of breath - Will continue spontaneous breathing trial this afternoon - Discussed with son at bedside - Discussed with son CT scan findings, 4 mm focus left posterior frontal cortex artifact versus punctate focus of hemorrhage anticoagulation held - Repeat head CT shows stability, no definite acute hemorrhage - Will repeat head CT at about 1 -Discussed artifact versus hemorrhage, will continue to monitor -During my examination, he Edward tries to communicate with his son, - Will continue spontaneous breathing trial, monitor apnea spells - 40 push IV Lasix given, fluids held - Discussed with son risk and benefits of extubation, discussed risk of reintubation, morbidity and mortality associated - Discussed CODE STATUS - Discussed patient's cardiac status, coronary angiogram, no obstructive CAD, plan on medical management, discussed respiratory failure, patient's -10 L, mucous plugging, aspiration pneumonia, JOAO on CKD, improving, patient's overall clinical condition improving Vitals/I&O/Wt Last Vital Signs Temp 97.9 F 04/11/25 05:00 Pulse 97 04/11/25 11:21 Resp 22 H 04/11/25 11:21 BP 116/82 04/11/25 10:00 Pulse Ox 95 04/11/25 11:21 O2 Del Method Mechanical Ventilation 04/11/25 11:21 O2 Flow Rate 2 04/05/25 10:15 FiO2 30 04/11/25 11:21 04/10/25 04/11/25 04/11/25 22:59 06:59 14:59 Intake Total 170 / 170 Output Total 200 / 710 1350 / 2060 Balance -200 / -458.114 -1350 / -1808.114 170 / 170 Weight last 48 hrs Weight 66.996 kg Weight 72.802 kg Physical Exam Const: COMMON NORMALS: no acute distress Resp: COMMON NORMALS: normal respiratory effort, No retractions, No use of accessory muscles and clear to auscultation bilaterally AUSCULTATION: clear to auscultation bilaterally Cardio: COMMON NORMALS: regular rate, regular rhythm, S1 normal heart sound present and S2 normal heart sound present RATE: regular rate RHYTHM: regular rhythm HEART SOUNDS: S1 normal heart sound present and S2 normal heart sound present GI: COMMON NORMALS: Normal to inspection, nondistended, normoactive bowel sounds present and non-tender Extremity: COMMON NORMALS: no pedal edema Psych: COMMON NORMALS: mental status grossly normal Urinary Catheter Management: Sullivan: Cath Placed During This Visit: no Reason for Continuing Indwelling Catheter: Accurate Measurement of Urinary Output in Critically Ill Patients Data 04/11/25 03:20 04/11/25 03:20 A&P Assessment and plan (1) Acute kidney injury: (2) NSTEMI (non-ST elevated myocardial infarction): (3) Acute encephalopathy: (4) Atrial fibrillation: (5) Heart failure: (6) Pulmonary edema: (7) Acute hypoxic respiratory failure: (8) Metabolic acidosis with respiratory alkalosis: (9) Cardiogenic shock: (10) Sepsis: (11) Pneumonia: (12) Shock: (13) Cardiorenal disease: (14) Systolic CHF: (15) Acute respiratory distress: (16) Bilateral pleural effusion: (17) Cardiac arrest: (18) Cardiac arrest with successful resuscitation: (19) Successful cardiopulmonary resuscitation: Plan Acute encephalopathy - Likely multifactorial -Likely component of cardiac arrest -Pneumonia -Hypoxia -polypharmacy - Neurochecks, - Monitor mentation closely - CT head CT/CT head wo con* [id number] IMPRESSION: Some images are graded by beam hardening and motion artifact. 3 to 4 mm focus of punctate increased attenuation LEFT posterior frontal cortex may represent beam hardening artifact versus less likely tiny punctate focus of hemorrhage. Recommend 6 to 12-hour interval follow-up CT to assess change. 2. Moderate small vessel changes with moderate parenchymal volume loss. 3. No other acute findings. 3 to 4 mm focus of punctate increased attenuation LEFT posterior frontal cortex CT/CT head wo con* [id number] IMPRESSION: Some images are graded by beam hardening and motion artifact. 1. 3 to 4 mm focus of punctate increased attenuation LEFT posterior frontal cortex may represent beam hardening artifact versus less likely tiny punctate focus of hemorrhage. Recommend 6 to 12-hour interval follow-up CT to assess change. 2. Moderate small vessel changes with moderate parenchymal volume loss. 3. No other acute findings. CT/CT head wo con* [id number] IMPRESSION: 1. Unchanged tiny hyperattenuating focus along the left frontoparietal junction cortex. No definite acute hemorrhage appreciated. 2. Remainder stable. CT/CT head wo con* [id number] IMPRESSION: 1. Previously described focus of increased attenuation in the LEFT frontal parietal junction has entirely resolved since yesterday. 2. No new suspicious abnormalities. 3. No other significant changes Plan -Spoke to radiology - Likely artifact - Will continue to hold anticoagulation nonetheless Cardiac arrest - Concern for V-fib arrest - Acute flash pulmonary edema - Successful ROSC - Had 4 A of epi, 1 amp of bicarb, 1 amp of calcium chloride - CPR time roughly 7 minutes - Initial EKG shows atrial fibrillation, no acute ST-T wave changes - Pupils equal round reactive to light, does have a cough reflex, does have a gag reflex, according to nursing staff he did move his right arm, move head from [id number] -Baseline troponin 143, 120-minute 133 -BNP over 57,000 -Potassium 5.4, did give 1 dose of calcium chloride -Etomidate and succinylcholine for intubation used by ER provider, monitor potassium closely -Status post coronary angiogram, no obstructive CAD - Plan -Cardiology on consult -Currently intubated -Sedated with fentanyl, Precedex, propofol -Minimize FiO2, minimize tidal volume -Arterial line in place -PICC line in place -Currently off Levophed, maintain MAP greater than 65, wean Levophed as tolerated -Dobutamine has been weaned off -Neurochecks, monitor mentation closely -Daily spontaneous breathing trials - Continue sedation vacation - Repeat echo CONCLUSIONS LV systolic function is severely reduced with EF of 10 to 15%. Severe global hypokinesis. Pleural effusion seen - Continue aspirin, statin - Lovenox currently on hold - Plans on possible coronary angiography based on clinical progress - Will consider LVAD based on clinical progress - Lasix 40 IV once - Will consider dialysis based on clinical progress -Venous ultrasound negative for DVT - Protonix for GI prophylaxis - Heparin drip for DVT prophylaxis Acute hypoxic respiratory failure - With acute respiratory distress - Systolic CHF exacerbation -Bilateral pleural effusions - Acute flash pulmonary edema - With concerns for possible pneumonia -Atrial fibrillation with rapid ventricular response -Down to 40% FiO2 -Urine output 4 L -Now with concerns for progressive and extensive left-sided atelectasis -Concern for mucous plugging, atelectasis, resolving CT/CT chest wo con [id number] IMPRESSION: Progressive and now extensive left-sided atelectasis. Slightly increasing left pleural effusion. - Chest x-ray this morning shows left pleural effusion, left lower lobe atelectasis improved compared to prior examination Plan - Monitor in ICU closely - Currently intubated, sedated - Monitor respiratory status closely -Fentanyl for sedation -Precedex for sedation -Propofol for sedation -Spontaneous breathing trial today, wean off sedation - DuoNeb - Budesonide - Blood cultures - Sputum cultures - Continue Lasix drip at 20 units/hr, de-escalate to Lasix 60 twice daily, no as needed -Maintain potassium greater than 4, replace potassium -IV doses based on clinical progress - Monitor creatinine - Monitor urine output - Vancomycin - Meropenem - Chest vest, hypertonic saline, Mucomyst Shock, resolving - Multifactorial cardiogenic shock - Component of sepsis with right lower lobe infiltrate pneumonia - Currently on Levophed - Maintain MAP greater than 65 - Monitor output, monitor creatinine Bilateral pleural effusions ct chest CT/[place] [id number] IMPRESSION: 1. Moderate layering pleural effusions bilaterally. Mild lower lobe atelectasis. 2. Moderate cardiomegaly with pulmonary hypertension. - Ultrasound thoracentesis, only very small bilateral pleural effusion, insufficient for safe thoracentesis Systolic CHF exacerbation -Used to follow with a portal architect in [facility], has had hospitalizations in [facility] for CHF back in August CONCLUSIONS Left ventricle is dilated. LV systolic function is severely reduced with EF of 20-25%. Moderate left ventricular hypertrophy. Biatrial enlargement. Mild mitral regurgitation. Mild to moderate aortic regurgitation Mild tricuspid regurgitation Moderate pulmonary hypertension Moderate pulmonic regurgitation Pleural effusion seen IVC is dilated No comparison studies are seen. Cardiac echo CONCLUSIONS LV systolic function is severely reduced with EF of 10 to 15%. Severe global hypokinesis. Pleural effusion seen - Coronary angiogram, no obstructive CAD and Concern for possible aspiration pneumonia, CT chest showing mild lower lobe atelectasis -Chest x-ray showing right-sided infiltrates - IV antibiotics as above Acute kidney injury on CKD, creatinine 22 - Baseline kidney function unknown - Used to follow-up with a life insurance sales agent in [facility], had reported CKD, with discussions of dialysis at some point - Possibly component of cardiorenal syndrome -Urine output over 10 L - Monitor creatinine, monitor electrolytes - Patient is agreeable to dialysis if required NSTEMI - No chest pain complaints - Does have shortness of breath -EF 10 to 15% Plan - Telemetry monitoring - EKGs, serial troponins, telemetry monitoring - Aspirin, statin - Heparin drip, transition to Lovenox to prevent fluid overload - Cardiology consulted, no obstructive CAD seen on cardiac angiogram A-fib with RVR - Amiodarone drip transition to p.o. amiodarone to prevent fluid overload - On therapeutic Lovenox, on hold Transaminitis, shock liver, monitor, resolved Increased anion gap metabolic acidosis, resolved - Check ketones within normal limits - Check A1c 6.2 - Lactic acid within normal limits Hyperkalemia, resolved - Calcium gluconate - Insulin, D10 - Repeat BMP this evening Uremia - Secondary to JOAO - Hemoglobin within normal limits - Monitor closely Full code Heparin drip for DVT prophylaxis Lovenox for DVT prophylaxis Plan for today, spontaneous breathing trial, monitor urine output, monitor creatinine, wean sedation, CT head PDMP PDMP Reviewed: Not Reviewed Attestations Medical Necessity Statement*: Patient requires hospitalization for acute hypoxic respiratory failure, systolic CHF, JOAO, acute encephalopathy, nonischemic cardiomyopathy, COPD Procedures Arterial Line Size (Gauge): 20 Coding Level of Care Code Critical Care >/= 30 minutes Critical care time (in minutes): 45 The high probability of a clinically significant, sudden or life threatening deterioration, as referenced in this documentation, required my full and direct attention, intervention and personal management. The critical care time shown is in addition to time spent performing any reported separately billable procedures and includes the following: [x] Data and vital sign review and interpretation [x] Patient assessment, examination and intervention [x] Medication orders and management [x] Patient/Family updates as able [x] Care Coordination and Documentation. Diagnoses Acute kidney injury N17.9 NSTEMI (non-ST elevated myocardial infarction) I21.4 Acute encephalopathy G93.40 Atrial fibrillation, unspecified type I48.91 Atrial fibrillation type: unspecified Other heart failure I50.89 Heart failure type: other Pulmonary edema J81.1 Acute hypoxic respiratory failure J96.01 Metabolic acidosis with respiratory alkalosis E87.20; E87.3 Cardiogenic shock R57.0 Sepsis A41.9 Pneumonia J18.9 Shock R57.9 Cardiorenal disease I13.10 Acute on chronic systolic congestive heart failure I50.23 Heart failure chronicity: acute on chronic Acute respiratory distress R06.03 Bilateral pleural effusion J90 Cardiac arrest I46.9 Cardiac arrest with successful resuscitation I46.9 Successful cardiopulmonary resuscitation Z92.89
--- NOTE | 2025-04-11 15:39 | PC.NURSE ---
recieved am on vent wide awake responsive to questions, occasional periods apnea noted but more awake , iv fluid ordered this am d5 and lasix on hold Dr Sin here aware put iv fluid on hold for now and lasix [address] of head , doctor aware extubated at 1400 , and restraints removed , ice chips given and bedside swallow test done water given , order for speech eval
[2025-04-11] MEDS: ondansetron 2 mg/ML SDV 2 mL 4 MG IVP (17:37)
[2025-04-11 18:54] LABS: Anion Gap 23.0 (5-19); Calcium 9.1 mg/dL (8.5-10.5); Carbon Dioxide 28 mmol/L (22-29); Chloride 95 mmol/L (98-107); Creatinine Clr Calc Pharmacy 27.0931; Glucose 113 mg/dL (65-115); Osmolality Calculated 322 mOsm/kg (285-295); Potassium 3.0 mmol/L (3.5-5.1); Sodium 143 mmol/L (136-145)
[2025-04-11 18:57] LABS: Blood Urea Nitrogen 82 mg/dL (8-23)
[2025-04-12] VITALS (55 sets, daily range): BP systolic 96–132; BP diastolic 59–90; PULSE 86–119; RESP 9–27; TEMP 36.4–37; O2SAT 93–99
[2025-04-12] MEDS: chlorhexidine gluconate 4% Btl 118 mL 1 APPLIC TOPICAL (00:36)
[2025-04-12 03:36] LABS: Hematocrit 41.5 % (37-53); Hemoglobin 12.60 g/dL (11.27-16.99); Mean Corpuscular HGB Conc 30.4 g/dL (30-55); Mean Corpuscular Hemoglobin 30.6 pg (27-33); Mean Corpuscular Volume 100.7 fl (82-101); Nucleated Red Blood Cells % 0 %; Platelet Count 191 10^3/cmm (157-399); Red Blood Count 4.12 10^6/uL (3.85-5.65); White Blood Count 8.04 10^3/uL (3.29-11.43)
[2025-04-12] MEDS: pantoprazole 40 mg SDV IVP ×2 (04:12→17:47)
--- NOTE | 2025-04-12 05:44 | PC.NURSE ---
Vtach Patient's bedside telemetry noted to show increasing amounts of vtach. Dr. Sandhu notified; no new orders received.
[2025-04-12 05:53] LABS: Alanine Aminotransferase 87 U/L (0-41); Albumin Level 3.0 g/dL (3.5-5.2); Alkaline Phosphatase 122 U/L (40-130); Anion Gap 21.2 (5-19); Aspartate Amino Transferase 27 U/L (0-40); Blood Urea Nitrogen 80 mg/dL (8-23); Calcium 9.0 mg/dL (8.5-10.5); Carbon Dioxide 31 mmol/L (22-29); Chloride 98 mmol/L (98-107); Creatinine Clr Calc Pharmacy 25.9151; Globulin 3.1 g/dL (1.3-4.6); Glucose 94 mg/dL (65-115); Magnesium 1.9 mg/dL (1.7-2.3); Osmolality Calculated 328 mOsm/kg (285-295); Potassium 3.2 mmol/L (3.5-5.1); Sodium 147 mmol/L (136-145); Total Protein 6.1 g/dL (6.6-8.7)
--- NOTE | 2025-04-12 05:57 | PC.NURSE ---
Metoprolol Dr. Weiss notified of patient's increasing frequency of vtach runs. Order received for metoprolol succinate 12.5 mg PO BID starting now.
[2025-04-12] MEDS: metoprolol succinate ER (24 HR) 25 mg Tablet 12.5 MG PO ×2 (06:11→17:47)
--- NOTE | 2025-04-12 07:42 | PM.PN ---
Subjective Subjective: Patient is extubated seen and examined. He is awake he is thirsty he is weak he is alert. No nausea vomiting no diarrhea he would like to eat and drink. We are awaiting swallow eval. Medications: Reviewed: Yes Medication Review Details: Current Medications Acetaminophen (Acetaminophen 325 Mg Tablet) 650 mg PO Q6H PRN PRN Reason: Mild/Mod Pain Or Temp >/= 101 Last Admin: 04/04/25 16:57 Dose: 650 mg Albuterol/Ipratropium (Ipratropium-Albuterol 3 Ml Neb) 3 ml INHALATION Q4H PRN PRN Reason: SHORTNESS OF BREATH Last Admin: 04/08/25 13:12 Dose: 3 ml Albuterol/Ipratropium (Ipratropium-Albuterol 3 Ml Neb) 3 ml INHALATION Q4H.RESPIRATORY GISELA Last Admin: 04/12/25 04:23 Dose: 3 ml Alprazolam (Alprazolam 0.5 Mg Tablet) 0.25 mg PO TID PRN PRN Reason: ANXIETY Last Admin: 04/05/25 10:13 Dose: 0.25 mg Amiodarone HCl (Amiodarone 200 Mg Tablet) 400 mg PO BID GISELA Last Admin: 04/11/25 17:25 Dose: 400 mg Aspirin (Aspirin 81 Mg Ec Tablet) 81 mg PO DAILY GISELA Last Admin: 04/11/25 08:35 Dose: 81 mg Chlorhexidine Gluconate (Chlorhexidine Gluconate 4% Btl 118 Ml) 1 applic TOPICAL Q24H GISELA Last Admin: 04/12/25 00:36 Dose: 1 applic Norepinephrine Bitartrate (Levophed) 4 mg in 250 mls @ 0 mls/hr IV .Q0M GISELA; Protocol Last Titration: 04/10/25 07:35 Dose: 0 mcg/min, 0 mls/hr Fentanyl (Sublimaze) 1,000 mcg in 100 mls @ 0 mls/hr IV .Q0M GISELA; Protocol Last Titration: 04/10/25 10:02 Dose: Infused Dexmedetomidine/Sodium Chloride (Precedex) 400 mcg in 100 mls @ 0 mls/hr IV .Q0M GISELA; Protocol Last Titration: 04/08/25 12:58 Dose: 0 mcg/kg/hr, 0 mls/hr Propofol (Diprivan) 1,000 mg in 100 mls @ 0 mls/hr IV .Q0M GISELA; Protocol Last Titration: 04/10/25 08:35 Dose: 0 mcg/kg/min, 0 mls/hr Sodium Chloride (Sodium Chloride 0.9%) 1,000 mls @ 0 mls/hr IV .Q0M GISELA Vancomycin HCl 500 mg/ Sodium (Chloride) 100 mls @ 200 mls/hr IV ONCE ONE Stop: 04/12/25 09:29 Magnesium Oxide (Magnesium Oxide 400 Mg Tablet) 400 mg PO BID [facility] Last Admin: 04/11/25 17:25 Dose: 400 mg Meropenem (Meropenem 500 Mg Sdv) 500 mg IVP Q12H [facility]; Protocol Last Admin: 04/12/25 00:36 Dose: 500 mg Metoprolol Succinate (Metoprolol Succinate Er (24 Hr) 25 Mg Tablet) 12.5 mg PO BID [facility] Last Admin: 04/12/25 06:11 Dose: 12.5 mg Morphine Sulfate (Morphine 4 Mg/Ml Sdv 1 Ml) 1 mg IVP Q4H PRN PRN Reason: SEVERE PAIN Last Admin: 04/10/25 22:20 Dose: 1 mg Naloxone HCl (Naloxone 0.4 Mg/Ml Sdv) 0.1 mg IVP Q2M PRN PRN Reason: OPIATERV Olanzapine (Olanzapine 5 Mg Tablet) 2.5 mg PO BEDTIME [facility] On Hold: 04/10/25 21:21 Last Admin: 04/10/25 21:20 Dose: Not Given Ondansetron HCl (Ondansetron 2 Mg/Ml Sdv 2 Ml) 4 mg IVP Q8H PRN PRN Reason: vomiting, or N/V if npo Last Admin: 04/11/25 17:37 Dose: 4 mg Pantoprazole Sodium (Pantoprazole 40 Mg Sdv) 40 mg IVP Q12H [facility] Last Admin: 04/12/25 04:12 Dose: 40 mg Vancomycin HCl (Vancomycin 1,000 Mg Sdv (Pharmacy Mix)) 0 mg XX PRN PRN PRN Reason: Pharmacy to Dose Vitals/I&O/Wt Last Vital Signs Temp 97.6 F 04/12/25 04:00 Pulse 94 04/12/25 06:00 Resp 10 L 04/12/25 06:00 BP 112/83 04/12/25 06:00 Pulse Ox 98 04/12/25 06:00 O2 Del Method Nasal Cannula 04/12/25 06:00 O2 Flow Rate 2 04/12/25 06:00 FiO2 2 04/12/25 00:30 04/11/25 04/12/25 04/12/25 22:59 06:59 14:59 Intake Total 100 / 603.75 50 / 653.75 Output Total 1000 / 1000 750 / 1750 Balance -900 / -396.25 -700 / -1096.25 Weight last 48 hrs Weight 65.272 kg Weight 66.996 kg Physical Exam Narrative: extubated in no apparent distress Vital signs noted. The patient is in atrial fibrillation with controlled rate HEENT normocephalic atraumatic. Neck is supple Lungs have dec crackles b/l Heart irregular with systolic murmur positive S1-S2 Abdomen is soft positive bowel sounds. Extremities have no edema, Neuro the patient is awake, alert, weak but moves The patient was seen and examined using audiovisual equipment with the aid of a nurse. Urinary Catheter Management: Sullivan: Cath Placed During This Visit: no Reason for Continuing Indwelling Catheter: Accurate Measurement of Urinary Output in Critically Ill Patients Data 04/12/25 03:06 04/12/25 05:19 A&P Assessment and plan (1) Acute kidney injury: 80-year-old gentleman that per chart from her half-way has history of peripheral arterial disease, BPH, A-fib. And half-way the patient is on Coreg Bumex and potassium. I wonder if the patient has heart failure. The patient was admitted just with altered mental status and acute kidney injury. The patient CT scan on April 03, 2025 that revealed moderate bilateral pleural effusions layering posteriorly moderate cardiomegaly. And his kidneys showed multiple cysts in the right kidney measuring up to 7.5 cm in greatest dimension, per reading no hydronephrosis vascular calcifications. 1. Acute kidney injury on ckd. Renal ultrasound shows right kidney 10.3 cm with numerous cysts. The largest cyst is 6.3 x 5.4 x 7 cm with mild cortical thinning and increased echogenicity. Left kidney 9 cm is mild diffuse cortical thinning no obstruction. Renal ultrasound is consistent with CKD. The patient has a negative VEGA negative [id number] DNA normal complements C3 97 C4 13, normal kappa lambda ratio 1.24. Patient's hepatitis serologies hep B surface antigens negative antibodies positive hep B core antibodies negative hep C antibodies negative -I am concerned for cardiorenal syndrome. The patient had a cardiac arrest 0n 04/05/25 after which he became acidotic which is now improving. - cr appears to be stablizing. Will monitor off of diuretics. 2. Hypernatremia stop diuretics and give D5W w/ potassium 3. hypokalemia- monitor w/ repsletion 4. hyperphosphatemia- when eating. please give binders 5. Echocardiogram reveals severely reduced EF of 20 to 25% with global hypokinesis moderate LV hypertrophy. 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 -Repeat echocardiogram on April 06 after cardiac arrest showed LV systolic function severely reduced to 10 to 15% severe global hypokinesis and a pleural effusion. -normal cardiac cath per cardiology -arrythmias per cardiology 6. inc lft's as per medicine. is improving The patient was seen and examined using audiovisual equipment with the aid of a nurse. Plan See above PDMP PDMP Reviewed: Not Reviewed Attestations Medical Necessity Statement*: weak,ckd, per hospitalist Time Spent in Patient Care: 16 - 35 minutes (>than 50% of time spent in counselling and/or direct pt care on unit). Procedures Arterial Line Size (Gauge): 20 Coding Level of Care Code Acute Code for Chg Fwd Diagnoses Acute kidney injury N17.9
[2025-04-12] MEDS: vancomycin 500 MG in sodium chloride 0.9% (plus) 100 ML 200 MG IV (07:49)
--- NOTE | 2025-04-12 08:23 | PC.SOCIAL ---
IMM Update Pg. 2 of IMM Updated and copy provided at bedside.
[2025-04-12] MEDS: dextrose 5% + KCl 20 mEq 20 MEQ/1,000 ML BAG 75 MEQ IV (08:26)
[2025-04-12] MEDS: FUROsemide 10 mg/mL SDV 4mL 40 MG IVP (09:54)
[2025-04-12] MEDS: lidocaine 1% 5 ML in potassium chloride premix 100 ML 26.25 ML IV (09:55)
--- NOTE | 2025-04-12 10:51 | P.PN_ITS ---
Subjective 2 Subjective: - Patient was examined this morning - Nursing staff at bedside - Patient was successfully extubated to nasal cannula yesterday - He was examined throughout the afterno on yesterday - This morning he was seen he is alert t o person, to place, to time he follows commands - Does have generalized weakness, does h ave a weak cough - Kept n.p.o. due to high risk of aspira tion will have speech therapy see him this morning - We had a detailed discussion with Jesus flores about his underlying condition - In addition to his weakness, deconditi oning, prolonged intubation - We discussed with him his acute on chr onic heart failure, his cardiac arrest, multiorgan failure, aspiration pneumonia, respiratory failure, CKD, septic shock - Discussed with Edward that I am proud of his resilience, he is shown true courage, - In terms of his heart failure, he has stabilized his EF is anywhere between 10 to 20%, he has diuresed over 10 L, - He is respiratory status is improved h e is on broad-spectrum antibiotic therapy so far afebrile leukocytosis improved, cultures so far negative, I do feel that he has a weak cough, high risk of aspiration so we will have speech therapy see him - His renal function has also has stabil ized - His shock has also resolved - However he is quite deconditioned -I had a discussion with him about the C T scan findings, artifact versus acute hemorrhage, repeat head CT shows that area has resolved so likely artifact, as he is at increased risk of hypercoagulable events, increased risk of strokes, atrial fibrillation, discussed risk and benefits of anticoagulant therapy, shared decision making, he was understanding, all question answered, agreed to proceed with anticoagulant therapy will put him back on therapeutic Lovenox - We discussed the possibility of reintu bation, discussed the possibility of cardiac arrest, - My overall worry with Edward is he henderson s have an increased risk of reintubation, increased risk of cardiac arrest with his underlying medical condition and his hospitalization - My concern is is that if he does get r eintubated, or if he does require CPR if he does require aggressive intervention he would likely remain on artificial support such as ventilator, medications for pulm follow-up. Of time, morbidity and mortality associated, - There is a high likelihood that he lik ez would require a tracheostomy, prolonged intubation, potentially LVAD, potentially dialysis - However it is ultimately up to Edward what his goals of care are, Joseph also discussed with him the risk and benefits, of all options, is ultimately up to Edward to come to inform decision - He certainly shown a lot of courage an d survived - Currently Edward is alert oriented x 3 , following all commands, he shows me that he understands, he is weighing the options - After discussing risk benefits all opt ions, he voiced understanding, all questions answered, Edward would like to change his CODE STATUS to DNR/DNI - He does want to continue medical inter ventions - Discussed plans for today is to get hi m up into a chair, speech therapy work with him to improve his nutrition hopefully, continue to diurese him, get consultation with nephrology, cardiology Vitals/I&O/Wt Last Vital Signs Temp 97.9 F 04/12/25 08:00 Pulse 96 04/12/25 08:30 Resp 27 H 04/12/25 08:30 BP 114/73 04/12/25 08:30 Pulse Ox 97 04/12/25 08:08 O2 Del Method Nasal Cannula 04/12/25 08:08 O2 Flow Rate 2 04/12/25 08:08 FiO2 2 04/12/25 00:30 04/11/25 04/12/25 04/12/25 22:59 06:59 14:59 Intake Total 100 / 603.75 50 / 653.75 100 / 100 Output Total 1000 / 1000 750 / 1750 Balance -900 / -396.25 -700 / -1096.25 100 / 100 Weight last 48 hrs Weight 65.272 kg Weight 66.996 kg Physical Exam 2 Const: COMMON NORMALS: no acute distress and patient oriented x3 GENERAL APPEARANCE: frail appearing OTHER: Physical deconditioning, protein malnutrition At thinning under bilateral clavicles, ribs, temporal muscle wasting Resp: COMMON NORMALS: normal respiratory effort, No retractions and No use of accessory muscles AUSCULTATION: crackles Cardio: COMMON NORMALS: regular rate, regular rhythm, S1 normal heart sound present and S2 normal heart sound present RATE: regular rate RHYTHM: r egular rhythm HEART SOUNDS: S1 normal heart sound present and S2 normal heart sound present GI: COMMON NORMALS: Normal to inspection, nondistended, normoactive bowel sounds present and non-tender Extremity: COMMON NORMALS: no pedal edema Neuro: COMMON NORMALS: patient oriented x3, CN's II-XII intact bilaterally, moves all extremities and no focal motor deficits Psych: COMMON NORMALS: mental status grossly normal Urinary Catheter Management: Sullivan: Cath Placed During This Visit: no Reason for Continuing Indwelling Catheter: Accurate Measurement of Urinary Output in Critically Ill Patients Data 04/12/25 03:06 04/12/25 05:19 A&P Assessment and plan (1) Acute kidney injury: (2) NSTEMI (non-ST elevated myocardial infarction): (3) Acute encephalopathy: (4) Atrial fibrillation: (5) Heart failure: (6) Pulmonary edema: (7) Acute hypoxic respiratory failure: (8) Metabolic acidosis with respiratory alkalosis: (9) Cardiogenic shock: (10) Sepsis: (11) Pneumonia: (12) Shock: (13) Cardiorenal disease: (14) Systolic CHF: (15) Acute respiratory distress: (16) Bilateral pleural effusion: (17) Cardiac arrest: (18) Cardiac arrest with successful resuscitation: (19) Successful cardiopulmonary resuscitation: Plan Acute encephalopathy, resolving, currently alert oriented x 3 - Likely multifactorial -Likely component of cardiac arrest -Pneumonia -Hypoxia -polypharmacy - Neurochecks, - Monitor mentation closely - CT head CT/CT head wo con* [id number] IMPRESSION: Some images are graded by beam hardening and motion artifact. 3 to 4 mm focus of punctate increased attenuation LEFT posterior frontal cortex may represent beam hardening artifact versus less likely tiny punctate focus of hemorrhage. Recommend 6 to 12-hour interval follow-up CT to assess change. 2. Moderate small vessel changes with moderate parenchymal volume loss. 3. No other acute findings. 3 to 4 mm focus of punctate increased attenuation LEFT posterior frontal cortex CT/CT head wo con* [id number] IMPRESSION: Some images are graded by beam hardening and motion artifact. 1. 3 to 4 mm focus of punctate increased attenuation LEFT posterior frontal cortex may represent beam hardening artifact versus less likely tiny punctate focus of hemorrhage. Recommend 6 to 12-hour interval follow-up CT to assess change. 2. Moderate small vessel changes with moderate parenchymal volume loss. 3. No other acute findings. CT/CT head wo con* [id number] IMPRESSION: 1. Unchanged tiny hyperattenuating focus along the left frontoparietal junction cortex. No definite acute hemorrhage appreciated. 2. Remainder stable. CT/CT head wo con* [id number] IMPRESSION: 1. Previously described focus of increased attenuation in the LEFT frontal parietal junction has entirely resolved since yesterday. 2. No new suspicious abnormalities. 3. No other significant changes Plan -Spoke to radiology - Likely artifact - Discussed risk benefits of resuming anticoagulant therapy, patient's increased risk of hypercoagulable events, risk of strokes with his atrial fibrillation, he voiced understanding, all questions answered, agreed to proceed, resume therapeutic Lovenox Cardiac arrest - Concern for V-fib arrest - Likely secondary to acute flash pulmonary edema - Successful ROSC - Had 4 A of epi, 1 amp of bicarb, 1 amp of calcium chloride - CPR time roughly 7 minutes - Initial EKG shows atrial fibrillation, no acute ST-T wave changes - Pupils equal round reactive to light, does have a cough reflex, does have a gag reflex, according to nursing staff he did move his right arm, move head from [id number] -Baseline troponin 143, 120-minute 133 -BNP over 57,000 -Potassium 5.4, did give 1 dose of calcium chloride -Etomidate and succinylcholine for intubation used by ER provider, monitor potassium closely -Status post coronary angiogram, no obstructive CAD - Plan -Cardiology on consult - Extubated to nasal cannula -Precedex as needed -PICC line in place -Currently off Levophed, maintain MAP greater than 65, wean Levophed as tolerated -Dobutamine has been weaned off -Neurochecks, monitor mentation closely - Repeat echo CONCLUSIONS LV systolic function is severely reduced with EF of 10 to 15%. Severe global hypokinesis. Pleural effusion seen - Continue aspirin, statin - therapeutic Lovenox - Plans on possible coronary angiography based on clinical progress - Will consider LVAD based on clinical progress - Lasix 40 IV bid - Will consider dialysis based on clinical progress -Venous ultrasound negative for DVT - Protonix for GI prophylaxis - Heparin drip for DVT prophylaxis Acute hypoxic respiratory failure - With acute respiratory distress - Systolic CHF exacerbation -Bilateral pleural effusions - Acute flash pulmonary edema - With concerns for possible pneumonia -Atrial fibrillation with rapid ventricular response -Down to 2L -Urine output 10 L -Now with concerns for progressive and extensive left-sided atelectasis -Concern for mucous plugging, atelectasis, resolving CT/CT chest wo con [id number] IMPRESSION: Progressive and now extensive left-sided atelectasis. Slightly increasing left pleural effusion. - Chest x-ray this morning shows left pleural effusion, left lower lobe atelectasis improved compared to prior examination Plan - Monitor in ICU closely - Monitor respiratory status closely -Precedex for sedation - DuoNeb - Budesonide - Blood cultures - Sputum cultures - Lasix 40 twice daily, no as needed -Maintain potassium greater than 4, replace potassium -IV doses based on clinical progress - Monitor creatinine - Monitor urine output - Vancomycin - Meropenem - Chest vest, hypertonic saline, Mucomyst Shock, resolving - Multifactorial cardiogenic shock - Component of sepsis with right lower lobe infiltrate pneumonia - Currently on Levophed - Maintain MAP greater than 65 - Monitor output, monitor creatinine Bilateral pleural effusions ct chest CT/[place] [id number] IMPRESSION: 1. Moderate layering pleural effusions bilaterally. Mild lower lobe atelectasis. 2. Moderate cardiomegaly with pulmonary hypertension. - Ultrasound thoracentesis, only very small bilateral pleural effusion, insufficient for safe thoracentesis Systolic CHF exacerbation -Used to follow with a warehouse shipping associate in [facility], has had hospitalizations in [facility] for CHF back in August CONCLUSIONS Left ventricle is dilated. LV systolic function is severely reduced with EF of 20-25%. Moderate left ventricular hypertrophy. Biatrial enlargement. Mild mitral regurgitation. Mild to moderate aortic regurgitation Mild tricuspid regurgitation Moderate pulmonary hypertension Moderate pulmonic regurgitation Pleural effusion seen IVC is dilated No comparison studies are seen. Cardiac echo CONCLUSIONS LV systolic function is severely reduced with EF of 10 to 15%. Severe global hypokinesis. Pleural effusion seen - Coronary angiogram, no obstructive CAD Concern for possible aspiration pneumonia, CT chest showing mild lower lobe atelectasis -Chest x-ray showing right-sided infiltrates - IV antibiotics as above Acute kidney injury on CKD, creatinine 22 - Baseline kidney function unknown - Used to follow-up with a continuity reader in [facility], had reported CKD, with discussions of dialysis at some point - Possibly component of cardiorenal syndrome -Urine output over 10 L - Monitor creatinine, monitor electrolytes - Patient is agreeable to dialysis if required NSTEMI - No chest pain complaints - Does have shortness of breath -EF 10 to 15% Plan - Telemetry monitoring - EKGs, serial troponins, telemetry monitoring - Aspirin, statin - therapeutic lovenox - Cardiology consulted, no obstructive CAD seen on cardiac angiogram A-fib with RVR - Amiodarone drip transition to p.o. amiodarone to prevent fluid overload - On therapeutic Lovenox Nonsustained V. tach - Amiodarone - Metoprolol Transaminitis, shock liver, monitor, resolved Increased anion gap metabolic acidosis, resolved - Check ketones within normal limits - Check A1c 6.2 - Lactic acid within normal limits Hyperkalemia, resolved - Calcium gluconate - Insulin, D10 - Repeat BMP this evening Uremia, resolved - Secondary to JOAO - Hemoglobin within normal limits - Monitor closely Physical deconditioning, protein calorie malnutrition - PT OT - Consult dietary - Consult speech therapy DNR/DNI Lovenox for DVT prophylaxis Plan for today, PT OT, incentive spirometer and flutter valve, up into a chair, continue IV diuresis PDMP PDMP Reviewed: Not Reviewed Attestations 2 Medical Necessity Statement*: Patient requires hospitalization for acute hypoxic respiratory failure, systolic CHF, JOAO, aspiration ammonia Procedures Arterial Line Size (Gauge): 20 Diagnoses Acute kidney injury N17.9 NSTEMI (non-ST elevated myocardial infarction) I21.4 Acute encephalopathy G93.40 Atrial fibrillation, unspecified type I48.91 Atrial fibrillation type: unspecified Other heart failure I50.89 Heart failure type: other Pulmonary edema J81.1 Acute hypoxic respiratory failure J96.01 Metabolic acidosis with respiratory alkalosis E87.20; E87.3 Cardiogenic shock R57.0 Sepsis A41.9 Pneumonia J18.9 Shock R57.9 Cardiorenal disease I13.10 Acute on chronic systolic congestive heart failure I50.23 Heart failure chronicity: acute on chronic Acute respiratory distress R06.03 Bilateral pleural effusion J90 Cardiac arrest I46.9 Cardiac arrest with successful resuscitation I46.9 Successful cardiopulmonary resuscitation Z92.89
[2025-04-12 19:16] LABS: Anion Gap 17.4 (5-19); Calcium 9.1 mg/dL (8.5-10.5); Carbon Dioxide 31 mmol/L (22-29); Chloride 96 mmol/L (98-107); Creatinine Clr Calc Pharmacy 29.5055; Glucose 143 mg/dL (65-115); Osmolality Calculated 319 mOsm/kg (285-295); Potassium 3.4 mmol/L (3.5-5.1); Sodium 141 mmol/L (136-145)
[2025-04-12 19:18] LABS: Blood Urea Nitrogen 81 mg/dL (8-23)
--- NOTE | 2025-04-12 19:22 | PC.NURSE ---
Fluid rate Patient's D5 with potassium ordered to be ran at 50 ml/hr. Documentation in MAR showed fluids running at 75 ml/hr. Pump in patient's room was running at 75 ml/hr. Changed rate on pump to 50 ml/hr, documented change in MAR.
--- NOTE | 2025-04-12 21:16 | PC.NURSE ---
Hold Dr Blake gave order to hold KIRK good. Hold reflected in MAR.
[2025-04-12] MEDS: dextrose 5% + KCl 20 mEq 20 MEQ/1,000 ML BAG 50 MEQ IV (22:32)
[2025-04-13] VITALS (56 sets, daily range): BP systolic 89–134; BP diastolic 57–96; PULSE 69–132; RESP 10–29; TEMP 36.2–36.6; O2SAT 86–100
[2025-04-13] MEDS: pantoprazole 40 mg SDV IVP (04:31)
[2025-04-13 05:21] LABS: Hematocrit 43.3 % (37-53); Hemoglobin 13.20 g/dL (11.27-16.99); Mean Corpuscular HGB Conc 30.5 g/dL (30-55); Mean Corpuscular Hemoglobin 29.9 pg (27-33); Mean Corpuscular Volume 98.0 fl (82-101); Nucleated Red Blood Cells % 0 %; Platelet Count 223 10^3/cmm (157-399); Red Blood Count 4.42 10^6/uL (3.85-5.65); White Blood Count 8.48 10^3/uL (3.29-11.43)
[2025-04-13 05:46] LABS: Alanine Aminotransferase 63 U/L (0-41); Albumin Level 3.0 g/dL (3.5-5.2); Alkaline Phosphatase 113 U/L (40-130); Anion Gap 19.4 (5-19); Aspartate Amino Transferase 24 U/L (0-40); Blood Urea Nitrogen 76 mg/dL (8-23); Calcium 9.0 mg/dL (8.5-10.5); Carbon Dioxide 30 mmol/L (22-29); Chloride 93 mmol/L (98-107); Creatinine Clr Calc Pharmacy 34.0164; Globulin 3.1 g/dL (1.3-4.6); Glucose 121 mg/dL (65-115); Magnesium 1.9 mg/dL (1.7-2.3); Osmolality Calculated 312 mOsm/kg (285-295); Potassium 3.4 mmol/L (3.5-5.1); Sodium 139 mmol/L (136-145); Total Protein 6.1 g/dL (6.6-8.7)
--- NOTE | 2025-04-13 05:54 | PC.NURSE ---
Patient is still having more frequent pauses and bradycardia, Dr. Weiss notified and gave updated set of vitals, new order received for atropine 0.5 if patient has sustained bradycardia.
[2025-04-13] MEDS: vancomycin 500 MG in sodium chloride 0.9% (plus) 100 ML 200 MG IV (07:48)
[2025-04-13] MEDS: FUROsemide 10 mg/mL SDV 4mL 40 MG IVP ×2 (07:48→20:56)
[2025-04-13] MEDS: metoprolol succinate ER (24 HR) 25 mg Tablet 12.5 MG PO ×2 (07:49→11:34)
[2025-04-13] MEDS: lidocaine 1% 5 ML in potassium chloride premix 100 ML 26.25 ML IV (08:58)
[2025-04-13] MEDS: amiodarone 150 MG/100 ML PREMIX 400 MG IV (12:12)
--- NOTE | 2025-04-13 13:11 | P.PN_ITS ---
Subjective 2 Subjective: Patient was seen this morning, nurses report episodes of confusion during the night, this morning he is alert to person To place, not to time, he does follow commands, no chest pain, no palpitations, no shortness of breath, - Patient developed A-fib with RVR late in the morning, start amiodarone drip with amiodarone bolus Vitals/I&O/Wt Last Vital Signs Temp 97.3 F L 04/13/25 08:00 Pulse 122 H 04/13/25 11:24 Resp 17 04/13/25 11:13 BP 111/91 04/13/25 10:00 Pulse Ox 98 04/13/25 11:13 O2 Del Method Room Air 04/13/25 11:13 O2 Flow Rate 2 04/13/25 07:40 FiO2 2 04/12/25 00:30 04/12/25 04/13/25 04/13/25 22:59 06:59 14:59 Intake Total 1562.5 / 1662.5 0 / 1662.5 325 / 325 Output Total 900 / 900 250 / 1150 Balance 662.5 / 762.5 -250 / 512.5 325 / 325 Weight last 48 hrs Weight 71.713 kg Weight 65.272 kg Physical Exam 2 Const: COMMON NORMALS: no acute distress and patient oriented x3 Resp: COMMON NORMALS: normal respiratory effort, No retractions, No use of accessory muscles and clear to auscultation bilaterally AUSCULTATION: clear to auscultation bilaterally Cardio: COMMON NORMALS: regular rate, regular rhythm, S1 normal heart sound present and S2 normal heart sound present RATE: regular rate RHYTHM: r egular rhythm HEART SOUNDS: S1 normal heart sound present and S2 normal heart sound present GI: COMMON NORMALS: Normal to inspection, nondistended, normoactive bowel sounds present and non-tender Extremity: COMMON NORMALS: no pedal edema Neuro: COMMON NORMALS: patient oriented x3 Psych: COMMON NORMALS: mental status grossly normal Urinary Catheter Management: Sullivan: Cath Placed During This Visit: no Reason for Continuing Indwelling Catheter: Accurate Measurement of Urinary Output in Critically Ill Patients Data 04/13/25 04:46 04/13/25 04:46 A&P Assessment and plan (1) Acute kidney injury: (2) NSTEMI (non-ST elevated myocardial infarction): (3) Acute encephalopathy: (4) Atrial fibrillation: (5) Heart failure: (6) Pulmonary edema: (7) Acute hypoxic respiratory failure: (8) Metabolic acidosis with respiratory alkalosis: (9) Cardiogenic shock: (10) Sepsis: (11) Pneumonia: (12) Shock: (13) Cardiorenal disease: (14) Systolic CHF: (15) Acute respiratory distress: (16) Bilateral pleural effusion: (17) Cardiac arrest: (18) Cardiac arrest with successful resuscitation: (19) Successful cardiopulmonary resuscitation: Plan Acute encephalopathy, episodes of confusion this morning, will monitor - Likely multifactorial -Likely component of cardiac arrest -Pneumonia -Hypoxia -polypharmacy - Neurochecks, - Monitor mentation closely - CT head CT/CT head wo con* [id number] IMPRESSION: Some images are graded by beam hardening and motion artifact. 3 to 4 mm focus of punctate increased attenuation LEFT posterior frontal cortex may represent beam hardening artifact versus less likely tiny punctate focus of hemorrhage. Recommend 6 to 12-hour interval follow-up CT to assess change. 2. Moderate small vessel changes with moderate parenchymal volume loss. 3. No other acute findings. 3 to 4 mm focus of punctate increased attenuation LEFT posterior frontal cortex CT/CT head wo con* [id number] IMPRESSION: Some images are graded by beam hardening and motion artifact. 1. 3 to 4 mm focus of punctate increased attenuation LEFT posterior frontal cortex may represent beam hardening artifact versus less likely tiny punctate focus of hemorrhage. Recommend 6 to 12-hour interval follow-up CT to assess change. 2. Moderate small vessel changes with moderate parenchymal volume loss. 3. No other acute findings. CT/CT head wo con* [id number] IMPRESSION: 1. Unchanged tiny hyperattenuating focus along the left frontoparietal junction cortex. No definite acute hemorrhage appreciated. 2. Remainder stable. CT/CT head wo con* [id number] IMPRESSION: 1. Previously described focus of increased attenuation in the LEFT frontal parietal junction has entirely resolved since yesterday. 2. No new suspicious abnormalities. 3. No other significant changes Plan -Spoke to radiology - Likely artifact - Discussed risk benefits of resuming anticoagulant therapy, patient's increased risk of hypercoagulable events, risk of strokes with his atrial fibrillation, he voiced understanding, all questions answered, agreed to proceed, resume therapeutic Lovenox Cardiac arrest - Concern for V-fib arrest - Likely secondary to acute flash pulmonary edema - Successful ROSC - Had 4 A of epi, 1 amp of bicarb, 1 amp of calcium chloride - CPR time roughly 7 minutes - Initial EKG shows atrial fibrillation, no acute ST-T wave changes - Pupils equal round reactive to light, does have a cough reflex, does have a gag reflex, according to nursing staff he did move his right arm, move head from [id number] -Baseline troponin 143, 120-minute 133 -BNP over 57,000 -Potassium 5.4, did give 1 dose of calcium chloride -Etomidate and succinylcholine for intubation used by ER provider, monitor potassium closely -Status post coronary angiogram, no obstructive CAD - Plan -Cardiology on consult - Extubated to nasal cannula -Precedex as needed -PICC line in place -Currently off Levophed, maintain MAP greater than 65, wean Levophed as tolerated -Dobutamine has been weaned off -Neurochecks, monitor mentation closely - Repeat echo CONCLUSIONS LV systolic function is severely reduced with EF of 10 to 15%. Severe global hypokinesis. Pleural effusion seen - Continue aspirin, statin - therapeutic Lovenox - Plans on possible coronary angiography based on clinical progress - Will consider LVAD based on clinical progress - Lasix 40 IV bid - Will consider dialysis based on clinical progress -Venous ultrasound negative for DVT - Protonix for GI prophylaxis - Heparin drip for DVT prophylaxis Acute hypoxic respiratory failure - With acute respiratory distress - Systolic CHF exacerbation -Bilateral pleural effusions - Acute flash pulmonary edema - With concerns for possible pneumonia -Atrial fibrillation with rapid ventricular response -Down to 2L -Urine output 10 L -Now with concerns for progressive and extensive left-sided atelectasis -Concern for mucous plugging, atelectasis, resolving CT/CT chest wo con [id number] IMPRESSION: Progressive and now extensive left-sided atelectasis. Slightly increasing left pleural effusion. - Chest x-ray this morning shows left pleural effusion, left lower lobe atelectasis improved compared to prior examination Plan - Monitor in ICU closely - Monitor respiratory status closely -Precedex for sedation - DuoNeb - Budesonide - Blood cultures - Sputum cultures - Lasix 40 twice daily, no as needed -Maintain potassium greater than 4, replace potassium -IV doses based on clinical progress - Monitor creatinine - Monitor urine output - Vancomycin - Meropenem - Chest vest, hypertonic saline, Mucomyst Shock, resolving - Multifactorial cardiogenic shock - Component of sepsis with right lower lobe infiltrate pneumonia - Currently on Levophed - Maintain MAP greater than 65 - Monitor output, monitor creatinine Bilateral pleural effusions ct chest CT/[place] [id number] IMPRESSION: 1. Moderate layering pleural effusions bilaterally. Mild lower lobe atelectasis. 2. Moderate cardiomegaly with pulmonary hypertension. - Ultrasound thoracentesis, only very small bilateral pleural effusion, insufficient for safe thoracentesis Systolic CHF exacerbation -Used to follow with a bus transportation manager in [facility], has had hospitalizations in [facility] for CHF back in August CONCLUSIONS Left ventricle is dilated. LV systolic function is severely reduced with EF of 20-25%. Moderate left ventricular hypertrophy. Biatrial enlargement. Mild mitral regurgitation. Mild to moderate aortic regurgitation Mild tricuspid regurgitation Moderate pulmonary hypertension Moderate pulmonic regurgitation Pleural effusion seen IVC is dilated No comparison studies are seen. Cardiac echo CONCLUSIONS LV systolic function is severely reduced with EF of 10 to 15%. Severe global hypokinesis. Pleural effusion seen - Coronary angiogram, no obstructive CAD Concern for possible aspiration pneumonia, CT chest showing mild lower lobe atelectasis -Chest x-ray showing right-sided infiltrates - IV antibiotics as above Acute kidney injury on CKD, creatinine 22 - Baseline kidney function unknown - Used to follow-up with a heel attacher wood in [facility], had reported CKD, with discussions of dialysis at some point - Possibly component of cardiorenal syndrome -Urine output over 10 L - Monitor creatinine, monitor electrolytes - Patient is agreeable to dialysis if required NSTEMI - No chest pain complaints - Does have shortness of breath -EF 10 to 15% Plan - Telemetry monitoring - EKGs, serial troponins, telemetry monitoring - Aspirin, statin - therapeutic lovenox - Cardiology consulted, no obstructive CAD seen on cardiac angiogram A-fib with RVR - Amiodarone drip with bolus - On therapeutic Lovenox Nonsustained V. tach - Amiodarone - Metoprolol Transaminitis, shock liver, monitor, resolved Increased anion gap metabolic acidosis, resolved - Check ketones within normal limits - Check A1c 6.2 - Lactic acid within normal limits Hyperkalemia, resolved - Calcium gluconate - Insulin, D10 - Repeat BMP this evening Uremia, resolved - Secondary to JOAO - Hemoglobin within normal limits - Monitor closely Physical deconditioning, protein calorie malnutrition - PT OT - Consult dietary - Consult speech therapy DNR/DNI Lovenox for DVT prophylaxis Plan for today, PT OT, incentive spirometer and flutter valve, up into a chair, continue IV diuresis, amiodarone drip stop vancomycin continue meropenem PDMP PDMP Reviewed: Not Reviewed Attestations 2 Medical Necessity Statement*: Patient requires hospitalization for A-fib with RVR, CHF Procedures Arterial Line Size (Gauge): 20 Diagnoses Acute kidney injury N17.9 NSTEMI (non-ST elevated myocardial infarction) I21.4 Acute encephalopathy G93.40 Atrial fibrillation, unspecified type I48.91 Atrial fibrillation type: unspecified Other heart failure I50.89 Heart failure type: other Pulmonary edema J81.1 Acute hypoxic respiratory failure J96.01 Metabolic acidosis with respiratory alkalosis E87.20; E87.3 Cardiogenic shock R57.0 Sepsis A41.9 Pneumonia J18.9 Shock R57.9 Cardiorenal disease I13.10 Acute on chronic systolic congestive heart failure I50.23 Heart failure chronicity: acute on chronic Acute respiratory distress R06.03 Bilateral pleural effusion J90 Cardiac arrest I46.9 Cardiac arrest with successful resuscitation I46.9 Successful cardiopulmonary resuscitation Z92.89
--- NOTE | 2025-04-13 13:29 | CTR_ITS ---
PROCEDURE INFORMATION: Exam: CT Head Without Contrast Exam date and time: 04/13/2025 2:02 PM Age: 80 years old Clinical indication: Altered mental status/memory loss; Additional info: AMS TECHNIQUE: Imaging protocol: Computed tomography of the head without contrast. Radiation optimization: All CT scans at this facility use at least one of these dose optimization techniques: automated exposure control; mA and/or kV adjustment per patient size (includes targeted exams where dose is matched to clinical indication); or iterative reconstruction. 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 Age related diffuse parenchymal volume loss. There are bilateral periventricular white matter and centrum semiovale hypodensities, consistent with chronic ischemic small vessel disease. No recent infarct, intracranial bleed or mass effect. Cerebral ventricles: Ex vacuo dilatation of the ventricles. Paranasal sinuses: Visualized sinuses are unremarkable. No fluid levels. Mastoid air cells: Visualized mastoid air cells are well aerated. Bones: Unremarkable. No acute fracture. Soft tissues: Unremarkable. CT/CT head wo con* [id number] IMPRESSION: No large territorial infarct or intracranial bleed.
[2025-04-13 14:18] LABS: Procalcitonin 0.20 ng/mL (0-0.5)
[2025-04-13] MEDS: dexmedeTOMIDine 0.9 % NaCL 400 MCG/100 ML PREMIX IV (16:00)
--- NOTE | 2025-04-13 16:05 | PM.PN ---
Subjective Subjective: on room air Medications: Reviewed: Yes Vitals/I&O/Wt Last Vital Signs Temp 97.8 F 04/13/25 12:00 Pulse 105 H 04/13/25 15:03 Resp 16 04/13/25 15:03 BP 99/80 04/13/25 14:00 Pulse Ox 96 04/13/25 15:03 O2 Del Method Room Air 04/13/25 15:03 O2 Flow Rate 2 04/13/25 07:40 FiO2 2 04/12/25 00:30 04/13/25 04/13/25 04/13/25 06:59 14:59 22:59 Intake Total 0 / 1662.5 430 / 430 Output Total 250 / 1150 Balance -250 / 512.5 430 / 430 Weight last 48 hrs Weight 71.713 kg Weight 65.272 kg Physical Exam Narrative: extubated in no apparent distress Vital signs noted. The patient is in atrial fibrillation with controlled rate HEENT normocephalic atraumatic. Neck is supple Lungs have dec crackles b/l Heart irregular with systolic murmur positive S1-S2 Abdomen is soft positive bowel sounds. Extremities have no edema, Neuro the patient is awake, alert, weak but moves The patient was seen and examined using audiovisual equipment with the aid of a nurse. Urinary Catheter Management: Sullivan: Cath Placed During This Visit: no Reason for Continuing Indwelling Catheter: Accurate Measurement of Urinary Output in Critically Ill Patients Data 04/13/25 04:46 04/13/25 04:46 A&P Assessment and plan (1) Acute kidney injury: 80-year-old gentleman that per chart from her long term has history of peripheral arterial disease, BPH, A-fib. And long term the patient is on Coreg Bumex and potassium. I wonder if the patient has heart failure. The patient was admitted just with altered mental status and acute kidney injury. The patient CT scan on April 03, 2025 that revealed moderate bilateral pleural effusions layering posteriorly moderate cardiomegaly. And his kidneys showed multiple cysts in the right kidney measuring up to 7.5 cm in greatest dimension, per reading no hydronephrosis vascular calcifications. 1. Acute kidney injury on ckd. Renal ultrasound shows right kidney 10.3 cm with numerous cysts. The largest cyst is 6.3 x 5.4 x 7 cm with mild cortical thinning and increased echogenicity. Left kidney 9 cm is mild diffuse cortical thinning no obstruction. Renal ultrasound is consistent with CKD. The patient has a negative VEGA negative [id number] DNA normal complements C3 97 C4 13, normal kappa lambda ratio 1.24. Patient's hepatitis serologies hep B surface antigens negative antibodies positive hep B core antibodies negative hep C antibodies negative -I am concerned for cardiorenal syndrome. The patient had a cardiac arrest 0n 04/05/25 after which he became acidotic which is now improving. - Cr improving , on room air , will use PRN diuretics 2. Hypernatremia stopped diuretics and s/p D5W w/ potassium 3. hypokalemia- monitor w/ repsletion 4. hyperphosphatemia- when eating. please give binders 5. CKF : Echocardiogram reveals severely reduced EF of 20 to 25% with global hypokinesis moderate LV hypertrophy. 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 -Repeat echocardiogram on April 06 after cardiac arrest showed LV systolic function severely reduced to 10 to 15% severe global hypokinesis and a pleural effusion. -normal cardiac cath per cardiology -arrythmias per cardiology 6. inc lft's as per medicine. is improving The patient was seen and examined using audiovisual equipment with the aid of a nurse. Plan See above PDMP PDMP Reviewed: Not Reviewed Attestations Medical Necessity Statement*: per medicine team Procedures Arterial Line Size (Gauge): 20 Coding Level of Care Code Acute Code for Chg Fwd Diagnoses Acute kidney injury N17.9
[2025-04-13 17:17] LABS: Glucose Urine UA Negative (Normal); Nitrate Urine Negative (Negative); Specific Gravity, Urine 1.015 (1.005-1.030)
[2025-04-13 17:22] LABS: Add Urine Microscopic? YES
[2025-04-13 17:46] LABS: UA Manual Slide Review YES; UA Slide Review UA Slide Review Perf
[2025-04-14] VITALS (58 sets, daily range): BP systolic 99–129; BP diastolic 63–90; PULSE 72–105; RESP 14–30; TEMP 36.6–37.3; O2SAT 86–100
[2025-04-14] MEDS: chlorhexidine gluconate 4% Btl 118 mL 1 APPLIC TOPICAL (00:31)
[2025-04-14] MEDS: pantoprazole 40 mg SDV IVP (03:36)
[2025-04-14] MEDS: morphine 4 mg/mL SDV 1 mL 1 MG IVP (04:33)
[2025-04-14 05:35] LABS: Hematocrit 40.1 % (37-53); Hemoglobin 12.50 g/dL (11.27-16.99); Mean Corpuscular HGB Conc 31.2 g/dL (30-55); Mean Corpuscular Hemoglobin 30.1 pg (27-33); Mean Corpuscular Volume 96.6 fl (82-101); Nucleated Red Blood Cells % 0 %; Platelet Count 242 10^3/cmm (157-399); Red Blood Count 4.15 10^6/uL (3.85-5.65); White Blood Count 9.77 10^3/uL (3.29-11.43)
[2025-04-14 05:53] LABS: Alanine Aminotransferase 46 U/L (0-41); Albumin Level 3.0 g/dL (3.5-5.2); Alkaline Phosphatase 106 U/L (40-130); Blood Urea Nitrogen 71 mg/dL (8-23); Calcium 8.7 mg/dL (8.5-10.5); Carbon Dioxide 30 mmol/L (22-29); Chloride 93 mmol/L (98-107); Creatinine Clr Calc Pharmacy 36.0173; Globulin 3.0 g/dL (1.3-4.6); Glucose 140 mg/dL (65-115); Magnesium 1.8 mg/dL (1.7-2.3); Osmolality Calculated 311 mOsm/kg (285-295); Sodium 139 mmol/L (136-145); Total Protein 6.0 g/dL (6.6-8.7)
[2025-04-14 05:56] LABS: Anion Gap 20.2 (5-19); Potassium 4.2 mmol/L (3.5-5.1)
[2025-04-14 05:57] LABS: Aspartate Amino Transferase 27 U/L (0-40)
[2025-04-14] MEDS: metoprolol succinate ER (24 HR) 25 mg Tablet 12.5 MG PO ×2 (08:04→17:14)
[2025-04-14] MEDS: FUROsemide 10 mg/mL SDV 4mL 40 MG IVP (08:04)
--- NOTE | 2025-04-14 11:17 | P.PN_ITS ---
Subjective 2 Subjective: no new c/o Medications: Reviewed: Yes Vitals/I&O/Wt Last Vital Signs Temp 99.1 F 04/14/25 08:00 Pulse 95 04/14/25 09:30 Resp 19 H 04/14/25 09:30 BP 110/81 04/14/25 09:30 Pulse Ox 94 04/14/25 09:30 O2 Del Method Room Air 04/14/25 07:40 O2 Flow Rate 2 04/14/25 06:30 FiO2 2 04/12/25 00:30 04/13/25 04/14/25 04/14/25 22:59 06:59 14:59 Intake Total 213.487 / 643.487 200 / 843.487 150 / 150 Output Total 1400 / 1400 650 / 2050 Balance -1186.513 / -756.513 -450 / -1206.513 150 / 150 Weight last 48 hrs Weight 67.086 kg Weight 71.713 kg Physical Exam 2 Narrative: extubated in no apparent distress Vital signs noted. The patient is in atrial fibrillation with controlled rate HEENT normocephalic atraumatic. Neck is supple Lungs have dec crackles b/l Heart irregular with systolic murmur positive S1-S2 Abdomen is soft positive bowel sounds. Extremities have no edema, Neuro the patient is awake, alert, weak but moves The patient was seen and examined using audiovisual equipment with the aid of a nurse. Urinary Catheter Management: Sullivan: Cath Placed During This Visit: no Reason for Continuing Indwelling Catheter: Accurate Measurement of Urinary Output in Critically Ill Patients Data 04/14/25 04:27 04/14/25 04:27 A&P Assessment and plan (1) Acute kidney injury: 80-year-old gentleman that per chart from her [facility] has history of peripheral arterial disease, BPH, A-fib. And f[facility] the patient is on Coreg Bumex and potassium. I wonder if the patient has heart failure. The patient was admitted just with altered mental status and acute kidney injury. The patient CT scan on April 03, 2025 that revealed moderate bilateral pleural effusions layering posteriorly moderate cardiomegaly. And his kidneys showed multiple cysts in the right kidney measuring up to 7.5 cm in greatest dimension, per reading no hydronephrosis vascular calcifications. 1. Acute kidney injury on ckd. Renal ultrasound shows right kidney 10.3 cm with numerous cysts. The largest cyst is 6.3 x 5.4 x 7 cm with mild cortical thinning and increased echogenicity. Left kidney 9 cm is mild diffuse cortical thinning no obstruction. Renal ultrasound is consistent with CKD. The patient has a negative VEGA negative [id number] DNA normal complements C3 97 C4 13, normal kappa lambda ratio 1.24. Patient's hepatitis serologies hep B surface antigens negative antibodies positive hep B core antibodies negative hep C antibodies negative -I am concerned for cardiorenal syndrome. The patient had a cardiac arrest 0n 04/05/25 after which he became acidotic which is now improving. - Cr improving , on room air , will use PRN diuretics 2. Hypernatremia stopped diuretics and s/p D5W w/ potassium 5. ChF : Echocardiogram reveals severely reduced EF of 20 to 25% with global hypokinesis moderate LV hypertrophy. 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 -Repeat echocardiogram on April 06 after cardiac arrest showed LV systolic function severely reduced to 10 to 15% severe global hypokinesis and a pleural effusion. -normal cardiac cath per cardiology -arrythmias per cardiology 6. inc lft's as per medicine. is improving The patient was seen and examined using audiovisual equipment with the aid of a nurse. Plan See above PDMP PDMP Reviewed: Not Reviewed Attestations 2 Medical Necessity Statement*: pr medicine Procedures Arterial Line Size (Gauge): 20 Coding Level of Care Code Acute Code for Chg Fwd Diagnoses Acute kidney injury N17.9
--- NOTE | 2025-04-14 13:29 | P.PN_ITS ---
Subjective 2 Subjective: Patient was seen this morning, he is alert to person, to place, not to time, he follows commands, but at times he hallucinates somebody else in the room, he follows commands, no facial droop, no slurring of his words, afebrile overnight, normotensive, with atrial fibrillation with RVR, current on amiodarone drip at 0.5 Vitals/I&O/Wt Last Vital Signs Temp 99.1 F 04/14/25 08:00 Pulse 95 04/14/25 09:30 Resp 19 H 04/14/25 09:30 BP 110/81 04/14/25 09:30 Pulse Ox 94 04/14/25 09:30 O2 Del Method Room Air 04/14/25 07:40 O2 Flow Rate 2 04/14/25 06:30 FiO2 2 04/12/25 00:30 04/13/25 04/14/25 04/14/25 22:59 06:59 14:59 Intake Total 213.487 / 643.487 200 / 843.487 150 / 150 Output Total 1400 / 1400 650 / 2050 Balance -1186.513 / -756.513 -450 / -1206.513 150 / 150 Weight last 48 hrs Weight 67.086 kg Weight 71.713 kg Physical Exam 2 Const: COMMON NORMALS: no acute distress ORIENTATION/CONSCIOUSNESS: Yes awake, Yes oriented to person and Yes oriented to place; not oriented to time HENMT: COMMON NORMALS: normocephalic HEAD & SCALP: normocephalic Resp: COMMON NORMALS: normal respiratory effort, No retractions, No use of accessory muscles and clear to auscultation bilaterally AUSCULTATION: clear to auscultation bilaterally Cardio: COMMON NORMALS: regular rate, regular rhythm, S1 normal heart sound present and S2 normal heart sound present RATE: regular rate RHYTHM: r egular rhythm HEART SOUNDS: S1 normal heart sound present and S2 normal heart sound present GI: COMMON NORMALS: Normal to inspection, nondistended, normoactive bowel sounds present and non-tender Extremity: COMMON NORMALS: no pedal edema Neuro: SENSORIUM/ORIENTATION: Yes oriented to person, Yes oriented to place and No oriented to time Urinary Catheter Management: Sullivan: Cath Placed During This Visit: no Reason for Continuing Indwelling Catheter: Accurate Measurement of Urinary Output in Critically Ill Patients Data 04/14/25 04:27 04/14/25 04:27 A&P Assessment and plan (1) Acute kidney injury: (2) NSTEMI (non-ST elevated myocardial infarction): (3) Acute encephalopathy: (4) Atrial fibrillation: (5) Heart failure: (6) Pulmonary edema: (7) Acute hypoxic respiratory failure: (8) Metabolic acidosis with respiratory alkalosis: (9) Cardiogenic shock: (10) Sepsis: (11) Pneumonia: (12) Shock: (13) Cardiorenal disease: (14) Systolic CHF: (15) Acute respiratory distress: (16) Bilateral pleural effusion: (17) Cardiac arrest: (18) Cardiac arrest with successful resuscitation: (19) Successful cardiopulmonary resuscitation: Plan Acute encephalopathy, episodes of confusion this morning, will monitor - Likely multifactorial -Likely component of cardiac arrest -Pneumonia -Hypoxia -polypharmacy - Neurochecks, - Monitor mentation closely - Repeat head CT, no acute findings -Possible ICU psychosis, will move out of ICU today 3 to 4 mm focus of punctate increased attenuation LEFT posterior frontal cortex may represent beam hardening artifact versus less likely tiny punctate focus of hemorrhage. Recommend 6 to 12-hour interval follow-up CT to assess change. 2. Moderate small vessel changes with moderate parenchymal volume loss. 3. No other acute findings. 3 to 4 mm focus of punctate increased attenuation LEFT posterior frontal cortex CT/CT head wo con* [id number] IMPRESSION: Some images are graded by beam hardening and motion artifact. 1. 3 to 4 mm focus of punctate increased attenuation LEFT posterior frontal cortex may represent beam hardening artifact versus less likely tiny punctate focus of hemorrhage. Recommend 6 to 12-hour interval follow-up CT to assess change. 2. Moderate small vessel changes with moderate parenchymal volume loss. 3. No other acute findings. CT/CT head wo con* [id number] IMPRESSION: 1. Unchanged tiny hyperattenuating focus along the left frontoparietal junction cortex. No definite acute hemorrhage appreciated. 2. Remainder stable. CT/CT head wo con* [id number] IMPRESSION: 1. Previously described focus of increased attenuation in the LEFT frontal parietal junction has entirely resolved since yesterday. 2. No new suspicious abnormalities. 3. No other significant changes Repeat head CT CT/CT head wo con* [id number] IMPRESSION: No large territorial infarct or intracranial bleed. Plan -Spoke to radiology - Likely artifact - Discussed risk benefits of resuming anticoagulant therapy, patient's increased risk of hypercoagulable events, risk of strokes with his atrial fibrillation, he voiced understanding, all questions answered, agreed to proceed, resume therapeutic Lovenox Cardiac arrest - Concern for V-fib arrest - Likely secondary to acute flash pulmonary edema - Successful ROSC - Had 4 A of epi, 1 amp of bicarb, 1 amp of calcium chloride - CPR time roughly 7 minutes - Initial EKG shows atrial fibrillation, no acute ST-T wave changes - Pupils equal round reactive to light, does have a cough reflex, does have a gag reflex, according to nursing staff he did move his right arm, move head from [id number] -Baseline troponin 143, 120-minute 133 -BNP over 57,000 -Potassium 5.4, did give 1 dose of calcium chloride -Etomidate and succinylcholine for intubation used by ER provider, monitor potassium closely -Status post coronary angiogram, no obstructive CAD - Plan -Cardiology on consult - Extubated to nasal cannula -Precedex as needed -PICC line in place -Currently off Levophed, maintain MAP greater than 65, wean Levophed as tolerated -Dobutamine has been weaned off -Neurochecks, monitor mentation closely - Repeat echo CONCLUSIONS LV systolic function is severely reduced with EF of 10 to 15%. Severe global hypokinesis. Pleural effusion seen - Continue aspirin, statin - therapeutic Lovenox - Plans on possible coronary angiography based on clinical progress - Will consider LVAD based on clinical progress - Lasix 40 IV bid - Will consider dialysis based on clinical progress -Venous ultrasound negative for DVT - Protonix for GI prophylaxis - Heparin drip for DVT prophylaxis Acute hypoxic respiratory failure - With acute respiratory distress - Systolic CHF exacerbation -Bilateral pleural effusions - Acute flash pulmonary edema - With concerns for possible pneumonia -Atrial fibrillation with rapid ventricular response -Down to 2L -Urine output 10 L -Now with concerns for progressive and extensive left-sided atelectasis -Concern for mucous plugging, atelectasis, resolving CT/CT chest wo con [id number] IMPRESSION: Progressive and now extensive left-sided atelectasis. Slightly increasing left pleural effusion. - Chest x-ray this morning shows left pleural effusion, left lower lobe atelectasis improved compared to prior examination Plan - Monitor in ICU closely - Monitor respiratory status closely -Precedex for sedation - DuoNeb - Budesonide - Blood cultures - Sputum cultures - Lasix 40 twice daily, no as needed -Maintain potassium greater than 4, replace potassium -IV doses based on clinical progress - Monitor creatinine - Monitor urine output - Vancomycin - Meropenem - Chest vest, hypertonic saline, Mucomyst Shock, resolving - Multifactorial cardiogenic shock - Component of sepsis with right lower lobe infiltrate pneumonia - Currently on Levophed - Maintain MAP greater than 65 - Monitor output, monitor creatinine Bilateral pleural effusions ct chest CT/[place] [id number] IMPRESSION: 1. Moderate layering pleural effusions bilaterally. Mild lower lobe atelectasis. 2. Moderate cardiomegaly with pulmonary hypertension. - Ultrasound thoracentesis, only very small bilateral pleural effusion, insufficient for safe thoracentesis Systolic CHF exacerbation -Used to follow with a cogeneration technician in [facility], has had hospitalizations in [facility] for CHF back in August CONCLUSIONS Left ventricle is dilated. LV systolic function is severely reduced with EF of 20-25%. Moderate left ventricular hypertrophy. Biatrial enlargement. Mild mitral regurgitation. Mild to moderate aortic regurgitation Mild tricuspid regurgitation Moderate pulmonary hypertension Moderate pulmonic regurgitation Pleural effusion seen IVC is dilated No comparison studies are seen. Cardiac echo CONCLUSIONS LV systolic function is severely reduced with EF of 10 to 15%. Severe global hypokinesis. Pleural effusion seen - Coronary angiogram, no obstructive CAD Concern for possible aspiration pneumonia, CT chest showing mild lower lobe atelectasis -Chest x-ray showing right-sided infiltrates - IV antibiotics as above Acute kidney injury on CKD, creatinine 22 - Baseline kidney function unknown - Used to follow-up with a turn out worker in [facility], had reported CKD, with discussions of dialysis at some point - Possibly component of cardiorenal syndrome -Urine output over 10 L - Monitor creatinine, monitor electrolytes - Patient is agreeable to dialysis if required NSTEMI - No chest pain complaints - Does have shortness of breath -EF 10 to 15% Plan - Telemetry monitoring - EKGs, serial troponins, telemetry monitoring - Aspirin, statin - therapeutic lovenox - Cardiology consulted, no obstructive CAD seen on cardiac angiogram A-fib with RVR - Amiodarone drip with bolus - On therapeutic Lovenox Nonsustained V. tach - Amiodarone - Metoprolol Transaminitis, shock liver, monitor, resolved Increased anion gap metabolic acidosis, resolved - Check ketones within normal limits - Check A1c 6.2 - Lactic acid within normal limits Hyperkalemia, resolved - Calcium gluconate - Insulin, D10 - Repeat BMP this evening Uremia, resolved - Secondary to JOAO - Hemoglobin within normal limits - Monitor closely Physical deconditioning, protein calorie malnutrition - PT OT - Consult dietary - Consult speech therapy DNR/DNI Lovenox for DVT prophylaxis Plan for today, PT OT, incentive spirometer and flutter valve, up into a chair, continue IV diuresis, amiodarone drip at 0.5, Metroprolol 12.5 twice daily, moved by ICU, monitor mentation PDMP PDMP Reviewed: Not Reviewed Attestations 2 Medical Necessity Statement*: Patient requires hospitalization for acute hypoxic respiratory failure, A-fib, NSTEMI, ICU psychosis Procedures Arterial Line Size (Gauge): 20 Diagnoses Acute kidney injury N17.9 NSTEMI (non-ST elevated myocardial infarction) I21.4 Acute encephalopathy G93.40 Atrial fibrillation, unspecified type I48.91 Atrial fibrillation type: unspecified Other heart failure I50.89 Heart failure type: other Pulmonary edema J81.1 Acute hypoxic respiratory failure J96.01 Metabolic acidosis with respiratory alkalosis E87.20; E87.3 Cardiogenic shock R57.0 Sepsis A41.9 Pneumonia J18.9 Shock R57.9 Cardiorenal disease I13.10 Acute on chronic systolic congestive heart failure I50.23 Heart failure chronicity: acute on chronic Acute respiratory distress R06.03 Bilateral pleural effusion J90 Cardiac arrest I46.9 Cardiac arrest with successful resuscitation I46.9 Successful cardiopulmonary resuscitation Z92.89
[2025-04-15] VITALS (29 sets, daily range): BP systolic 93–121; BP diastolic 62–81; PULSE 81–98; RESP 16–29; TEMP 36.3–36.9; O2SAT 89–97
[2025-04-15] MEDS: chlorhexidine gluconate 4% Btl 118 mL 1 APPLIC TOPICAL (00:29)
--- NOTE | 2025-04-15 02:16 | PC.NURSE ---
Urine Output Sullivan catheter reportedly removed at 1800 on 04/14. Prior to 2200, patient urinated 100ml in urinal as well as 1 small void unable to be measured. At approximately 0040, bladder scan performed revealing 469 ml urine retained in the bladder. After prompting, patient able to void 125 ml urine. At 0200, bladder scan performed again revealing 489 ml urine. Patient states he is unable to urinate at this time. Dr. Blake contacted and order received to perform a straight cath once, give first dose of flomax now, and monitor patient ability to void for 8 hours following cath.
--- NOTE | 2025-04-15 02:48 | PC.NURSE ---
Straight cath Straight cath procedure explained to patient though patient remaining confused. During straight catheterization, patient attempted to grab for catheter, unknown amount of urine spilled onto bed from urinal. Procedure finished with additional nurses bedside. 300 ml urine able to be measured out.
[2025-04-15 06:41] LABS: Hematocrit 41.3 % (37-53); Hemoglobin 12.70 g/dL (11.27-16.99); Mean Corpuscular HGB Conc 30.8 g/dL (30-55); Mean Corpuscular Hemoglobin 30.5 pg (27-33); Mean Corpuscular Volume 99.0 fl (82-101); Nucleated Red Blood Cells % 0 %; Platelet Count 220 10^3/cmm (157-399); Red Blood Count 4.17 10^6/uL (3.85-5.65); White Blood Count 7.30 10^3/uL (3.29-11.43)
[2025-04-15 06:54] LABS: Magnesium 1.9 mg/dL (1.7-2.3)
[2025-04-15 07:07] LABS: Anion Gap 16.2 (5-19); Blood Urea Nitrogen 75 mg/dL (8-23); Calcium 8.9 mg/dL (8.5-10.5); Carbon Dioxide 32 mmol/L (22-29); Chloride 96 mmol/L (98-107); Creatinine Clr Calc Pharmacy 37.2723; Glucose 87 mg/dL (65-115); Osmolality Calculated 314 mOsm/kg (285-295); Potassium 3.2 mmol/L (3.5-5.1); Sodium 141 mmol/L (136-145)
[2025-04-15 07:30] LABS: NT Pro B Type Natriuretic Pept 58157 pg/mL (0-450)
[2025-04-15] MEDS: metoprolol succinate ER (24 HR) 25 mg Tablet 12.5 MG PO ×2 (08:18→17:18)
[2025-04-15] MEDS: potassium phosphate (mEq K) 40 MEQ in sodium chloride 0.9% (100 ml) 100 ML 25 MEQ IV (08:23)
[2025-04-15] MEDS: polyethylene glycol 3350 Pkt 17 gm PO (08:27)
--- NOTE | 2025-04-15 09:18 | P.PN_ITS ---
<Statement entered by Tigre Peña M.D - 04/21/25 13:31> Patient was cared for in conjunction with an advanced practice practitioner.? I reviewed the chart and all pertinent data including imaging, telemetry, and laboratory results.? I discussed the patient in detail with the advanced practice practitioner.? Please see their note for complete progress note, testing results and agreed upon plan of care for the patient. Subjective 2 Subjective: No events noted overnight. He continues to be confused and talk when no one is in the room. He appears to be in atrial flutter, rate controlled in the 80s. Anticoagulated with apixaban 2.5 mg twice a day. Fluid balance 500 mL negative, cumulative over 11 L negative. Creatinine improving down to 1.6. Vitals/I&O/Wt Last Vital Signs Temp 98.2 F 04/15/25 16:11 Pulse 89 04/15/25 16:11 Resp 19 H 04/15/25 16:11 BP 119/70 04/15/25 16:11 Pulse Ox 94 04/15/25 16:11 O2 Del Method Room Air 04/15/25 16:11 O2 Flow Rate 2 04/14/25 15:12 FiO2 2 04/12/25 00:30 04/15/25 04/15/25 04/15/25 06:59 14:59 22:59 Intake Total 75 / 528.925 200 / 309.0909 109.0909 / 309.0909 Output Total 125 / 1025 Balance -50 / -496.075 200 / 309.0909 109.0909 / 309.0909 Weight last 48 hrs Weight 144 lb 11.2 oz Weight 147 lb 14.4 oz Physical Exam 2 Const: COMMON NORMALS: no acute distress Chest: COMMONS NORMALS: normal inspection of the chest and normal palpation of entire chest wall CHEST: Yes Symmetrical chest wall rise Resp: COMMON NORMALS: normal respiratory effort, No retractions, No use of accessory muscles and clear to auscultation bilaterally EFFORT & INSPECTION: Yes symmetric chest movement AUSCULTATION: clear to auscultation bilaterally Cardio: COMMON NORMALS: S1 normal heart sound present, S2 normal heart sound present, No gallops present (Cardio), No clicks present (Cardio), No murmurs present (Cardio) and No rub (Cardio) RHYTHM: abnormal rhythm irregularly irregular (atrial fibrillation/ atrial flutter) HEART SOUNDS: S1 normal heart sound present and S2 normal heart sound present PERIPHERAL PULSES: radial pulses present, posterior tibial pulses present and dorsalis pedis present Neuro: COMMON NORMALS: moves all extremities Psych: COMMON NORMALS: cooperative Urinary Catheter Management: Sullivan: Cath Placed During This Visit: yes, but has since been removed by the nurse Reason for Continuing Indwelling Catheter: Not indwelling catheter Date Urinary Catheter Removed: 04/14/25 Time Urinary Catheter Discontinued: 17:45 Data 04/15/25 06:31 04/15/25 06:31 Micro: Microbiology 04/13/25 16:37 Urine Culture - Final Urine,Clean Catch A&P Assessment and plan (1) Systolic CHF: (2) Cardiac arrest: (3) Atrial fibrillation: (4) NSTEMI (non-ST elevated myocardial infarction): (5) History of chronic kidney disease: Plan He remains confused but stable from a cardiovascular perspective. Continue metoprolol, Lasix, amiodarone, aspirin, Eliquis. He is receiving potassium and magnesium replacement daily. PDMP PDMP Reviewed: Not Reviewed Attestations 2 Medical Necessity Statement*: per hospitalist Procedures Arterial Line Size (Gauge): 20 Coding Level of Care Code Acute Code for g Fwd Diagnoses Acute on chronic systolic congestive heart failure I50.23 Heart failure chronicity: acute on chronic Cardiac arrest I46.9 Atrial fibrillation, unspecified type I48.91 Atrial fibrillation type: unspecified NSTEMI (non-ST elevated myocardial infarction) I21.4 History of chronic kidney disease Z87.448
--- NOTE | 2025-04-15 11:22 | PC.SLP ---
pt asleep. will attempt later
--- NOTE | 2025-04-15 11:48 | PC.SOCIAL ---
IMM Update pg 2 of IMM updated and reviewed w/ patient. Copy provided and copy dated, initialed and placed in chart.
--- NOTE | 2025-04-15 12:12 | P.PN_ITS ---
Subjective 2 Subjective: no new c/o Medications: Reviewed: Yes Vitals/I&O/Wt Last Vital Signs Temp 97.8 F 04/15/25 08:00 Pulse 82 04/15/25 10:00 Resp 20 H 04/15/25 10:00 BP 94/62 04/15/25 10:00 Pulse Ox 94 04/15/25 08:00 O2 Del Method Room Air 04/15/25 08:00 O2 Flow Rate 2 04/14/25 15:12 FiO2 2 04/12/25 00:30 04/14/25 04/15/25 04/15/25 22:59 06:59 14:59 Intake Total 178.925 / 453.925 75 / 528.925 100 / 100 Output Total 900 / 900 125 / 1025 Balance -721.075 / -446.075 -50 / -496.075 100 / 100 Weight last 48 hrs Weight 65.635 kg Weight 67.086 kg Physical Exam 2 Narrative: extubated in no apparent distress Vital signs noted. The patient is in atrial fibrillation with controlled rate HEENT normocephalic atraumatic. Neck is supple Lungs have dec crackles b/l Heart irregular with systolic murmur positive S1-S2 Abdomen is soft positive bowel sounds. Extremities have no edema, Neuro the patient is awake, alert, weak but moves The patient was seen and examined using audiovisual equipment with the aid of a nurse. Urinary Catheter Management: Sullivan: Cath Placed During This Visit: yes, but has since been removed by the nurse Reason for Continuing Indwelling Catheter: Not indwelling catheter Date Urinary Catheter Removed: 04/14/25 Time Urinary Catheter Discontinued: 17:45 Data 04/16/25 04:38 04/16/25 04:38 Micro: Microbiology 04/13/25 16:37 Urine Culture - Final Urine,Clean Catch A&P Assessment and plan 1. Acute kidney injury: 80-year-old gentleman that per chart from her intermediate has history of peripheral arterial disease, BPH, A-fib. And intermediate the patient is on Coreg Bumex and potassium. I wonder if the patient has heart failure. The patient was admitted just with altered mental status and acute kidney injury. The patient CT scan on April 03, 2025 that revealed moderate bilateral pleural effusions layering posteriorly moderate cardiomegaly. And his kidneys showed multiple cysts in the right kidney measuring up to 7.5 cm in greatest dimension, per reading no hydronephrosis vascular calcifications. 1. Acute kidney injury on ckd. Renal ultrasound shows right kidney 10.3 cm with numerous cysts. The largest cyst is 6.3 x 5.4 x 7 cm with mild cortical thinning and increased echogenicity. Left kidney 9 cm is mild diffuse cortical thinning no obstruction. Renal ultrasound is consistent with CKD. The patient has a negative VEGA negative [id number] DNA normal complements C3 97 C4 13, normal kappa lambda ratio 1.24. Patient's hepatitis serologies hep B surface antigens negative antibodies positive hep B core antibodies negative hep C antibodies negative -I am concerned for cardiorenal syndrome. The patient had a cardiac arrest 0n 04/05/25 after which he became acidotic which is now improving. - Cr improving , on room air , will use PRN diuretics 2. Hypernatremia stopped diuretics and s/p D5W w/ potassium 5. ChF : Echocardiogram reveals severely reduced EF of 20 to 25% with global hypokinesis moderate LV hypertrophy. 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 -Repeat echocardiogram on April 06 after cardiac arrest showed LV systolic function severely reduced to 10 to 15% severe global hypokinesis and a pleural effusion. -normal cardiac cath per cardiology -arrythmias per cardiology 6. inc lft's as per medicine. is improving The patient was seen and examined using audiovisual equipment with the aid of a nurse. Plan: See above PDMP PDMP Reviewed: Not Reviewed Attestations 2 Medical Necessity Statement*: per medicine Procedures Arterial Line Size (Gauge): 20 Coding Level of Care Code Acute Code for Chg Fwd Diagnoses Acute kidney injury N17.9
--- NOTE | 2025-04-15 15:11 | P.PN_ITS ---
Subjective 2 Subjective: Patient was seen this morning, he is alert to person, not to place, not to time he can follow commands, he recognizes me at as a physician, he keeps hallucinating, he is able to follow commands able to squeeze my fingers bilaterally wiggle his toes able to smile for me, pupils are equal round reactive light able to track me, Vitals/I&O/Wt Last Vital Signs Temp 97.8 F 04/15/25 12:00 Pulse 97 04/15/25 14:00 Resp 20 H 04/15/25 14:00 BP 93/62 04/15/25 14:00 Pulse Ox 95 04/15/25 13:30 O2 Del Method Room Air 04/15/25 13:30 O2 Flow Rate 2 04/14/25 15:12 FiO2 2 04/12/25 00:30 04/15/25 04/15/25 04/15/25 06:59 14:59 22:59 Intake Total 75 / 528.925 200 / 200 Output Total 125 / 1025 Balance -50 / -496.075 200 / 200 Weight last 48 hrs Weight 65.635 kg Weight 67.086 kg Physical Exam 2 Const: COMMON NORMALS: no acute distress ORIENTATION/CONSCIOUSNESS: Yes awake, Yes oriented to person and Yes oriented to place; not oriented to time Resp: COMMON NORMALS: normal respiratory effort, No retractions, No use of accessory muscles and clear to auscultation bilaterally AUSCULTATION: clear to auscultation bilaterally Cardio: COMMON NORMALS: regular rate, regular rhythm, S1 normal heart sound present and S2 normal heart sound present RATE: regular rate RHYTHM: r egular rhythm HEART SOUNDS: S1 normal heart sound present and S2 normal heart sound present GI: COMMON NORMALS: Normal to inspection, nondistended, normoactive bowel sounds present and non-tender Extremity: COMMON NORMALS: no pedal edema Neuro: SENSORIUM/ORIENTATION: Yes oriented to person, Yes oriented to place and No oriented to time Psych: COMMON NORMALS: mental status grossly normal Urinary Catheter Management: Sullivan: Cath Placed During This Visit: yes, but has since been removed by the nurse Reason for Continuing Indwelling Catheter: Not indwelling catheter Date Urinary Catheter Removed: 04/14/25 Time Urinary Catheter Discontinued: 17:45 Data 04/15/25 06:31 04/15/25 06:31 Micro: Microbiology 04/13/25 16:37 Urine Culture - Final Urine,Clean Catch A&P Assessment and plan (1) Acute kidney injury: (2) NSTEMI (non-ST elevated myocardial infarction): (3) Acute encephalopathy: (4) Atrial fibrillation: (5) Heart failure: (6) Pulmonary edema: (7) Acute hypoxic respiratory failure: (8) Metabolic acidosis with respiratory alkalosis: (9) Cardiogenic shock: (10) Sepsis: (11) Pneumonia: (12) Shock: (13) Cardiorenal disease: (14) Systolic CHF: (15) Acute respiratory distress: (16) Bilateral pleural effusion: (17) Cardiac arrest: (18) Cardiac arrest with successful resuscitation: (19) Successful cardiopulmonary resuscitation: Plan Acute encephalopathy, episodes of confusion this morning, will monitor - Likely multifactorial -Likely component of cardiac arrest -Pneumonia -Hypoxia -polypharmacy - Neurochecks, - Monitor mentation closely - Repeat head CT, no acute findings -Possible ICU psychosis, will move out of ICU today 3 to 4 mm focus of punctate increased attenuation LEFT posterior frontal cortex may represent beam hardening artifact versus less likely tiny punctate focus of hemorrhage. Recommend 6 to 12-hour interval follow-up CT to assess change. 2. Moderate small vessel changes with moderate parenchymal volume loss. 3. No other acute findings. 3 to 4 mm focus of punctate increased attenuation LEFT posterior frontal cortex CT/CT head wo con* [id number] IMPRESSION: Some images are graded by beam hardening and motion artifact. 1. 3 to 4 mm focus of punctate increased attenuation LEFT posterior frontal cortex may represent beam hardening artifact versus less likely tiny punctate focus of hemorrhage. Recommend 6 to 12-hour interval follow-up CT to assess change. 2. Moderate small vessel changes with moderate parenchymal volume loss. 3. No other acute findings. CT/CT head wo con* [id number] IMPRESSION: 1. Unchanged tiny hyperattenuating focus along the left frontoparietal junction cortex. No definite acute hemorrhage appreciated. 2. Remainder stable. CT/CT head wo con* [id number] IMPRESSION: 1. Previously described focus of increased attenuation in the LEFT frontal parietal junction has entirely resolved since yesterday. 2. No new suspicious abnormalities. 3. No other significant changes Repeat head CT CT/CT head wo con* [id number] IMPRESSION: No large territorial infarct or intracranial bleed. Plan -Spoke to radiology - Likely artifact - Discussed risk benefits of resuming anticoagulant therapy, patient's increased risk of hypercoagulable events, risk of strokes with his atrial fibrillation, he voiced understanding, all questions answered, agreed to proceed, resume therapeutic Lovenox Cardiac arrest - Concern for V-fib arrest - Likely secondary to acute flash pulmonary edema - Successful ROSC - Had 4 A of epi, 1 amp of bicarb, 1 amp of calcium chloride - CPR time roughly 7 minutes - Initial EKG shows atrial fibrillation, no acute ST-T wave changes - Pupils equal round reactive to light, does have a cough reflex, does have a gag reflex, according to nursing staff he did move his right arm, move head from [id number] -Baseline troponin 143, 120-minute 133 -BNP over 57,000 -Potassium 5.4, did give 1 dose of calcium chloride -Etomidate and succinylcholine for intubation used by ER provider, monitor potassium closely -Status post coronary angiogram, no obstructive CAD - Plan -Cardiology on consult - Extubated to nasal cannula -Precedex as needed -PICC line in place -Currently off Levophed, maintain MAP greater than 65, wean Levophed as tolerated -Dobutamine has been weaned off -Neurochecks, monitor mentation closely - Repeat echo CONCLUSIONS LV systolic function is severely reduced with EF of 10 to 15%. Severe global hypokinesis. Pleural effusion seen - Continue aspirin, statin - therapeutic Lovenox - Plans on possible coronary angiography based on clinical progress - Will consider LVAD based on clinical progress - Lasix 40 IV bid - Will consider dialysis based on clinical progress -Venous ultrasound negative for DVT - Protonix for GI prophylaxis - Heparin drip for DVT prophylaxis Acute hypoxic respiratory failure - With acute respiratory distress - Systolic CHF exacerbation -Bilateral pleural effusions - Acute flash pulmonary edema - With concerns for possible pneumonia -Atrial fibrillation with rapid ventricular response -Down to 2L -Urine output 10 L -Now with concerns for progressive and extensive left-sided atelectasis -Concern for mucous plugging, atelectasis, resolving CT/CT chest wo con [id number] IMPRESSION: Progressive and now extensive left-sided atelectasis. Slightly increasing left pleural effusion. - Chest x-ray this morning shows left pleural effusion, left lower lobe atelectasis improved compared to prior examination Plan - Monitor in ICU closely - Monitor respiratory status closely -Precedex for sedation - DuoNeb - Budesonide - Blood cultures - Sputum cultures - Lasix 40 twice daily, no as needed -Maintain potassium greater than 4, replace potassium -IV doses based on clinical progress - Monitor creatinine - Monitor urine output - Vancomycin - Meropenem - Chest vest, hypertonic saline, Mucomyst Shock, resolving - Multifactorial cardiogenic shock - Component of sepsis with right lower lobe infiltrate pneumonia - Currently on Levophed - Maintain MAP greater than 65 - Monitor output, monitor creatinine Bilateral pleural effusions ct chest CT/[place] [id number] IMPRESSION: 1. Moderate layering pleural effusions bilaterally. Mild lower lobe atelectasis. 2. Moderate cardiomegaly with pulmonary hypertension. - Ultrasound thoracentesis, only very small bilateral pleural effusion, insufficient for safe thoracentesis Systolic CHF exacerbation -Used to follow with a merchandise flow associate in [facility], has had hospitalizations in [facility] for CHF back in August CONCLUSIONS Left ventricle is dilated. LV systolic function is severely reduced with EF of 20-25%. Moderate left ventricular hypertrophy. Biatrial enlargement. Mild mitral regurgitation. Mild to moderate aortic regurgitation Mild tricuspid regurgitation Moderate pulmonary hypertension Moderate pulmonic regurgitation Pleural effusion seen IVC is dilated No comparison studies are seen. Cardiac echo CONCLUSIONS LV systolic function is severely reduced with EF of 10 to 15%. Severe global hypokinesis. Pleural effusion seen - Coronary angiogram, no obstructive CAD Concern for possible aspiration pneumonia, CT chest showing mild lower lobe atelectasis -Chest x-ray showing right-sided infiltrates - IV antibiotics as above Acute kidney injury on CKD, creatinine 22 - Baseline kidney function unknown - Used to follow-up with a manager integrated in [facility], had reported CKD, with discussions of dialysis at some point - Possibly component of cardiorenal syndrome -Urine output over 10 L - Monitor creatinine, monitor electrolytes - Patient is agreeable to dialysis if required NSTEMI - No chest pain complaints - Does have shortness of breath -EF 10 to 15% Plan - Telemetry monitoring - EKGs, serial troponins, telemetry monitoring - Aspirin, statin - therapeutic lovenox - Cardiology consulted, no obstructive CAD seen on cardiac angiogram A-fib with RVR - Amiodarone drip with bolus - On therapeutic Lovenox Nonsustained V. tach - Amiodarone - Metoprolol Transaminitis, shock liver, monitor, resolved Increased anion gap metabolic acidosis, resolved - Check ketones within normal limits - Check A1c 6.2 - Lactic acid within normal limits Hyperkalemia, resolved - Calcium gluconate - Insulin, D10 - Repeat BMP this evening Uremia, resolved - Secondary to JOAO - Hemoglobin within normal limits - Monitor closely Physical deconditioning, protein calorie malnutrition - PT OT - Consult dietary - Consult speech therapy DNR/DNI Lovenox for DVT prophylaxis Plan for today, PT OT, incentive spirometer and flutter valve, up into a chair, switch to p.o. diuresis, continue p.o., continue metoprolol, order LifeVest, work on placement to skilled nursing, move out of ICU due to concerns for ICU psychosis Zyprexa 2.5 twice daily, stop meropenem as there is concerns for encephalopathy associate with meropenem, switch to Augmentin, transition off Lovenox to Eliquis 2.5 twice daily PDMP PDMP Reviewed: Not Reviewed Attestations 2 Medical Necessity Statement*: Patient requires hospitalization for ischemic cardiomyopathy, encephalopathy, deconditioning, ischemic cardiomyopathy Procedures Arterial Line Size (Gauge): 20 Diagnoses Acute kidney injury N17.9 NSTEMI (non-ST elevated myocardial infarction) I21.4 Acute encephalopathy G93.40 Atrial fibrillation, unspecified type I48.91 Atrial fibrillation type: unspecified Other heart failure I50.89 Heart failure type: other Pulmonary edema J81.1 Acute hypoxic respiratory failure J96.01 Metabolic acidosis with respiratory alkalosis E87.20; E87.3 Cardiogenic shock R57.0 Sepsis A41.9 Pneumonia J18.9 Shock R57.9 Cardiorenal disease I13.10 Acute on chronic systolic congestive heart failure I50.23 Heart failure chronicity: acute on chronic Acute respiratory distress R06.03 Bilateral pleural effusion J90 Cardiac arrest I46.9 Cardiac arrest with successful resuscitation I46.9 Successful cardiopulmonary resuscitation Z92.89
--- NOTE | 2025-04-15 15:13 | PC.NURSE ---
Report given to CORINNE Gomez
--- NOTE | 2025-04-15 15:15 | PC.NURSE ---
Notified Misael, patients son that he is being moved to room 250-2.
--- NOTE | 2025-04-15 15:25 | PC.SLP ---
Attempted once again. Pt asked therapist to quit asking him if he wanted to trial foods/liquids and that he wanted to wait until tomorrow. Therapist notified nursing.
--- NOTE | 2025-04-15 15:34 | PC.NURSE ---
Transferred to 250 via bed, tolerated well.
[2025-04-16] VITALS (13 sets, daily range): BP systolic 95–114; BP diastolic 66–72; PULSE 72–97; RESP 16–21; TEMP 36.5–36.8; O2SAT 92–98
[2025-04-16] MEDS: chlorhexidine gluconate 4% Btl 118 mL 1 APPLIC TOPICAL (00:29)
[2025-04-16 04:57] LABS: Hematocrit 42.5 % (37-53); Hemoglobin 13.30 g/dL (11.27-16.99); Mean Corpuscular HGB Conc 31.3 g/dL (30-55); Mean Corpuscular Hemoglobin 30.8 pg (27-33); Mean Corpuscular Volume 98.4 fl (82-101); Nucleated Red Blood Cells % 0 %; Platelet Count 226 10^3/cmm (157-399); Red Blood Count 4.32 10^6/uL (3.85-5.65); White Blood Count 6.51 10^3/uL (3.29-11.43)
[2025-04-16 05:19] LABS: Anion Gap 18.5 (5-19); Blood Urea Nitrogen 72 mg/dL (8-23); Calcium 8.9 mg/dL (8.5-10.5); Carbon Dioxide 31 mmol/L (22-29); Chloride 99 mmol/L (98-107); Creatinine Clr Calc Pharmacy 36.9600; Glucose 113 mg/dL (65-115); Magnesium 2.0 mg/dL (1.7-2.3); Osmolality Calculated 322 mOsm/kg (285-295); Potassium 3.5 mmol/L (3.5-5.1); Sodium 145 mmol/L (136-145)
[2025-04-16 05:44] LABS: NT Pro B Type Natriuretic Pept 43627 pg/mL (0-450)
[2025-04-16] MEDS: metoprolol succinate ER (24 HR) 25 mg Tablet 12.5 MG PO ×2 (09:18→18:06)
[2025-04-16] MEDS: polyethylene glycol 3350 Pkt 17 gm PO (09:19)
--- NOTE | 2025-04-16 11:20 | P.PN_ITS ---
<Statement entered by Tigre Peña M.D - 04/21/25 13:32> Patient was cared for in conjunction with an advanced practice practitioner.? I reviewed the chart and all pertinent data including imaging, telemetry, and laboratory results.? I discussed the patient in detail with the advanced practice practitioner.? Please see their note for complete progress note, testing results and agreed upon plan of care for the patient. Subjective 2 Subjective: He was needing to use the bathroom, did not want to answer questions. No chest pain or shortness of breath at rest. No edema. Lungs clear. We will sign off. Vitals/I&O/Wt Last Vital Signs Temp 97.8 F 04/16/25 07:01 Pulse 97 04/16/25 09:22 Resp 16 04/16/25 09:22 BP 112/67 04/16/25 07:01 Pulse Ox 98 04/16/25 09:22 O2 Del Method Room Air 04/16/25 09:22 O2 Flow Rate 2 04/14/25 15:12 FiO2 2 04/12/25 00:30 04/15/25 04/16/25 04/16/25 22:59 06:59 14:59 Intake Total 109.0909 / 309.0909 240 / 240 Balance 109.0909 / 309.0909 240 / 240 Weight last 48 hrs Weight 136 lb 7 oz Weight 144 lb 11.2 oz Physical Exam 2 Const: COMMON NORMALS: no acute distress and patient oriented x3 GENERAL APPEARANCE: cooperative and comfortable ORIENTATION/CONSCIOUSNESS: Yes awake, Yes oriented to person, Yes oriented to place and Yes oriented to time Chest: COMMONS NORMALS: normal inspection of the chest and normal palpation of entire chest wall CHEST: Yes Symmetrical chest wall rise Resp: COMMON NORMALS: normal respiratory effort, No retractions, No use of accessory muscles and clear to auscultation bilaterally EFFORT & INSPECTION: Yes symmetric chest movement AUSCULTATION: clear to auscultation bilaterally Cardio: COMMON NORMALS: regular rate, regular rhythm, S1 normal heart sound present, S2 normal heart sound present, No gallops present (Cardio), No clicks present (Cardio), No murmurs present (Cardio) and No rub (Cardio) RATE: r egular rate RHYTHM: regular rhythm HEART SOUNDS: S1 normal heart sound present and S2 normal heart sound present PERIPHERAL PULSES: radial pulses present Extremity: COMMON NORMALS: no pedal edema Neuro: COMMON NORMALS: patient oriented x3 and moves all extremities S ENSORIUM/ORIENTATION: Yes oriented to person, Yes oriented to place and Yes oriented to time Urinary Catheter Management: Sullivan: Cath Placed During This Visit: yes, but has since been removed by the nurse Reason for Continuing Indwelling Catheter: Not indwelling catheter Date Urinary Catheter Removed: 04/14/25 Time Urinary Catheter Discontinued: 17:45 Data 04/16/25 04:38 04/16/25 04:38 Micro: Microbiology 04/13/25 16:37 Urine Culture - Final Urine,Clean Catch A&P Assessment and plan 1. Atrial fibrillation: 2. Systolic CHF: 3. Cardiac arrest: 4. NSTEMI (non-ST elevated myocardial infarction): 5. History of chronic kidney disease: Plan: He remains stable from a cardiovascular perspective. Continue metoprolol, Lasix, amiodarone, aspirin, Eliquis. Agree with LifeVest if he will be compliant with it. If he decides on transitioning to hospice will not need the vest. PDMP PDMP Reviewed: Not Reviewed Attestations 2 Medical Necessity Statement*: per hospitalist Procedures Arterial Line Size (Gauge): 20 Coding Level of Care Code Acute Code for [facility] Diagnoses Atrial fibrillation I48.91 Systolic CHF I50.20 Cardiac arrest I46.9 NSTEMI (non-ST elevated myocardial infarction) I21.4 History of chronic kidney disease Z87.448
--- NOTE | 2025-04-16 17:28 | P.PN_ITS ---
Subjective 2 Subjective: The patient was seen this morning, is alert to person, not to place, not to time he recognizes me as a physician, however he continues to hallucinate throughout the morning, he is not that hyperactive this morning, requires frequent redirection, I cannot discern any facial droop no slurring of his words, he moves bilateral upper and lower extremities Vitals/I&O/Wt Last Vital Signs Temp 97.7 F 04/16/25 16:00 Pulse 81 04/16/25 16:00 Resp 18 04/16/25 16:00 BP 100/66 04/16/25 16:00 Pulse Ox 92 04/16/25 16:00 O2 Del Method Room Air 04/16/25 16:00 O2 Flow Rate 2 04/14/25 15:12 FiO2 2 04/12/25 00:30 04/16/25 04/16/25 04/16/25 06:59 14:59 22:59 Intake Total 360 / 360 Balance 360 / 360 Weight last 48 hrs Weight 61.887 kg Weight 65.635 kg Physical Exam 2 Const: COMMON NORMALS: no acute distress ORIENTATION/CONSCIOUSNESS: Yes awake, Yes oriented to person and Yes confused; not oriented to place and not oriented to time Resp: COMMON NORMALS: normal respiratory effort, No retractions, No use of accessory muscles and clear to auscultation bilaterally AUSCULTATION: clear to auscultation bilaterally Cardio: COMMON NORMALS: regular rate, regular rhythm, S1 normal heart sound present and S2 normal heart sound present RATE: regular rate RHYTHM: r egular rhythm HEART SOUNDS: S1 normal heart sound present and S2 normal heart sound present GI: COMMON NORMALS: Normal to inspection, nondistended, normoactive bowel sounds present and non-tender Extremity: COMMON NORMALS: no pedal edema Neuro: SENSORIUM/ORIENTATION: Yes oriented to person, No oriented to place and No oriented to time Psych: COMMON NORMALS: mental status grossly normal Urinary Catheter Management: Sullivan: Cath Placed During This Visit: yes, but has since been removed by the nurse Reason for Continuing Indwelling Catheter: Not indwelling catheter Date Urinary Catheter Removed: 04/14/25 Time Urinary Catheter Discontinued: 17:45 Data 04/16/25 04:38 04/16/25 04:38 A&P Assessment and plan 1. Acute kidney injury: 2. NSTEMI (non-ST elevated myocardial infarction): 3. Acute encephalopathy: 4. Atrial fibrillation: 5. Heart failure: 6. Pulmonary edema: 7. Acute hypoxic respiratory failure: 8. Metabolic acidosis with respiratory alkalosis: 9. Cardiogenic shock: 10. Sepsis: 11. Pneumonia: 12. Shock: 13. Cardiorenal disease: 14. Systolic CHF: 15. Acute respiratory distress: 16. Bilateral pleural effusion: 17. Cardiac arrest: 18. Cardiac arrest with successful resuscitation: 19. Successful cardiopulmonary resuscitation: Plan: Acute encephalopathy, episodes of confusion this morning, will monitor - Likely multifactorial -Likely component of cardiac arrest -Pneumonia -Hypoxia -polypharmacy - Neurochecks, - Monitor mentation closely - Repeat head CT, no acute findings -Possible ICU psychosis, out of ICU 3 to 4 mm focus of punctate increased attenuation LEFT posterior frontal cortex may represent beam hardening artifact versus less likely tiny punctate focus of hemorrhage. Recommend 6 to 12-hour interval follow-up CT to assess change. 2. Moderate small vessel changes with moderate parenchymal volume loss. 3. No other acute findings. 3 to 4 mm focus of punctate increased attenuation LEFT posterior frontal cortex CT/CT head wo con* [id number] IMPRESSION: Some images are graded by beam hardening and motion artifact. 1. 3 to 4 mm focus of punctate increased attenuation LEFT posterior frontal cortex may represent beam hardening artifact versus less likely tiny punctate focus of hemorrhage. Recommend 6 to 12-hour interval follow-up CT to assess change. 2. Moderate small vessel changes with moderate parenchymal volume loss. 3. No other acute findings. CT/CT head wo con* [id number] IMPRESSION: 1. Unchanged tiny hyperattenuating focus along the left frontoparietal junction cortex. No definite acute hemorrhage appreciated. 2. Remainder stable. CT/CT head wo con* [id number] IMPRESSION: 1. Previously described focus of increased attenuation in the LEFT frontal parietal junction has entirely resolved since yesterday. 2. No new suspicious abnormalities. 3. No other significant changes Repeat head CT CT/CT head wo con* [id number] IMPRESSION: No large territorial infarct or intracranial bleed. Plan -Spoke to radiology - Likely artifact - Discussed risk benefits of resuming anticoagulant therapy, patient's increased risk of hypercoagulable events, risk of strokes with his atrial fibrillation, he voiced understanding, all questions answered, agreed to proceed, resume therapeutic Lovenox Cardiac arrest - Concern for V-fib arrest - Likely secondary to acute flash pulmonary edema - Successful ROSC - Had 4 A of epi, 1 amp of bicarb, 1 amp of calcium chloride - CPR time roughly 7 minutes - Initial EKG shows atrial fibrillation, no acute ST-T wave changes - Pupils equal round reactive to light, does have a cough reflex, does have a gag reflex, according to nursing staff he did move his right arm, move head from [id number] -Baseline troponin 143, 120-minute 133 -BNP over 57,000 -Potassium 5.4, did give 1 dose of calcium chloride -Etomidate and succinylcholine for intubation used by ER provider, monitor potassium closely -Status post coronary angiogram, no obstructive CAD - Plan -Cardiology on consult - Extubated to nasal cannula -PICC line in place -Currently off Levophed, -Dobutamine has been weaned off -Neurochecks, monitor mentation closely - Repeat echo CONCLUSIONS LV systolic function is severely reduced with EF of 10 to 15%. Severe global hypokinesis. Pleural effusion seen - Continue aspirin, statin - therapeutic Lovenox - Plans on possible coronary angiography based on clinical progress - Will consider LVAD based on clinical progress - Lasix 40 IV bid - Will consider dialysis based on clinical progress -Venous ultrasound negative for DVT - Protonix for GI prophylaxis - eliquis for DVT prophylaxis Acute hypoxic respiratory failure, resolved - With acute respiratory distress - Systolic CHF exacerbation -Bilateral pleural effusions - Acute flash pulmonary edema - With concerns for possible pneumonia -Atrial fibrillation with rapid ventricular response -Down to 2L -Urine output 10 L -Now with concerns for progressive and extensive left-sided atelectasis -Concern for mucous plugging, atelectasis, resolving CT/CT chest wo con [id number] IMPRESSION: Progressive and now extensive left-sided atelectasis. Slightly increasing left pleural effusion. - Chest x-ray this morning shows left pleural effusion, left lower lobe atelectasis improved compared to prior examination Plan - move to [facility] - Monitor respiratory status closely -Precedex for sedation - DuoNeb - Budesonide - Blood cultures - Sputum cultures - Lasix 40 twice daily, no as needed -Maintain potassium greater than 4, replace potassium -IV doses based on clinical progress - Monitor creatinine - Monitor urine output - deesclaate to augmentin - Chest vest, hypertonic saline, Mucomyst stopped Shock, resolved - Multifactorial cardiogenic shock - Component of sepsis with right lower lobe infiltrate pneumonia - Currently on Levophed - Maintain MAP greater than 65 - Monitor output, monitor creatinine Bilateral pleural effusions ct chest CT/[place] [id number] IMPRESSION: 1. Moderate layering pleural effusions bilaterally. Mild lower lobe atelectasis. 2. Moderate cardiomegaly with pulmonary hypertension. - Ultrasound thoracentesis, only very small bilateral pleural effusion, insufficient for safe thoracentesis Systolic CHF exacerbation -Used to follow with a commercial management accountant in [place], [place], has had hospitalizations in [facility] for CHF back in August CONCLUSIONS Left ventricle is dilated. LV systolic function is severely reduced with EF of 20-25%. Moderate left ventricular hypertrophy. Biatrial enlargement. Mild mitral regurgitation. Mild to moderate aortic regurgitation Mild tricuspid regurgitation Moderate pulmonary hypertension Moderate pulmonic regurgitation Pleural effusion seen IVC is dilated No comparison studies are seen. Cardiac echo CONCLUSIONS LV systolic function is severely reduced with EF of 10 to 15%. Severe global hypokinesis. Pleural effusion seen - Coronary angiogram, no obstructive CAD Concern for possible aspiration pneumonia, CT chest showing mild lower lobe atelectasis -Chest x-ray showing right-sided infiltrates - on augmentin Acute kidney injury on CKD, creatinine 22 - Baseline kidney function unknown - Used to follow-up with a wire stitcher in [place], [place], had reported CKD, with discussions of dialysis at some point - Possibly component of cardiorenal syndrome -Urine output over 10 L - Monitor creatinine, monitor electrolytes - Patient is agreeable to dialysis if required NSTEMI - No chest pain complaints - Does have shortness of breath -EF 10 to 15% Plan - Telemetry monitoring - EKGs, serial troponins, telemetry monitoring - Aspirin, statin - eliquis - Cardiology consulted, no obstructive CAD seen on cardiac angiogram A-fib with RVR - Amiodarone - On eliquis Nonsustained V. tach - Amiodarone - Metoprolol Transaminitis, shock liver, monitor, resolved Increased anion gap metabolic acidosis, resolved - Check ketones within normal limits - Check A1c 6.2 - Lactic acid within normal limits Hyperkalemia, resolved - Calcium gluconate - Insulin, D10 - Repeat BMP this evening Uremia, resolved - Secondary to JOAO - Hemoglobin within normal limits - Monitor closely Physical deconditioning, protein calorie malnutrition - PT OT - Consult dietary - Consult speech therapy DNR/DNI Lovenox for DVT prophylaxis Plan for today, PT OT, up out of bed, monitor clinical status monitor mentation, start Celexa PDMP PDMP Reviewed: Not Reviewed Attestations 2 Medical Necessity Statement*: Patient requires hospitalization for altered mental status, weakness Procedures Arterial Line Size (Gauge): 20 Diagnoses Acute kidney injury N17.9 NSTEMI (non-ST elevated myocardial infarction) I21.4 Acute encephalopathy G93.40 Atrial fibrillation, unspecified type I48.91 Atrial fibrillation type: unspecified Other heart failure I50.89 Heart failure type: other Pulmonary edema J81.1 Acute hypoxic respiratory failure J96.01 Metabolic acidosis with respiratory alkalosis E87.20; E87.3 Cardiogenic shock R57.0 Sepsis A41.9 Pneumonia J18.9 Shock R57.9 Cardiorenal disease I13.10 Acute on chronic systolic congestive heart failure I50.23 Heart failure chronicity: acute on chronic Acute respiratory distress R06.03 Bilateral pleural effusion J90 Cardiac arrest I46.9 Cardiac arrest with successful resuscitation I46.9 Successful cardiopulmonary resuscitation Z92.89
--- NOTE | 2025-04-16 17:42 | PC.SLP ---
Attempted to work with the patient, however, the patient is perseverating on wanting to attempt to go to the bathroom. Nurse reports the patient is incontinent, but has used the bedpan previously.
--- NOTE | 2025-04-16 20:47 | P.PN_ITS ---
Subjective 2 Subjective: no new c/o Medications: Reviewed: Yes Vitals/I&O/Wt Last Vital Signs Temp 98.1 F 04/16/25 20:00 Pulse 74 04/16/25 20:30 Resp 18 04/16/25 20:30 BP 99/67 04/16/25 20:00 Pulse Ox 93 04/16/25 20:30 O2 Del Method Room Air 04/16/25 20:30 O2 Flow Rate 2 04/14/25 15:12 FiO2 2 04/12/25 00:30 04/16/25 04/16/25 04/16/25 06:59 14:59 22:59 Intake Total 360 / 360 240 / 600 Balance 360 / 360 240 / 600 Weight last 48 hrs Weight 61.887 kg Weight 65.635 kg Physical Exam 2 Narrative: extubated in no apparent distress Vital signs noted. The patient is in atrial fibrillation with controlled rate HEENT normocephalic atraumatic. Neck is supple Lungs have dec crackles b/l Heart irregular with systolic murmur positive S1-S2 Abdomen is soft positive bowel sounds. Extremities have no edema, Neuro the patient is awake, alert, weak but moves The patient was seen and examined using audiovisual equipment with the aid of a nurse. Urinary Catheter Management: Sullivan: Cath Placed During This Visit: yes, but has since been removed by the nurse Reason for Continuing Indwelling Catheter: Not indwelling catheter Date Urinary Catheter Removed: 04/14/25 Time Urinary Catheter Discontinued: 17:45 Data 04/16/25 04:38 04/16/25 04:38 A&P Assessment and plan 1. Acute kidney injury: 80-year-old gentleman that per chart from her senior living has history of peripheral arterial disease, BPH, A-fib. And senior living the patient is on Coreg Bumex and potassium. I wonder if the patient has heart failure. The patient was admitted just with altered mental status and acute kidney injury. The patient CT scan on April 03, 2025 that revealed moderate bilateral pleural effusions layering posteriorly moderate cardiomegaly. And his kidneys showed multiple cysts in the right kidney measuring up to 7.5 cm in greatest dimension, per reading no hydronephrosis vascular calcifications. 1. Acute kidney injury on ckd. Renal ultrasound shows right kidney 10.3 cm with numerous cysts. The largest cyst is 6.3 x 5.4 x 7 cm with mild cortical thinning and increased echogenicity. Left kidney 9 cm is mild diffuse cortical thinning no obstruction. Renal ultrasound is consistent with CKD. The patient has a negative VEGA negative xdju-eiynhy-lbqyxpls DNA normal complements C3 97 C4 13, normal kappa lambda ratio 1.24. Patient's hepatitis serologies hep B surface antigens negative antibodies positive hep B core antibodies negative hep C antibodies negative -I am concerned for cardiorenal syndrome. The patient had a cardiac arrest 0n 04/05/25 after which he became acidotic which is now improving. - Cr improving , on room air , will use PRN diuretics 2. Hypernatremia stopped diuretics and s/p D5W w/ potassium 5. ChF : Echocardiogram reveals severely reduced EF of 20 to 25% with global hypokinesis moderate LV hypertrophy. 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 -Repeat echocardiogram on April 06 after cardiac arrest showed LV systolic function severely reduced to 10 to 15% severe global hypokinesis and a pleural effusion. -normal cardiac cath per cardiology -arrythmias per cardiology 6. inc lft's as per medicine. is improving The patient was seen and examined using audiovisual equipment with the aid of a nurse. Plan: See above PDMP PDMP Reviewed: Not Reviewed Attestations 2 Medical Necessity Statement*: per medicie Procedures Arterial Line Size (Gauge): 20 Coding Level of Care Code Acute Code for Chg Fwd Diagnoses Acute kidney injury N17.9
[2025-04-17] VITALS (7 sets, daily range): BP systolic 104–115; BP diastolic 60–67; PULSE 69–82; RESP 16–18; TEMP 36.3–36.9; O2SAT 92–96
[2025-04-17] MEDS: chlorhexidine gluconate 4% Btl 118 mL 1 APPLIC TOPICAL (00:26)
[2025-04-17 03:47] LABS: Hematocrit 39.3 % (37-53); Hemoglobin 12.40 g/dL (11.27-16.99); Mean Corpuscular HGB Conc 31.6 g/dL (30-55); Mean Corpuscular Hemoglobin 30.7 pg (27-33); Mean Corpuscular Volume 97.3 fl (82-101); Nucleated Red Blood Cells % 0 %; Platelet Count 224 10^3/cmm (157-399); Red Blood Count 4.04 10^6/uL (3.85-5.65); White Blood Count 6.83 10^3/uL (3.29-11.43)
[2025-04-17 04:12] LABS: Anion Gap 15.5 (5-19); Blood Urea Nitrogen 71 mg/dL (8-23); Calcium 8.6 mg/dL (8.5-10.5); Carbon Dioxide 32 mmol/L (22-29); Chloride 99 mmol/L (98-107); Creatinine Clr Calc Pharmacy 36.1531; Glucose 106 mg/dL (65-115); Magnesium 2.1 mg/dL (1.7-2.3); Osmolality Calculated 317 mOsm/kg (285-295); Potassium 3.5 mmol/L (3.5-5.1); Sodium 143 mmol/L (136-145)
[2025-04-17 04:43] LABS: NT Pro B Type Natriuretic Pept 38274 pg/mL (0-450)
[2025-04-17] MEDS: metoprolol succinate ER (24 HR) 25 mg Tablet 12.5 MG PO (09:58)
--- NOTE | 2025-04-17 09:58 | PC.OT ---
OT TREATMENT ATTEMPTED AT 0945; PATIENT IS SLEEPING SOUNDLY. WILL ATTEMPT AGAIN AT A LATER TIME.
[2025-04-17] MEDS: polyethylene glycol 3350 Pkt 17 gm PO (09:59)
--- NOTE | 2025-04-17 10:32 | PC.SOCIAL ---
IMM Updated Updated pt on IMM. No questions voiced. Provided pt a copy. Initialed, dated, & timed copy in chart.
--- NOTE | 2025-04-17 11:23 | P.PN_ITS ---
Subjective 2 Subjective: no new c/o Medications: Reviewed: Yes Vitals/I&O/Wt Last Vital Signs Temp 97.3 F L 04/17/25 07:24 Pulse 71 04/17/25 08:10 Resp 16 04/17/25 08:00 BP 106/66 04/17/25 07:24 Pulse Ox 95 04/17/25 08:00 O2 Del Method Room Air 04/17/25 08:00 O2 Flow Rate 2 04/14/25 15:12 FiO2 2 04/12/25 00:30 04/16/25 04/17/25 04/17/25 22:59 06:59 14:59 Intake Total 240 / 600 120 / 120 Balance 240 / 600 120 / 120 Weight last 48 hrs Weight 65.317 kg Weight 61.887 kg Physical Exam 2 Narrative: extubated in no apparent distress Vital signs noted. The patient is in atrial fibrillation with controlled rate HEENT normocephalic atraumatic. Neck is supple Lungs have dec crackles b/l Heart irregular with systolic murmur positive S1-S2 Abdomen is soft positive bowel sounds. Extremities have no edema, Neuro the patient is awake, alert, weak but moves The patient was seen and examined using audiovisual equipment with the aid of a nurse. Urinary Catheter Management: Sullivan: Cath Placed During This Visit: yes, but has since been removed by the nurse Reason for Continuing Indwelling Catheter: Not indwelling catheter Date Urinary Catheter Removed: 04/14/25 Time Urinary Catheter Discontinued: 17:45 Data 04/17/25 03:12 04/17/25 03:12 A&P Assessment and plan 1. Acute kidney injury: 80-year-old gentleman that per chart from her intermediate has history of peripheral arterial disease, BPH, A-fib. And intermediate the patient is on Coreg Bumex and potassium. I wonder if the patient has heart failure. The patient was admitted just with altered mental status and acute kidney injury. The patient CT scan on April 03, 2025 that revealed moderate bilateral pleural effusions layering posteriorly moderate cardiomegaly. And his kidneys showed multiple cysts in the right kidney measuring up to 7.5 cm in greatest dimension, per reading no hydronephrosis vascular calcifications. 1. Acute kidney injury on ckd. Renal ultrasound shows right kidney 10.3 cm with numerous cysts. The largest cyst is 6.3 x 5.4 x 7 cm with mild cortical thinning and increased echogenicity. Left kidney 9 cm is mild diffuse cortical thinning no obstruction. Renal ultrasound is consistent with CKD. The patient has a negative VEGA negative ukym-dgyibo-kvyyiosv DNA normal complements C3 97 C4 13, normal kappa lambda ratio 1.24. Patient's hepatitis serologies hep B surface antigens negative antibodies positive hep B core antibodies negative hep C antibodies negative -I am concerned for cardiorenal syndrome. The patient had a cardiac arrest 0n 04/05/25 after which he became acidotic which is now improving. - Cr improving , on room air , will use PRN diuretics 2. Hypernatremia stopped diuretics and s/p D5W w/ potassium 5. ChF : Echocardiogram reveals severely reduced EF of 20 to 25% with global hypokinesis moderate LV hypertrophy. 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 -Repeat echocardiogram on April 06 after cardiac arrest showed LV systolic function severely reduced to 10 to 15% severe global hypokinesis and a pleural effusion. -normal cardiac cath per cardiology -arrythmias per cardiology 6. inc lft's as per medicine. is improving The patient was seen and examined using audiovisual equipment with the aid of a nurse. Plan: See above PDMP PDMP Reviewed: Not Reviewed Attestations 2 Medical Necessity Statement*: per mediicne Procedures Arterial Line Size (Gauge): 20 Coding Level of Care Code Acute Code for Chg Fwd Diagnoses Acute kidney injury N17.9
--- NOTE | 2025-04-17 12:03 | PM.DCS ---
Discharge Providers Date of Admission: 04/03/25 17:16 Date of Discharge: April 17, 2025 Attending Provider at Admission: Kenny Sin MD Attending Provider at Discharge: Kenny Sin MD Diagnoses at Discharge Discharge Diagnosis 1. Acute kidney injury: Reason for Visit Reason for Visit: confusion Hospital Course Hospital Course Edward Ross is a 80 year old male with a past medical history peripheral arterial disease, bph who presents [facility] for altered mental status. Currently patient is alert to person, not to place, not to time he can answer basic yes or no questions, but is globally encephalopathic, knows his name, but does not know his birthdate, does not know where he is, I spoke to [facility] and is he tells me that Edward is fairly cognitively intact, he is alert oriented x 3, he is very sharp and they tell me, he can carry conversations, he does have chronic back pain, he is a 1 person assist, he can feed himself, for the last 2 days, he has had increased episodes of confusion, especially during the night, he has had episodes of confusion, they were worried potentially could be PTSD, he has had no specific complaints except his chronic back pain for which she does not use any pain medications, no recent medication changes, no known falls, he has been eating appropriately, I was unable to get much history from Edward he denies any chest pain, no abdominal pain, no shortness of breath, GCS score is 10-12 Patient had a prolonged hospitalization, please look at my last progress note for further detail Patient was admitted to [facility] for acute hypoxic respiratory failure secondary to acute systolic CHF exacerbation, acute flash pulmonary edema, with concerns for pneumonia, requiring ICU admission, he subsequently developed V-fib arrest likely secondary acute flash pulmonary edema with successful ROSC, had prolonged intubation, multiorgan failure, overall clinically improved. Patient is multiorgan failure significantly improved, did not require dialysis, was weaned off mechanical ventilation and sedation, extubated to nasal cannula, diuresed over 12 L negative, underwent coronary angiography which did not show findings of obstructive CAD, medically managed. Due to significant deconditioning, patient will be discharged to long term facility for rehab For patient's nonischemic cardiomyopathy, with cardiac arrest, he will be discharged with diuretic therapy, beta-john therapy, amiodarone therapy with a close follow-up with cardiology as outpatient. After detailed discussion with patient and family about his goals of care, decision was made to pursue DNR/DNI. In terms of LifeVest, initially arrangements were made to place patient on LifeVest however after further discussion with patient and family about overall goals of care, patient is DNR/DNI, after discussing the risks and benefits of all options with patient's son, quality versus quantity of life, Edward's overall prognosis with nonischemic cardiomyopathy/CKD/CHF/history of cardiac arrest/deconditioning, decision was made to hold off on LifeVest for now. Patient's son understands that Edward at any time could of a cardiac arrhythmia, but he just wants his father to remain comfortable, he does not want to have resuscitative measures or aggressive interventions. However in the future if his clinical condition improves, decision to pursue LifeVest will be based on his clinical progress as outpatient and shared decision making between patient his son and cardiology. Overall the goals of care is to emphasize a quality of life for Edward, he is DNR/DNI, but also give him time with medical management to see if he clinically improves. Will have him follow-up with cardiology as outpatient. For his acute hypoxic respiratory failure, from systolic CHF, acute flash pulm edema, concern for pneumonia, overall clinically improved discharged on nasal cannula to long term facility For atrial fibrillation with rapid reticular response can discharge on beta-john, amiodarone, and Eliquis therapy Patient had shock during his hospitalization multifactorial cardiogenic, septic shock, which has resolved Bilateral pleural effusions which are resolving For JOAO on CKD chronic kidney disease creatinine has improved to 1.6 on discharge Transaminitis, resolved For physical deconditioning, protein, malnutrition, discharge to long term facility For patient's encephalopathy, he is alert to person, to place, not to time he can follow commands but does have episodes of confusion at times, poor appetite, at times he has episodes of confusion. 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 Discharge to long term facility, on Zyprexa, Celexa, continue to monitor mentation closely. Physical Exam Const: COMMON NORMALS: no acute distress ORIENTATION/CONSCIOUSNESS: Yes awake, Yes oriented to person and Yes oriented to place; not oriented to time Eye: COMMON NORMALS: Equal, round and reactive pupils present PUPIL: Yes Equal, round and reactive pupils present Resp: COMMON NORMALS: normal respiratory effort, No retractions, No use of accessory muscles and clear to auscultation bilaterally AUSCULTATION: clear to auscultation bilaterally Cardio: COMMON NORMALS: regular rate, regular rhythm, S1 normal heart sound present and S2 normal heart sound present RATE: regular rate RHYTHM: regular rhythm HEART SOUNDS: S1 normal heart sound present and S2 normal heart sound present GI: COMMON NORMALS: Normal to inspection, nondistended, normoactive bowel sounds present, Soft to palpation and non-tender PALPATION: Yes Soft to palpation Extremity: COMMON NORMALS: no pedal edema Neuro: SENSORIUM/ORIENTATION: Yes oriented to person, Yes oriented to place and No oriented to time Urinary Catheter Management: Sullivan: Cath Placed During This Visit: yes, but has since been removed by the nurse Reason for Continuing Indwelling Catheter: Not indwelling catheter Date Urinary Catheter Removed: 04/14/25 Time Urinary Catheter Discontinued: 17:45 Discharge Data Studies Completed and Pending Completed Studies During Hospitalization Category Date Time Status CT chest abdomen pelvis [[place] [address]/99845 Cat Scan 04/03/25 15:24 Completed ] Stat CT chest wo con 43400 Stat Cat Scan 04/08/25 13:[address] head wo con* [id number] Routine Cat Scan 04/10/25 14:[address] head wo con* 60556 Routine Cat Scan 04/10/25 23:[address] head wo con* [id number] Routine Cat Scan 04/11/25 12:[address] head wo con* [id number] Stat Cat Scan 04/03/25 13:[address] head wo con* [id number] Stat Cat Scan 04/13/25 13:29 Completed CXRP [XR chest 1V portable [id number]] Routine Exams 04/04/25 10:19 Completed XR KUB portable [id number] Routine Exams 04/08/25 21:14 Completed XR chest 1V portable 46848 Routine Exams 04/05/25 07:00 Completed XR chest 1V portable [id number] Routine Exams 04/06/25 07:00 Completed XR chest 1V portable [id number] Routine Exams 04/07/25 08:06 Completed XR chest 1V portable [id number] Routine Exams 04/08/25 08:03 Completed XR chest 1V portable 31416 Routine Exams 04/09/25 07:00 Completed XR chest 1V portable 93931 Routine Exams 04/10/25 07:00 Completed XR chest 1V portable 25265 Routine Exams 04/11/25 07:00 Completed XR chest 1V portable 79197 Stat Exams 04/03/25 13:00 Completed XR chest 1V portable 31076 Stat Exams 04/05/25 10:59 Completed XR chest 1V portable 44909 Stat Exams 04/08/25 18:00 Completed XR chest 1V portable 31427 Urgent Exams 04/08/25 12:41 [place] [id number] Routine Ultrasound 04/05/25 11:27 Completed CV. echo complete* [id number] Stat Ultrasound 04/03/25 16:07 Completed CV. echo limited 38038 Stat Ultrasound 04/05/25 11:03 Com[place] chest 84124 Routine Ultrasound 04/05/25 07:44 Completed [place] chest 22247 Stat Ultrasound 04/08/25 13:10 Completed US renal BI* [id number] Routine Ultrasound 04/04/25 10:01 Completed Pending at discharge Category Date Time Status SANITARY CHEMIST request for service Routine Exams 04/09/25 08:22 Taken Complete Blood Count w/Auto AM LABS Lab 04/18/25 04:00 Ordered Complete Blood Count w/Auto AM LABS Lab 04/19/25 04:00 Ordered SARS Covid-2 Antigen Stat Lab 04/17/25 11:46 Received Radiology Impressions Chest/Abdomen/Pelvis CT 04/03/25 15:24 IMPRESSION: 1. Moderate layering pleural effusions bilaterally. Mild lower lobe atelectasis. 2. Moderate cardiomegaly with pulmonary hypertension. IMPRESSION: 1. Layering gallstones or gallbladder sludge. 2. Nonspecific fat stranding in the upper abdomen as described. Consider correlation with amylase and lipase given possibility of pancreatitis. 3. Multiple renal cysts particularly in the right kidney. COMMENTS: Consistent with the [employer]'s Incidental Findings Committee white paper (J Am Clarence Radiol 2018): Any incidental renal lesion less than 1 cm or classified as too small to characterize, or any incidental cystic renal lesion characterized as simple-appearing, is likely benign. No follow-up imaging is recommended for these lesions per consensus recommendations based on imaging criteria. Renal Ultrasound 04/04/25 10:01 IMPRESSION: 1. No renal obstruction. 2. Numerous RIGHT renal cysts. The largest measures 6.3 x 5.4 x 7.0 cm. 3. Mild bilateral diffuse cortical thinning. 4. Mild chronic medical renal disease. Chest Ultrasound 04/08/25 13:10 IMPRESSION: See above Chest CT 04/08/25 13:36 IMPRESSION: Progressive and now extensive left-sided atelectasis. Slightly increasing left pleural effusion. COMMENTS: Consistent with the [employer]'s Incidental Findings Committee white paper (J Am Clarence Radiol 2018): Any incidental renal lesion less than 1 cm or classified as too small to characterize, or any incidental cystic renal lesion characterized as simple-appearing, is likely benign. No follow-up imaging is recommended for these lesions per consensus recommendations based on imaging criteria. KUB X-Ray 04/08/25 21:14 IMPRESSION: Enteric tube projects over expected location of the stomach. Chest X-Ray 04/11/25 07:00 IMPRESSION: No significant change. Head CT 04/13/25 13:29 IMPRESSION: No large territorial infarct or intracranial bleed. Laboratory Results WBC 6.83 10^3/uL (3.29-11.43) 04/17/25 03:12 RBC 4.04 10^6/uL (3.85-5.65) 04/17/25 03:12 Hgb 12.40 g/dL (11.27-16.99) 04/17/25 03:12 Hct 39.3 % (37-53) 04/17/25 03:12 MCV 97.3 fl (82-101) 04/17/25 03:12 MCH 30.7 pg (27-33) 04/17/25 03:12 MCHC 31.6 g/dL (30-55) 04/17/25 03:12 RDW 14.1 % (12.1-15.1) 04/17/25 03:12 Plt Count 224 10^3/cmm (157-399) 04/17/25 03:12 MPV 11.3 fL (7.4-10.4) H 04/17/25 03:12 Neut % (Auto) 70.6 % 04/17/25 03:12 Lymph % (Auto) 17.7 % 04/17/25 03:12 Love % (Auto) 8.6 % 04/17/25 03:12 Eos % (Auto) 2.3 % 04/17/25 03:12 Baso % (Auto) 0.4 % 04/17/25 03:12 Reticulocyte % (Auto) 3.3 % (0.5-2.0) H 04/04/25 11:19 Neut # (Auto) 4.81 10^3/uL (1.8-7.7) 04/17/25 03:12 Lymph # (Auto) 1.2 10^3/uL (0.8-4.8) 04/17/25 03:12 Love # (Auto) 0.6 10^3/uL (0.2-0.9) 04/17/25 03:12 Eos # (Auto) 0.2 10^3/uL (0.0-0.8) 04/17/25 03:12 Baso # (Auto) 0.0 10^3/uL (0.0-0.1) 04/17/25 03:12 Nucleated RBC % (auto) 0 % 04/17/25 03:12 Nucleated RBCs # 0.0 /100WBC 04/17/25 03:12 Haptoglobin 147.0 mg/L (30-200) 04/04/25 11:19 PT 15.70 SECONDS (12.1-14.9) H 04/08/25 02:21 INR 1.17 (0.8-1.2) 04/08/25 02:21 APTT 49.1 SECONDS (23.9-36.7) H 04/08/25 09:00 Specimen Type Arterial 04/11/25 03:20 Sample Site [place] 04/11/25 03:20 ABG pH 7.50 (7.35-7.45) H 04/11/25 03:20 ABG pCO2 38.8 mmHg (35-45) 04/11/25 03:20 ABG pO2 80.9 mmHg (80.0-100.0) 04/11/25 03:20 ABG PO2/FiO2 Ratio 202 04/11/25 03:20 ABG HCO3 29.8 mmol/L (22-26) H 04/11/25 03:20 ABG O2 Saturation 98.8 04/05/25 13:50 ABG Base Excess 6.2 mmol/L (-2.0-2.0) H 04/11/25 03:20 Bi Test Pos 04/11/25 03:20 A-a O2 Gradient 32.8 mmHg (5-10) H 04/05/25 13:50 Hematocrit 37.4 % (42-52) L 04/11/25 03:20 Hgb O2 Saturation 97.8 % (95-100) 04/05/25 13:50 Carboxyhemoglobin 0.7 %THgb (0.4-20.1) 04/05/25 13:50 Methemoglobin 0.3 % (0.4-1.5) L 04/05/25 13:50 Total Hemoglobin 12.4 g/dL (14-18) L 04/05/25 13:50 Sodium 142.0 mmol/L (131-143) 04/05/25 13:50 Potassium 4.5 mmol/L (3.5-5.0) 04/05/25 13:50 Glucose 153.0 mg/dL (70-115) H 04/05/25 13:50 Ionized Calcium 1.2 mmol/L (1.1-1.4) 04/05/25 13:50 O2 Delivery Device vent 04/11/25 03:20 O2 Liters/Min 15.0 % 04/05/25 10:46 FiO2 40.0 % 04/11/25 03:20 Tidal Volume 0.45 04/11/25 03:20 PEEP 5.0 cmH20 04/11/25 03:20 Assistant Director Of Public [employer] ID Bd 04/11/25 03:20 Sodium 143 mmol/L (136-145) 04/17/25 03:12 Potassium 3.5 mmol/L (3.5-5.1) 04/17/25 03:12 Chloride 99 mmol/L (98-107) 04/17/25 03:12 Carbon Dioxide 32 mmol/L (22-29) H 04/17/25 03:12 Anion Gap 15.5 (5-19) 04/17/25 03:12 BUN 71 mg/dL (8-23) H 04/17/25 03:12 Creatinine 1.6 mg/dL (0.7-1.2) H 04/17/25 03:12 GFR Calculation Not Reportable 04/17/25 03:12 Glucose 106 mg/dL (65-115) 04/17/25 03:12 POC Glucose 96 mg/dL (70-110) 04/14/25 20:33 Estimat Average Glucose 134 04/03/25 14:04 Hemoglobin A1c 6.3 % (4.0-6.0) H 04/03/25 14:[address] [place] Not Reportable 04/04/25 13:30 Calculated Osmolality 317 mOsm/kg (285-295) H 04/17/25 03:12 Lactic Acid 10.1 mmol/L (0.5-2.2) H* 04/05/25 11:08 Lactic Acid (Sepsis) 3.2 mmol/L (0.5-2.2) H 04/05/25 14:08 Lactate 1.4 mmol/L (0.5-2.2) 04/08/25 02:21 Uric Acid 11.0 mg/dL (3.4-7.0) H 04/04/25 06:36 Calcium 8.6 mg/dL (8.5-10.5) 04/17/25 03:12 Phosphorus 2.2 mg/dL (2.5-4.5) L 04/17/25 03:12 Magnesium 2.1 mg/dL (1.7-2.3) 04/17/25 03:12 Iron 35 ug/dL (59-158) L 04/05/25 04:27 TIBC 237 mcg/dl 04/05/25 04:27 % Saturation 14.7 % (20-50) L 04/05/25 04:27 Unsat Iron Binding 202 ug/dL (112-347) 04/05/25 04:27 Ferritin 296 ng/mL (30-400) 04/05/25 04:27 Total Bilirubin 0.7 mg/dL (0.15-1.2) 04/14/25 04:27 GGT 96 U/L (8-61) H 04/03/25 14:04 AST 27 U/L (0-40) 04/14/25 04:27 ALT 46 U/L (0-41) H 04/14/25 04:27 Alkaline Phosphatase 106 U/L (40-130) 04/14/25 04:27 Ammonia 48 umol/L (16-60) 04/05/25 04:27 Lactate Dehydrogenase 236 U/L (135-225) H 04/04/25 11:19 Creatine Kinase 91 U/L (39-308) 04/08/25 02:21 Troponin T Baseline 143 ng/L (0-15) H* 04/05/25 11:08 Troponin T 120 Minute 133.0 ng/L (0-15) H 04/05/25 13:16 Delta Troponin T -10.0 ABS# (0-10) L 04/05/25 13:16 Troponin T Hi Sens 6Hr 171.1 ng/L (0-15) H 04/05/25 17:22 Troponin T Hi Sens 6Hr Delta 28.1 ng/L (0-12) H* 04/05/25 17:22 C-Reactive Protein 59.8 mg/L (0.0-4.9) H 04/13/25 04:46 NT-Pro-B Natriuret Pep 15534 pg/mL (0-450) H 04/17/25 03:12 Total Protein 6.0 g/dL (6.6-8.7) L 04/14/25 04:27 Albumin 3.0 g/dL (3.5-5.2) L 04/14/25 04:27 Globulin 3.0 g/dL (1.3-4.6) 04/14/25 04:27 Sfsud-4-Hnekuoxiz 0.4 g/dL (0.2-0.3) H 04/04/25 11:19 Ffhif-5-Cruhoffcb 0.6 g/dL (0.5-0.9) 04/04/25 11:19 Ylvb-9-Mtdzbmbk 0.3 g/dL (0.4-0.6) L 04/04/25 11:19 Hzum-6-Klwgwmev 0.3 g/dL (0.2-0.5) 04/04/25 11:19 Gamma Globulins 1.0 g/dL (0.8-1.7) 04/04/25 11:19 Abnorm Protein Band 1 Not Reportable 04/04/25 11:19 Lipase 27 U/L (13-60) 04/03/25 14:04 25-OH Vitamin D Total 31 ng/mL (30-100) 04/05/25 10:02 1,25 Dihydroxy Vit D2 <8 pg/mL 04/04/25 11:19 1,25 Dihydroxy Vit D3 13 pg/mL 04/04/25 11:19 Procalcitonin 0.20 ng/mL (0-0.5) 04/13/25 04:46 TSH 1.38 uIU/mL (0.27-4.20) 04/03/25 15:50 PTH Intact 147.7 pg/mL (15-65) H 04/05/25 09:05 Calcium (PTH Intact) 8.7 mg/dL (8.5-10.5) 04/05/25 09:05 Urine Color Yellow (Yellow) 04/13/25 16:37 Urine Appearance Turbid (CLEAR) A 04/13/25 16:37 Urine pH 5.5 (5-7) 04/13/25 16:[address] [place] 1.015 (1.005-1.030) 04/13/25 16:37 Urine Protein 2+ (Negative) A 04/13/25 16:37 Urine Glucose (UA) Negative (Normal) 04/13/25 16:37 Urine Ketones Negative (Negative) 04/13/25 16:37 Urine Blood 2+ (Negative) A 04/13/25 16:37 Urine Nitrate Negative (Negative) 04/13/25 16:37 Urine Bilirubin Negative (Negative) 04/13/25 16:37 Urine Urobilinogen 0.2 mg/dL (Negative) 04/13/25 16:37 Ur Leukocyte Esterase Negative (Negative) 04/13/25 16:37 Urine RBC 11-20 /hpf (0-2) H 04/13/25 16:37 Urine WBC 0-4 /hpf (0-5) H 04/13/25 16:37 Ur Squamous Epith Cells 0-4 /hpf (0-5) H 04/13/25 16:37 Uric Acid Crystals 25-40 /hpf H 04/13/25 16:37 Amorphous Sediment Not Reportable 04/13/25 16:37 Urine Bacteria None /hpf (NONE) 04/13/25 16:37 Hyaline Casts 17.3 /lpf 04/13/25 16:37 Urine Sperm 1+ /hpf 04/04/25 13:30 Ur Random Microalbumin 17 ug/dL (0-20) 04/04/25 13:30 U Random Total Protein 28 mg/dL 04/04/25 13:30 Ur Random Sodium 61 mmol/L 04/04/25 13:30 Ur Random Potassium 47 mmol/L 04/04/25 13:30 Ur Random Chloride 73 mmol/L 04/04/25 13:30 Urine Creatinine 46 mg/dL (39-259) 04/04/25 13:30 Urine Creatinine 46 mg/dL (39-259) 04/04/25 13:30 Microalb/Creat Ratio 370 mg/dL (0-20) H 04/04/25 13:30 U Abnormal Prot Band 2 Not Reportable 04/04/25 11:19 U Abnormal Prot Band 3 Not Reportable 04/04/25 11:19 Urine Oxidant Negative mcg/mL (<200) 04/04/25 13:30 Urine Ethylene Glycol <10.0 mcg/mL (<10.0) 04/04/25 13:30 Vancomycin Trough 15.6 ug/mL (10-15) H 04/13/25 04:46 Random Vancomycin 15.5 ug/mL (20.0-40.0) L 04/12/25 05:19 Salicylates < 0.3 mg/dL (3-10) L 04/04/25 06:36 Urine Opiates Screen Negative ng/mL (Negative) 04/04/25 13:30 Urine Opiates Level Negative ng/mL (<100) 04/04/25 13:30 Urine Oxycodone Negative ng/mL (<100) 04/04/25 13:30 U Methadone Metabolites Negative ng/mL (<100) 04/04/25 13:30 Barbiturates Negative ng/mL (<300) 04/04/25 13:30 Ur Barbiturates Screen Negative ng/mL (Negative) 04/04/25 13:30 Phencyclidine (PCP) Negative ng/mL (<25) 04/04/25 13:30 Ur Phencyclidine Scrn Negative ng/mL (Negative) 04/04/25 13:30 Amphetamines Negative ng/mL (<500) 04/04/25 13:30 Ur Amphetamines Screen Negative ng/mL (Negative) 04/04/25 13:30 Benzodiazepines Negative ng/mL (<100) 04/04/25 13:30 U Benzodiazepines Scrn Negative ng/mL (Negative) 04/04/25 13:30 Cocaine Metabolite Negative ng/mL (<150) 04/04/25 13:30 Urine Cocaine Screen Negative ng/mL (Negative) 04/04/25 13:30 U Marijuana (THC) Screen Negative ng/mL (Negative) 04/04/25 13:30 U Marijuana Metabolites Negative ng/mL (<20) 04/04/25 13:30 Abn Spec Valid Drug Scn Not Reportable 04/04/25 13:30 Urine Drug Screen Note See note 04/04/25 13:30 Ethylene Glycol <10.0 mg/L () 04/04/25 11:19 Serum Ketones Negative (Negative) 04/03/25 15:50 Pro Electrophoresis Int See note 04/04/25 11:19 Serum Immunofixation Normal pattern. 04/04/25 11:19 VEGA Screen Negative (NEGATIVE) 04/04/25 11:19 ANCA Screen Negative (NEGATIVE) 04/04/25 11:19 ANCA Titer Not Reportable 04/04/25 11:19 Anti-ds DNA IgG Ab <1 IU/mL 04/04/25 11:19 Glomerular Base Mem IgG <1.0 AI 04/04/25 11:19 Complement C3 97 mg/dL (90-180) 04/04/25 06:36 Complement C4 13 mg/dL (10-40) 04/04/25 06:36 Free [place] Light Chains 57.0 mg/L (3.3-19.4) H 04/04/25 11:19 Free [place] Light Chain 45.8 mg/L (5.7-26.3) H 04/04/25 11:19 Free [place]/Lambda Ratio 1.24 (0.26-1.65) 04/04/25 11:19 Hep Bs Antigen Non-reactive (Nonreactive) 04/04/25 11:19 Hep Bs Antibody 17.3 (11.5-1000) 04/04/25 11:19 Hep B Core Total Ab Non-reactive (Nonreactive) 04/04/25 11:19 Hepatitis C Antibody Non-reactive (Nonreactive) 04/04/25 11:19 Influenza A (PCR) Negative (Negative) 04/04/25 16:10 Influenza Type B (PCR) Negative (Negative) 04/04/25 16:10 RSV (PCR) Negative (Negative) 04/04/25 16:10 SARS-CoV-2 (PCR) Negative (Negative) 04/04/25 16:10 Vitals Last Vital Signs Temp 97.5 F L 04/17/25 11:49 Pulse 77 04/17/25 11:49 Resp 18 04/17/25 11:49 BP 104/60 04/17/25 11:49 Pulse Ox 96 04/17/25 11:49 O2 Del Method Room Air 04/17/25 11:49 O2 Flow Rate 2 04/14/25 15:12 FiO2 2 04/12/25 00:30 Discharge Plan Discharge Patient Disposition: Xfer SNF Condition: Stable Prescriptions: New amiodarone [Pacerone] 200 mg Tablet See Rx Instructions .ROUTE .COMPLEX Qty: 60 0RF Rx Instructions: 400mg(2tabs) bid for 5 days, 200mg(1tab) bid for 5 days, 200mg daily thereafter Eliquis 5 mg Tablet 2.5 mg PO BID@0900,2100 30 Days Qty: 30 0RF furosemide 40 mg Tablet 40 mg PO DAILY@0800 30 Days Qty: 30 0RF olanzapine 5 mg Tablet 2.5 mg PO Q12H 30 Days Qty: 30 0RF citalopram 20 mg Tablet 20 mg PO DAILY 30 Days Qty: 30 0RF magnesium oxide 400 mg (241.3 mg magnesium) Tablet 400 mg PO DAILY 30 Days Qty: 30 0RF metoprolol succinate 25 mg Tablet Extended Release 24 Hr 12.5 mg PO BID 30 Days Qty: 30 0RF Continued sennosides [senna] 8.6 mg tablet 17.2 mg PO BID acetaminophen [Tylenol] 325 mg Tablet 650 mg PO Q6H PRN (Reason: pain/temp) melatonin 3 mg Tablet 3 mg PO BEDTIME PRN (Reason: Insomnia) potassium chloride 20 mEq tablet,ER particles/crystals 20 meq PO DAILY tamsulosin 0.4 mg capsule 0.4 mg PO DAILY bisacodyl [Dulcolax (bisacodyl)] 10 mg Suppository 10 mg NE DAILY PRN (Reason: Constipation) Rx Instructions: iof no results from milk of magnesia. aspirin 81 mg tablet,chewable 81 mg PO QAM polyethylene glycol 3350 [Miralax] 17 gram/dose Powder 17 g PO DAILY cyclobenzaprine 5 mg tablet 5 mg PO TID PRN (Reason: Spasms) Discontinued carvedilol 3.125 mg tablet 3.125 mg PO BID bumetanide 1 mg Tablet 1 mg PO DAILY Discharge Order = DC NOW: Discharge Order (Routine); Ordered 04/17/25 Ordered By: Kenny Sin Referrals: [facility] [Outside] Tigre Peña M.D [Physician, Cardiology] - 1-3 days Referral Note: We have notified your physician's clinic of the need for a follow-up appointment to be scheduled. If you have not heard from them within the next 2 business days, please call them directly. Discharge Diet: Cardiac Discharge Activity: Resume usual activity Patient Instructions: Opioid Safety, Patient Portal & Val[place]io Instructions Activity Restrictions/Additional Instructions: - Please repeat hemoglobin in 48 hours - Recheck potassium and creatinine in 48 hours - Follow-up with cardiology Discharge Attestations Time Spent in Discharge Care*: greater than 30 min Quality Metrics Clinical Quality Measures [ No reported AMI, CVA or VTE this stay] Coding Level of Care Code 55650 Total time (in minutes) for Discharge: 45 Diagnoses Acute kidney injury N17.9
[2025-04-17 12:18] LABS: SARS Covid-2 Antigen Negative (Negative)
== END 2025-04-17 14:15 | disposition skilled nursing facility (03) | DRG 280 ==
LOC: ER 16:46 → ER IP 17:17 → CSU 19:01 → ICU 04-04 10:01 → MEDSURG 04-15 15:27
PROVIDERS: Internal Medicine; Internal Medicine Nephrology; Admitting Provider Family Medicine; Emergency Provider Emergency Medicine; Visit Provider Family Medicine
PROC: B211YZZ Fluoroscopy of Multiple Coronary Arteries using Other Contrast (ICD-10-PCS; principal; 2025-04-09 11:30)
DX: I21.4 Non-ST elevation (NSTEMI) myocardial infarction (principal); A41.9 Sepsis, unspecified organism; G93.41 Metabolic encephalopathy; R65.21 Severe sepsis with septic shock; J96.01 Acute respiratory failure with hypoxia; J18.9 Pneumonia, unspecified organism; R57.0 Cardiogenic shock; I46.9 Cardiac arrest, cause unspecified; I49.01 Ventricular fibrillation; I50.23 Acute on chronic systolic (congestive) heart failure; N17.9 Acute kidney failure, unspecified; E87.20 Acidosis, unspecified; I42.8 Other cardiomyopathies; I73.9 Peripheral vascular disease, unspecified; N40.0 Benign prostatic hyperplasia without lower urinary tract symptoms; G89.29 Other chronic pain; M54.9 Dorsalgia, unspecified; F43.10 Post-traumatic stress disorder, unspecified; E83.42 Hypomagnesemia; I27.20 Pulmonary hypertension, unspecified; R74.8 Abnormal levels of other serum enzymes; E87.5 Hyperkalemia; E86.0 Dehydration; I48.91 Unspecified atrial fibrillation; Z66 Do not resuscitate
CPT/HCPCS: 36415; 36416; 36573; 36592; 36600; 51702; 70450; 71045; 71250; 74018; 74176; 76604; 76770; 80048; 80051; 80053; 80202; 80306; 80307; 81001; 82009; 82044; 82140; 82306; 82310; 82330; 82436; 82550; 82570; 82652; 82693; 82728; 82803; 82805; 82962; 82977; 83010; 83036; 83520; 83540; 83550; 83605; 83615; 83690; 83735; 83880; 83883; 83970; 84100; 84133; 84145; 84155; 84156; 84165; 84300; 84443; 84484; 84550; 85025; 85045; 85610; 85730; 86036; 86038; 86140; 86160; 86225; 86334; 86705; 86706; 86803; 87040; 87070; 87086; 87205; 87340; 87426; 87637; 92507; 92523; 92526; 92610; 93005; 93306; 93308; 93460; 93970; 94003; 94640; 94660; 94664; 94669; 94799; 96365; 96366; 96372; 96374; 96375; 96376; 97110; 97162; 97166; 97530; 97535; 99285; 99291; A4222; A9270; C1751; C1760; C1769; C1887; C1894; G0269; J0283; J0330; J0456; J0612; J0696; J1250; J1644; J1650; J1815; J1938; J2185; J2250; J2270; J2405; J2470; J2704; J3010; J3370; J3475; J3480; J3490; J7030; J7050; J7070; J7608; J7799; J9999; Q3014; Q9967

== ENCOUNTER 2025-04-18 11:03 | Emergency (ER) | payer OTHER, MEDICARE, SELFPAY ==
--- OUTSIDE RECORDS SUMMARY | 2025-04-15 09:51 | XMS_ITS | Encounter Summary ---
Author Name [facility] Organization [facility] [place] Address [address] [place] [address] Support Name Relationship Address Phone FERDINAND FERNÁNDEZ Next of Kin [address] [place] [address] FERDINAND FERNÁNDEZ Emergency Contact [address] [place] [address] Insurance Providers: All historical and current Section Date Range: From patient's date of to the date document was created. This section includes the names of all active insurance providers for the patient. Insurance Provider Type of Coverage Plan Name Start of Policy Coverage End of Policy Coverage Group Number Member ID Insurance Provider's Telephone Number Policy Finch's Name Patient's Relationship to Policy Finch MEDICARE (WNR) MEDICARE (M) PART A Mar 10, 2012 PART A [id number] [phone] FRANC JACKSON PATIENT MEDICARE (WNR) MEDICARE (M) PART B Mar 10, 2012 PART B [id number] FRANC JACKSON PATIENT MEDICARE (WNR) MEDICARE (M) PART A Mar 10, 2012 PART A [id number] FRANC JACKSON PATIENT MEDICARE (WNR) MEDICARE (M) PART B Mar 10, 2012 PART B [id number] FRANC JACKSON PATIENT MEDICARE (WNR) MEDICARE (M) PART B Mar 10, 2012 PART B [id number] [phone] FRANC JACKSON PATIENT MEDICARE (WNR) MEDICARE (M) PART A Mar 10, 2012 PART A [id number] [phone] FRANC JACKSON PATIENT Selected Encounter This section includes the information on record at [place] for the Encounter. Date/Time Encounter Type Encounter Description Reason Pro vider Source Apr 15, 2025 02:51 PM Outpatient Encounter [facility] FOLLOW-UP IH Encounter Template Text not used by [place] Plan of Treatment: Future Appointments (+ 6 months) and Future Tests (+/- 45 days) The Plan of Treatment section includes future care activities for the patient from all [place] treatmentfacilities. This section includes future appointments and future orders which are active, pending or scheduled. Future Appointments This section includes appointments that were scheduled to occur 6 months from the date of the Encounter, up to a maximum of 20 appointments. The data comes from all [place] treatment facilities. Appointment Date/Time Appointment Type Appointme nt Facility Name Apr 16, 2025 08:00 AM AMBULATORY - MEDICINE [facility] Active, Pending, and Scheduled Orders This section includes a listing of several types of active, pending, and scheduled orders, including clinic medications orders, diagnostic test orders, procedure orders and consult orders; where the start date of the order is 45 days before the date of the Encounter or 45 days after the date of theEncounter. The data comes from all [facility] facilities. Test Date/Time Test Type Test Details Facility Name Apr 09, 2025 09:33 AM Consult Order [facility] CONTRACT [id number] Cons Certified Credit Counselor's Choice [facility] Apr 18, 2025 08:59 AM Consult [id number] Cons Certified Credit Counselor's Choice [facility] Encounter Notes: All associated encounter notes This section contains the clinical notes associated to the Encounter. Date/Time Encounter Note(s) Provider Source Apr 15, 2025 02:51 PM [facility] NOTE: LOCAL TITLE: [facility] PLAN OF CARE NOTE PB STANDARD TITLE: [facility] NOTE DATE OF NOTE: APR 15, 2025@14:51 ENTRY DATE: APR 15, 2025@14:51:44 AUTHOR: ARIES LYON EXP COSIGNER: URGENCY: STATUS: COMPLETED Type of Service: [facility] New plan of care. Name: ASHLEE JACKSON : Mar [place]%: Service Connected: Yes (90%) Admission DX: encephalopathy Accepting Facility: [facility] Date of Admission: Apr Bowie scheduled to admit to intermediate school teacher care on 04/16/25. _Veteran and care team will update plan of care to reflect current care needs and preferences for care. _Veteran will be seen by in house physician one time per month. _[facility] team will provide oversight of care. Goals: _Veteran will be treated with respect and dignity. _Veteran will have autonomy in decision making processes. _Veteran will receive skilled care in a intermediate school teacher setting. /chavo/ ARIES LYON DATA ENTRY ANALYST Signed: 04/15/2025 14:54 ARIES LYON [facility]
--- OUTSIDE RECORDS SUMMARY | 2025-04-18 06:08 | XMS_ITS | Continuity of Care Document ---
Author Name [facility] Organization [facility] Care Team Providers Care Follow Up Clerk Name Role Phone [facility] Unavailable Unavailable Problems Combined list of problems from [facility] and [facility] facilities. It does not include entries that were removed or entered in error. Problem Status Onset Date Problem Type Date of Resolution Comments Source Arthritis * (ICD-9-CM 716.90) Active Condition [facility] Bladder Neck Obstruction (ICD-9-CM 596.0) Active Condition [facility] Essential hypertension (SNOMED CT 14174550) Active Condition [facility] Hyperlipidemia (SNOMED CT 16753020) Active Condition [facility] HYPERSOM W FELT HANGER APNEA NOS Active Condition [facility] Low back pain Active Condition [facility] Obesity * (ICD-9-CM 278.00) Active Condition [facility] Obstructive sleep apnea of adult (SNOMED CT 1519380895981) Active Condition [facility] Diagnosis: ICD-10-CM Z71.89 Other specified counseling Active Diagnosis [place] [facility] Medications Combined list of outpatient medications from [facility] and [facility] facilities.Medications provided include 1) outpatient medications from the last 15 months, and 2) patient-reported medications. Medication Details Route Status Patient Instructions Prescription Expires Prescription Number Last Dispense Date Ordering Provider Order Date Order Qty Source ASPIRIN 81MG TAB,CHEWABL E CHEW TWO TABLETS BY MOUTH EVERY MORNING ORAL ACTIVE BROCK [place] 2011 [facility] NON-VA MED NO REPORTED USE MISCELLANEO ACTIVE LENCHO ZIEGLER 2007 [facility] Allergies, Adverse Reactions, Alerts Combined list of allergies from [facility] facilities. It does not include entries that were removed or entered in error. Substance Category Reaction Severity Reaction type Status Date Reported Comments Source CODINE Propensity to adverse reactions to drug (finding) Anxiety active 05/01/2008 [facility] PENICILLIN Propensity to adverse reactions to drug (finding) Eruption active 08/08/2008 [facility] Immunizations Combined list of available immunizations from the Department of Defense and Veterans Affairs facilities. Immunization Series Date Given Administered By Site Reaction Lot Number CVX Code Drug Metal Dealer Status Comments Source INFLUENZA, UNSPECIFIED FORMULATION 2011 88 complet ed [facility] INFLUENZA (HISTORICAL) 2010 88 complet ed IM Right Deltoid [facility] TD(ADULT) UNSPECIFIED FORMULATION 2007 NONE 139 complet ed Completed Series, [facility] Encounters Combined list of: 1) Encounters from Department of Veterans Affairs facilities going backup to the last 18 months, not all [place] inpatient encounters are included; 2) Encounters from the Department of [facility] facilities going backup to 280 months. Location Location Details Encounter Type Encounter Number Reason For Visit Attending Provider ADM Date DC Date Status Disposition Source [place] [id number] ASSMT&MGMT NQHP 5-10 [id number] Diagnos is: ICD-10- CM Z71.89 Other specifi ed loan counselor ing BEHZAD LYON 03/19 [facility] [place] Outpatient Encounter [id number] GLENN CASILLAS 03/19 [facility] Outpatient Encounter [id number] NESHA DUNBAR 03/21 [facility] En[facility] [id number] 04/01 [facility] ASS[facility]&MGMT NQHP 5-10 [id number] Diagnos is: ICD-10- CM Z71.89 Other specifi ed loan counselor ing BEHZAD LYON 04/05 [facility] Outpatient Encounter [id number] ERICK MELENDEZ 04/05 [facility] Outpatient Encounter [id number] 04/15 [facility] Social History Combined list of available smoking, tobacco, and other social history from Department of Defense and Veterans Affairs facilities. 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 Additional future care activities may be listed in the Assessment and Plan section. Date/Time Care Activity Care Activity Detail Facili ty 04/09/2025 Consult Order [facility] [id number] Cons Electrolysis Operator's Choice [facility]
[2025-04-18 11:04] VITALS: BP 102/64; PULSE 66; RESP 18; TEMP 36.9; O2SAT 95; BMI 20.7
--- NOTE | 2025-04-18 11:10 | XR_ITS ---
WS: [id number] Exam: XR chest 1V portable [id number] Date/Time of Exam: 04/18/2025 11:10 AM Reason For Exam: Weakness Comparison 04/11/2025. There is cardiac enlargement. There is increased density in the LEFT retrocardiac region suggesting LEFT lower lobe infiltrate. Remaining lung [place] are clear. No pneumothorax. No pleural effusion. The mediastinum is normal in contour. Bony structures are intact. XR/XR chest 1V portable [id number] IMPRESSION: 1. Cardiac enlargement unchanged. 2. Increased density in the LEFT retrocardiac region suggesting infiltrate and atelectasis in the LEFT lower lobe.
--- NOTE | 2025-04-18 11:14 | ECG_ITS ---
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 Measurements Intervals Railroad Rate: 78 P: 0 HI: 0 QRS: -57 QRSD: 149 T: 75 QT: 501 QTc: 574 Interpretive Statements ATRIAL FIBRILLATION WITH ABERRANT CONDUCTION OR VENTRICULAR PREMATURE COMPLEXES LEFT AXIS DEVIATION [QRS AXIS < -30] INTRAVENTRICULAR CONDUCTION DELAY [130+ ms QRS DURATION] Compared to ECG 04/05/2025 17:36:47 Left-axis deviation now present Myocardial infarct finding no longer present Electronically Signed On 04-19-2025 15:22:18 CDT by Alexis Riojas M.D. [email or web address]
--- OUTSIDE RECORDS SUMMARY | 2025-04-18 11:22 | XMS_ITS | Clinical Summary ---
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 Operator Name Role Phone Unavailable Primary Care Provider [...] Active Active Problems No known active problems Encounters Date Type Department Care Team Description 04/09/2025 External Device Data [facility] ABSTRACTION Provider, Abstract 04/09/2025 External Device Data [facility] ABSTRACTION Provider, Abstract 04/09/2025 External Device Data [facility] ABSTRACTION Provider, Abstract 03/19/2025 12:15 AM CDT - 03/19/2025 11:59 PM CDT Hospital Encounter [facility] [address] [place] [address] Ambulance, [facility] Discharge Disposition: [facility] 03/11/2025 8:45 AM CDT - 03/11/2025 11:59 PM CDT Hospital Encounter [facility] [address] [place] [address] Ambulance, [facility] Discharge Disposition: [facility] from Last 3 Months Social History Tobacco Use Types Packs/Day Years Used Date Smoking Tobacco: Former Cigarettes Tobacco Cessation:Counseling Given: Not Answered Sex and Gender Information Value Date Recorded Sex Assigned at Not on file Legal 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
[2025-04-18 11:26] LABS: Hematocrit 39.2 % (37-53); Hemoglobin 12.40 g/dL (11.27-16.99); Mean Corpuscular HGB Conc 31.6 g/dL (30-55); Mean Corpuscular Hemoglobin 30.5 pg (27-33); Mean Corpuscular Volume 96.3 fl (82-101); Nucleated Red Blood Cells % 0 %; Platelet Count 257 10^3/cmm (157-399); Red Blood Count 4.07 10^6/uL (3.85-5.65); White Blood Count 8.79 10^3/uL (3.29-11.43)
[2025-04-18 11:32] LABS: Alanine Aminotransferase 16 U/L (0-41); Albumin Level 3.1 g/dL (3.5-5.2); Alkaline Phosphatase 106 U/L (40-130); Anion Gap 15.0 (5-19); Aspartate Amino Transferase 19 U/L (0-40); Blood Urea Nitrogen 57 mg/dL (8-23); Calcium 8.8 mg/dL (8.5-10.5); Carbon Dioxide 31 mmol/L (22-29); Chloride 98 mmol/L (98-107); Creatinine Clr Calc Pharmacy 34.3539; Globulin 3.1 g/dL (1.3-4.6); Glucose 128 mg/dL (65-115); Osmolality Calculated 307 mOsm/kg (285-295); Potassium 4.0 mmol/L (3.5-5.1); Sodium 140 mmol/L (136-145); Total Protein 6.2 g/dL (6.6-8.7)
[2025-04-18 11:45] VITALS: BP 127/74; PULSE 68; O2SAT 94
[2025-04-18 12:13] VITALS: BP 119/69; PULSE 70; O2SAT 97
--- NOTE | 2025-04-18 12:13 | W.ED.AMS ---
HPI - Altered Mental Status General: Chief Complaint: Altered Mental Status Stated Complaint: ams - lethargic Time Seen by Provider: 04/18/25 11:07 History of Present Illness: 80-year-old man with a history of peripheral artery disease, BPH who presents emergency room from the custodial by ambulance with altered mental status. He just been discharged from the hospital yesterday to the custodial. Reading the discharge summary he was discharged to custodial. He was discussed in his discharge summary that he continues to have episodes of confusion, so this was known. On his arrival here he has no complaints. He is alert and oriented to person and place. He carries on a good conversation. He has no chest pain. He does not feel short of breath. Related Data Home Medications ?Medication ?Instructions ?Recorded ?Confirmed acetaminophen 325 mg tablet 650 mg PO Q6H PRN pain/temp 04/03/25 04/18/25 (Tylenol) aspirin 81 mg chewable tablet 81 mg PO QAM 04/03/25 04/18/25 bisacodyl 10 mg rectal suppository 10 mg NH DAILY PRN Constipation 04/03/25 04/18/25 (Dulcolax (bisacodyl)) cyclobenzaprine 5 mg tablet 5 mg PO TID PRN Spasms 04/03/25 04/18/25 melatonin 3 mg tablet 3 mg PO BEDTIME PRN Insomnia 04/03/25 04/18/25 potassium chloride 20 mEq 20 meq PO DAILY 04/03/25 04/18/25 tablet,extended release(part/cryst) sennosides 8.6 mg tablet (senna) 17.2 mg PO BID 04/03/25 04/18/25 tamsulosin 0.4 mg capsule 0.4 mg PO DAILY 04/03/25 04/18/25 polyethylene glycol 3350 17 4 g PO DAILY 04/18/25 04/18/25 gram/dose oral powder (ClearLax) Previous Rx's ?Medication ?Instructions ?Recorded amiodarone 200 mg tablet (Pacerone) See Rx Instructions .Route 04/17/25 .COMPLEX #60 tabs apixaban 5 mg tablet (Eliquis) 2.5 mg (1/2 x 5 mg) PO 04/17/25 BID@0900,2100 30 days #30 tabs citalopram 20 mg tablet 20 mg PO DAILY 30 days #30 tabs 04/17/25 furosemide 40 mg tablet 40 mg PO DAILY@0800 30 days #30 04/17/25 tabs magnesium oxide 400 mg (241.3 mg 400 mg PO DAILY 30 days #30 tabs 04/17/25 magnesium) tablet metoprolol succinate 25 mg 12.5 mg (1/2 x 25 mg) PO BID 30 04/17/25 tablet,extended release 24 hr days #30 tabs olanzapine 5 mg tablet 2.5 mg (1/2 x 5 mg) PO Q12H 30 04/17/25 days #30 tabs Allergies Allergy/AdvReac Type Severity Reaction Status Date / Time codeine Allergy rash Verified 04/04/23 09:24 Penicillins Allergy rash Verified 04/04/23 09:24 Review of Systems Narrative: Constitutional symptoms: Negative except as documented in HPI. Skin symptoms: Negative except as documented in HPI. Eye symptoms: Negative except as documented in HPI. ENMT symptoms: Negative except as documented in HPI. Respiratory symptoms: Negative except as documented in HPI. Cardiovascular symptoms: Negative except as documented in HPI. Gastrointestinal symptoms: Negative except as documented in HPI. Genitourinary symptoms: Negative except as documented in HPI. Musculoskeletal symptoms: Negative except as documented in HPI. Neurologic symptoms: Negative except as documented in HPI. Psychiatric symptoms: Negative except as documented in HPI. Endocrine symptoms: Negative except as documented in HPI. [facility] ED PFSH: Medical History (Updated 04/18/25 @ 14:47 by Ludy Atkinson MD) History of chronic kidney disease Physical Exam Narrative: General: Alert, no acute distress. Skin: Warm, dry. Head: Normocephalic, atraumatic. Neck: Supple, trachea midline. Eye: Extraocular movements are intact. Ears, nose, mouth and throat: mucosa moist. Cardiovascular: Regular, Normal peripheral perfusion. Respiratory: Lungs are clear to auscultation, respirations are non-labored, breath sounds are equal, Symmetrical chest wall expansion. Gastrointestinal: Soft, Nontender, Non distended Musculoskeletal: Normal ROM, no deformity. Neurological: Alert and oriented, No focal neurological deficit observed. Psychiatric: Cooperative, appropriate mood & affect. Course Vital Signs: Vital signs: Vital Signs Temperature 98.4 F 04/18/25 11:04 Pulse Rate 66 04/18/25 14:30 Respiratory Rate 18 04/18/25 11:04 Blood Pressure 105/63 04/18/25 14:30 Pulse Oximetry 96 04/18/25 14:30 Oxygen Delivery Me thod Room Air 04/18/25 14:30 MDM - Altered Mental Status Medical Decision Making Medical decision making: Differential diagnosis including but not limited to and based on the above HPI, review of systems and physical exam: In this patient with altered mental status: Stroke. Hypoglycemia. Metabolic encephalopathy. Infections such as pneumonia, urinary tract infection, Covid-19, Influenza. Electrolyte abnormalities such as hypernatremia. Renal failure / uremia. Hepatic encephalopathy. Hypoxemia. Hypercapnic respiratory failure. Psychosis. Drug or alcohol intoxication. Medication overdose. Orders placed to evaluate differential diagnosis based on the above differential, HPI and physical exam Chest x-ray: Cardiac enlargement unchanged. Read to have increased density in the left retrocardiac region that might suggest some infiltrate. This was reviewed and interpreted by myself the emergency room physician. I also reviewed the radiology report. CT of the chest without contrast: This was ordered to further evaluate abnormal chest x-ray. He does have moderate size left pleural effusion with compressive atelectasis and small right pleural effusion with atelectasis. Cardiac enlargement is unchanged. No evidence of pneumonia. This was reviewed and interpreted by myself the emergency room physician. I also reviewed the radiology report. Lab Review: Laboratory results were reviewed and interpreted by myself the emergency room physician. No leukocytosis. No anemia. BUN/creatinine are 57 and 1.7 which is at or below his baseline. Urinalysis is negative for infection. I reviewed the patient's medical record. As in HPI, patient was treated for altered mental status and continued to have some waxing and waning confusion that may be related to some dementia. I found no acute findings today. Reexamination: Patient remained stable. No increased work of breathing. No altered mental status. No focal motor deficits. I spoke with family and they agreed to send him back to the custodial. Assessment and plan: Encephalopathy - Discharged home - Discussed plan with patient. Answered any questions. - Evaluation and treatment of this problem were appropriate in the emergency setting. Lab Data 04/18/25 10:55 04/18/25 10:55 Radiology Impressions Chest X-Ray 04/18/25 11:10 IMPRESSION: 1. Cardiac enlargement unchanged. 2. Increased density in the LEFT retrocardiac region suggesting infiltrate and atelectasis in the LEFT lower lobe. Chest CT 04/18/25 12:14 IMPRESSION: 1. Moderate size LEFT basal pleural effusion with compressive atelectasis of the LEFT lower lobe. There is also small RIGHT basal pleural effusion with atelectasis of the posterior basal segment of the RIGHT lower lobe. 2. Cardiac enlargement unchanged. 3. Recent appearing anterior rib fractures involving the LEFT fourth and sixth ribs and the RIGHT fourth and fifth ribs. 4. Chronic findings in the visualized upper abdomen. Laboratory Results WBC 8.79 10^3/uL (3.29-11.43) 04/18/25 10:55 RBC 4.07 10^6/uL (3.85-5.65) 04/18/25 10:55 Hgb 12.40 g/dL (11.27-16.99) 04/18/25 10:55 Hct 39.2 % (37-53) 04/18/25 10:55 MCV 96.3 fl (82-101) 04/18/25 10:55 MCH 30.5 pg (27-33) 04/18/25 10:55 MCHC 31.6 g/dL (30-55) 04/18/25 10:55 RDW 14.2 % (12.1-15.1) 04/18/25 10:55 Plt Count 257 10^3/cmm (157-399) 04/18/25 10:55 MPV 12.0 fL (7.4-10.4) H 04/18/25 10:55 Neut % (Auto) 81.1 % 04/18/25 10:55 Lymph % (Auto) 11.4 % 04/18/25 10:55 Jessamine % (Auto) 6.0 % 04/18/25 10:55 Eos % (Auto) 1.0 % 04/18/25 10:55 Baso % (Auto) 0.2 % 04/18/25 10:55 Neut # (Auto) 7.12 10^3/uL (1.8-7.7) 04/18/25 10:55 Lymph # (Auto) 1.0 10^3/uL (0.8-4.8) 04/18/25 10:55 Jessamine # (Auto) 0.5 10^3/uL (0.2-0.9) 04/18/25 10:55 Eos # (Auto) 0.1 10^3/uL (0.0-0.8) 04/18/25 10:55 Baso # (Auto) 0.0 10^3/uL (0.0-0.1) 04/18/25 10:55 Nucleated RBC % (auto) 0 % 04/18/25 10:55 Nucleated RBCs # 0.0 /100WBC 04/18/25 10:55 Sodium 140 mmol/L (136-145) 04/18/25 10:55 Potassium 4.0 mmol/L (3.5-5.1) 04/18/25 10:55 Chloride 98 mmol/L (98-107) 04/18/25 10:55 Carbon Dioxide 31 mmol/L (22-29) H 04/18/25 10:55 Anion Gap 15.0 (5-19) 04/18/25 10:55 BUN 57 mg/dL (8-23) H 04/18/25 10:55 Creatinine 1.7 mg/dL (0.7-1.2) H 04/18/25 10:55 GFR Calculation Not Reportable 04/18/25 10:55 Glucose 128 mg/dL (65-115) H 04/18/25 10:55 Calculated Osmolality 307 mOsm/kg (285-295) H 04/18/25 10:55 Calcium 8.8 mg/dL (8.5-10.5) 04/18/25 10:55 Total Bilirubin 1.1 mg/dL (0.15-1.2) 04/18/25 10:55 AST 19 U/L (0-40) 04/18/25 10:55 ALT 16 U/L (0-41) 04/18/25 10:55 Alkaline Phosphatase 106 U/L (40-130) 04/18/25 10:55 Total Protein 6.2 g/dL (6.6-8.7) L 04/18/25 10:55 Albumin 3.1 g/dL (3.5-5.2) L 04/18/25 10:55 Globulin 3.1 g/dL (1.3-4.6) 04/18/25 10:55 Urine Color Yellow (Yellow) 04/18/25 14:30 Urine Appearance Clear (CLEAR) 04/18/25 14:30 Urine pH 7.5 (5-7) 04/18/25 14:30 Ur Specific Catlin 1.014 (1.005-1.030) 04/18/25 14:30 Urine Protein 2+ (Negative) A 04/18/25 14:30 Urine Glucose (UA) Negative (Normal) 04/18/25 14:30 Urine Ketones Negative (Negative) 04/18/25 14:30 Urine Blood Negative (Negative) 04/18/25 14:30 Urine Nitrate Negative (Negative) 04/18/25 14:30 Urine Bilirubin Negative (Negative) 04/18/25 14:30 Urine Urobilinogen 1.0 mg/dL (Negative) 04/18/25 14:30 Ur Leukocyte Esterase Negative (Negative) 04/18/25 14:30 Urine RBC 0-2 /hpf (0-2) 04/18/25 14:30 Urine WBC 0-5 /hpf (0-5) 04/18/25 14:30 Ur Squamous Epith Cells 0-5 /hpf (0-5) 04/18/25 14:30 Amorphous Sediment Not Reportable 04/18/25 14:30 Urine Bacteria None seen /hpf (NONE) 04/18/25 14:30 Hyaline Casts 10.73 /lpf 04/18/25 14:30 All radiology interpretation(s) finalized by discharge Discharge Plan Discharge Patient Disposition: Home Clinical Impression: Encephalopathy Condition: Stable Prescriptions: No Action sennosides [senna] 8.6 mg tablet 17.2 mg PO BID acetaminophen [Tylenol] 325 mg Tablet 650 mg PO Q6H PRN (Reason: pain/temp) melatonin 3 mg Tablet 3 mg PO BEDTIME PRN (Reason: Insomnia) potassium chloride 20 mEq tablet,ER particles/crystals 20 meq PO DAILY tamsulosin 0.4 mg capsule 0.4 mg PO DAILY bisacodyl [Dulcolax (bisacodyl)] 10 mg Suppository 10 mg NH DAILY PRN (Reason: Constipation) Rx Instructions: iof no results from milk of magnesia. aspirin 81 mg tablet,chewable 81 mg PO QAM cyclobenzaprine 5 mg tablet 5 mg PO TID PRN (Reason: Spasms) amiodarone [Pacerone] 200 mg Tablet See Rx Instructions .ROUTE .COMPLEX Qty: 60 0RF Rx Instructions: 400mg(2tabs) bid for 5 days, 200mg(1tab) bid for 5 days, 200mg daily thereafter Eliquis 5 mg Tablet 2.5 mg PO BID@0900,2100 30 Days Qty: 30 0RF furosemide 40 mg Tablet 40 mg PO DAILY@0800 30 Days Qty: 30 0RF olanzapine 5 mg Tablet 2.5 mg PO Q12H 30 Days Qty: 30 0RF citalopram 20 mg Tablet 20 mg PO DAILY 30 Days Qty: 30 0RF magnesium oxide 400 mg (241.3 mg magnesium) Tablet 400 mg PO DAILY 30 Days Qty: 30 0RF metoprolol succinate 25 mg Tablet Extended Release 24 Hr 12.5 mg PO BID 30 Days Qty: 30 0RF polyethylene glycol 3350 [ClearLax] 17 gram/dose Powder 4 g PO DAILY Discharge Orders: Discharge ED (Routine); Ordered 04/18/25 Ordered By: Ludy Atkinson Discharge Diet: Usual diet Discharge Activity: Increase activity as tolerated Patient Instructions: Altered Mental Status (ED), Opioid Safety, Pain Management, Patient Portal & Valerio Instructions Activity Restrictions/Additional Instructions: Thank you for choosing [facility] for your healthcare needs today. You have been screened and evaluated and felt safe for discharge. Health conditions do change or evolve sometimes and as such it is important that you follow up with your Primary Doctor to be re checked, 3-5 days is a general good time frame for follow up. You are always welcome to return to the ED for re assessment if your symptoms are worsening or you have new concerns Print Language: Setswana Coding Level of Care Code ED Massage Therapist for Sup[employer]
--- NOTE | 2025-04-18 12:13 | PC.NURSE ---
Straight cath performed, during procedure this nurse explained procedure, pt states Shut up you're tellign me nothing I want to here and no one will tell me what I want to know During straight cath pt stated to ADVANCED MANAGER I'm going to pop you damn it that hurts ADVANCED MANAGER left catheter in for urine sample, after recheck no urine was collecting. Will reattempt later.
--- NOTE | 2025-04-18 12:14 | CT_ITS ---
WS: [email or web address] Exam: CT chest wo con [id number] Date/Time of Exam: 04/18/2025 12:53 PM Reason For Exam: abnormal chest xray DLP: 419.[address] scans at [facility] use at least one of these dose optimization techniques: automated exposure control; mA and/or kV adjustment per patient size (includes targeted exams where dose is matched to clinical indication); or iterative reconstruction. Comparison 04/08/2025. Moderate size LEFT basal pleural effusion is noted with compressive atelectasis of the LEFT lower lobe. There is also small RIGHT basal pleural effusion with atelectasis of the posterior basal segment of the RIGHT lower lobe. Remaining lung [place] are clear. The heart is enlarged. Prominent LEFT atrial chamber noted. Coronary artery calcifications. No pericardial effusion. The airways patent. No mediastinal lymphadenopathy. The thoracic aorta is normal in caliber. Recent appearing fractures of the anterior LEFT fourth and sixth ribs and probably the anterior RIGHT fourth and fifth ribs. CT sections of the abdomen demonstrate multiple cysts in the RIGHT kidney with some cortical atrophy. There is also mild atrophic change of the LEFT kidney with several cysts. Probable milk of calcium in the gallbladder. CT/CT chest wo con [id number] IMPRESSION: 1. Moderate size LEFT basal pleural effusion with compressive atelectasis of th e LEFT lower lobe. There is also small RIGHT basal pleural effusion with atelec tasis of the posterior basal segment of the RIGHT lower lobe. 2. Cardiac enlargement unchanged. 3. Recent appearing anterior rib fractures involving the LEFT fourth and sixth ribs and the RIGHT fourth and fifth ribs. 4. Chronic findings in the visualized upper abdomen.
--- NOTE | 2025-04-18 12:20 | PC.NURSE ---
pt had 1liter of LR infused from EMS.
[2025-04-18 13:57] VITALS: BP 107/63; PULSE 75; O2SAT 96
--- NOTE | 2025-04-18 13:59 | PC.NURSE ---
attempted second straight cath by [email or web address], was unsuccessful. pt has since had an incontinent urine episode. pt bedding changed by hand bobbin cleaner.
[2025-04-18 14:30] VITALS: BP 105/63; PULSE 66; O2SAT 96
--- NOTE | 2025-04-18 14:39 | PC.NURSE ---
finishing manager got urine on third straight cath attempt.
--- NOTE | 2025-04-18 14:42 | PC.NURSE ---
pt iv fluids ordered on hold per Dr. Atkinson.
[2025-04-18 14:43] LABS: Glucose Urine UA Negative (Normal); Nitrate Urine Negative (Negative); Specific Gravity, Urine 1.014 (1.005-1.030)
[2025-04-18 15:39] VITALS: BP 102/63; PULSE 75; O2SAT 97
== END 2025-04-18 15:41 | disposition home or self-care (01) ==
PROVIDERS: Emergency Provider Emergency Medicine
DX: G93.40 Encephalopathy, unspecified (principal); N18.9 Chronic kidney disease, unspecified; I73.9 Peripheral vascular disease, unspecified; Z79.899 Other long term (current) drug therapy; Z79.82 Long term (current) use of aspirin; Z88.5 Allergy status to narcotic agent; Z88.0 Allergy status to penicillin
CPT/HCPCS: 36415; 71045; 71250; 80053; 81001; 85025; 87040; 93005; 99285

== ENCOUNTER → 2025-04-25 08:16 | Outpatient (BNVA) | payer OTHER, SELFPAY | PROVIDERS: Visit Provider Nurse Practitioner Family | DX: I50.20 Unspecified systolic (congestive) heart failure (principal); Z09 Encounter for follow-up examination after completed treatment for conditions other than malignant neoplasm; Z79.01 Long term (current) use of anticoagulants; Z79.82 Long term (current) use of aspirin | CPT/HCPCS: 99213 ==